=== PATIENT | male | born 1985 | race Hispanic/Latino ===

== ENCOUNTER 2017-12-14 20:41 | Emergency (ER) | payer BC ==
[2017-12-14] MEDS ORDERED: NA CHLORIDE 0.9% 1,000 ML ONE (21:59)
[2017-12-14] MEDS ORDERED: FENTANYL CITR 100 MCG/2 ML ONE ×2 (21:59→23:55)
[2017-12-14 22:21] LABS: Bicarbonate 28 mEq/L (21-31); Glucose Level 123 mg/dL (65-120); Lipase 69 U/L (22-51); Potassium 3.6 mEq/L (3.6-5.0); Sodium Level 135 mEq/L (135-145)
[2017-12-14 22:24] LABS: Absolute Lymphocytes (CBC) 3.9 K/uL (0.7-4.9); Absolute Monocytes 1.2 K/uL (0.1-1.3); Absolute Neutrophil 9.3 K/uL (1.8-8.0); Basophils % 0.7 % (0-1.3); Eosinophils % 1.1 % (0-4.4); Hematocrit 47.6 % (39.6-49.0); Lymphocytes % 26.5 % (15.3-44.8); MCH 30.9 pg (27.0-35.0); MCV 90.7 fL (80-100); MPV 8.4 fL (7.6-11.3); Monocytes % 8.1 % (3.3-12.3); RBC Red Blood Cell Count 5.24 M/uL (4.33-5.43)
[2017-12-14 22:28] LABS: ALT/SGPT 158 IU/L (10-60); AST/SGOT 141 IU/L (10-42); Albumin 5.6 g/dL (3.2-5.5); Alkaline Phosphatase 51 IU/L (42-121); BUN Blood Urea Nitrogen 14 mg/dL (6-20); Bilirubin Direct 0.1 mg/dL (0-0.2); Bilirubin Total 0.9 mg/dL (0.3-1.2); Protein, Total 9.2 g/dL (6.0-8.3)
[2017-12-14 23:06] LABS: Urine Blood TRACE (NEG); Urine Glucose NEGATIVE (NEG); Urine Protein 2+ (NEG); Urine Specific Gravity 1.025 (1.005-1.030); Urine pH 6.5 (5.0-7.0)
[2017-12-14 23:44] LABS: Urine Bacteria <20 /HPF (NONE SEEN); Urine Culture Reflex Order NOT NEEDED; Urine Mucus LIGHT /HPF (NONE SEEN); Urine RBC <5 /HPF (NONE SEEN)
[2017-12-14] MEDS ORDERED: FAMOTIDINE 20 MG/2 ML VIAL IV ONE (23:55)
[2017-12-15] MEDS ORDERED: HYDROCODONE/APAP 10/325 TAB ONE (00:53)
--- NOTE | 2017-12-15 00:59 | ER ---
Nurse's Notes [facility] Name: Micah Inman Age: 32 yrs Sex: Male : 1985 Arrival Date: 12/14/2017 Time: 20:44 Bed 27 Private MD: Diagnosis: Alcohol induced acute pancreatitis Presentation: 12/14 21:18 Presenting complaint: Patient states: epigastric pain with vomiting. pt with hx ak1 pancreatitis. Transition of care: patient was not received from another setting of care. Onset of symptoms was December 14, 2017. Initial Sepsis Screen: Does the patient meet any 2 criteria? No. Patient's initial sepsis screen is negative. Does the patient have a suspected source of infection? No. Patient's initial sepsis screen is negative. Care prior to arrival: None. 21:18 Method Of Arrival: Ambulatory ak1 21:18 Acuity: FUENTES 3 ak1 Triage Assessment: 21:20 General: Appears in no apparent distress. Behavior is calm, cooperative. Pain: ak1 Complains of pain in epigastric area. EENT: No signs and/or symptoms were reported regarding the EENT system. Neuro: No deficits noted. Cardiovascular: No deficits noted. Respiratory: No deficits noted. GI: Reports nausea, vomiting. : No signs and/or symptoms were reported regarding the genitourinary system. Derm: No signs and/or symptoms reported regarding the dermatologic system. Musculoskeletal: No signs and/or symptoms reported regarding the musculoskeletal system. Historical: - Allergies: 21:20 No Known Allergies; ak1 - Home Meds: 21:20 Ambien 10 mg Oral tab 1 tab nightly [Active]; lisinopril Oral [Active]; metoprolol ak1 tartrate 25 mg Oral tab 1 tab 2 times per day [Active]; Xanax 1 mg Oral tab 1 tab four times a day [Active]; Creon oral oral [Active]; - PMHx: 21:20 Anxiety; Hypertension; Pancreatitis; ak1 - PSHx: 21:20 right knee; ak1 - Immunization history:: Adult Immunizations unknown. - Social history:: Smoking status: Patient/guardian denies using tobacco. Screenin:45 Abuse screen: Denies threats or abuse. Denies injuries from another. Nutritional ed1 screening: No deficits noted. Tuberculosis screening: No symptoms or risk factors identified. Fall Risk None identified. Assessment: 21:44 Reassessment: Patient appears in no apparent distress at this time. No changes from ed1 previously documented assessment. Patient and/or family updated on plan of care and expected duration. Pain level reassessed. Patient is alert, oriented x 3, equal unlabored respirations, skin warm/dry/pink. Patient states symptoms have not improved. 22:52 Reassessment: Patient appears in no apparent distress at this time. No changes from ed1 previously documented assessment. Patient and/or family updated on plan of care and expected duration. Pain level reassessed. Patient is alert, oriented x 3, equal unlabored respirations, skin warm/dry/pink. Patient states symptoms have not improved. 23:59 Reassessment: Patient appears in no apparent distress at this time. Patient and/or ed1 family updated on plan of care and expected duration. Pain level reassessed. Patient is alert, oriented x 3, equal unlabored respirations, skin warm/dry/pink. Patient states symptoms have not improved. 12/15 01:38 GI: Bowel sounds present X 4 quads. mb3 Vital Signs: 12/14 21:22 BP 187 / 119; Pulse 75; Resp 16; Temp 97.8(TE); Pulse Ox 100% on R/A; Weight 103.42 kg ak1 (R); Height 6 ft. 0 in. (182.88 cm) (R); Pain 8/10; 21:44 BP 179 / 125; Pulse 70; Resp 17; Pulse Ox 100% on R/A; Pain 8/10; ed1 22:52 BP 117 / 112; Pulse 72; Resp 18; Pulse Ox 100% on R/A; Pain 7/10; ed1 23:59 BP 153 / 112; Pulse 72; Resp 17; Pulse Ox 99% on R/A; Pain 8/10; ed1 12/15 00:30 BP 165 / 98; Pulse 72; Resp 16; Pulse Ox 99% on R/A; Pain 4/10; ed1 12/14 21:22 Body Mass Index 30.92 (103.42 kg, 182.88 cm) ak ED Course: 12/14 20:44 Patient arrived in ED. al2 21:16 Doreen Corona LVN is Primary Nurse. ed1 21:19 Triage completed. ak1 21:19 Michael Bryan MD is Attending Physician. gs 21:22 Arm band placed on Patient placed in an exam room, on a stretcher, on pulse oximetry, ak1 Patient notified of wait time. 21:45 Patient has correct armband on for positive identification. ed1 23:38 CT Stone Protocol In Process Unspecified. EDMS 12/15 00:58 Talib Salcedo MD is Referral Physician. gs 01:38 No provider procedures requiring assistance completed. IV discontinued, intact, mb3 bleeding controlled, No redness/swelling at site. Pressure dressing applied. Administered Medications: 12/14 22:04 Drug: fentaNYL (PF) 50 mcg Route: IVP; Site: right antecubital; bb 22:53 Follow up: Response: No adverse reaction; Pain is unchanged, physician notified ed1 23:59 Follow up: Response: No adverse reaction; No change in condition ed1 22:04 Drug: NS 0.9% 1000 ml Route: IV; Rate: 1 bolus; Site: right antecubital; bb 22:53 Follow up: IV Status: Completed infusion; IV Intake: 1000ml ed1 23:59 Follow up: IV Status: Completed infusion; IV Intake: 1000ml ed1 23:58 Drug: fentaNYL (PF) 75 mcg Route: IVP; Site: right antecubital; ed1 12/15 01:40 Follow up: Response: No adverse reaction mb3 12/14 23:58 Drug: Pepcid 20 mg Route: IVP; Site: right antecubital; ed1 12/15 01:40 Follow up: Response: No adverse reaction mb3 01:03 Drug: [place] 10 mg-325 mg 1 tabs Route: PO; mb3 01:40 Follow up: Response: No adverse reaction mb3 Intake: 12/14 22:53 IV: 1000ml; Total: 1000ml. ed1 23:59 IV: 1000ml; Total: 2000ml. ed1 Outcome: 12/15 00:58 Discharge ordered by . gs 01:39 Discharged to home ambulatory. mb3 01:39 Condition: stable 01:39 Discharge instructions given to patient, Instructed on discharge instructions, follow up and referral plans. medication usage, Demonstrated understanding of instructions, follow-up care, medications, Prescriptions given X 3. 01:42 Patient left the ED. mb3 Signatures: Dispatcher [employer] EDIzzy Matthews RN RN bb Doreen Corona, PIANO PROFESSOR PIANO PROFESSOR ed1 Natalya Walden, RN RN ak1 Michael Bryan MD MD gs Love, Angelica al2 Barnett, Mark, RN RN mb3
--- NOTE | 2017-12-15 01:00 | EDPHYS ---
Physician Documentation [facility] Name: Micah Inman Age: 32 yrs Sex: Male : 1985 Arrival Date: 12/14/2017 Time: 20:44 Bed 27 Private MD: ED Physician Michael Bryan HPI: 12/15 00:51 This 32 yrs old Male presents to ER via Ambulatory with complaints of gs Abdominal Pain. 00:51 The patient presents with abdominal pain in the epigastric area. Onset: The gs symptoms/episode began/occurred 2 day(s) ago, and became persistent. The symptoms do not radiate. Associated signs and symptoms: Pertinent positives: nausea, Pertinent negatives: diarrhea, vomiting. Modifying factors: The symptoms are alleviated by nothing, the symptoms are aggravated by alcohol. Severity of pain: At its worst the pain was moderate in the emergency department the pain is unchanged. The patient has experienced similar episodes in the past, a few times. The patient has not recently seen a physician. Historical: - Allergies: 12/14 21:20 No Known Allergies; ak1 - Home Meds: 21:20 Ambien 10 mg Oral tab 1 tab nightly [Active]; lisinopril Oral [Active]; metoprolol ak1 tartrate 25 mg Oral tab 1 tab 2 times per day [Active]; Xanax 1 mg Oral tab 1 tab four times a day [Active]; Creon oral oral [Active]; - PMHx: 21:20 Anxiety; Hypertension; Pancreatitis; ak1 - PSHx: 21:20 right knee; ak1 - Immunization history:: Adult Immunizations unknown. - Social history:: Smoking status: Patient/guardian denies using tobacco. ROS: 12/15 00:52 Constitutional: Negative for chills, fever. gs All other systems are negative. Exam: 00:52 Head/Face: Normocephalic, atraumatic. Eyes: Pupils equal round and reactive to light, gs extra-ocular motions intact. Lids and lashes normal. Conjunctiva and sclera are non-icteric and not injected. Cornea within normal limits. Periorbital areas with no swelling, redness, or edema. ENT: Nares patent. No nasal discharge, no septal abnormalities noted. Tympanic membranes are normal and external auditory canals are clear. Oropharynx with no redness, swelling, or masses, exudates, or evidence of obstruction, uvula midline. Mucous membranes moist. Neck: Trachea midline, no thyromegaly or masses palpated, and no cervical lymphadenopathy. Supple, full range of motion without nuchal rigidity, or vertebral point tenderness. No Meningismus. Chest/axilla: Normal chest wall appearance and motion. Nontender with no deformity. No lesions are appreciated. Cardiovascular: Regular rate and rhythm with a normal S1 and S2. No gallops, murmurs, or rubs. Normal PMI, no JVD. No pulse deficits. Respiratory: Lungs have equal breath sounds bilaterally, clear to auscultation and percussion. No rales, rhonchi or wheezes noted. No increased work of breathing, no retractions or nasal flaring. Back: No spinal tenderness. No costovertebral tenderness. Full range of motion. Skin: Warm, dry with normal turgor. Normal color with no rashes, no lesions, and no evidence of cellulitis. MS/ Extremity: Pulses equal, no cyanosis. Neurovascular intact. Full, normal range of motion. Neuro: Awake and alert, GCS 15, oriented to person, place, time, and situation. Cranial nerves II-XII grossly intact. Motor strength 5/5 in all extremities. Sensory grossly intact. Cerebellar exam normal. Normal gait. 00:52 Constitutional: The patient appears alert, awake. Vital Signs: 12/14 21:22 BP 187 / 119; Pulse 75; Resp 16; Temp 97.8(TE); Pulse Ox 100% on R/A; Weight 103.42 kg ak1 (R); Height 6 ft. 0 in. (182.88 cm) (R); Pain 8/10; 21:44 BP 179 / 125; Pulse 70; Resp 17; Pulse Ox 100% on R/A; Pain 8/10; ed1 22:52 BP 117 / 112; Pulse 72; Resp 18; Pulse Ox 100% on R/A; Pain 7/10; ed1 23:59 BP 153 / 112; Pulse 72; Resp 17; Pulse Ox 99% on R/A; Pain 8/10; ed1 12/15 00:30 BP 165 / 98; Pulse 72; Resp 16; Pulse Ox 99% on R/A; Pain 4/10; ed1 12/14 21:22 Body Mass Index 30.92 (103.42 kg, 182.88 cm) ak1 MDM: 12/14 21:56 Patient medically screened. 12/15 00:56 Differential diagnosis: bowel obstruction, diverticulitis, non-specific abd pain, gs pancreatitis. Data reviewed: vital signs, nurses notes. 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 Response to treatment: the patient's symptoms have markedly improved after treatment. ED course: discussed admission versus discharge. pt prefers to go home be on liquid diet and pain medication. 12/14 21:57 Order name: Basic Metabolic Panel; Complete Time: 23:15 12/14 21:57 Order name: CBC with Diff; Complete Time: 23:15 12/14 21:57 Order name: Hepatic Function; Complete Time: 23:15 12/14 21:57 Order name: Lipase; Complete Time: 23:15 12/14 21:57 Order name: Urine Microscopic Only; Complete Time: 00:43 12/14 23:00 Order name: Urine Dipstick--Ancillary (enter results); Complete Time: 23:15 hi 12/14 21:57 Order name: IV Saline Lock; Complete Time: 22:12 12/14 21:57 Order name: Labs collected and sent; Complete Time: 22:12 12/14 23:15 Order name: CT Stone Protocol 12/14 21:57 Order name: Urine Dipstick-Ancillary (obtain specimen); Complete Time: 22:55 Administered Medications: 12/14 22:04 Drug: fentaNYL (PF) 50 mcg Route: IVP; Site: right antecubital; bb 22:53 Follow up: Response: No adverse reaction; Pain is unchanged, physician notified ed1 23:59 Follow up: Response: No adverse reaction; No change in condition ed1 22:04 Drug: NS 0.9% 1000 ml Route: IV; Rate: 1 bolus; Site: right antecubital; bb 22:53 Follow up: IV Status: Completed infusion; IV Intake: 1000ml ed1 23:59 Follow up: IV Status: Completed infusion; IV Intake: 1000ml ed1 23:58 Drug: fentaNYL (PF) 75 mcg Route: IVP; Site: right antecubital; ed1 12/15 01:40 Follow up: Response: No adverse reaction mb3 12/14 23:58 Drug: Pepcid 20 mg Route: IVP; Site: right antecubital; ed1 12/15 01:40 Follow up: Response: No adverse reaction mb3 01:03 Drug: [place] 10 mg-325 mg 1 tabs Route: PO; mb3 01:40 Follow up: Response: No adverse reaction mb3 Disposition: 12/15/17 00:58 Discharged to Home. Impression: Alcohol induced acute pancreatitis. - Condition is Stable. - Discharge Instructions: Acute Pancreatitis, Clear Liquid Diet, [id number]. - Prescriptions for Pepcid 20 mg Oral Tablet - take 1 tablet by ORAL route every 12 hours for 10 days; 20 tablet. Zofran 4 mg Oral Tablet - take 1 tablet by ORAL route every 12 hours As needed; 10 tablet. Tramadol 50 mg Oral Tablet - take 1 tablet by ORAL route every 8 hours as needed; 15 tablet. - Medication Reconciliation Form, Thank You Letter, Antibiotic Education, Prescription Opioid Use form. - Follow up: Talib Salcedo MD; When: 2 - 3 days; Reason: Re-evaluation by your physician. Signatures: Dispatcher [employer] Izzy Rose, RN RN Doreen Fuentes, FREIGHT RECEIVER FREIGHT RECEIVER ed1 Natalya Walden RN RN ak1 Michael Bryan MD MD Neo Sharif RN RN mb3 Corrections: (The following items were deleted from the chart) 01:42 00:58 12/15/2017 00:58 Discharged to Home. Impression: Alcohol induced acute mb3 pancreatitis. Condition is Stable. Forms are Medication Reconciliation Form, Thank You Letter, Antibiotic Education, Prescription Opioid Use. Follow up: Talib Salcedo; When: 2 - 3 days; Reason: Re-evaluation by your physician.
[2017-12-15 01:46] VITALS: TEMP 97.8
[2017-12-15 01:50] VITALS: O2SAT 99
[2017-12-15 01:51] VITALS: BP 165/98
--- NOTE | 2017-12-15 07:03 | RAD REPORT ---
EXAM DESCRIPTION: CT - Stone Protocol - 12/15/2017 2:05 am CLINICAL HISTORY: Abdominal pain, epigastric pain, history pancreatitis A preliminary written report was provided at the time of the study, and the report was reviewed prio r to final dictation. COMPARISON: None. TECHNIQUE: Axial 5 mm thick images were obtained without oral or IV contrast. The [id number] span s the entirety of the system including uppermost abdomen and lung bases. All CT scans are performed using dose optimization technique as appropriate and may include automated exposure control or mA/KV adjustment according to patient size. FINDINGS: No hydronephrosis is present and no obstructing ureteral calculi. No suspicious renal mass es. Isodense masses and pyelonephritis are not excluded on a stone protocol CT scan. No urinary bladd er suspicious finding. Liver shows diffuse fatty infiltration. No focal liver lesion identifiable. No splenic abnormality se en. Gallbladder and biliary tree within normal limits. Gallstones can be occult. No solid or cystic m ass of the pancreatic parenchyma. There is a minimal amount of stranding or edema in the peripancreat ic fat along the head, body and tail. No significant adrenal finding. No suspicious bowel findings. No appendicitis. Minimal diverticulosis of the colon without diverticul itis. No hernia, mass or bulky lymphadenopathy noted. No free air, free fluid or pneumatosis. No other area of inflammatory stranding. No significant bony abnormality. IMPRESSION: Mild pancreatitis changes. No solid or cystic mass of the pancreas. Diffuse fatty infiltration of the liver.
== END 2017-12-15 01:42 | disposition home or self-care (01) ==
LOC: ER 20:41
DX: K85.20 Alcohol induced acute pancreatitis without necrosis or infection (principal); I10 Essential (primary) hypertension; F41.9 Anxiety disorder, unspecified
CPT/HCPCS: 36415; 74176; 76377; 80048; 80076; 81003; 81015; 83690; 85025; 96361; 96374; 96375; 99284; J3010; J7030

== ENCOUNTER 2017-12-15 09:02 | Inpatient (IN) | payer BC ==
[2017-12-15] MEDS ORDERED: NA CHLORIDE 0.9% 1,000 ML ONE (09:33)
[2017-12-15] MEDS ORDERED: ONDANSETRON 4 MG/2 ML VIAL ONE (09:33)
[2017-12-15] MEDS ORDERED: MORPHINE 4 MG/ML SYR ONE ×2 (09:33→09:57)
[2017-12-15] MEDS ORDERED: PANTOPRAZOLE 40 MG INJ ONE (09:33)
[2017-12-15 09:40] LABS: Absolute Lymphocytes (CBC) 2.9 K/uL (0.7-4.9); Absolute Monocytes 1.1 K/uL (0.1-1.3); Absolute Neutrophil 12.4 K/uL (1.8-8.0); Basophils % 0.5 % (0-1.3); Eosinophils % 0.5 % (0-4.4); Hematocrit 46.1 % (39.6-49.0); Lymphocytes % 17.4 % (15.3-44.8); MCH 31.2 pg (27.0-35.0); MCV 90.1 fL (80-100); MPV 8.2 fL (7.6-11.3); Monocytes % 6.8 % (3.3-12.3); RBC Red Blood Cell Count 5.12 M/uL (4.33-5.43)
[2017-12-15 09:53] LABS: Bicarbonate 25 mEq/L (21-31); Glucose Level 171 mg/dL (65-120); Potassium 3.5 mEq/L (3.6-5.0); Sodium Level 134 mEq/L (135-145)
[2017-12-15 10:00] LABS: ALT/SGPT 127 IU/L (10-60); AST/SGOT 102 IU/L (10-42); Alkaline Phosphatase 50 IU/L (42-121); Amylase Level 117 U/L (28-100); BUN Blood Urea Nitrogen 9 mg/dL (6-20); Bilirubin Direct 0.2 mg/dL (0-0.2); Bilirubin Total 1.2 mg/dL (0.3-1.2); Protein, Total 8.3 g/dL (6.0-8.3)
[2017-12-15 10:16] LABS: Lipase 210 U/L (22-51)
[2017-12-15] MEDS ORDERED: CEFOXITIN/SWI 1gm 0 GM/0 ML SYR ONE (10:24)
[2017-12-15] MEDS ORDERED: MEPERIDINE HCL 25 MG/0.5 ML ONE ×3 (10:47→13:11)
[2017-12-15] MEDS ORDERED: NA CHLORIDE 0.9% 2,000 ML ONE (10:47)
[2017-12-15] MEDS ORDERED: ACETAMINOPHEN 500 MG TAB PO PRN (10:53)
--- NOTE | 2017-12-15 10:58 | ER ---
Nurse's Notes [facility] Name: Micah Inman Age: 32 yrs Sex: Male : 1985 Arrival Date: 12/15/2017 Time: 09:04 Bed 17 Private MD: Diagnosis: Acute pancreatitis Presentation: 12/15 09:15 Presenting complaint: Patient states: pt was seen yesterday, was diagnosed with acute sg pancreatitis, ct scan of Chest and Abd done, was not able to get his prescriptions filled for pain, has abd pain epigastric area that is not radiating, says a 10/10 with nausea. Transition of care: patient was not received from another setting of care. Onset of symptoms was December 15, 2017. Initial Sepsis Screen: Does the patient meet any 2 criteria? No. Patient's initial sepsis screen is negative. Does the patient have a suspected source of infection? No. Patient's initial sepsis screen is negative. Care prior to arrival: None. 09:15 Method Of Arrival: Ambulatory sg 09:15 Acuity: FUENTSE 3 sg Historical: - Allergies: 09:18 No Known Allergies; sg - Home Meds: 09:26 Ambien 10 mg Oral tab 1 tab nightly [Active]; Creon Oral [Active]; lisinopril Oral tw2 [Active]; metoprolol tartrate 25 mg Oral tab 1 tab 2 times per day [Active]; Xanax 1 mg Oral tab 1 tab four times a day [Active]; - PMHx: 09:18 Anxiety; Hypertension; Pancreatitis; sg - PSHx: 09:18 right knee; sg - Immunization history:: Adult Immunizations up to date. - Social history:: Smoking status: Patient/guardian denies using tobacco. Screenin:24 Abuse screen: Denies threats or abuse. Nutritional screening: No deficits noted. tw2 Tuberculosis screening: No symptoms or risk factors identified. Fall Risk None identified. Assessment: 09:22 General: Appears uncomfortable, well groomed, Behavior is cooperative, appropriate for tw2 age. Pain: Complains of pain in right upper quadrant. Neuro: Level of Consciousness is awake, alert, obeys commands, Oriented to person, place, time, situation. Cardiovascular: Denies chest pain, shortness of breath, Heart tones S1 S2 Capillary refill < 3 seconds Patient's skin is warm and dry. Respiratory: Airway is patent Respiratory effort is even, unlabored, Respiratory pattern is regular, symmetrical, Breath sounds are clear bilaterally. GI: Abdomen is flat, Bowel sounds present X 4 quads. Abd is soft X 4 quads Reports upper abdominal pain, nausea. : No signs and/or symptoms were reported regarding the genitourinary system. EENT: No signs and/or symptoms were reported regarding the EENT system. Derm: Skin is intact, is healthy with good turgor, Skin is dry. Musculoskeletal: Range of motion: intact in all extremities. 10:32 Reassessment: Patient and/or family updated on plan of care and expected duration. Pain tw2 level reassessed. Patient is alert, oriented x 3, equal unlabored respirations, skin warm/dry/pink. pt c/o pain 05/11, has not had improvement since being here, no relief from pain medicine, STACIE Booth notified. 12:02 Reassessment: Patient and/or family updated on plan of care and expected duration. Pain tw2 level reassessed. Patient is alert, oriented x 3, equal unlabored respirations, skin warm/dry/pink. provider notified pt states "the last time they gave me a [place] 10 and it helped", provider notified. no further orders at this time. Patient states symptoms have not improved. 12:21 Reassessment: Patient appears in no apparent distress at this time. Patient and/or tw2 family updated on plan of care and expected duration. Pain level reassessed. Patient is alert, oriented x 3, equal unlabored respirations, skin warm/dry/pink. 13:04 Reassessment: ot requesting more pain medication, STACIE Booth notified. iw 13:28 Reassessment: Patient and/or family updated on plan of care and expected duration. Pain tw2 level reassessed. Patient is alert, oriented x 3, equal unlabored respirations, skin warm/dry/pink. provider notified. Patient states symptoms have not improved. 14:35 Reassessment: Patient and/or family updated on plan of care and expected duration. Pain tw2 level reassessed. Patient is alert, oriented x 3, equal unlabored respirations, skin warm/dry/pink. Vital Signs: 09:17 BP 184 / 112; Pulse 70; Resp 16; Pulse Ox 100% on R/A; Weight 86.18 kg (R); Pain 10/10; sg 09:20 Temp 97.3(TE); tw2 10:31 BP 164 / 97; Pulse 78; Resp 18 S; Pulse Ox 97% on R/A; Pain 10/10; iw 11:28 Pain 9/10; tw2 11:30 BP 180 / 109; Pulse 73; Resp 18; Pulse Ox 98% on R/A; tw2 12:21 BP 139 / 87; Pulse 76; Resp 17; Pulse Ox 97% on R/A; tw2 13:26 BP 191 / 110; Pulse 86; Resp 17; Pulse Ox 97% on R/A; Pain 8/10; tw2 14:29 BP 189 / 104; Pulse 97; Resp 17; Pulse Ox 97% on R/A; tw2 11:30 provider notified of BP tw2 ED Course: 09:04 Patient arrived in ED. rg4 09:07 Juanito Grande PA is PHCP. cp 09:07 Steve Garcia MD is Attending Physician. cp 09:16 Thao Nava RN is Primary Nurse. tw2 09:17 Triage completed. sg 09:19 Arm band placed on. sg 09:20 Placed in gown. Bed in low position. Pulse ox on. NIBP on. tw2 09:34 Missed attempt(s): 22 gauge in left antecubital area. jb1 09:34 Initial lab(s) drawn, by me, sent to lab. Inserted saline lock: 22 gauge in left jb1 antecubital area, using aseptic technique. Blood collected. 09:40 Inserted saline lock: 22 gauge in right antecubital area, using aseptic technique. IV tw2 discontinued, intact, bleeding controlled, No redness/swelling at site. Pressure dressing applied, to the right ac. 10:57 Hailey Soria MD is Hospitalizing Provider. cp 12:22 No provider procedures requiring assistance completed. tw2 14:28 Awaiting: lower blood pressure, floor would not take pt d/t BP, one time order of tw2 medication given per Dr. Soria at 1410. 14:34 Awaiting: per Rosie, RN will not take pt at this time due to BP, will call back in 15 tw2 minutes to see if BP is lowered. 15:06 Report given to per Dr. Soria pt can go to floor, RN nurse notified. tw2 Administered Medications: 09:36 Drug: Zofran 4 mg Route: IVP; Site: left antecubital; tw2 10:45 Follow up: Response: No adverse reaction tw2 09:38 Drug: ProTONIX 40 mg Route: IVP; Site: left antecubital; tw2 10:45 Follow up: Response: No adverse reaction tw2 09:41 Drug: NS 0.9% 1000 ml Route: IV; Rate: 1 bolus; Site: left antecubital; tw2 09:54 Follow up: IV SiteChange: right antecubital; IV SiteChange Reason: Infiltration tw2 10:50 Follow up: Response: No adverse reaction; IV Status: Completed infusion; IV Intake: tw2 1000ml 09:42 Drug: morphine 4 mg Route: IVP; Site: left antecubital; tw2 09:54 Follow up: Response: No adverse reaction; Pain is unchanged, physician notified tw2 09:58 Drug: morphine 4 mg Route: IVP; Site: right antecubital; tw2 10:45 Follow up: Response: No adverse reaction; Pain is decreased tw2 10:50 Drug: Demerol 25 mg Route: IVP; Site: right antecubital; tw2 11:28 Follow up: Pain 9/10 Adult; Response: No adverse reaction tw2 10:50 Drug: NS 0.9% 1000 ml Route: IV; Rate: 1 bolus; Site: right antecubital; tw2 12:04 Follow up: Response: No adverse reaction; IV Status: Completed infusion; IV Intake: tw2 1000ml 10:50 Drug: NS 0.9% 1000 ml Route: IV; Rate: 125 ml/hr; Site: right antecubital; tw2 13:52 Follow up: IV Status: Infusion continued upon admission tw2 11:28 Drug: Demerol 25 mg Route: IVP; Site: right antecubital; tw2 12:04 Follow up: Response: No adverse reaction; Pain is unchanged, physician notified tw2 13:15 Drug: Demerol 25 mg Route: IVP; Site: right antecubital; tw2 13:52 Follow up: Response: No adverse reaction tw2 14:02 CANCELLED (ordered under dr. soria): hydrALAZINE 10 mg IV at 10 bolus once tw2 14:03 Not Given (ordered under Dr. Soria): Ativan 2 mg IVP once tw2 14:10 Drug: Ativan 2 mg Route: IVP; Site: right antecubital; tw2 15:03 Follow up: Response: No adverse reaction tw2 14:12 Drug: hydrALAZINE 10 mg Route: IV; Rate: 10 bolus; Site: right antecubital; tw2 14:14 Follow up: IV Status: Completed infusion tw2 14:55 Follow up: Response: No adverse reaction; Blood pressure is unchanged tw2 15:00 Drug: Labetalol 10 mg Route: IVP; Infused Over: 2 mins; Site: right antecubital; tw2 15:05 Follow up: Response: No adverse reaction; No change in condition; No change in tw2 condition, physician notified and stated pt can go to the floor. Intake: 10:50 IV: 1000ml; Total: 1000ml. tw2 12:04 IV: 1000ml; Total: 2000ml. tw2 Outcome: 10:57 Decision to Hospitalize by Provider. cp 13:49 Admitted to Med/surg accompanied by tech, via wheelchair, room 405, with chart, Report tw2 called to COSMO Ramos 13:49 Condition: stable 13:49 Instructed on the need for admit. 15:07 Patient left the ED. tw2 Signatures: Christopher Fountain jb1 Kobi Dunn, RN COSMO sg Jonna Hanna RN RN iw Juanito Grande PA PA cp Wise, Tara, RN RN tw2 Sarah Zapata rg4 Corrections: (The following items were deleted from the chart) 13:51 13:49 Admitted to Med/surg accompanied by tech, via wheelchair, room 405, with chart, tw2 Report called to COSMO Schuler tw2 13:55 08:56 Blood Glucose: Blood Glucose Qufsrnx=922 mg/dL. tw2 tw2 14:35 10:32 Reassessment: Patient appears in no apparent distress at this time. pt c/o pain tw2 05/11, has not had improvement since being here, no relief from pain medicine, STACIE Booth notified iw 14:35 12:02 Reassessment: Patient appears in no apparent distress at this time. Patient tw2 and/or family updated on plan of care and expected duration. Pain level reassessed. Patient is alert, oriented x 3, equal unlabored respirations, skin warm/dry/pink. provider notified pt states "the last time they gave me a [place] 10 and it helped", provider notified. no further orders at this time. Patient states symptoms have not improved. tw2 14:35 13:28 Reassessment: Patient appears in no apparent distress at this time. Patient tw2 and/or family updated on plan of care and expected duration. Pain level reassessed. Patient is alert, oriented x 3, equal unlabored respirations, skin warm/dry/pink. provider notified. Patient states symptoms have not improved. tw2
--- NOTE | 2017-12-15 10:58 | EDPHYS ---
Physician Documentation [facility] Name: Micah Inman Age: 32 yrs Sex: Male : 1985 Arrival Date: 12/15/2017 Time: 09:04 Bed 17 Private MD: ED Physician Steve Garcia HPI: 12/15 09:30 This 32 yrs old Male presents to ER via Ambulatory with complaints of cp Abdominal Pain. 09:30 The patient presents with abdominal pain in the upper abdomen. The symptoms radiate to cp right back. Associated signs and symptoms: Pertinent positives: nausea and vomiting, Pertinent negatives: constipation, diarrhea, dysuria, fever, palpitations, vomiting blood. The symptoms are described as constant. The patient has been recently seen at the [facility] Emergency Department, today, for similar complaints labs were performed, CT scan was performed, told to return if pain worsens. Historical: - Allergies: 09:18 No Known Allergies; sg - Home Meds: 09:26 Ambien 10 mg Oral tab 1 tab nightly [Active]; Creon Oral [Active]; lisinopril Oral tw2 [Active]; metoprolol tartrate 25 mg Oral tab 1 tab 2 times per day [Active]; Xanax 1 mg Oral tab 1 tab four times a day [Active]; - PMHx: 09:18 Anxiety; Hypertension; Pancreatitis; sg - PSHx: 09:18 right knee; sg - Immunization history:: Adult Immunizations up to date. - Social history:: Smoking status: Patient/guardian denies using tobacco. ROS: 09:35 Constitutional: Positive for poor PO intake, Negative for body aches, chills, fever. cp 09:35 Eyes: Negative for injury, pain, redness, and discharge. cp 09:35 ENT: Negative for drainage from ear(s), ear pain, sore throat, difficulty swallowing, difficulty handling secretions. 09:35 Cardiovascular: Negative for chest pain, edema, palpitations. 09:35 Respiratory: Negative for cough, shortness of breath, wheezing. 09:35 Abdomen/GI: Positive for abdominal pain, nausea, anorexia, Negative for diarrhea, constipation, black/tarry stool, rectal bleeding, active vomiting. 09:35 Back: Positive for radiated pain. 09:35 : Negative for urinary symptoms, testicular pain 09:35 Skin: Negative for cellulitis, rash. 09:35 Neuro: Negative for altered mental status, headache, weakness. 09:35 All other systems are negative. Exam: 09:35 Head/Face: Normocephalic, atraumatic. cp 09:35 Constitutional: The patient appears in no acute distress, alert, awake, non-toxic, well developed, well nourished, uncomfortable. 09:35 Eyes: Periorbital structures: appear normal, Pupils: equal, round, and reactive to light and accomodation, Extraocular movements: intact throughout, Conjunctiva: normal, no exudate, no injection, Sclera: no appreciated abnormality, Lids and lashes: appear normal, bilaterally. 09:35 ENT: External ear(s): are unremarkable, Nose: is normal, Mouth: Lips: moist, Oral mucosa: moist, Posterior pharynx: is normal, airway is patent, no erythema, no exudate. 09:35 Neck: ROM/movement: is normal, is supple, without pain, no range of motions limitations, no nuchal rigidity. 09:35 Chest/axilla: Inspection: normal, Palpation: is normal, no crepitus, no tenderness. 09:35 Cardiovascular: Rate: normal, Rhythm: regular, Edema: is not appreciated, JVD: is not appreciated. 09:35 Respiratory: the patient does not display signs of respiratory distress, Respirations: normal, no use of accessory muscles, no retractions, no splinting, no tachypnea, labored breathing, is not present, Breath sounds: are clear throughout, no decreased breath sounds, no stridor, no wheezing. 09:35 Abdomen/GI: Inspection: abdomen appears normal, Bowel sounds: active, all quadrants, Palpation: soft, in all quadrants, severe abdominal tenderness, in the epigastric area, rebound tenderness, is not appreciated, voluntary guarding, is elicited in the epigastric area. 09:35 Back: pain, that is moderate, of the right mid back, ROM is normal. 09:35 Skin: cellulitis, is not appreciated, no rash present. 09:35 Neuro: Orientation: to person, place \T\ time. Mentation: is normal, Cerebellar function: is grossly normal, Motor: moves all fours, strength is normal, Sensation: is normal. Vital Signs: 09:17 BP 184 / 112; Pulse 70; Resp 16; Pulse Ox 100% on R/A; Weight 86.18 kg (R); Pain 10/10; sg 09:20 Temp 97.3(TE); tw2 10:31 BP 164 / 97; Pulse 78; Resp 18 S; Pulse Ox 97% on R/A; Pain 10/10; iw 11:28 Pain 9/10; tw2 11:30 BP 180 / 109; Pulse 73; Resp 18; Pulse Ox 98% on R/A; tw2 12:21 BP 139 / 87; Pulse 76; Resp 17; Pulse Ox 97% on R/A; tw2 13:26 BP 191 / 110; Pulse 86; Resp 17; Pulse Ox 97% on R/A; Pain 8/10; tw2 14:29 BP 189 / 104; Pulse 97; Resp 17; Pulse Ox 97% on R/A; tw2 11:30 provider notified of BP tw2 MDM: 09:15 Patient medically screened. cp 10:00 Differential diagnosis: cholecystitis, Cholelithiasis, diverticulitis, gastritis, GI cp Bleed, pancreatitis, Peptic Ulcer Disease, Perf. Duodenal Ulcer, Perf. Gastric Ulcer, Ureterolithiasis, urinary tract infection. 10:55 Data reviewed: vital signs, nurses notes, old medical records, previous labs and report cp of CT lab test result(s). 10:55 Physician consultation: Hailey Soria MD was called at 10:56, was contacted at 10:56, cp regarding admission, to the medical/surgical unit. patient's condition. 12/15 09:24 Order name: Amylase, Serum; Complete Time: 10:33 cp 12/15 10:11 Interpretation: Abnormal: VIVIAN 117. cp 12/15 09:24 Order name: Basic Metabolic Panel; Complete Time: 10:33 cp 12/15 10:11 Interpretation: Normal except: NA 134; K 3.5; CL 95; GLUC 171. cp 12/15 09:24 Order name: CBC with Diff; Complete Time: 10:10 cp 12/15 10:10 Interpretation: Normal except: WBC 16.5; BETH% 74.8; NEUT A 12.4. cp 12/15 09:24 Order name: Creatinine for Radiology; Complete Time: 10:10 cp 12/15 09:24 Order name: Hepatic Function; Complete Time: 10:33 cp 12/15 10:11 Interpretation: Normal except: SGOT 102; SGPT 127. 12/15 09:24 Order name: Lipase; Complete Time: 10:33 12/15 10:34 Interpretation: LIP 210; Reviewed. 12/15 09:24 Order name: Urine Microscopic Only 12/15 10:56 Order name: Urinalysis [facility] 12/15 10:56 Order name: Blood Culture [facility] 12/15 11:08 Order name: Urine Dipstick--Ancillary (enter results) em1 12/15 11:45 Order name: Urine Dipstick-Ancillary [facility] 12/15 09:24 Order name: IV Saline Lock; Complete Time: 09:34 12/15 09:24 Order name: Labs collected and sent; Complete Time: 09:34 12/15 09:24 Order name: Urine Dipstick-Ancillary (obtain specimen); Complete Time: 11:07 12/15 10:56 Order name: NPO EDVA Administered Medications: 09:36 Drug: Zofran 4 mg Route: IVP; Site: left antecubital; tw2 10:45 Follow up: Response: No adverse reaction tw2 09:38 Drug: ProTONIX 40 mg Route: IVP; Site: left antecubital; tw2 10:45 Follow up: Response: No adverse reaction tw2 09:41 Drug: NS 0.9% 1000 ml Route: IV; Rate: 1 bolus; Site: left antecubital; tw2 09:54 Follow up: IV SiteChange: right antecubital; IV SiteChange Reason: Infiltration tw2 10:50 Follow up: Response: No adverse reaction; IV Status: Completed infusion; IV Intake: tw2 1000ml 09:42 Drug: morphine 4 mg Route: IVP; Site: left antecubital; tw2 09:54 Follow up: Response: No adverse reaction; Pain is unchanged, physician notified tw2 09:58 Drug: morphine 4 mg Route: IVP; Site: right antecubital; tw2 10:45 Follow up: Response: No adverse reaction; Pain is decreased tw2 10:50 Drug: Demerol 25 mg Route: IVP; Site: right antecubital; tw2 11:28 Follow up: Pain 9/10 Adult; Response: No adverse reaction tw2 10:50 Drug: NS 0.9% 1000 ml Route: IV; Rate: 1 bolus; Site: right antecubital; tw2 12:04 Follow up: Response: No adverse reaction; IV Status: Completed infusion; IV Intake: tw2 1000ml 10:50 Drug: NS 0.9% 1000 ml Route: IV; Rate: 125 ml/hr; Site: right antecubital; tw2 13:52 Follow up: IV Status: Infusion continued upon admission tw2 11:28 Drug: Demerol 25 mg Route: IVP; Site: right antecubital; tw2 12:04 Follow up: Response: No adverse reaction; Pain is unchanged, physician notified tw2 13:15 Drug: Demerol 25 mg Route: IVP; Site: right antecubital; tw2 13:52 Follow up: Response: No adverse reaction tw2 14:02 CANCELLED (ordered under dr. soria): hydrALAZINE 10 mg IV at 10 bolus once tw2 14:03 Not Given (ordered under Dr. Soria): Ativan 2 mg IVP once tw2 14:10 Drug: Ativan 2 mg Route: IVP; Site: right antecubital; tw2 15:03 Follow up: Response: No adverse reaction tw2 14:12 Drug: hydrALAZINE 10 mg Route: IV; Rate: 10 bolus; Site: right antecubital; tw2 14:14 Follow up: IV Status: Completed infusion tw2 14:55 Follow up: Response: No adverse reaction; Blood pressure is unchanged tw2 15:00 Drug: Labetalol 10 mg Route: IVP; Infused Over: 2 mins; Site: right antecubital; tw2 15:05 Follow up: Response: No adverse reaction; No change in condition; No change in tw2 condition, physician notified and stated pt can go to the floor. Disposition: 18:02 Co-signature as Attending Physician, Steve Garcia MD I agree with the assessment and kdr plan of care. Disposition: 12/15/17 10:57 Hospitalization ordered by Hailey Soria for Inpatient Admission. Preliminary diagnosis is Acute pancreatitis. - Bed requested for Telemetry/MedSurg (Inpatient). - Status is Inpatient Admission. tw2 - Condition is Stable. - Problem is new. - Symptoms have improved. UTI on Admission? No Signatures: Dispatcher [employer] EDKobi Saeed, RN RN sg Steve Garcia MD MD kdr Martinez, Eric em1 Juanito Grande PA PA cp Thao Nava RN RN tw2 Corrections: (The following items were deleted from the chart) 13:49 10:57 Hospitalization Ordered by Hailey Soria MD for Inpatient Admission. Preliminary em1 diagnosis is Acute pancreatitis. Bed requested for Telemetry/MedSurg (Inpatient). Status is Inpatient Admission. Condition is Stable. Problem is new. Symptoms have improved. UTI on Admission? No. cp 14:02 14:01 hydrALAZINE 10 mg IV at 10 bolus once ordered. tw2 tw2 14:02 14:02 hydrALAZINE 10 mg IV at 10 bolus once ordered. tw2 tw2 15:07 13:49 12/15/2017 10:57 Hospitalization Ordered by Hailey Soria MD for Inpatient tw2 Admission. Preliminary diagnosis is Acute pancreatitis. Bed requested for Telemetry/MedSurg (Inpatient). Status is Inpatient Admission. Condition is Stable. Problem is new. Symptoms have improved. UTI on Admission? No. em1
[2017-12-15] MEDS: NA CHLORIDE 0.9% 1,000 ML IV SCH ×3 (11:00→15:55)
[2017-12-15] MEDS ORDERED: NA CHLORIDE 0.9% 1,000 ML IV SCH (11:00)
[2017-12-15 11:44] LABS: Urine Blood TRACE (NEG); Urine Glucose NEGATIVE (NEG); Urine Protein 2+ (NEG); Urine Specific Gravity 1.015 (1.005-1.030); Urine pH 6.5 (5.0-7.0)
[2017-12-15 11:44] LABS: Urine Bacteria <20 /HPF (NONE SEEN); Urine Coarse Granular Casts FEW /LPF (NONE SEEN); Urine Culture Reflex Order NOT NEEDED; Urine Mucus 1+ /HPF (NONE SEEN); Urine RBC <5 /HPF (NONE SEEN)
--- NOTE | 2017-12-15 13:31 | P.HP ---
Certification for Inpatient Patient admitted to: Observation With expected LOS: <2 Midnights Patient will require the following post-hospital care: None Practitioner: I am a practitioner with admitting privileges, knowledge of patient current condition, hospital course, and medical plan of care. Services: Services provided to patient in accordance with Admission requirements found in Title 42 Section 412.3 of the Code of Federal Regulations Patient History Date of Service: 12/15/17 Primary Care Provider: Lo Reason for admission: Epigastric pain History of Present Illness: 32-year-old with significant past medical history of high blood pressure presented to the ED complaining of having some epigastric pain that has been starting about 2-3 days ago. Patient presented to the ER earlier today for the similar symptoms and was discharged home with diagnosis of acute pancreatitis as he was insisting to go home. Patient however did not have any pain relief and thus decided to come back to the ER for further care. Patient stated that 2 days ago he went out on a drink bingeing trip with his friends and ever since then started having this epigastric pain. Patient stated that he also has been having some nausea and vomiting and only has been able to keep down Gatorade with ice chips. Patient has similar episodes in the past because of alcohol and dietary habits for he was kept in the hospital for IV fluids p.o. pain medication and resolution of his pancreatitis. In the ear the 2nd time around patient was found to have a lipase of 210 and elevated white count thus medicine team was consulted for admission to the hospital for further care. Allergies No Known Allergies Allergy (Unverified 01/02/16 14:58) Review of Systems General: As per HPI Physical Examination - Physical Exam General: Alert, In no apparent distress HEENT: Atraumatic Neck: Supple Respiratory: Clear to auscultation bilaterally, Normal air movement Cardiovascular: Regular rate/rhythm, Normal S1 S2 Gastrointestinal: Normal bowel sounds, Tenderness (Epigastric pain) Musculoskeletal: No tenderness Integumentary: No rashes Neurological: Normal speech, Normal strength at 5/5 x4 extr, Normal tone Lymphatics: No axilla or inguinal lymphadenopathy - Studies Laboratory Data (last 24 hrs) 12/15/17 09:30: Creatinine 0.84 12/15/17 09:30: WBC 16.5 H, Hgb 16.0, Hct 46.1, Plt Count 244 12/15/17 09:30: Sodium 134 L, Potassium 3.5 L, BUN 9, Creatinine 0.85, Glucose 171 H, Total Bilirubin 1.2, AST 102 H, ALT 127 H, Alkaline Phosphatase 50, Amylase 117 H, Lipase 210 H Assessment and Plan - Problems (Diagnosis) (1) Acute alcoholic pancreatitis Current Visit: Yes Status: Acute Plan: Acute Pancreatitis 2.2 to alcoholism -Lipase elevated to 210 now -Leukocytosis noted as well -NPO, IV fluids and Pain mgmt Qualifiers: Acute pancreatitis complication: no infection or necrosis Qualified Code(s) : K85.20 - Alcohol induced acute pancreatitis without necrosis or infection (2) Fatty (change of) liver, not elsewhere classified Current Visit: Yes Status: Chronic Plan: Fatty infiltrate of the liver. -Educated on abstaining from alcohol abuse (3) HTN (hypertension) Current Visit: Yes Status: Acute Plan: Pt take BB at home. Will restart. Qualifiers: Hypertension type: essential hypertension Qualified Code(s): I10 - Essential (primary) hypertension Discharge Plan: Home Plan to discharge in: 24 Hours - Advance Directives Does patient have a Living Will: No Does patient have a Durable POA for Healthcare: No - Code Status/Comfort Care Code Status Assessed: Yes Critical Care: No
[2017-12-15] MEDS ORDERED: LORazepam 2 MG/ML VIAL ONE (14:06)
[2017-12-15] MEDS ORDERED: HYDRALAZINE HCL 20 MG/ML VIAL ONE (14:07)
[2017-12-15] MEDS ORDERED: LABETALOL HCL 100 MG/20 ML ONE (14:59)
[2017-12-15] MEDS: Morphine 2 MG/2 ML SYR IV PRN ×2 (16:01→20:47)
[2017-12-15] MEDS ORDERED: FENTANYL CITR 100 MCG/2 ML IV ONE (18:00)
[2017-12-15] MEDS: LORazepam 2 MG/ML VIAL IV PRN (19:02)
[2017-12-15] MEDS: HYDRALAZINE HCL 20 MG/ML VIAL IV PRN (19:02)
[2017-12-15] MEDS ORDERED: KCL 20 MEQ/100 mL IVPB 20 MEQ/100 ML BAG IV SCH (20:00)
[2017-12-15] MEDS: ONDANSETRON 4 MG/2 ML VIAL IV PRN (20:18)
[2017-12-15] MEDS: KETOROLAC 30 MG/ML INJ IV PRN (21:42)
[2017-12-16] MEDS: NA CHLORIDE 0.9% 1,000 ML IV SCH ×4 (00:20→15:57)
[2017-12-16] MEDS: Morphine 2 MG/2 ML SYR IV PRN ×2 (00:20→04:30)
[2017-12-16] MEDS: LORazepam 2 MG/ML VIAL IV PRN ×3 (02:03→17:08)
[2017-12-16] MEDS: KETOROLAC 30 MG/ML INJ IV PRN (03:26)
[2017-12-16] MEDS ORDERED: CREON 6000 UNIT PO SCH (08:00)
[2017-12-16 08:33] LABS: Magnesium 1.4 mg/dL (1.8-2.5)
[2017-12-16 08:38] LABS: Potassium 6.4 mEq/L (3.6-5.0)
[2017-12-16 08:39] LABS: Phosphorus 3.1 mg/dL (2.5-4.3)
[2017-12-16] MEDS ORDERED: NA CHLORIDE 0.9% 1,000 ML IV ONE (08:53)
[2017-12-16] MEDS ORDERED: NA CHLORIDE 0.9% 500 ML IV ONE (08:55)
[2017-12-16] MEDS ORDERED: D50W 25 GM/50 ML SYRINGE IV PRN ×2 (08:55→09:54)
[2017-12-16] MEDS ORDERED: GLUCAGON 1 MG/VIAL IM PRN ×2 (08:55→09:54)
[2017-12-16] MEDS ORDERED: INSULIN -REGULAR HUMAN 50 UNIT/0.5 ML ML IV ONE ×3 (08:56→18:14)
[2017-12-16] MEDS ORDERED: CALCIUM GLUC 10% INJ 4.65 MEQ in NA CHLORIDE 0.9% 100 ML IV ONE ×3 (08:56→22:23)
[2017-12-16] MEDS ORDERED: METOPROLOL TAR 25 MG TAB PO SCH (09:00)
[2017-12-16] MEDS ORDERED: NA CHLORIDE 0.9% 1,000 ML IV SCH ×2 (09:00)
[2017-12-16] MEDS ORDERED: METOPROLOL TARTRATE 5 MG/5 ML INJ IV STA ×2 (09:28→20:06)
[2017-12-16 09:41] LABS: Albumin 3.6 g/dL (3.2-5.5); Bilirubin Total 1.7 mg/dL (0.3-1.2); Protein, Total 6.6 g/dL (6.0-8.3)
[2017-12-16 09:45] LABS: Potassium 7.1 mEq/L (3.6-5.0)
[2017-12-16] MEDS ORDERED: MAGNESIUM 50% 3 GM in NA CHLORIDE 0.9% 100 ML IV ONE (09:46)
[2017-12-16 09:49] LABS: Absolute Lymphocytes (CBC) 2.4 K/uL (0.7-4.9); Absolute Monocytes 1.7 K/uL (0.1-1.3); Absolute Neutrophil 17.8 K/uL (1.8-8.0); Basophils % 0.2 % (0-1.3); Hematocrit 53.6 % (39.6-49.0); Lymphocytes % 10.7 % (15.3-44.8); MCH 30.5 pg (27.0-35.0); MPV 9.1 fL (7.6-11.3); Monocytes % 7.8 % (3.3-12.3); RBC Red Blood Cell Count 5.82 M/uL (4.33-5.43)
[2017-12-16] MEDS ORDERED: SODIUM CHLORIDE 0.9% 10ML INJ IV PRN (09:51)
[2017-12-16 10:24] LABS: Blood Morphology Comment NOT SEEN (NOT SEEN); Platelet Estimate ADEQ
[2017-12-16 11:04] LABS: HDL Cholesterol 33 mg/dL (27-67); LDL Cholesterol, Calculated ND (<130)
[2017-12-16] MEDS: ONDANSETRON 4 MG/2 ML VIAL IV PRN (11:30)
[2017-12-16] MEDS: HYDROMORPHONE HCL 2 MG/ML inj IV PRN ×5 (11:30→22:03)
--- NOTE | 2017-12-16 11:37 | RAD REPORT ---
EXAM DESCRIPTION: US - Abdomen Exam Limited - 12/16/2017 11:25 am CLINICAL HISTORY: Abdominal pain. COMPARISON: None. FINDINGS: The gallbladder demonstrates no gallstones. No pericholecystic fluid or gallbladder wall t hickening. The common bile duct is normal measuring 5 mm. The liver demonstrates fatty liver. IMPRESSION: Mildly distended gallbladder without stones or evidence of cholecystitis. Fatty liver.
[2017-12-16 11:45] LABS: LDL, Direct 54 mg/dl (<130)
--- NOTE | 2017-12-16 12:06 | P.PN ---
Subjective Date of Service: 12/16/17 Primary Care Provider: Burn Chief Complaint: Epigastric pain Pt seen and examined at bedside today. Pt appears to be in acute distress today.Pt is having a lot of pain in the epigastric area and appears to be anxious as well. Complains of nausea and vomiting Review of Systems General: As per HPI Physical Examination - Vital Signs Temperature: 95.2 F Blood Pressure: 127/68 Pulse: 115 Respirations: 30 Pulse Ox (%): 97 - Physical Exam General: Alert, Oriented x3, Moderate distress HEENT: Atraumatic Neck: Supple Respiratory: Clear to auscultation bilaterally, Normal air movement Cardiovascular: Regular rate/rhythm, Normal S1 S2 Gastrointestinal: Normal bowel sounds, Tenderness, Guarding Musculoskeletal: No tenderness Integumentary: No rashes Neurological: Normal speech, Normal tone, Normal affect Lymphatics: No axilla or inguinal lymphadenopathy - Studies Medications List Reviewed: Yes Assessment & Plan - Problems (Diagnosis) (1) Acute alcoholic pancreatitis Onset Date: 12/16/17 Current Visit: Yes Status: Acute Plan: Acute Pancreatitis 2.2 to alcoholism vs TG's -Lipase elevated to 600 now -Leukocytosis worsening today -IV meropenum started today -NPO, IV fluids and Pain mgmt with Morphine and dilaudid. DC demoral with ALFONSO Qualifiers: Acute pancreatitis complication: no infection or necrosis Qualified Code(s) : K85.20 - Alcohol induced acute pancreatitis without necrosis or infection (2) Metabolic acidosis Current Visit: Yes Status: Acute Plan: Metabolic Acidosis with Anion gap of 20. Most Likely 2.2 to pancreatitis vs Rhabdomylosis -Aggressive IV fluids 2L bolus and 200ml/hr -Nephrology consulted. Awaiting reccs -Replace Electrolytes and consider Bicarb if no change in Acidosis (3) Hyperkalemia Current Visit: Yes Status: Acute Plan: K increased from 3.3 to 7.1 today -2g Ca Gluconate -IV fluids -20units Reg Insulin -Repeat Labs at 12 -Nephrology consulted for possible temp Dialysis (4) Rhabdomyolysis Current Visit: Yes Status: Acute Plan: Rhabdomyolysis with ALFNOSO and hyperkalemia. 2.2 to Pancreatitis -IV fluids and aggressive replacement of Electrolytes -Nephrology consulted. Awaiting reccs Qualifiers: Rhabdomyolysis type: non-traumatic Qualified Code(s): M62.82 - Rhabdomyolysis (5) ALFONSO (acute kidney injury) Current Visit: Yes Status: Acute Plan: Most Likely 2/2 to Rhabdomyolsis vs Pancreatitis -See # 4 (6) HTN (hypertension) Onset Date: 12/16/17 Current Visit: Yes Status: Chronic Qualifiers: Hypertension type: essential hypertension Qualified Code(s): I10 - Essential (primary) hypertension (7) Fatty (change of) liver, not elsewhere classified Onset Date: 12/16/17 Current Visit: Yes Status: Chronic Plan: Fatty infiltrate of the liver. -Educated on abstaining from alcohol abuse Discharge Plan: Home Plan to discharge in: 72 Hours - Code Status/Comfort Care Code Status Assessed: Yes Critical Care: Yes
[2017-12-16 12:41] LABS: Absolute Lymphocytes (CBC) 2.8 K/uL (0.7-4.9); Absolute Monocytes 1.7 K/uL (0.1-1.3); Absolute Neutrophil 16.8 K/uL (1.8-8.0); Basophils % 0.3 % (0-1.3); Hematocrit 53.3 % (39.6-49.0); Lymphocytes % 13.1 % (15.3-44.8); MCH 30.2 pg (27.0-35.0); MCV 92.7 fL (80-100); MPV 9.5 fL (7.6-11.3); RBC Red Blood Cell Count 5.75 M/uL (4.33-5.43)
[2017-12-16] MEDS ORDERED: SOD POLYSTYREN SUL 15 GM/60 ML UCUP PO ONE (12:58)
[2017-12-16] MEDS ORDERED: ALBUTEROL 2.5 MG/3 ML NEB SOL NEB ONE (12:58)
[2017-12-16 13:05] LABS: Albumin 3.6 g/dL (3.2-5.5); Bilirubin Total 1.7 mg/dL (0.3-1.2); CKMB Creatine Kinase MB 2.7 ng/ml (0.3-4.0); Protein, Total 6.4 g/dL (6.0-8.3)
[2017-12-16 13:10] LABS: Potassium 6.2 mEq/L (3.6-5.0)
[2017-12-16 13:29] LABS: Blood Morphology Comment NOT SEEN (NOT SEEN); Platelet Estimate ADEQ; Platelets, Giant FEW
[2017-12-16] MEDS ORDERED: FUROSEMIDE 40 MG/4 ML VIAL IV ONE ×2 (13:29→13:31)
[2017-12-16] MEDS: Meropenem 1,000 MG in NA CHLORIDE 0.9% 100 ML IV SCH ×2 (14:24→21:08)
--- NOTE | 2017-12-16 16:22 | EKG ---
Test Date: 2017-12-16 Test Time: 09:08:03 Mobile Ui Developer: CARTER MEASUREMENT RESULTS: Intervals: Rate: 115 MD: 154 QRSD: 94 QT: 318 QTc: 439 [place]: P: 61 MD: 154 QRS: 56 T: 28 INTERPRETIVE STATEMENTS: Sinus tachycardia Otherwise normal ECG Compared to ECG 02/05/2016 20:46:25 No significant changes Electronically Signed On 12-16-17 16:19:30 CDT by Prudencio Ignacio
[2017-12-16] MEDS ORDERED: Meropenem 1000 MG/VIAL IV SCH (17:00)
[2017-12-16] MEDS: NA CHLORIDE 0.9% 1,000 ML with NA BICARB 8.4% 50 MEQ IV SCH ×6 (18:00→23:15)
[2017-12-16 18:11] LABS: Urine Appearance CLOUDY; Urine Bilirubin NEGATIVE (NEG); Urine Blood NEGATIVE (NEG); Urine Color YELLOW; Urine Glucose NEGATIVE (NEG); Urine Microscopic Reflex ORDER UMIC; Urine Protein TRACE (NEG); Urine Specific Gravity 1.015 (1.005-1.030)
[2017-12-16 18:50] LABS: Urine Amorphous Sediment 2+ /HPF (NONE SEEN); Urine Bacteria <20 /HPF (NONE SEEN); Urine Culture Reflex Order NOT NEEDED; Urine RBC <5 /HPF (NONE SEEN)
--- NOTE | 2017-12-16 20:38 | CON ---
Date of Consultation: 12/16/2017 Chief Complaint: Acute kidney injury. History Of Present Illness: Acute kidney injury, severe, borderline oliguric, associated with ATN, acute pancreatitis. Blood work show severe hyperkalemia. Potassium level was up to 7.1. The patient was medicated with IV dextrose and insulin as well as he received calcium gluconate. On arrival to the hospital, potassium on December 15, 2017, was 3.5. Subsequently today was 6.4 and repeat potassium was 7.1. The patient received calcium gluconate, albuterol, nebulizers well as Kayexalate retention enema. The patient was found to have elevated blood glucose. He does not have a history of diabetes, although he was found to have severe acute pancreatitis. He has history of alcohol intake. Liver function tests are elevated. Total bilirubin is 1.7. AST 16, ALT 81. Recent blood work after treatment with nebulizer albuterol showed sodium 128, potassium 6.2, chloride 99, CO2 17, BUN 24, creatinine 2.53, glucose 248. Calcium 6.9. The patient had a urine output approximately 800 mL over the last 24 hours, and since this morning 100 mL. Review of Systems: General: The patient denies fever, chills. Eyes: Denies vision changes. Ears, Nose, Mouth, and Throat: Denies sore throat, earaches. Respiratory: Denies PND, orthopnea. Cardiovascular: Denies chest pain, palpitation. GI: Complaining of abdominal discomfort. : Denies hematuria, dysuria. All other system reviewed and all are negative. Past Medical History: Hypertension. He was taking lisinopril and metoprolol. Social History: Positive for alcohol, occasionally heavy drinking. Denies tobacco. Denies IV drug. Family History: Diabetes in his grandmother. Physical Examination: General: The patient is awake, alert, and follows commands. Vital Signs: Blood pressure 127/68, 148/79, heart rate is 116, temperature 95.2. Eyes: Anicteric sclerae. EOMI. Ears, Nose, Mouth, and Throat: Oral mucosa is moist. No pallor. Neck: Supple. No JVD. No bruits. Lungs: Clear to auscultation bilaterally. Heart: S1-S2. RRR, no pericardial friction rub. Abdomen: Soft and distended. No rebound. No guarding. Extremities: Minimal peripheral edema. Neurologic; CN intact, no tremor Impression And Plan: 1. Acute kidney injury, severe, oliguric. The patient developed hyperkalemia. The patient is treated for hyperkalemia with IV dextrose initially as well as received albuterol. Plan is to continue IV hydration with normal saline, Kayexalate retention enema, and the patient will receive 1 dose of Lasix in attempt to control hyperkalemia and to induce diuresis. 2. The patient may require dialysis. This was discussed with the patient and plan of care was reviewed with the patient. He agreed to proceed with medication and dialysis if needed. 3. Pancreatitis, prognosis guarded. 4. Abnormal blood glucose , recommend work-up for diabetes mellitus. 5. Hyperkalemia secondary to acute kidney injury , treatment started with medications to control potassium level , monitor renal panel and start HD if potassium level remains elevated. KATI/JOSEFINA Voice ID: [id number] Report ID: [id number] LILO
[2017-12-16] MEDS: PANTOPRAZOLE 40 MG INJ IVP SCH (21:09)
[2017-12-16 21:48] LABS: Potassium 5.2 mEq/L (3.6-5.0)
[2017-12-16] MEDS ORDERED: CALCIUM GLUCONATE 1 GM IVPB 1 GM/50 ML BAG IV ONE (22:37)
[2017-12-16] MEDS ORDERED: CALCIUM GLUC 10% INJ 4.65 MEQ in NA CHLORIDE 0.9% 50 ML IV ONE (23:00)
[2017-12-17] MEDS: HYDROMORPHONE HCL 2 MG/ML inj IV PRN ×8 (00:20→23:03)
[2017-12-17] MEDS: Morphine 2 MG/2 ML SYR IV PRN (01:01)
[2017-12-17] MEDS: LORazepam 2 MG/ML VIAL IV PRN ×7 (02:08→23:03)
[2017-12-17] MEDS ORDERED: METOPROLOL TARTRATE 5 MG/5 ML INJ IV STA (04:26)
[2017-12-17] MEDS ORDERED: METOPROLOL TARTRATE 5 MG/5 ML INJ IV ONE (04:43)
[2017-12-17] MEDS: NA CHLORIDE 0.9% 1,000 ML with NA BICARB 8.4% 50 MEQ IV SCH ×10 (04:45→20:23)
[2017-12-17 06:26] LABS: Albumin 2.9 g/dL (3.2-5.5); Magnesium 1.8 mg/dL (1.8-2.5); Protein, Total 5.6 g/dL (6.0-8.3)
[2017-12-17 06:40] LABS: Potassium 5.5 mEq/L (3.6-5.0)
[2017-12-17 06:43] LABS: Bilirubin Total 5.1 mg/dL (0.3-1.2)
[2017-12-17] MEDS ORDERED: MAGNESIUM SULFATE 1 gm IVPB 1 GM/100 ML BAG IV ONE (07:46)
[2017-12-17] MEDS: ONDANSETRON 4 MG/2 ML VIAL IV PRN ×2 (07:50→21:40)
[2017-12-17] MEDS: CALCIUM GLUC 10% INJ 4.65 MEQ in NA CHLORIDE 0.9% 100 ML IV SCH ×3 (09:20→16:20)
[2017-12-17] MEDS: Meropenem 1,000 MG in NA CHLORIDE 0.9% 100 ML IV SCH ×2 (09:20→18:55)
[2017-12-17] MEDS: PANTOPRAZOLE 40 MG INJ IVP SCH ×2 (09:20→20:39)
[2017-12-17] MEDS: THIAMINE 200 MG/2 ML INJ IVP SCH (09:20)
[2017-12-17 09:52] LABS: Absolute Lymphocytes (CBC) 1.3 K/uL (0.7-4.9); Absolute Monocytes 1.2 K/uL (0.1-1.3); Absolute Neutrophil 15.5 K/uL (1.8-8.0); Basophils % 0.4 % (0-1.3); Eosinophils % 0.1 % (0-4.4); Hematocrit 43.7 % (39.6-49.0); Lymphocytes % 7.3 % (15.3-44.8); MCH 30.6 pg (27.0-35.0); MCV 92.4 fL (80-100); MPV 9.8 fL (7.6-11.3); Monocytes % 6.6 % (3.3-12.3); RBC Red Blood Cell Count 4.72 M/uL (4.33-5.43)
[2017-12-17 10:37] LABS: Blood Morphology Comment NOT SEEN (NOT SEEN); Platelet Estimate ADEQ; Platelets, Giant FEW; Urine White Blood Cell Casts DIFF
[2017-12-17] MEDS: chlordiazePOXIDE HCl 25 MG CAP PO SCH ×3 (10:44→21:40)
--- NOTE | 2017-12-17 11:45 | P.PN ---
Subjective Date of Service: 12/17/17 Primary Care Provider: Burn Chief Complaint: Epigastric pain Pt seen and examined at bedside today. Pt appears to be in acute distress today. Pt is having a lot of pain in the epigastric area and appears to be anxious as well. Complains of nausea and vomiting after CLD. Has hiccups that are bothering him as well. States he is having hiccups due to being hungry and dehydration. Review of Systems General: As per HPI Physical Examination - Vital Signs Temperature: 98.6 F Blood Pressure: 146/75 Pulse: 137 Respirations: 31 Pulse Ox (%): 92 - Physical Exam General: Alert, In no apparent distress, Oriented x3 HEENT: Atraumatic, PERRLA, EOMI Neck: Supple, JVD not distended Respiratory: Clear to auscultation bilaterally, Normal air movement Cardiovascular: Regular rate/rhythm, Normal S1 S2 Gastrointestinal: Normal bowel sounds, Tenderness, Guarding Musculoskeletal: No tenderness Integumentary: No rashes Neurological: Normal speech, Normal tone, Normal affect Lymphatics: No axilla or inguinal lymphadenopathy - Studies Medications List Reviewed: Yes Assessment & Plan - Problems (Diagnosis) (1) Acute alcoholic pancreatitis Onset Date: 12/16/17 Current Visit: Yes Status: Acute Plan: Acute Pancreatitis 2.2 to alcoholism vs TG's -Lipase elevated to 600 now -Leukocytosis improving today -IV meropenum -NPO, IV fluids and Pain mgmt with Morphine and dilaudid. DC demoral with ALFONSO Qualifiers: Acute pancreatitis complication: no infection or necrosis Qualified Code(s) : K85.20 - Alcohol induced acute pancreatitis without necrosis or infection (2) Metabolic acidosis Current Visit: Yes Status: Acute Plan: Metabolic Acidosis with Anion gap of 20. Most Likely 2.2 to pancreatitis vs Rhabdomylosis -Aggressive IV fluids -S/P 2L bolus and 200ml/hr -Nephrology consulted. Reccs Appreciated -Replace Electrolytes and consider Bicarb if no change in Acidosis (3) Hyperkalemia Current Visit: Yes Status: Acute Plan: K increased from 3.3 to 7.1 to 5.2 today -Nephrology consulted. Appreciate Reccs -S/P Lasix, Insulin, kaxelyate, and enema (4) ALFONSO (acute kidney injury) Current Visit: Yes Status: Acute Plan: Most Likely 2/2 to Rhabdomyolsis vs Pancreatitis -Nephorology consulted. -IV fluids for now (5) HTN (hypertension) Onset Date: 12/16/17 Current Visit: Yes Status: Chronic Plan: Pt take BB at home. Will restart. Qualifiers: Hypertension type: essential hypertension Qualified Code(s): I10 - Essential (primary) hypertension (6) Fatty (change of) liver, not elsewhere classified Onset Date: 12/16/17 Current Visit: Yes Status: Chronic Plan: Fatty infiltrate of the liver. Tbili at 5.1 -Educated on abstaining from alcohol abuse Discharge Plan: Home Plan to discharge in: 72 Hours - Code Status/Comfort Care Code Status Assessed: Yes Critical Care: Yes
--- NOTE | 2017-12-17 12:09 | RAD REPORT ---
EXAM DESCRIPTION: US - Renal Ultrasound-Complete - 12/17/2017 11:03 am CLINICAL HISTORY: . Acute renal failure COMPARISON: December 14, 2017 FINDINGS: The right kidney measures 12 cm with a normal echotexture. The left kidney measures 12 Set cm with a normal echotexture. Hydronephrosis is not seen. IMPRESSION: Unremarkable renal ultrasound.
[2017-12-17] MEDS ORDERED: D50W 25 GM/50 ML SYRINGE IV PRN (12:33)
[2017-12-17] MEDS ORDERED: GLUCAGON 1 MG/VIAL IM PRN (12:33)
[2017-12-17] MEDS: INSULIN -REGULAR HUMAN 50 UNIT/0.5 ML ML SQ SCH ×2 (12:49→18:55)
[2017-12-17] MEDS ORDERED: Ringers Lactate 1,000 ML IV ONE ×2 (15:57→16:04)
[2017-12-17 16:24] LABS: Absolute Monocytes 1.1 K/uL (0.1-1.3); Absolute Neutrophil 14.2 K/uL (1.8-8.0); Basophils % 0.2 % (0-1.3); Hematocrit 43.1 % (39.6-49.0); Lymphocytes % 6.4 % (15.3-44.8); MPV 9.5 fL (7.6-11.3); Monocytes % 6.9 % (3.3-12.3); RBC Red Blood Cell Count 4.69 M/uL (4.33-5.43)
[2017-12-17] MEDS ORDERED: AA 4.25%/D10W/ELECTROLYTES 2,000 ML, Lipids 20% 250 ML with MULTIVITAMINS INJ 10 ML IV SCH ×3 (17:00)
[2017-12-17 17:37] LABS: Albumin 2.8 g/dL (3.2-5.5); Potassium 4.6 mEq/L (3.6-5.0); Protein, Total 5.7 g/dL (6.0-8.3)
--- NOTE | 2017-12-17 17:37 | RAD REPORT ---
EXAM DESCRIPTION: MRIAbdomen (Gallbladder) CLINICAL HISTORY: Pancreatitis COMPARISON: CT 12/14/2017, ultrasound 12/17/2017 FINDINGS: Small bilateral pleural effusions. Mild ascites is present. Peripancreatic inflammatory changes and edema are moderate. Intra and extrahepatic biliary tree dilatation is not seen. No filling defect is present in the commo n duct to indicate common duct stone. The liver, spleen, adrenal glands and kidneys show no gross acute abnormality. IMPRESSION: No common bile duct stone is seen. No significant intra or extrahepatic biliary tree dilatation.
[2017-12-17] MEDS ORDERED: chlordiazePOXIDE HCl 25 MG CAP PO SCH (19:00)
[2017-12-18] MEDS: INSULIN -REGULAR HUMAN 50 UNIT/0.5 ML ML SQ SCH ×5 (00:50→23:34)
[2017-12-18] MEDS: Meropenem 1,000 MG in NA CHLORIDE 0.9% 100 ML IV SCH ×2 (00:58→08:14)
[2017-12-18] MEDS: LORazepam 2 MG/ML VIAL IV PRN ×8 (01:26→23:42)
[2017-12-18] MEDS: NA CHLORIDE 0.9% 1,000 ML with NA BICARB 8.4% 50 MEQ IV SCH ×4 (01:30→08:13)
[2017-12-18] MEDS: chlordiazePOXIDE HCl 25 MG CAP PO SCH ×2 (01:47→05:42)
[2017-12-18] MEDS: HYDROMORPHONE HCL 2 MG/ML inj IV PRN ×6 (02:51→21:55)
[2017-12-18] MEDS: Morphine 2 MG/2 ML SYR IV PRN (04:34)
[2017-12-18 05:31] LABS: Absolute Lymphocytes (CBC) 1.2 K/uL (0.7-4.9); Absolute Monocytes 1.1 K/uL (0.1-1.3); Absolute Neutrophil 13.3 K/uL (1.8-8.0); Basophils % 0.1 % (0-1.3); Eosinophils % 0.2 % (0-4.4); Hematocrit 37.4 % (39.6-49.0); Lymphocytes % 7.6 % (15.3-44.8); MCH 31.2 pg (27.0-35.0); MCV 91.6 fL (80-100); MPV 9.2 fL (7.6-11.3); Monocytes % 6.9 % (3.3-12.3); RBC Red Blood Cell Count 4.08 M/uL (4.33-5.43)
[2017-12-18 05:58] LABS: Magnesium 2.4 mg/dL (1.8-2.5); Phosphorus 2.4 mg/dL (2.5-4.3); Potassium 4.3 mEq/L (3.6-5.0)
[2017-12-18 07:07] LABS: Blood Morphology Comment NOT SEEN (NOT SEEN); Platelet Estimate ADEQ; Urine White Blood Cell Casts DIFF
[2017-12-18] MEDS: ONDANSETRON 4 MG/2 ML VIAL IV PRN ×2 (07:39→12:53)
[2017-12-18] MEDS: PANTOPRAZOLE 40 MG INJ IVP SCH (08:13)
[2017-12-18] MEDS: HYDRALAZINE HCL 20 MG/ML VIAL IV PRN (08:13)
[2017-12-18] MEDS: THIAMINE 200 MG/2 ML INJ IVP SCH (08:13)
[2017-12-18] MEDS: AMLODIPINE 5 MG TAB PO SCH (09:00)
--- NOTE | 2017-12-18 09:31 | P.PN ---
Subjective Date of Service: 12/18/17 (Hospitalist) Primary Care Provider: Lo Chief Complaint: Pancreatitis Subjective: Improving, Worsening (Patient is not doing well he is confused disoriented delirious still under alcohol withdrawal he wants to leave AMA vomiting) Review of Systems General: Weakness Gastrointestinal: Nausea, Abdominal Pain Physical Examination - Vital Signs Temperature: 99.8 F Blood Pressure: 160/90 Pulse: 127 Respirations: 21 Pulse Ox (%): 96 - Physical Exam General: Alert HEENT: Atraumatic Respiratory: Clear to auscultation bilaterally Cardiovascular: No edema, Regular rate/rhythm Gastrointestinal: Hypoactive, Distended Musculoskeletal: No clubbing - Studies Medications List Reviewed: Yes Assessment & Plan - Problems (Diagnosis) (1) Acute alcoholic pancreatitis Onset Date: 12/16/17 Current Visit: Yes Status: Acute Plan: Patient admitted with alcoholic pancreatitis and alcohol withdrawal labs are improving he wants to leave AMA patient is delirious hallucinating and has delusions the start him on some Geodon continue with Ativan Qualifiers: Acute pancreatitis complication: no infection or necrosis Qualified Code(s) : K85.20 - Alcohol induced acute pancreatitis without necrosis or infection
[2017-12-18] MEDS ORDERED: NACHLORIDE 0.45% 500 ML IV SCH (09:45)
[2017-12-18] MEDS: WATER FOR INJ,STERILE 10 ML IM PRN (11:15)
[2017-12-18] MEDS: ZIPRASIDONE MESYLA 20 MG/VIAL IM PRN (11:16)
[2017-12-18] MEDS: chlordiazePOXIDE HCl 25 MG CAP PO PRN ×3 (11:30→23:16)
--- NOTE | 2017-12-18 15:29 | PN ---
Date of Progress Note: 12/18/2017 Subjective: The patient is doing well. Still has insomnia agitated, but more awake today. Physical Examination: Vital Signs: When I saw the patient, blood pressure of 180/51, pulse of 127, afebrile. Chest: Clear to auscultation. Heart: S1 and S2 regular. Tachycardic. Abdomen: Soft. Mild tenderness. Extremities: No edema. Laboratory Data: WBC 15.6, H and H are 12.7/37.4, platelets of 196. Sodium 131, potassium 4.3, bica rb 26, BUN 25, creatinine 1.1, GFR of 75, calcium 7, phosphorus 2.4, magnesium 2.4. Current Medications: The patient on its include Norvasc 5 daily, hydralazine, metoprolol 25 b.i.d., LR. Assessment And Plan: 1.Acute kidney injury, secondary to prerenal, secondary to gastrointestinal loss. Recovered, resolv ed. 2.I am going to go ahead and continue TPN in case TPN has been stop. We are going to resume normal saline. 3.Hyponatremia, secondary to depletion. We are going to resume normal saline after TPN get disconti nued. 4.Hypocalcemia. No supplement given the acute pancreatitis. 5.Alcoholic pancreatitis with hypertriglyceridemia. We will follow up with the primary. 6.Hypophosphatemia, hypomagnesemia. No need for supplement. 7.Hypertension with tachycardia. We will change Lopressor to Inderal. We will follow up. I am goi ng to go ahead and send for TSH. 8.Alcohol withdrawal. Add Inderal. We will follow up with the primary. Case discussed with the patient and verbalized understanding. MAI/JOSEFINA Voice ID: [id number] Report ID: [id number]
[2017-12-18] MEDS ORDERED: NA CHLORIDE 0.9% 1,000 ML IV SCH (18:00)
[2017-12-18] MEDS: PROPRANOLOL HCL 10 MG TAB PO SCH (19:45)
[2017-12-18] MEDS ORDERED: METOPROLOL TAR 25 MG TAB PO SCH (21:00)
[2017-12-19] MEDS: HYDROMORPHONE HCL 2 MG/ML inj IV PRN ×9 (00:45→21:52)
[2017-12-19] MEDS: ZIPRASIDONE MESYLA 20 MG/VIAL IM PRN (00:52)
[2017-12-19] MEDS: WATER FOR INJ,STERILE 10 ML IM PRN (00:52)
[2017-12-19] MEDS: chlordiazePOXIDE HCl 25 MG CAP PO PRN ×4 (05:14→20:13)
[2017-12-19] MEDS: INSULIN -REGULAR HUMAN 50 UNIT/0.5 ML ML SQ SCH ×3 (05:23→18:39)
[2017-12-19 06:18] LABS: Albumin 2.6 g/dL (3.2-5.5); BUN Blood Urea Nitrogen 16 mg/dL (6-20); Bicarbonate 30 mEq/L (21-31); Glucose Level 224 mg/dL (65-120); Phosphorus 2.5 mg/dL (2.5-4.3); Potassium 4.5 mEq/L (3.6-5.0); Sodium Level 133 mEq/L (135-145); Thyroid Stimulating Hormone 1.21 uIU/mL (0.34-5.60)
[2017-12-19] MEDS: LORazepam 2 MG/ML VIAL IV PRN ×3 (07:21→21:55)
[2017-12-19] MEDS: PROPRANOLOL HCL 10 MG TAB PO SCH ×2 (08:28→20:13)
[2017-12-19] MEDS: AMLODIPINE 5 MG TAB PO SCH (08:28)
[2017-12-19] MEDS: THIAMINE 200 MG/2 ML INJ IVP SCH (08:28)
--- NOTE | 2017-12-19 10:08 | P.PN ---
Subjective Date of Service: 12/19/17 Primary Care Provider: Lo Chief Complaint: Pancreatitis alcohol withdrawal Subjective: Improving (Patient is doing better he is sitting upright is more alert responsive more cooperative less agitated there has not vomited today abdomen is still distended) Review of Systems General: Weakness Gastrointestinal: Other (Abdomen distended) Physical Examination - Vital Signs Temperature: 98.0 F Blood Pressure: 154/95 Pulse: 110 Respirations: 20 Pulse Ox (%): 95 - Physical Exam General: Alert, Oriented x2 Respiratory: Clear to auscultation bilaterally Cardiovascular: No edema Gastrointestinal: Hypoactive, Distended - Studies Medications List Reviewed: Yes Assessment & Plan - Problems (Diagnosis) (1) Acute alcoholic pancreatitis Onset Date: 12/16/17 Current Visit: Yes Status: Acute Plan: Patient is gradually improving at lease is not vomiting today continue with IV fluids addition p.r.n. patient is ambulating white count is declined to 15.6 glucose still elevated patient really wants to go home and probably decide today depending up on his condition and sedation require Qualifiers: Acute pancreatitis complication: no infection or necrosis Qualified Code(s) : K85.20 - Alcohol induced acute pancreatitis without necrosis or infection
--- NOTE | 2017-12-19 13:23 | PN ---
Date of Progress Note: 12/19/2017 NEPHROLOGY FOLLOWUP NOTE Subjective: The patient is doing well. Tolerating diet, but has abdominal distention. The patient was on IV fluid over the night. Physical Examination: Vital Signs: When I saw the patient, blood pressure of 154/95, pulse of 110, afebrile. The patient had urine output of 2800. Negative of 130. Chest: Clear to auscultation. Heart: S1, S2. Regular. Abdomen: Distended. No guarding. Extremities: Have trace edema. Laboratory Data: WBC 15.6, H and H 12.7/37.4, platelet 196. Sodium 133, potassium 4.5, bicarb 30, B UN 16, creatinine 0.8, calcium 7.5, phosphorus 2.5, albumin 2.6. Current Medications: The patient on its: 1.IV fluids. 2.Normal saline at 50 per hour. 3.Norvasc 5. 4.Inderal 20 b.i.d. 5.Hydralazine p.r.n. 6.Ambien. 7.Lorazepam. 8.Thiamine. Assessment And Plan: 1.Acute kidney injury secondary to prerenal, secondary to gastrointestinal loss, recovered, resolved . Poly diuresis stage has been resolved. We will monitor. 2.Hyperkalemia, resolved. 3.Hypertension with tachycardia, better today. I am going to go ahead and increase the Norvasc to 1 0 and we will follow up. 4.Pancreatitis. Follow up with Gastroenterology and the Primary. 5.Alcohol withdrawal as by Primary. MAI/JOSEFINA Voice ID: [id number] Report ID: [id number]
[2017-12-19] MEDS: AMLODIPINE 10 MG TAB PO SCH (14:10)
--- NOTE | 2017-12-19 15:01 | RAD REPORT ---
EXAM DESCRIPTION: RAD - Abdomen 1 View (KUB) - 12/19/2017 2:52 pm CLINICAL HISTORY: Abdominal pain FINDINGS: Multiple mildly dilated loops of small bowel are present. Air within the colon is diminished. No abnormal mass is seen. IMPRESSION: Mildly dilated loops of small bowel probably represents an adynamic ileus. A developing small bowel obstruction can also have this appearance
--- NOTE | 2017-12-19 22:30 | P.PN ---
Subjective Date of Service: 12/19/17 Primary Care Provider: Burn Chief Complaint: Pancreatitis alcohol withdrawal Physical Examination - Vital Signs Temperature: 98.7 F Blood Pressure: 155/54 Pulse: 99 Respirations: 16 Pulse Ox (%): 92 - Studies Medications List Reviewed: Yes Assessment & Plan - Problems (Diagnosis) (1) Alcohol abuse Current Visit: Yes Status: Acute (2) Diabetes mellitus Current Visit: Yes Status: Suspected Qualifiers: Diabetes mellitus type: type 2 Diabetes mellitus fci insulin use: without fci use Diabetes mellitus complication status: with other specified complication Qualified Code(s): E11.69 - Type 2 diabetes mellitus with other specified complication (3) ALFONSO (acute kidney injury) Current Visit: Yes Status: Acute (4) Acute alcoholic pancreatitis Onset Date: 12/16/17 Current Visit: Yes Status: Acute Qualifiers: Acute pancreatitis complication: no infection or necrosis Qualified Code(s) : K85.20 - Alcohol induced acute pancreatitis without necrosis or infection (5) Hyperkalemia Current Visit: Yes Status: Acute (6) Fatty (change of) liver, not elsewhere classified Onset Date: 12/16/17 Current Visit: Yes Status: Chronic (7) HTN (hypertension) Onset Date: 12/16/17 Current Visit: Yes Status: Chronic Qualifiers: Hypertension type: essential hypertension Qualified Code(s): I10 - Essential (primary) hypertension
[2017-12-20] MEDS: HYDROMORPHONE HCL 2 MG/ML inj IV PRN ×9 (00:05→21:35)
[2017-12-20] MEDS: LORazepam 2 MG/ML VIAL IV PRN ×3 (01:47→22:32)
[2017-12-20] MEDS: chlordiazePOXIDE HCl 25 MG CAP PO PRN ×2 (04:06→14:26)
[2017-12-20] MEDS: INSULIN -REGULAR HUMAN 50 UNIT/0.5 ML ML SQ SCH ×4 (06:13→17:07)
[2017-12-20 06:30] LABS: Albumin 2.6 g/dL (3.2-5.5); BUN Blood Urea Nitrogen 12 mg/dL (6-20); Bicarbonate 28 mEq/L (21-31); Glucose Level 195 mg/dL (65-120); Phosphorus 3.4 mg/dL (2.5-4.3); Potassium 3.7 mEq/L (3.6-5.0); Sodium Level 132 mEq/L (135-145)
[2017-12-20 06:35] LABS: Absolute Lymphocytes (CBC) 1.8 K/uL (0.7-4.9); Absolute Monocytes 2.9 K/uL (0.1-1.3); Absolute Neutrophil 12.6 K/uL (1.8-8.0); Basophils % 0.2 % (0-1.3); Eosinophils % 0.9 % (0-4.4); Hematocrit 35.3 % (39.6-49.0); Lymphocytes % 10.4 % (15.3-44.8); MCH 30.8 pg (27.0-35.0); MCV 91.3 fL (80-100); MPV 9.4 fL (7.6-11.3); Monocytes % 16.3 % (3.3-12.3); RBC Red Blood Cell Count 3.86 M/uL (4.33-5.43)
[2017-12-20 08:11] LABS: Blood Morphology Comment NOT SEEN (NOT SEEN); Platelet Estimate ADEQ
[2017-12-20] MEDS: AMLODIPINE 10 MG TAB PO SCH (08:57)
[2017-12-20] MEDS: THIAMINE 200 MG/2 ML INJ IVP SCH (08:58)
[2017-12-20] MEDS: PROPRANOLOL HCL 10 MG TAB PO SCH ×2 (08:58→21:37)
--- NOTE | 2017-12-20 09:42 | RAD REPORT ---
EXAM DESCRIPTION: RAD - Abdomen 1 View (KUB) - 12/20/2017 9:23 am CLINICAL HISTORY: Abdomen pain. FINDINGS: Small bowel loops have mildly diminished since in caliber since December 19 but are still mildl y enlarged. This can be seen with an adynamic ileus or partial mechanical obstruction. Air within the colon is diminished
--- NOTE | 2017-12-20 10:59 | P.PN ---
Subjective Date of Service: 12/20/17 Primary Care Provider: Lo Chief Complaint: Pancreatitis alcohol withdrawal Subjective: Other (Patient still requesting medication for pain. No significant nausea noted. Mild distention noted. Patient is ambulating. Patient passing gas.) Physical Examination - Vital Signs Temperature: 98.4 F Blood Pressure: 116/56 Pulse: 94 Respirations: 22 Pulse Ox (%): 90 - Physical Exam General: Alert, In no apparent distress, Oriented x3, Cooperative HEENT: Atraumatic Neck: Supple Respiratory: Clear to auscultation bilaterally, Normal air movement Cardiovascular: Normal pulses, Regular rate/rhythm Gastrointestinal: Hypoactive (Throughout), No masses, No rebound, No guarding, Distended ( mild distention noted), Tenderness (Mild tenderness to the epigastric region) Musculoskeletal: No erythema, No tenderness, No warmth Integumentary: No erythema, No warmth, No cyanosis Neurological: Normal speech, Normal strength at 5/5 x4 extr, Normal tone, Normal affect - Studies Medications List Reviewed: Yes Assessment & Plan - Problems (Diagnosis) (1) Alcohol abuse Current Visit: Yes Status: Acute Plan: Alcohol cessation address with the patient. Patient understands this. Patient with alcoholic pancreatitis with alcoholic cirrhosis. Will add IV fluids. Patient with ileus. Will continue with ambulation. Will continue with current diet. Surgery has been consulted to further evaluate. Renal function improved. (2) Diabetes mellitus Current Visit: Yes Status: Suspected Plan: Will check A1c. Will increase sliding scale. Will monitor this closely. Qualifiers: Diabetes mellitus type: type 2 Diabetes mellitus nursing home insulin use: without nursing home use Diabetes mellitus complication status: with other specified complication Qualified Code(s): E11.69 - Type 2 diabetes mellitus with other specified complication (3) ALFONSO (acute kidney injury) Current Visit: Yes Status: Acute Plan: This is much improved. Patient still appears dry. Will recommend IV fluids if okay with nephrology. (4) Acute alcoholic pancreatitis Onset Date: 12/16/17 Current Visit: Yes Status: Acute Plan: Will recommend ambulation. Will continue with IV fluids. Will have him try to decrease pain medication as the patient has an ileus. Will transfer the patient to the floor so that he can ambulate. Surgery consulted to further evaluate. KUB reviewed. Qualifiers: Acute pancreatitis complication: no infection or necrosis Qualified Code(s) : K85.20 - Alcohol induced acute pancreatitis without necrosis or infection (5) Hyperkalemia Current Visit: Yes Status: Acute Plan: This is resolved. Will continue to monitor closely. (6) Fatty (change of) liver, not elsewhere classified Onset Date: 12/16/17 Current Visit: Yes Status: Chronic Plan: Liver function tests elevated. Will check for hepatitis panel. (7) HTN (hypertension) Onset Date: 12/16/17 Current Visit: Yes Status: Chronic Plan: This has improved. Patient on medication. Will continue to monitor and adjust. Qualifiers: Hypertension type: essential hypertension Qualified Code(s): I10 - Essential (primary) hypertension (8) GERD (gastroesophageal reflux disease) Current Visit: Yes Status: Suspected Plan: Continue with medication Qualifiers: Esophagitis presence: esophagitis presence not specified Qualified Code(s) : K21.9 - Gastro-esophageal reflux disease without esophagitis (9) Ileus Current Visit: Yes Status: Acute Plan: This was confirmed with KUB. Surgery consulted to further assess. Will continue with current plan of care. Ambulate patient. Will decrease pain medication. (10) Anemia Current Visit: Yes Status: Acute Plan: Likely from dilution. Will monitor closely. Qualifiers: Anemia type: unspecified type Qualified Code(s): D64.9 - Anemia, unspecified Discharge Plan: Home Plan to discharge in: 48 Hours Time Spent Managing Pts Care (In Minutes): 55
[2017-12-20] MEDS: NA CHLORIDE 0.9% 1,000 ML IV SCH ×2 (12:54→21:39)
--- NOTE | 2017-12-20 14:37 | CON ---
Date of Consultation: 12/19/2017 Brief History Of Present Illness: The patient is a 32-year-old male with a significant past medical history of high blood pressure and pancreatitis occurring approximately 1 year ago. At that time, th e etiology of pancreatitis was alcohol-related as he states he has a significant alcohol use history. He presents with approximately one-week history of worsening epigastric and midline abdominal pain and extending all the way to the suprapubic region beginning after a binge drinking episode on the we ekend excursion with friends. He states that he normally will drink an 18 pack of beer and 4 bottles of wine per week on average but had heavier drinking on this last occasion, which brought him to the emergency room with abdominal pain. He attempted to leave the hospital at that time from after shavonne palacio seen in the emergency room; however, returned with worsening abdominal pain and as such has been ad mitted. During his admission he had acute renal dysfunction and has subsequently improved with medic al therapy; however, he continues to have diarrhea and evidence of an ileus versus partial small nicolas l obstruction on imaging. He denies having any nausea or vomiting. He does have some mild abdominal distention. The abdominal pain is primarily in the epigastrium, similar to his admission pain, but no additional new findings and he continues to have bowel function up to 7 bowel movements per day, b ut they are primarily liquidy diarrhea by his report. Past Medical History: Significant for hypertension and alcoholic pancreatitis. Past Surgical History: He has only had a right knee repair after injury playing football. Allergies: NO KNOWN DRUG ALLERGIES. Medications: He takes Xanax for anxiety p.r.n. 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 He uses recreational marijuana and he drinks heavily as described above approximately 18 cans of beer +4 bottles of wine per week on average. He denies any other recreational drug use. Family History: Noncontributory. Review of Systems: Other than HPI, denies. Physical Examination: Vital Signs: At the time of examination his BMI is 34.0. His blood pressure was 116/56, pulse is 94 , respiratory rate 22, temperature was 98.4. General: He is awake, alert, and oriented. Psychiatric: He is appropriate and conversive. HEENT: Normocephalic. His sclerae are anicteric. His mucous membranes are moist. His oropharynx i s clear. Neck: Supple. No JVD. Chest: Normal expansion and excursion. Cardiovascular: Regular rate and rhythm. Abdomen: Soft, but globally has mild distention. He has tenderness to palpation globally, but it is mild. The maximal tenderness is in the epigastric region. He has a negative Garcia sign. Negative psoas sign. Negative Rovsing, Adair's and Tyrone signs. Extremities: No clubbing, cyanosis, or edema although complete exam was not performed as he is weari favio horta and therefore, I only assessed his ankle area and feet as well as upper extremities. Laboratory Data: He had a laboratory exam, which reveals a white blood cell count of 17.5, hemoglobi n 11.9, hematocrit 35.3, platelet count is 248, neutrophils are 72.2%. He had 8 bands. Sodium is 13 2, potassium 3.7, chloride 93, carbon dioxide 28, BUN 12, creatinine 0.65, glucose is 195. His hemog lobin A1c is currently pending. Calcium 8.0. On admission his highest lipase was in the 600 range; however, it was improving from that number down with a low 100s on the last check. He had imaging pe rformed, which included an abdominal ultrasound which was officially read as mildly distended gallbla dder without stones or evidence of cholecystitis. No pericholecystic fluid or gallbladder wall thick ening. Common bile duct is normal. He had an MRCP, which is officially read as no common bile duct stone is seen. No significant intra or extrahepatic biliary dilatation. The peripancreatic inflamma tory changes and edema are moderate. There was an abdominal KUB performed, which showed small bowel loops, mildly diminished 7 in caliber since December 19, but are still mildly enlarged, could be seen with any dynamic ileus versus partial small bowel obstruction. Air within the colon is diminished. Assessment And Plan: This is a 32-year-old male who presents with signs and symptoms of an ileus, li jil due to pancreatic inflammation. 1.IV fluid hydration. I recommend normal saline and electrolyte correction. 2.Serial abdominal exams. 3.Continue clear liquid diet for now as the patient has no nausea or vomiting. 4.Continue medical management. Thank you for this interesting consult. I will follow along with you. LULU/JOSEFINA Voice ID: [id number] Report ID: [id number]
[2017-12-20 16:13] LABS: A1c Component 0.53 mg/dL; Hemoglobin A1c 6.1 % (4-6.0)
[2017-12-20] MEDS: ENOXAPARIN 40 MG/0.4 ML SQ SCH (17:06)
[2017-12-21] MEDS: INSULIN -REGULAR HUMAN 50 UNIT/0.5 ML ML SQ SCH ×5 (00:13→21:06)
[2017-12-21] MEDS: HYDROMORPHONE HCL 2 MG/ML inj IV PRN ×5 (01:27→21:05)
--- NOTE | 2017-12-21 02:41 | PN ---
Date of Progress Note: 12/20/2017 Chief Complaint: Acute kidney injury secondary to severe prerenal azotemia due to gastrointestinal complication associated with acute pancreatitis. Renal function has improved over the last few days. The patient responded to IV fluids. The patient was found to have hyperkalemia and this was treated with Kayexalate and the patient received IV fluids for volume resuscitation. Renal function improved subsequently. Normal saline is resumed today. The patient has active pancreatitis. The patient has hypoalbuminemia. Albumin is 2.6. The patient is on clear liquid. Review of Systems: Denies fever or chills. Physical Examination: Lungs: Clear to auscultation bilaterally. Heart: S1, S2. Abdomen: Soft, benign. Extremities: Some edema present in both legs. Laboratory Data: Hemoglobin 11.9, WBC 17.5, platelet count is 248. Chemistries showed glucose 282; sodium 132, potassium 3.7, chloride 93, CO2 of 28, BUN 12, creatinine 0.65, albumin 2.6. Impression And Plan: 1. Acute kidney injury. Renal function has improved over the last several days. On december 16, creatinine was up to 3.19. The patient responded to IV fluids. 2. Electrolytes abnormalities and hyperkalemia, resolved. 3. Pancreatitis. Continue normal saline. 4. Hypoalbuminemia. The patient may benefit from TPN. 5. Abnormal blood glucose. Recommend to check hemoglobin A1c. 6. Leukocytosis. Microbiology and tests were obtained. C difficile is negative. Blood culture negative. I spent total 36 min including 26 min to coordinate care plan. KATI/JOSEFINA Voice ID: [id number] Report ID: [id number]
[2017-12-21] MEDS: NA CHLORIDE 0.9% 1,000 ML IV SCH (03:20)
[2017-12-21] MEDS: PANTOPRAZOLE 40MG TABLET PO SCH (05:30)
[2017-12-21 06:43] LABS: Bicarbonate 30 mEq/L (21-31); Potassium 3.3 mEq/L (3.6-5.0); Sodium Level 130 mEq/L (135-145)
[2017-12-21] MEDS ORDERED: HYDROCODONE/APAP 7.5/325 MG TAB PO PRN (06:43)
[2017-12-21 06:46] LABS: Albumin 2.6 g/dL (3.2-5.5); BUN Blood Urea Nitrogen 10 mg/dL (6-20); Glucose Level 276 mg/dL (65-120); Phosphorus 3.4 mg/dL (2.5-4.3)
[2017-12-21] MEDS ORDERED: POTASSIUM CL SA 10 MEQ TAB PO ONE (08:05)
[2017-12-21] MEDS: AMLODIPINE 10 MG TAB PO SCH (08:53)
[2017-12-21] MEDS: HYDROCODONE/APAP 5/325 MG TAB PO PRN ×3 (08:53→23:03)
[2017-12-21] MEDS: PROPRANOLOL HCL 10 MG TAB PO SCH ×2 (08:54→21:07)
[2017-12-21] MEDS: THIAMINE 200 MG/2 ML INJ IVP SCH (08:55)
[2017-12-21] MEDS ORDERED: NA CHLORIDE 0.9% 1,000 ML IV SCH (09:00)
--- NOTE | 2017-12-21 09:19 | P.PN ---
Subjective Date of Service: 12/21/17 Primary Care Provider: Lo Chief Complaint: Pancreatitis alcohol withdrawal Subjective: Improving (Patient was ambulatory, continues to have improved bowel function, pain much improved) Physical Examination - Vital Signs Temperature: 97.6 F Blood Pressure: 145/75 Pulse: 116 Respirations: 20 Pulse Ox (%): 89 - Physical Exam General: Alert, In no apparent distress, Cooperative Gastrointestinal: Soft and benign, Non-distended, No ascites, No tenderness, No masses, No guarding - Studies Medications List Reviewed: Yes Assessment And Plan - Current Problems (Diagnosis) (1) Acute alcoholic pancreatitis Onset Date: 12/16/17 Current Visit: Yes Status: Acute Plan: - advance to low fat diet - have discussed diet plan for low fat, low cholesterol diet, - patient will need to follow up with primary care doctor after discharge PAMELA to discuss hyperlipidemia - alcohol cessation discussed - NS to 75 cc/hr, hypernatremia - electrolyte correction - ambulate - wean off IV pain meds, transition to PO norco - DC planning soon Qualifiers: Acute pancreatitis complication: no infection or necrosis Qualified Code(s) : K85.20 - Alcohol induced acute pancreatitis without necrosis or infection
[2017-12-21] MEDS: TRAMADOL HCL 50 MG TAB PO PRN (11:30)
[2017-12-21] MEDS ORDERED: D50W 25 GM/50 ML SYRINGE IV PRN (11:49)
[2017-12-21] MEDS ORDERED: GLUCAGON 1 MG/VIAL IM PRN (11:49)
--- NOTE | 2017-12-21 11:52 | P.PN ---
Subjective Date of Service: 12/21/17 Primary Care Provider: Lo Chief Complaint: Pancreatitis alcohol withdrawal Subjective: Other (Patient tolerating his diet. Patient reports that he is doing well. Patient having gas and bowel movement this morning. Patient was re -evaluated after breakfast. Patient with mild pain. Patient using Gatorade from downstairs.) Physical Examination - Vital Signs Temperature: 97.6 F Blood Pressure: 145/75 Pulse: 116 Respirations: 20 Pulse Ox (%): 89 - Physical Exam General: Alert, In no apparent distress, Oriented x3, Cooperative HEENT: Atraumatic Neck: Supple Respiratory: Clear to auscultation bilaterally, Normal air movement Cardiovascular: Normal pulses, Regular rate/rhythm Gastrointestinal: Normal bowel sounds, Soft and benign, No tenderness, No masses , No rebound, No guarding, Distended (Less distention noted.) Musculoskeletal: No erythema, No tenderness, No warmth Integumentary: No tenderness/swelling, No erythema, No warmth, No cyanosis Neurological: Normal speech, Normal strength at 5/5 x4 extr, Normal tone, Normal affect Lymphatics: No axilla or inguinal lymphadenopathy - Studies Medications List Reviewed: Yes Assessment & Plan - Problems (Diagnosis) (1) Alcohol abuse Current Visit: Yes Status: Acute Plan: Alcohol cessation address with the patient. Patient understands this. Patient with alcoholic pancreatitis with alcoholic cirrhosis. Will continue with IV fluids. Patient with ileus but improved. Will continue to advance diet. Agree with plan with surgery to limit IV pain medication. Encourage ambulation. Anticipate discharge tomorrow. (2) Diabetes mellitus Current Visit: Yes Status: Suspected Plan: Patient likely has pre diabetes with A1c 6.1. Blood sugars elevated this time peer will continue with Accu-Cheks. Patient will need to limit outside hospital food and drinks. Qualifiers: Diabetes mellitus type: type 2 Diabetes mellitus rodent exterminator insulin use: without chcf use Diabetes mellitus complication status: with other specified complication Qualified Code(s): E11.69 - Type 2 diabetes mellitus with other specified complication (3) ALFONSO (acute kidney injury) Current Visit: Yes Status: Acute Plan: This is much improved. Continue with IV fluids. Encourage oral intake. (4) Acute alcoholic pancreatitis Onset Date: 12/16/17 Current Visit: Yes Status: Acute Plan: Agree with surgical plan to advance diet. Patient encouraged to ambulate. Agree with plan to limit IV pain medication. This was addressed in due to with the patient. He understands this. Anticipate possible discharge tomorrow. Qualifiers: Acute pancreatitis complication: no infection or necrosis Qualified Code(s) : K85.20 - Alcohol induced acute pancreatitis without necrosis or infection (5) Hyperkalemia Current Visit: Yes Status: Acute Plan: This is resolved. Will continue to monitor closely. (6) Fatty (change of) liver, not elsewhere classified Onset Date: 12/16/17 Current Visit: Yes Status: Chronic Plan: Liver function tests elevated. Will check for hepatitis panel. (7) HTN (hypertension) Onset Date: 12/16/17 Current Visit: Yes Status: Chronic Plan: This has improved. Patient on medication. Will continue to monitor and adjust. Qualifiers: Hypertension type: essential hypertension Qualified Code(s): I10 - Essential (primary) hypertension (8) GERD (gastroesophageal reflux disease) Current Visit: Yes Status: Suspected Plan: Continue with medication Qualifiers: Esophagitis presence: esophagitis presence not specified Qualified Code(s) : K21.9 - Gastro-esophageal reflux disease without esophagitis (9) Ileus Current Visit: Yes Status: Acute Plan: Agree with surgical plan. (10) Anemia Current Visit: Yes Status: Acute Plan: Likely from dilution. Will monitor closely. Qualifiers: Anemia type: unspecified type Qualified Code(s): D64.9 - Anemia, unspecified Discharge Plan: Home Plan to discharge in: 24 Hours Time Spent Managing Pts Care (In Minutes): 55
--- NOTE | 2017-12-21 13:22 | PN ---
Date of Progress Note: 12/21/2017 Subjective: The patient doing better. Still complaining from shortness of breath. Admitted with ac [place] band pancreatitis. Physical Examination: Vital Signs: Blood pressure 145/75, pulse of 116, afebrile. The patient had good urine output of 25 00. Chest: Decreased air entry bilateral base. Heart: S1, S2. Abdomen: Distended. Extremities: Plus edema. Laboratory Data: WBC 17.5, H and H 11.9/35.3, platelets of 248. Sodium 130, potassium 3.3, bicarb 3 0, BUN 10, creatinine 0.7, calcium 7.9, phosphorus 3.3, albumin 2.6. Current Medications: The patient on its include: 1.Lovenox. 2.Norvasc 10. 3.Inderal 20 b.i.d. 4.Pantoprazole. 5.Hydrocodone. 6.IV fluid. Assessment And Plan: 1.Acute kidney injury secondary to prerenal, recovered, resolved. 2.Hypokalemia. We will supplement. 3.Possible over volume. I am going to get chest x-ray and we will discontinue IV fluid. 4.Hyponatremia secondary to gastrointestinal loss. Discontinue IV fluid. We will monitor. 5.Pancreatitis as by primary. 6.Hypertension, controlled, optimal. Continue current medications. DELFINA Voice ID: [id number] Report ID: [id number]
[2017-12-21] MEDS: POTASSIUM CL 40 MEQ in NA CHLORIDE 0.9% 500 ML IV SCH ×2 (13:42→23:04)
--- NOTE | 2017-12-21 14:51 | RAD REPORT ---
EXAM DESCRIPTION: RAD - Chest Single View - 12/21/2017 2:23 pm CLINICAL HISTORY: COPD, shortness of breath COMPARISON: None. TECHNIQUE: AP portable chest image was obtained 1309 hours . FINDINGS: Lung volumes are low. Bilateral lung base atelectasis is present potentially masking minim al infiltrate. Failure and volume overload are not suspected. Heart and vasculature are normal. No me asurable pleural effusion and no pneumothorax. No gross bony abnormality seen. No acute aortic findin gs suspected. IMPRESSION: Shallow inspiration examination with bilateral lung base atelectasis. This could mask mi nimal or early infiltrate. No failure.
[2017-12-21] MEDS: ENOXAPARIN 40 MG/0.4 ML SQ SCH (16:50)
[2017-12-22] MEDS: TRAMADOL HCL 50 MG TAB PO PRN (01:26)
[2017-12-22 02:39] LABS: HBsAG Nonreactive (Nonreactive); Hepatitis A IgM Antibody Nonreactive
[2017-12-22] MEDS ORDERED: HYDROCODONE/APAP 10/325 TAB PO ONE (03:55)
[2017-12-22 04:17] LABS: Absolute Lymphocytes (CBC) 1.8 K/uL (0.7-4.9); Absolute Monocytes 3.3 K/uL (0.1-1.3); Absolute Neutrophil 22.1 K/uL (1.8-8.0); Basophils % 0.1 % (0-1.3); Eosinophils % 0.4 % (0-4.4); Hematocrit 32.6 % (39.6-49.0); Lymphocytes % 6.7 % (15.3-44.8); MCH 30.5 pg (27.0-35.0); MCV 91.9 fL (80-100); MPV 9.2 fL (7.6-11.3); Monocytes % 11.9 % (3.3-12.3); RBC Red Blood Cell Count 3.54 M/uL (4.33-5.43)
[2017-12-22 04:52] LABS: Bicarbonate 25 mEq/L (21-31); Potassium 3.6 mEq/L (3.6-5.0); Sodium Level 131 mEq/L (135-145)
[2017-12-22] MEDS: HYDROMORPHONE HCL 2 MG/ML inj IV PRN ×3 (05:13→21:05)
[2017-12-22 05:14] LABS: Albumin 2.6 g/dL (3.2-5.5); BUN Blood Urea Nitrogen 6 mg/dL (6-20); Glucose Level 264 mg/dL (65-120); Magnesium 1.7 mg/dL (1.8-2.5); Phosphorus 3.3 mg/dL (2.5-4.3)
[2017-12-22 05:22] LABS: Blood Morphology Comment NOT SEEN (NOT SEEN); Platelet Estimate ADEQ; Toxic Granulation 2+
[2017-12-22 05:26] LABS: Lipase 27 U/L (22-51)
[2017-12-22] MEDS: PANTOPRAZOLE 40MG TABLET PO SCH (06:00)
[2017-12-22 06:28] LABS: Urine Appearance CLEAR; Urine Bilirubin NEGATIVE (NEG); Urine Blood NEGATIVE (NEG); Urine Color YELLOW; Urine Glucose 3+ (NEG); Urine Protein NEGATIVE (NEG); Urine Specific Gravity 1.025 (1.005-1.030); Urine Urobilinogen 0.2 mg/dL (0.2-1.0)
[2017-12-22 06:41] LABS: Barbiturates NEGATIVE; Benzodiazepines POSITIVE; Cocaine NEGATIVE; METHAMPHETAM NEGATIVE (NEGATIVE); Opiates NEGATIVE; Phencyclidine NEGATIVE; THC Cannibis POSITIVE
[2017-12-22] MEDS ORDERED: NA CHLORIDE 0.9% 1,000 ML IV SCH (07:00)
[2017-12-22 07:14] LABS: Urine Bacteria <20 /HPF (NONE SEEN); Urine RBC <5 /HPF (NONE SEEN)
[2017-12-22 07:15] LABS: Urine Culture Reflex Order NOT NEEDED
[2017-12-22] MEDS: INSULIN -REGULAR HUMAN 50 UNIT/0.5 ML ML SQ SCH ×5 (07:30→21:00)
[2017-12-22] MEDS ORDERED: INSULIN DETEMIR 100 UNIT/1 ML INSULIN SQ SCH (08:00)
[2017-12-22] MEDS ORDERED: HYDROMORPHONE HCL 2 MG/ML inj IV PRN (08:59)
[2017-12-22] MEDS ORDERED: SODIUM CHLORIDE 0.9% 10ML INJ IV PRN (08:59)
--- NOTE | 2017-12-22 08:59 | P.PN ---
Subjective Date of Service: 12/22/17 Primary Care Provider: Lo Chief Complaint: Pancreatitis alcohol withdrawal Subjective: Worsening (Patient has increased pain, abdominal distention, good bowel function.) Physical Examination - Vital Signs Temperature: 97.1 F Blood Pressure: 138/78 Pulse: 93 Respirations: 18 Pulse Ox (%): 98 - Physical Exam General: Alert, In no apparent distress, Cooperative HEENT: Mucous membr. moist/pink Respiratory: Normal air movement Gastrointestinal: Other (soft, more distended today, global TTP worse at epigastrium) - Studies Medications List Reviewed: Yes Assessment And Plan - Current Problems (Diagnosis) (1) Acute alcoholic pancreatitis Onset Date: 12/16/17 Current Visit: Yes Status: Acute Plan: - resume NPO - Transfer back to ICU for closer monitoring - have discussed diet plan for low fat, low cholesterol diet when he is discharged - PICC line and TPN - patient will need to follow up with primary care doctor after discharge PAMELA to discuss hyperlipidemia - alcohol cessation discussed - NS to 150 cc/hr, hyponatremia - electrolyte correction - ambulate - resume IV pain meds - patient was getting food not on diet plan by going downstairs from floor. We have discussed cessation of this activity. - CT pancreas protocol confirmed pancreatic necrosis - leukocytosis is likely SIRS from pancreatitis Qualifiers: Acute pancreatitis complication: no infection or necrosis Qualified Code(s) : K85.20 - Alcohol induced acute pancreatitis without necrosis or infection
[2017-12-22] MEDS ORDERED: ALPRAZOLAM 1 MG TABLET PO SCH (09:00)
[2017-12-22] MEDS: PROPRANOLOL HCL 10 MG TAB PO SCH ×2 (09:00→21:00)
[2017-12-22] MEDS ORDERED: Meropenem 1000 MG/VIAL IV SCH (09:00)
[2017-12-22] MEDS: AMLODIPINE 10 MG TAB PO SCH (09:00)
[2017-12-22] MEDS ORDERED: MAGNESIUM SULFATE 1 gm IVPB 1 GM/100 ML BAG IV ONE (09:00)
[2017-12-22] MEDS: THIAMINE 200 MG/2 ML INJ IVP SCH (09:26)
[2017-12-22] MEDS: PANTOPRAZOLE 40 MG INJ IVP SCH (09:26)
[2017-12-22] MEDS: NA CHLORIDE 0.9% 1,000 ML IV SCH ×4 (09:28→22:49)
--- NOTE | 2017-12-22 09:38 | P.PN ---
Subjective Date of Service: 12/22/17 Primary Care Provider: Burn Chief Complaint: Pancreatitis alcohol withdrawal Subjective: Other (More abdominal pain and distention noted. Patient ambulating) Physical Examination - Vital Signs Temperature: 97.1 F Blood Pressure: 138/78 Pulse: 93 Respirations: 18 Pulse Ox (%): 98 - Physical Exam General: Alert, In no apparent distress, Oriented x3, Cooperative HEENT: Atraumatic Neck: Supple Respiratory: Clear to auscultation bilaterally, Normal air movement Cardiovascular: Normal pulses, Regular rate/rhythm Gastrointestinal: Normal bowel sounds, Soft and benign, No masses, No rebound, No guarding, Distended (Some abdominal distention noted), Tenderness (Mild tenderness to the epigastric region) Musculoskeletal: No erythema, No tenderness, No warmth Integumentary: No tenderness/swelling, No erythema, No warmth, No cyanosis Neurological: Normal speech, Normal strength at 5/5 x4 extr, Normal tone, Normal affect Lymphatics: No axilla or inguinal lymphadenopathy - Studies Medications List Reviewed: Yes Assessment & Plan - Problems (Diagnosis) (1) Alcohol abuse Current Visit: Yes Status: Acute Plan: Alcohol cessation education has been addressed. CT scan ordered. Case and CT scan discuss with surgery. Pancreatic necrosis noted. Will transfer the patient to the ICU for close monitoring. Will need to monitor his input and output. Will increase IV fluids. Will start IV meropenem. Will keep NPO except some medications. Will adjust medications. Will increase pain medication. Will monitor closely. Patient may need long-term acute care facility placement if he improves. If worsens patient may require surgery. (2) Diabetes mellitus Current Visit: Yes Status: Suspected Plan: Will increase sliding scale. Will monitor closely. Patient will be on TPN. 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 Patient be transferred to ICU. Will monitor input and output closely. (4) Acute alcoholic pancreatitis Onset Date: 12/16/17 Current Visit: Yes Status: Acute Plan: Abdominal distension and elbow pain noted. CT scan order. CT scan reviewed by surgery. Case discussed with surgery. Patient seems to have more increase pancreatic inflammation and necrosis. Will transfer the patient to the ICU for close monitor him. Will increase IV fluids. Patient will get PICC line. Patient will start TPN. IV meropenem added. If white count continues to improve over the next 2 days will need to change medication to InVanz. Repeat blood cultures obtained. Chest x-ray ordered. IV pain medication adjusted. Will adjust fluids appropriately. Will need to monitor input and output closely. Will monitor electrolytes closely as well. Will provide some medication by mouth. Continue with surgery recommendations. Qualifiers: Acute pancreatitis complication: no infection or necrosis Qualified Code(s) : K85.20 - Alcohol induced acute pancreatitis without necrosis or infection (5) Hyperkalemia Current Visit: Yes Status: Acute Plan: This is resolved. Will continue to monitor closely. (6) Fatty (change of) liver, not elsewhere classified Onset Date: 12/16/17 Current Visit: Yes Status: Chronic Plan: Liver function tests elevated. Hepatitis panel unremarkable (7) HTN (hypertension) Onset Date: 12/16/17 Current Visit: Yes Status: Chronic Plan: This has improved. Patient on medication. Will continue to monitor and adjust. Qualifiers: Hypertension type: essential hypertension Qualified Code(s): I10 - Essential (primary) hypertension (8) GERD (gastroesophageal reflux disease) Current Visit: Yes Status: Suspected Plan: Continue with medication Qualifiers: Esophagitis presence: esophagitis presence not specified Qualified Code(s) : K21.9 - Gastro-esophageal reflux disease without esophagitis (9) Ileus Current Visit: Yes Status: Acute Plan: Patient had improved but CT scan shows worsening pancreatitis. Continue as above. Patient will be NPO except some medication. (10) Anemia Current Visit: Yes Status: Acute Plan: Likely from dilution. Will monitor closely. Qualifiers: Anemia type: unspecified type Qualified Code(s): D64.9 - Anemia, unspecified Discharge Plan: LTAC Plan to discharge in: Greater than 2 days Time Spent Managing Pts Care (In Minutes): 55
--- NOTE | 2017-12-22 09:47 | RAD REPORT ---
EXAM DESCRIPTION: RAD - Chest Pa And Lat (2 Views) - 12/22/2017 8:02 am CLINICAL HISTORY: Chest pain. COMPARISON: 12/21/2017 FINDINGS: Subsegmental atelectasis is present in both lung bases. The lungs are underinflated. The h eart is normal in size. No displaced fractures. IMPRESSION: Underinflated lungs with atelectasis in both lung bases.
--- NOTE | 2017-12-22 09:48 | RAD REPORT ---
EXAM DESCRIPTION: RAD - Abdomen 1 View (KUB) - 12/22/2017 8:02 am CLINICAL HISTORY: Leukocytosis, ileus. COMPARISON: 12/20/2017, 12/19/2017 FINDINGS: Mild distention of small bowel loops and large bowel loops in the abdomen are again noted, unchanged, likely representing an ileus. No suspicious calcifications. No significant bony findings. No evidence of pneumoperitoneum. IMPRESSION: No significant change in the adynamic ileus pattern.
--- NOTE | 2017-12-22 10:05 | RAD REPORT ---
EXAM DESCRIPTION: CT - Liver Abd Pancreas W Wo - 12/22/2017 8:15 am CLINICAL HISTORY: Pancreatitis. COMPARISON: 12/14/2017 FINDINGS: Subsegmental atelectasis is present in both posterior lung bases. The liver demonstrates no focal mass or intrahepatic biliary dilatation. The spleen is normal. The si gnificant amount of inflammatory fluid is seen surrounding the pancreas. The head, neck and body of t he pancreas show hypoenhancement, likely indicating pancreatic necrosis. Pancreatic tail shows normal enhancement. No well-formed pseudocyst is seen. Moderate ascites is present in the upper abdomen. No finding to in dicate portal venous thrombosis. Both adrenal glands both kidneys are normal without hydronephrosis. Mildly prominent lymph nodes are seen in the small bowel mesenteric. IMPRESSION: Pancreatic necrosis is suspected involving the head and body of the pancreas. Marked peripancreatic fluid inflammation with mild ascites. Findings were discussed with Dr. Norman on 12/22/17.
[2017-12-22 11:04] LABS: ALT/SGPT 28 IU/L (10-60); AST/SGOT 24 IU/L (10-42); Albumin 2.5 g/dL (3.2-5.5); Bicarbonate 25 mEq/L (21-31); Protein, Total 5.5 g/dL (6.0-8.3); Sodium Level 131 mEq/L (135-145)
[2017-12-22 11:07] LABS: Alkaline Phosphatase 89 IU/L (42-121); BUN Blood Urea Nitrogen 6 mg/dL (6-20); Bilirubin Total 1.4 mg/dL (0.3-1.2); Glucose Level 253 mg/dL (65-120)
[2017-12-22] MEDS: Meropenem 1,000 MG in NA CHLORIDE 0.9% 100 ML IV SCH ×2 (11:17→17:46)
--- NOTE | 2017-12-22 11:33 | P.PN ---
Date of Service: 12/22/17 Patient did have worsening pain over night was given an additional dose of pain medication. Later in the shift notified by nursing staff regarding elevated white blood cell count. Ordered a CT of the abdomen and pelvis with IV and p.o. contrast.
[2017-12-22] MEDS: HYDRALAZINE HCL 20 MG/ML VIAL IV PRN (12:16)
[2017-12-22] MEDS ORDERED: HYDROMORPHONE HCL 2 MG/ML inj IV ONE ×2 (12:45→18:00)
--- NOTE | 2017-12-22 13:32 | RAD REPORT ---
EXAM DESCRIPTION: RAD - Chest Single View - 12/22/2017 1:25 pm CLINICAL HISTORY: PICC line placement COMPARISON: None. FINDINGS: Portable chest was obtained following placement of a right upper extremity PICC line. The catheter tip is in the SVC atrial junction.
[2017-12-22] MEDS ORDERED: DEXTROSE 10%-WATER 500 ML IV SCH (15:00)
[2017-12-22 15:17] VITALS: BMI 34.2
[2017-12-22] MEDS: ENOXAPARIN 40 MG/0.4 ML SQ SCH (16:55)
[2017-12-22] MEDS ORDERED: AA 5%/D20W/ELECTROLYTES-TPN 2,000 ML, Lipids 20% 250 ML with MULTIVITAMINS INJ 10 ML IV SCH ×3 (17:00)
[2017-12-22] MEDS ORDERED: FENTANYL IV PRN (17:37)
[2017-12-22] MEDS ORDERED: [UNRECOGNIZED DRUG - OTHER] IV PRN (17:37)
[2017-12-22] MEDS ORDERED: SODIUM CHLORIDE IV PRN (17:37)
[2017-12-23] MEDS: Meropenem 1,000 MG in NA CHLORIDE 0.9% 100 ML IV SCH ×3 (00:03→17:46)
[2017-12-23] MEDS: INSULIN -REGULAR HUMAN 50 UNIT/0.5 ML ML SQ SCH ×2 (00:20→06:50)
[2017-12-23] MEDS: HYDROMORPHONE HCL 2 MG/ML inj IV PRN ×5 (02:01→21:04)
--- NOTE | 2017-12-23 02:58 | PN ---
Date of Progress Note: 12/22/2017 Subjective: The patient complaining of some abdominal pain. He is without any nausea. His leukocyt osis got worse. Physical Examination: Vital Signs: Blood pressure 157/73, pulse of 123. Chest: Crackles, bilateral base. Heart: S1, S2. Regular. Tachycardic. Abdomen: Soft, tender. No guarding. Extremities: Trace edema. Laboratory Data: WBC 27.3, H and H 10.8/32.6, platelet 303. Sodium 131, potassium 4, bicarb 25, BUN 6, creatinine 0.5, calcium of 8. Current Medications: The patient's IV fluid has been resumed. Meropenem 1 gm every 8 hours, Lovenox , Norvasc, fenofibrate, Zofran, pantoprazole, IV fluids, hydromorphone, fentanyl. Assessment And Plan: 1.Acute kidney injury secondary to prerenal recover, resolve. Currently over on the wet side. Ihsan g to have the third spacing. I am going to decrease IV fluid to 75. 2.Hypertension, controlled, optimal. 3.Hypokalemia, resolved. 4.Acute pancreatitis complicated with alcoholic pancreatitis. We will follow up with the primary. DELFINA Voice ID: [id number] Report ID: [id number]
[2017-12-23 05:08] LABS: Absolute Lymphocytes (CBC) 1.8 K/uL (0.7-4.9); Absolute Monocytes 2.1 K/uL (0.1-1.3); Absolute Neutrophil 22.9 K/uL (1.8-8.0); Basophils % 0.4 % (0-1.3); Eosinophils % 0.2 % (0-4.4); Hematocrit 32.3 % (39.6-49.0); Lymphocytes % 6.5 % (15.3-44.8); MCH 30.1 pg (27.0-35.0); MCV 91.8 fL (80-100); RBC Red Blood Cell Count 3.52 M/uL (4.33-5.43)
[2017-12-23 05:51] LABS: ALT/SGPT 24 IU/L (10-60); AST/SGOT 20 IU/L (10-42); Albumin 2.6 g/dL (3.2-5.5); Alkaline Phosphatase 88 IU/L (42-121); Amylase Level 8 U/L (28-100); BUN Blood Urea Nitrogen 7 mg/dL (6-20); Bicarbonate 28 mEq/L (21-31); Bilirubin Total 0.7 mg/dL (0.3-1.2); C-Reactive Protein 236.7 mg/L (<10.0); Glucose Level 349 mg/dL (65-120); Lipase 28 U/L (22-51); Magnesium 1.7 mg/dL (1.8-2.5); Phosphorus 3.7 mg/dL (2.5-4.3); Potassium 3.6 mEq/L (3.6-5.0); Protein, Total 6.1 g/dL (6.0-8.3); Sodium Level 134 mEq/L (135-145)
[2017-12-23] MEDS ORDERED: MAGNESIUM SULFATE 1 gm IVPB 1 GM/100 ML BAG IV ONE (06:56)
[2017-12-23] MEDS ORDERED: KCL 20 MEQ/100 mL IVPB 20 MEQ/100 ML BAG IV SCH (08:00)
[2017-12-23] MEDS ORDERED: INSULIN -REGULAR HUMAN 50 UNIT/0.5 ML ML SQ SCH (08:39)
--- NOTE | 2017-12-23 08:45 | P.PN ---
Subjective Date of Service: 12/23/17 Primary Care Provider: Burn Chief Complaint: Pancreatitis alcohol withdrawal Subjective: Other (Patient improved since yesterday. Patient passing gas. Pain improved but still requesting Dilaudid for pain instead of fentanyl. No nausea vomiting noted.) Physical Examination - Vital Signs Temperature: 98.1 F Blood Pressure: 135/65 Pulse: 128 Respirations: 20 Pulse Ox (%): 94 - Physical Exam General: Alert, In no apparent distress, Oriented x3, Cooperative HEENT: Atraumatic, Mucous membr. moist/pink Neck: Supple Respiratory: Clear to auscultation bilaterally, Normal air movement Cardiovascular: Normal pulses, Regular rate/rhythm Gastrointestinal: Normal bowel sounds, No masses, No rebound, No guarding, Distended (Less distention noted.), Tenderness (Minimal pain to the abdomen noted.) Musculoskeletal: No erythema, No tenderness, No warmth Integumentary: No tenderness/swelling, No erythema, No warmth, No cyanosis Neurological: Normal speech, Normal strength at 5/5 x4 extr, Normal tone, Normal affect Lymphatics: No axilla or inguinal lymphadenopathy - Studies Medications List Reviewed: Yes Assessment & Plan - Problems (Diagnosis) (1) Alcohol abuse Current Visit: Yes Status: Acute Plan: Alcohol cessation education has been addressed. Patient was transferred to ICU yesterday. Pain improved. Patient on fentanyl CASINO SUPERVISOR pump. Will consider changing CASINO SUPERVISOR pump to Dilaudid. Will check with pharmacy. Will also discuss with surgery. CT scan shows pancreatic necrosis to the head and body of pancreas. Ascites noted with heron pancreatic inflammation noted. Lipase within normal range. White count slightly improved. Overall improved. Will continue with aggressive IV fluid hydration. TPN in place. Patient NPO except some medication. Will continue to monitor closely. (2) Diabetes mellitus Current Visit: Yes Status: Suspected Plan: Will increase sliding scale to aggressive. Patient on TPN. Qualifiers: Diabetes mellitus type: type 2 Diabetes mellitus middle or intermediate school principal insulin use: without middle or intermediate school principal use Diabetes mellitus complication status: with other specified complication Qualified Code(s): E11.69 - Type 2 diabetes mellitus with other specified complication (3) ALFONSO (acute kidney injury) Current Visit: Yes Status: Acute Plan: Overall stable. Will continue with IV fluids. Patient on TPN. (4) Acute alcoholic pancreatitis Onset Date: 12/16/17 Current Visit: Yes Status: Acute Plan: CT scan reviewed yesterday. Case discussed at length with surgery. Will continue with IV fluids, TPN and NPO. Will discuss with surgery about the possibility of adjusting CASINO SUPERVISOR pump to Dilaudid. Will consider transfer to the floor today if okay with surgery. Continue as above. Qualifiers: Acute pancreatitis complication: no infection or necrosis Qualified Code(s) : K85.20 - Alcohol induced acute pancreatitis without necrosis or infection (5) Hyperkalemia Current Visit: Yes Status: Acute Plan: This is resolved. Will continue to monitor closely. (6) Fatty (change of) liver, not elsewhere classified Onset Date: 12/16/17 Current Visit: Yes Status: Chronic Plan: Liver function tests elevated. Hepatitis panel unremarkable (7) HTN (hypertension) Onset Date: 12/16/17 Current Visit: Yes Status: Chronic Plan: This has improved. Patient on medication. Will continue to monitor and adjust. Qualifiers: Hypertension type: essential hypertension Qualified Code(s): I10 - Essential (primary) hypertension (8) GERD (gastroesophageal reflux disease) Current Visit: Yes Status: Suspected Plan: Continue with medication Qualifiers: Esophagitis presence: esophagitis presence not specified Qualified Code(s) : K21.9 - Gastro-esophageal reflux disease without esophagitis (9) Ileus Current Visit: Yes Status: Acute Plan: Continue as above. (10) Anemia Current Visit: Yes Status: Acute Plan: Likely from dilution. Overall stable. Will monitor closely. Qualifiers: Anemia type: unspecified type Qualified Code(s): D64.9 - Anemia, unspecified (11) Pancreatic necrosis Current Visit: Yes Status: Acute Plan: CT scan reviewed. Will continue above plan of care. (12) Ascites Current Visit: Yes Status: Acute Plan: Mild ascites noted. Will likely from pancreatitis. Will continue monitor closely. Qualifiers: Ascites type: other type Qualified Code(s): R18.8 - Other ascites Discharge Plan: Home Plan to discharge in: Greater than 2 days Time Spent Managing Pts Care (In Minutes): 55
[2017-12-23] MEDS: PROPRANOLOL HCL 10 MG TAB PO SCH ×2 (09:00→21:00)
[2017-12-23] MEDS: PANTOPRAZOLE 40 MG INJ IVP SCH (09:06)
[2017-12-23] MEDS: THIAMINE 200 MG/2 ML INJ IVP SCH (09:06)
--- NOTE | 2017-12-23 09:32 | P.PN ---
Subjective Date of Service: 12/23/17 Primary Care Provider: Lo Chief Complaint: Pancreatitis alcohol withdrawal Subjective: Improving (Patient feels better, but no significant changes, continues to have bowel movements, no nausea or emesis.) Physical Examination - Vital Signs Temperature: 98.1 F Blood Pressure: 135/65 Pulse: 128 Respirations: 20 Pulse Ox (%): 94 - Physical Exam General: Alert, In no apparent distress, Cooperative Gastrointestinal: Other (soft, continues to be distended, less tender globally, worse at epigastrium) - Studies Medications List Reviewed: Yes Assessment And Plan - Current Problems (Diagnosis) (1) Acute alcoholic pancreatitis Onset Date: 12/16/17 Current Visit: Yes Status: Acute Plan: - resume NPO - continue ICU for closer monitoring - have discussed diet plan for low fat, low cholesterol diet when he is discharged - PICC line and TPN - patient will need to follow up with primary care doctor after discharge PAMELA to discuss hyperlipidemia - alcohol cessation discussed - total fluids to 150 cc/hr, hyponatremia - electrolyte correction - ambulate - resume IV pain meds - patient was getting food not on diet plan by going downstairs from floor. We have discussed cessation of this activity. - CT pancreas protocol confirmed pancreatic necrosis - leukocytosis is likely SIRS from pancreatitis Qualifiers: Acute pancreatitis complication: no infection or necrosis Qualified Code(s) : K85.20 - Alcohol induced acute pancreatitis without necrosis or infection
[2017-12-23] MEDS: FENOFIBRATE 160 MG TAB PO SCH (09:33)
[2017-12-23] MEDS: AMLODIPINE 10 MG TAB PO SCH (09:33)
[2017-12-23] MEDS ORDERED: D50W 25 GM/50 ML SYRINGE IV PRN (09:57)
[2017-12-23] MEDS ORDERED: GLUCAGON 1 MG/VIAL IM PRN (09:57)
[2017-12-23] MEDS ORDERED: INSULIN -REGULAR HUMAN 50 UNIT/0.5 ML ML IV SCH ×2 (10:00→10:15)
[2017-12-23] MEDS ORDERED: Magnesium Sulfate 2gm IVPB 2 G/50 ML BAG IV ONE (11:28)
[2017-12-23] MEDS: FENTANYL/NS PCA 500 MCG/50 ML SYR IV PRN ×2 (11:59→17:31)
[2017-12-23] MEDS ORDERED: POTASSIUM CL 40 MEQ in NA CHLORIDE 0.9% 500 ML IV SCH (12:00)
[2017-12-23] MEDS: INSULIN -REGULAR HUMAN 100 UNIT in NA CHLORIDE 0.9% 100 ML IV SCH (12:39)
[2017-12-23] MEDS: ONDANSETRON 4 MG/2 ML VIAL IV PRN (15:17)
[2017-12-23] MEDS: ENOXAPARIN 40 MG/0.4 ML SQ SCH (17:46)
[2017-12-23] MEDS: AA 5%/D20W/ELECTROLYTES-TPN 2,000 ML, Lipids 20% 250 ML with MULTIVITAMINS INJ 10 ML, P... IV SCH ×5 (18:02)
[2017-12-24] MEDS: HYDROMORPHONE HCL 2 MG/ML inj IV PRN ×6 (00:42→20:48)
[2017-12-24] MEDS: Meropenem 1,000 MG in NA CHLORIDE 0.9% 100 ML IV SCH ×3 (00:42→17:52)
--- NOTE | 2017-12-24 00:43 | PN ---
Date of Progress Note: 12/23/2017 Subjective: The patient had abdominal distention. The patient is transferred to ICU. CT showing ne crotizing pancreatitis. Physical Examination: Vital Signs: When I saw the patient, blood pressure of 123/59, tachycardic at 125, in pain, afebrile . Chest: Crackles at the base. Heart: S1, S2. Regular. Abdomen: Distended with tenderness. Extremities: Trace edema. Laboratory Data: WBC 26.9, H and H 10.6/32.3, and platelets of 362. Sodium 134, potassium 3.6, bica rb 28, BUN 7, creatinine 0.6, calcium 8.2, phosphorus 3.7, and magnesium 1.8. Medications: Current medications the patient is on include; 1.TPN. 2.Meropenem 1000 q.8 h. 3.Lovenox. 4.Norvasc 10. 5.Fenofibrate. 6.Pantoprazole 20 b.i.d. 7.Inderal. 8.Zofran. 9.Insulin drip. 10.Sedation and pain medication. Assessment And Plan: 1.Acute kidney injury secondary to prerenal, recovered, resolved. 2.Hypokalemia and hypomagnesemia. We will supplement. I can adjust the total parenteral nutrition. 3.Hypertension, controlled, optimal. Continue current medication. 4.Necrotizing pancreatitis. Continue antibiotic. We will follow up with the primary. DELFINA Voice ID: [id number] Report ID: [id number]
[2017-12-24] MEDS: FENTANYL/NS PCA 500 MCG/50 ML SYR IV PRN ×3 (02:41→17:01)
[2017-12-24 06:02] LABS: Absolute Lymphocytes (CBC) 1.5 K/uL (0.7-4.9); Absolute Monocytes 2.2 K/uL (0.1-1.3); Basophils % 0.2 % (0-1.3); Eosinophils % 0.2 % (0-4.4); Hematocrit 29.8 % (39.6-49.0); MCV 92.4 fL (80-100); Monocytes % 8.7 % (3.3-12.3); RBC Red Blood Cell Count 3.23 M/uL (4.33-5.43)
[2017-12-24 06:03] LABS: ALT/SGPT 19 IU/L (10-60); AST/SGOT 23 IU/L (10-42); Albumin 2.5 g/dL (3.2-5.5); Alkaline Phosphatase 77 IU/L (42-121); Amylase Level 8 U/L (28-100); BUN Blood Urea Nitrogen 8 mg/dL (6-20); Bicarbonate 31 mEq/L (21-31); Bilirubin Total 0.5 mg/dL (0.3-1.2); Glucose Level 194 mg/dL (65-120); Lipase 23 U/L (22-51); Magnesium 1.8 mg/dL (1.8-2.5); Potassium 3.5 mEq/L (3.6-5.0); Protein, Total 6.2 g/dL (6.0-8.3); Sodium Level 135 mEq/L (135-145)
[2017-12-24] MEDS: INSULIN -REGULAR HUMAN 100 UNIT in NA CHLORIDE 0.9% 100 ML IV SCH ×2 (06:11→18:20)
--- NOTE | 2017-12-24 07:59 | RAD REPORT ---
EXAM DESCRIPTION: RAD - Chest Single View - 12/24/2017 5:44 am CLINICAL HISTORY: Shortness of breath, pancreatitis COMPARISON: December 22 TECHNIQUE: AP portable chest image was obtained 0530 hours . FINDINGS: Lung volumes remain quite low. Lung base atelectasis persists. No new infiltrate or failur e. PICC line is unchanged. Heart and vasculature are normal. No pneumothorax. No enlarging pleural fl uid No gross bony abnormality seen. No acute aortic findings suspected. IMPRESSION: Shallow inspiration chest film with continued lung base atelectasis. No new or progressive finding.
[2017-12-24] MEDS: AMLODIPINE 10 MG TAB PO SCH (08:32)
[2017-12-24] MEDS: FENOFIBRATE 160 MG TAB PO SCH (08:32)
[2017-12-24] MEDS: PROPRANOLOL HCL 10 MG TAB PO SCH ×2 (08:32→20:47)
[2017-12-24] MEDS: THIAMINE 200 MG/2 ML INJ IVP SCH (08:33)
[2017-12-24] MEDS: PANTOPRAZOLE 40 MG INJ IVP SCH (08:33)
--- NOTE | 2017-12-24 14:07 | P.PN ---
Subjective Date of Service: 12/24/17 Primary Care Provider: Burn Chief Complaint: Pancreatitis alcohol withdrawal Subjective: Other (Stable. He complains for joint pain) Physical Examination - Vital Signs Temperature: 100.4 F Blood Pressure: 137/68 Pulse: 111 Respirations: 16 Pulse Ox (%): 90 - Physical Exam General: Alert, In no apparent distress, Oriented x3, Cooperative HEENT: Atraumatic Neck: Supple Respiratory: Clear to auscultation bilaterally, Normal air movement Cardiovascular: Abnormal pulses (sinus tachycardia) Gastrointestinal: Normal bowel sounds, Soft and benign, Non-distended, No masses , No rebound, No guarding Musculoskeletal: No erythema, No tenderness, No warmth Integumentary: No erythema, No warmth, No cyanosis, Other (Mild warmth to the joints. Mainly to the upper extremities) Neurological: Normal speech, Normal strength at 5/5 x4 extr, Normal tone, Normal affect - Studies Medications List Reviewed: Yes Assessment & Plan - Problems (Diagnosis) (1) Alcohol abuse Current Visit: Yes Status: Acute Plan: Alcohol cessation education has been addressed. Continue with IV pain pump. Continue with IV antibiotic therapy. Case discussed with surgery. Surgery agrees with plan of care as relates to fluid restriction by nephrology. Patient currently on TPN. Patient remains NPO. (2) Diabetes mellitus Current Visit: Yes Status: Suspected Plan: Patient transition to insulin drip. Will maintain blood sugars less than 200. Qualifiers: Diabetes mellitus type: type 2 Diabetes mellitus terminal operator insulin use: without terminal operator use Diabetes mellitus complication status: with other specified complication Qualified Code(s): E11.69 - Type 2 diabetes mellitus with other specified complication (3) ALFONSO (acute kidney injury) Current Visit: Yes Status: Acute Plan: Overall stable. Nephrology discontinued IV fluids. Patient continues on TPN. (4) Acute alcoholic pancreatitis Onset Date: 12/16/17 Current Visit: Yes Status: Acute Plan: Continue with current plan on TPN. Patient on IV antibiotic therapy. Slight improvement in white count. Will monitor closely. Case discussed with surgery. Long-term plan is for the patient to be transferred to long-term acute care facility. P Qualifiers: Acute pancreatitis complication: no infection or necrosis Qualified Code(s) : K85.20 - Alcohol induced acute pancreatitis without necrosis or infection (5) Hyperkalemia Current Visit: Yes Status: Acute Plan: This is resolved. Will continue to monitor closely. (6) Fatty (change of) liver, not elsewhere classified Onset Date: 12/16/17 Current Visit: Yes Status: Chronic Plan: Liver function tests elevated. Hepatitis panel unremarkable (7) HTN (hypertension) Onset Date: 12/16/17 Current Visit: Yes Status: Chronic Plan: This has improved. Patient on medication. Will continue to monitor and adjust. Qualifiers: Hypertension type: essential hypertension Qualified Code(s): I10 - Essential (primary) hypertension (8) GERD (gastroesophageal reflux disease) Current Visit: Yes Status: Suspected Plan: Continue with medication Qualifiers: Esophagitis presence: esophagitis presence not specified Qualified Code(s) : K21.9 - Gastro-esophageal reflux disease without esophagitis (9) Ileus Current Visit: Yes Status: Acute Plan: Continue as above. (10) Anemia Current Visit: Yes Status: Acute Plan: Likely from dilution. Overall stable. Will monitor closely. Qualifiers: Anemia type: unspecified type Qualified Code(s): D64.9 - Anemia, unspecified (11) Pancreatic necrosis Current Visit: Yes Status: Acute Plan: CT scan reviewed. Will continue above plan of care. (12) Ascites Current Visit: Yes Status: Acute Plan: Continue as above. IV fluids adjusted by Nephrology Qualifiers: Ascites type: other type Qualified Code(s): R18.8 - Other ascites (13) Joint pain Current Visit: Yes Status: Acute Plan: Patient reports history of gouty arthritis. Patient with slight inflammation to the joints. Will discuss with nephrology about treatment. Qualifiers: Joint pain location: unspecified Qualified Code(s): M25.50 - Pain in unspecified joint Discharge Plan: LTAC Plan to discharge in: Greater than 2 days Time Spent Managing Pts Care (In Minutes): 55
[2017-12-24] MEDS: ENOXAPARIN 40 MG/0.4 ML SQ SCH (17:52)
[2017-12-24] MEDS: AA 5%/D20W/ELECTROLYTES-TPN 2,000 ML, Lipids 20% 250 ML with MULTIVITAMINS INJ 10 ML, P... IV SCH ×5 (17:52)
[2017-12-24] MEDS ORDERED: HYDROCODONE/APAP 7.5/325 MG TAB PO PRN (18:53)
[2017-12-24] MEDS ORDERED: FENTANYL/NS PCA 500 MCG/50 ML SYR IV PRN (22:53)
[2017-12-25] MEDS: Meropenem 1,000 MG in NA CHLORIDE 0.9% 100 ML IV SCH ×2 (00:57→08:14)
[2017-12-25] MEDS: HYDROMORPHONE HCL 2 MG/ML inj IV PRN ×4 (01:05→10:01)
--- NOTE | 2017-12-25 01:17 | PN ---
Date of Progress Note: 12/24/2017 Chief Complaint: Acute kidney injury in a recovery state. History Of Present Illness: Renal function has improved to baseline. The patient responded to IV fluids. The patient was found to have hyperkalemia on arrival to the hospital and was treated with IV fluids, Kayexalate. He has nonoliguric urine output . Electrolytes panel showed hypokalemia and hypomagnesemia. The patient received supplement for treatment of hypokalemia and hypomagnesemia. The patient has necrotizing pancreatitis. He remains on IV nutrition with TPN. Abdominal pain is subsiding. Review of Systems: The patient is feeling better. He denies nausea, vomiting, abdominal pain is subsiding. Physical Examination: Lungs: Few crackles at bases. Heart: S1, S2. Abdomen: Soft, benign. Extremities: Trace edema. Laboratory Data: WBC 26.9, hemoglobin 10.6. Sodium 134, potassium 3.6, bicarbonate 28, BUN 7, creatinine 0.6, calcium 8.2, phosphorus 3.7, magnesium 1.8. Impression: 1. Acute kidney injury in recovery phase. Monitor electrolytes daily. The patient remains in ICU. He is treated with TPN. Electrolytes: Stable, BUN is 8, creatinine 0.67 on latest renal panel. 2. Hypertension, controlled. Avoid YAKELIN inhibitor due to acute kidney injury. 3. Hypoalbuminemia, continue TPN. 4. Necrotizing pancreatitis. The patient remains n.p.o. 5. Hypomagnesemia, hypokalemia. Replacement with TPN. Monitor electrolytes. KATI/JOSEFINA Voice ID: [id number] Report ID: [id number] LILO
[2017-12-25 05:17] LABS: Absolute Lymphocytes (CBC) 2.3 K/uL (0.7-4.9); Absolute Monocytes 2.3 K/uL (0.1-1.3); Absolute Neutrophil 15.8 K/uL (1.8-8.0); Basophils % 0.7 % (0-1.3); Eosinophils % 0.6 % (0-4.4); Hematocrit 28.8 % (39.6-49.0); Lymphocytes % 11.2 % (15.3-44.8); MCH 29.9 pg (27.0-35.0); MCV 91.7 fL (80-100); MPV 8.9 fL (7.6-11.3); Monocytes % 11.3 % (3.3-12.3); RBC Red Blood Cell Count 3.14 M/uL (4.33-5.43)
[2017-12-25 05:58] VITALS: TEMP 98.5
[2017-12-25 06:13] LABS: ALT/SGPT 18 IU/L (10-60); AST/SGOT 28 IU/L (10-42); Albumin 2.2 g/dL (3.2-5.5); Alkaline Phosphatase 63 IU/L (42-121); Amylase Level 7 U/L (28-100); BUN Blood Urea Nitrogen 9 mg/dL (6-20); Bicarbonate 32 mEq/L (21-31); Bilirubin Total 0.7 mg/dL (0.3-1.2); Glucose Level 134 mg/dL (65-120); Lipase 24 U/L (22-51); Magnesium 1.6 mg/dL (1.8-2.5); Potassium 4.1 mEq/L (3.6-5.0); Protein, Total 5.5 g/dL (6.0-8.3); Sodium Level 134 mEq/L (135-145); Uric Acid 2.8 mg/dL (4.8-8.7)
[2017-12-25 07:47] VITALS: O2SAT 92
[2017-12-25] MEDS ORDERED: HYDROCODONE/APAP 7.5/325 MG TAB PO PRN (07:59)
[2017-12-25] MEDS ORDERED: MAGNESIUM SULFATE 1 gm IVPB 1 GM/100 ML BAG IV ONE (08:00)
[2017-12-25] MEDS: FENOFIBRATE 160 MG TAB PO SCH (08:11)
[2017-12-25] MEDS: AMLODIPINE 10 MG TAB PO SCH (08:11)
[2017-12-25] MEDS: PROPRANOLOL HCL 10 MG TAB PO SCH (08:12)
--- NOTE | 2017-12-25 08:12 | P.PN ---
Subjective Date of Service: 12/25/17 Primary Care Provider: Lo Chief Complaint: Pancreatitis alcohol withdrawal Subjective: Improving (Patient states he has no abdominal pain this morning, he is hungry at this time, has bowel movements last evening.) Physical Examination - Vital Signs Temperature: 98.5 F Blood Pressure: 138/63 Pulse: 107 Respirations: 11 Pulse Ox (%): 92 - Physical Exam General: Alert, In no apparent distress, Cooperative HEENT: Mucous membr. moist/pink Respiratory: Normal air movement Gastrointestinal: No tenderness, No masses, No rebound, No guarding, Other ( minimal distention) - Studies Medications List Reviewed: Yes Assessment And Plan - Current Problems (Diagnosis) (1) Acute alcoholic pancreatitis Onset Date: 12/16/17 Current Visit: Yes Status: Acute Plan: - resume NPO - patient to be transferred to LTAC ICU for longer term treatment - have discussed diet plan for low fat, low cholesterol diet when he is discharged - PICC line and TPN to continue - patient will need to follow up with primary care doctor after discharge PAMELA to discuss hyperlipidemia - alcohol cessation discussed - total fluids to 150 cc/hr, hyponatremia - electrolyte correction - ambulate - resume IV pain meds - patient was getting food not on diet plan by going downstairs from floor. We have discussed cessation of this activity. - CT pancreas protocol confirmed pancreatic necrosis - leukocytosis is likely SIRS from pancreatitis, but is improving - tachycardia improving Qualifiers: Acute pancreatitis complication: no infection or necrosis Qualified Code(s) : K85.20 - Alcohol induced acute pancreatitis without necrosis or infection
[2017-12-25] MEDS: PANTOPRAZOLE 40 MG INJ IVP SCH (08:13)
[2017-12-25] MEDS: THIAMINE 200 MG/2 ML INJ IVP SCH (08:13)
[2017-12-25 08:15] VITALS: BP 143/70
--- NOTE | 2017-12-25 09:37 | P.DS ---
Admission Date: 12/15/17 Discharge Date: 12/25/17 Primary Care Provider: Dr. Noble Disposition: [facility] Discharge Condition: GOOD Reason for Admission: Pancreatitis alcohol withdrawal Consultations: Nephrology-Dr. Melgar Surgery-Dr. Bond GI-Dr. Salcedo Procedures: Abdominal ultrasound: FINDINGS: The gallbladder demonstrates no gallstones. No pericholecystic fluid or gallbladder wall thickening. The common bile duct is normal measuring 5 mm. The liver demonstrates fatty liver. IMPRESSION: Mildly distended gallbladder without stones or evidence of cholecystitis. MRCP: Unremarkable. CT Scan: COMPARISON: 12/14/2017 FINDINGS: Subsegmental atelectasis is present in both posterior lung bases. The liver demonstrates no focal mass or intrahepatic biliary dilatation. The spleen is normal. The significant amount of inflammatory fluid is seen surrounding the pancreas. The head, neck and body of the pancreas show hypoenhancement, likely indicating pancreatic necrosis. Pancreatic tail shows normal enhancement. No well-formed pseudocyst is seen. Moderate ascites is present in the upper abdomen. No finding to indicate portal venous thrombosis. Both adrenal glands both kidneys are normal without hydronephrosis. Mildly prominent lymph nodes are seen in the small bowel mesenteric. IMPRESSION: Pancreatic necrosis is suspected involving the head and body of the pancreas. Marked peripancreatic fluid inflammation with mild ascites. - Problems (1) Alcohol abuse Current Visit: Yes Status: Acute (2) Diabetes mellitus Current Visit: Yes Status: Suspected Qualifiers: Diabetes mellitus type: type 2 Diabetes mellitus nursing home insulin use: without watermelon inspector use Diabetes mellitus complication status: with other specified complication Qualified Code(s): E11.69 - Type 2 diabetes mellitus with other specified complication (3) ALFONSO (acute kidney injury) Current Visit: Yes Status: Acute (4) Acute alcoholic pancreatitis Onset Date: 12/16/17 Current Visit: Yes Status: Acute Qualifiers: Acute pancreatitis complication: no infection or necrosis Qualified Code(s) : K85.20 - Alcohol induced acute pancreatitis without necrosis or infection (5) Hyperkalemia Current Visit: Yes Status: Acute (6) Fatty (change of) liver, not elsewhere classified Onset Date: 12/16/17 Current Visit: Yes Status: Chronic (7) HTN (hypertension) Onset Date: 12/16/17 Current Visit: Yes Status: Chronic Qualifiers: Hypertension type: essential hypertension Qualified Code(s): I10 - Essential (primary) hypertension (8) GERD (gastroesophageal reflux disease) Current Visit: Yes Status: Suspected Qualifiers: Esophagitis presence: esophagitis presence not specified Qualified Code(s) : K21.9 - Gastro-esophageal reflux disease without esophagitis (9) Ileus Current Visit: Yes Status: Acute (10) Anemia Current Visit: Yes Status: Acute Qualifiers: Anemia type: unspecified type Qualified Code(s): D64.9 - Anemia, unspecified (11) Pancreatic necrosis Current Visit: Yes Status: Acute (12) Ascites Current Visit: Yes Status: Acute Qualifiers: Ascites type: other type Qualified Code(s): R18.8 - Other ascites (13) Joint pain Current Visit: Yes Status: Acute Qualifiers: Joint pain location: unspecified Qualified Code(s): M25.50 - Pain in unspecified joint Brief History of Present Illness: 32-year-old male presented emergency room with epigastric pain. Upon initial evaluation patient had been recently treated for acute pancreatitis. The patient apparently left AMA. The patient returned with increasing pain. He apparently did not have any pain medication. Patient also drank excessive amounts of alcohol with poor food intake. Patient found to have acute pancreatitis. The patient was admitted for treatment. Hospital Course: During the course of his stay the patient presented with acute on chronic pancreatitis likely from alcohol. Initial MRCP was unremarkable. Abdominal ultrasound also unremarkable showed fatty liver. During the course of the stay he was slowly changed to a clear liquid to normal diet. The patient apparently drank excessive amounts of Gatorade and had food from outside. During that time his pancreatitis worsen. Repeat CT scan shows pancreatic necrosis to the head and body of the pancreas. Patient now on IV antibiotic therapy. White count has improved. Patient currently on IV pain medication as needed. Patient will need to continue with TPN and IV insulin to get better diabetic control. Blood sugars remain below 200. His transition to oral intake will need to be slow. Patient has been accepted to a long-term acute care facility. Patient will continue his care there. Patient with history of hypertension, fatty liver, chronic pancreatitis, obesity , alcohol abuse and diabetes. Patient understands his current condition. He understands that this may take some time for him to recover. Patient agrees to be compliant with plan of care Vital Signs/Physical Exam: Temp Pulse Resp BP Pulse Ox 98.5 F 123 H 11 L 143/70 H 92 12/25/17 08:11 12/25/17 08:12 12/25/17 08:11 12/25/17 08:12 12/25/17 08:11 General: Alert, In no apparent distress, Oriented x3, Cooperative HEENT: Atraumatic Neck: Supple Respiratory: Clear to auscultation bilaterally, Normal air movement Cardiovascular: Normal pulses, Regular rate/rhythm Gastrointestinal: Normal bowel sounds, No masses, No rebound, No guarding, Distended (Mild distention), Tenderness (Minimal pain to the abdomen) Musculoskeletal: No erythema, No tenderness, No warmth Integumentary: No tenderness/swelling, No erythema, No warmth, No cyanosis Neurological: Normal speech, Normal strength at 5/5 x4 extr, Normal tone, Normal affect Laboratory Data at Discharge: WBC 20.7 K/uL (4.3-10.9) H* D 12/25/17 05:00 Hgb 9.4 g/dL (13.6-17.9) L 12/25/17 05:00 Hct 28.8 % (39.6-49.0) L 12/25/17 05:00 Plt Count 422 K/uL (152-406) H D 12/25/17 05:00 Sodium 134 mEq/L (135-145) L 12/25/17 05:00 Potassium 4.1 mEq/L (3.6-5.0) 12/25/17 05:00 BUN 9 mg/dL (6-20) 12/25/17 05:00 Creatinine 0.57 mg/dL (0.61-1.24) L 12/25/17 05:00 Glucose 134 mg/dL (65-120) H 12/25/17 05:00 Uric Acid 2.8 mg/dL (4.8-8.7) L 12/25/17 05:00 Phosphorus 4.0 mg/dL (2.5-4.3) 12/25/17 05:00 Magnesium 1.6 mg/dL (1.8-2.5) L 12/25/17 05:00 Total Bilirubin 0.7 mg/dL (0.3-1.2) 12/25/17 05:00 AST 28 IU/L (10-42) 12/25/17 05:00 ALT 18 IU/L (10-60) 12/25/17 05:00 Alkaline Phosphatase 63 IU/L (42-121) 12/25/17 05:00 Triglycerides 184 mg/dL (35-160) H 12/22/17 13:38 Cholesterol 103 mg/dL (<200) 12/22/17 13:38 LDL Cholesterol Direct 36 mg/dl (<130) 12/18/17 05:00 HDL Cholesterol 17 mg/dL (27-67) L 12/22/17 13:38 Cholesterol/HDL Ratio 6.06 12/22/17 13:38 Amylase 7 U/L (28-100) L 12/25/17 05:00 Lipase 24 U/L (22-51) 12/25/17 05:00 Home Medications: Alprazolam 1 mg PO TID 12/15/17 Metoprolol Tartrate 25 mg PO BID 12/15/17 RX: Lisinopril [Prinivil*] 20 mg PO DAILY 12/15/17 RX: Omeprazole [Prilosec] 40 mg PO DAILY 12/15/17 Zolpidem Tartrate 10 mg PO BEDTIME 12/15/17 Patient Discharge Instructions: 1. Patient be transferred to long-term care facility to continue his care. 2. Patient with acute pancreatitis with CT scan showing pancreatic necrosis. 3. Patient currently on IV antibiotic therapy, IV fluids, TPN, IV insulin drip. Diet: NPO Activity: Fall precautions Time spent managing pt's care (in minutes): 55
--- NOTE | 2017-12-25 10:21 | RAD REPORT ---
EXAM DESCRIPTION: RAD - Chest Single View - 12/25/2017 8:40 am CLINICAL HISTORY: Shortness of breath. COMPARISON: 12/24/2017 FINDINGS: Portable technique limits examination quality. The lungs are significantly underinflated with subsegmental atelectasis both lung bases. The heart is normal in size. Right-sided PICC line has tip in the SVC.
--- NOTE | 2017-12-26 00:38 | PN ---
Date of Progress Note: 12/25/2017 Chief Complaint: Acute kidney injury. History Of Present Illness: The patient developed severe prerenal azotemia and nonoliguric ATN. He responded to IV fluids. Acute kidney injury was due to pancreatitis and severe renal hypoperfusion with acute pancreatitis and hypovolemia. The patient is on TPN. He currently is n.p.o. for necrotizing pancreatitis. He remains on IV nutrition with TPN. Review of Systems: Denies fever or chills. Physical Examination: LUNGS: Few crackles at bases. HEART: S1 and S2. ABDOMEN: Soft, benign. EXTREMITIES: Some edema present in both ankles. Impression And Plan: 1. Acute kidney injury, in recovery phase. Renal function has improved. Monitor electrolytes. Adjust electrolytes, replacement as needed. 2. Hypoalbuminemia. Continue TPN. 3. Hypertension. Avoid YAKELIN inhibitor due to acute kidney injury. 4. Hypomagnesemia, controlled with replacement. Continue TPN. KATI/JOSEFINA Voice ID: [id number] Report ID: [id number] MTDD
== END 2017-12-25 10:45 | DRG 438 ==
LOC: ER 09:02 → ERHOLD 10:54 → OBSVTOIN 10:54 → 4TH 14:01 → 3RD-ICU 12-16 10:38 → 4TH 12-20 11:36 → 3RD-ICU 12-22 12:25
PROVIDERS: ADMIT Family Medicine; ATTEND Family Medicine
PROC: 02HV33Z Insertion of Infusion Device into Superior Vena Cava, Percutaneous Approach (ICD-10-PCS; principal; 2017-12-22)
DX: K85.21 Alcohol induced acute pancreatitis with uninfected necrosis (principal); N17.0 Acute kidney failure with tubular necrosis; E87.2 Acidosis; M62.82 Rhabdomyolysis; E87.1 Hypo-osmolality and hyponatremia; F10.239 Alcohol dependence with withdrawal, unspecified; K56.7 Ileus, unspecified; R18.8 Other ascites; K70.0 Alcoholic fatty liver; K86.0 Alcohol-induced chronic pancreatitis; E87.6 Hypokalemia; E87.5 Hyperkalemia; E83.51 Hypocalcemia; E83.39 Other disorders of phosphorus metabolism; E83.42 Hypomagnesemia; D64.9 Anemia, unspecified; I10 Essential (primary) hypertension
CPT/HCPCS: 36415; 71045; 71046; 74018; 74170; 74181; 76705; 76770; 80048; 80053; 80061; 80069; 80074; 80076; 80307; 81001; 81003; 81015; 82009; 82150; 82550; 82553; 82962; 83036; 83605; 83690; 83735; 84100; 84132; 84443; 84478; 84550; 85025; 85652; 86140; 87040; 87493; 93005; 99285; C9113; J0360; J0610; J1170; J1650; J2175; J2270; J2405; J3010; J3411; J3475; J3486; J7030; Q9967

== ENCOUNTER 2020-06-25 09:13 | Emergency (ER) | payer BC ==
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
[2020-06-25] MEDS ORDERED: KETOROLAC 30 MG/ML INJ ONE (09:50)
--- OUTSIDE RECORDS SUMMARY | 2020-06-25 10:42 | XMS REPORT | Continuity of Care Document ---
:1985 Author Organization [facility] Care Team Providers Name Role Phone [facility] Unavailable Un available Problems Problem Status Onset Classification Date Comments Sourc e Date Reported PANCREATITIS Active 11/13/19 [facility] 12/24/19 12/27/2015 Diagnosis: 16 [place] Effusion, right [place] knee RIGHT LEG Active 12/24/19 [facility] SWELLING 16 Christopher SWOLLEN FOOT Active 09/29/19 [place] [facility] Hypertensive Resolved 08/02/19 Problem 11/18/2016 [place] disorder, 13 [facility] arterial (disorder) Gout (disorder) Resolved Problem 11/18/[address] [facility], [facility] [place] ILLNESS, Active [facility] UNSPECIFIED [facility] Medications Medication Details Route Status Patient Ordering Order Source Instructions Provider Date lisinopril 20 mg 20 mg = 1 tab, Active [facility] oral tablet PO, Daily, # 30 2017 Medi jaciel tab, 0 Center Refill(s) Fenofibrate 145 145 mg = 1 tab, Active 11/15[facility] [place] MG Oral Tablet PO, Dinner, # 2017 Med ical 30 tab, 0 Center Refill(s) allopurinol 300 300 mg = 1 tab, Active 11/15[facility] [place] mg oral tablet PO, Daily, # 30 2017 edical tab, 0 Center Refill(s) pregabalin 100 mg 100 mg = 1 cap, Active 11/15[facility] oral capsule PO, Q8H, # 30 2017 Medic al cap, 0 Center Refill(s) ibuprofen 600 mg 600 mg = 1 tab, Active 11/15[facility] oral tablet PO, Q8H, X 10 2017 Medica l day, # 30 tab, Center 0 Refill(s) Acetaminophen 325 1 tab, PO, Active 11/15[facility] [place] MG / Hydrocodone Q6H-02, # 60 2017 Ma dical Bitartrate 10 MG tab, 0 Center Oral Tablet Refill(s), [[place] 10/325] given to patient Colchicine 0.6 MG See Active [place] as Oral Tablet Instructions, 1 2016 [facility] jaciel tab PO twice a Center day for 7 days, then 1 tab daily for 7 days, # 21 tab, 0 Refill(s) Colchicine 0.6 MG 0.6 mg, 1 tab, No Longer 11/14 [facility] Oral Tablet Route: PO, Drug Active [address] [facility] form: TAB, BID, Center Dosing Weight 102.869, kg, Start date: 11/14/16 17:00:00 CDT, Duration: 7 day, Stop date: 11/21/16 9:00:00 CDT Ibuprofen Notes: ([place] as: Motrin) "Do Active 2016 Medical Not Crush" Center Take with food. Ketorolac 4 days[address] In[address] pregabalin Notes: (Same No Longer [place] as: Lyrica) Active [address] [place] [address] Dilaudid Notes: [place]: [place] Dilaudid Active [address] [place] [address] oxyCODONE 5 mg 5 mg = 1 cap, No Longer [place] oral capsule PO, Q6H, PRN Active 2016 Medica l Pain, 0 Center Refill(s) Acetaminophen 325 Notes: Do not No Longer [facility] MG / Hydrocodone exceed 4gm/day Active 2017 [facility] Bitartrate 10 MG of Center Oral Tablet acetaminophen. [[place] 10/325] (Same as: [place] 325/10) Dilaudid Notes: [place]: [place] Dilaudid Active [address] [place] [address] pregabalin Notes: (Same No Longer [place] as: Lyrica) Active [address] [place] [address] Fenofibrate 145 Notes: (Same No Longer H [place] MG Oral Tablet as: Tricor) Active 2016 [facility] Sucralfate 100 Notes: [place] Longer [place] MG/ML Oral interfere Active 2017 Medical Suspension w/enteral feeds Cente r [Carafate] - Take 1 hr before or 2 hr after antacids, dairy pdt, meals & minerals - On empty stomach. For patients unable to swallow tablet, dissolve in 10mL - 30mL of water or juice and stir before giving. (Same As: Carafate) Magnesium Sulfate Notes: WASTE: Inactive [place] F/P - Sink; E - 2017 [facility] Trash [place] Bin Lactated Ringers 1,000 mL, Rate: No Longer 11/12 [place] 1,000 mL 125 ml/hr, Active 2016 Medical Infuse over: 8 Center hr, Route: IV, Dosing Weight 102.869 kg, Total Volume: 1,000, Start date: 11/12/16 12:03:00 CDT, Duration: 30 day, Stop date: 12/12/16 12:02:00 CDT Dilaudid Notes: Same as: Inactive [place] as Dilaudid [address] [facility] Lisinopril Notes: (Same No Longer [place] as: Prinivil, Active 2016 [facility] Zestril) [place] gabapentin 300 MG Notes: (Same No Longer [place] Oral Capsule as: Neurontin) Active 2016 [facility] Allopurinol Notes: ([place] as: Zyloprim) Active 2017 [facility] Amylases 63640 Notes: (lipase No Longer [place] UNT / 6,000 units, Active 2016 [facility] Endopeptidases protease 19,000 C enter 90936 UNT / units, amylase Lipase 6000 UNT 30,000 units Enteric Coated DRC) Same as: Capsule [Creon 6] Creon (Creon 6) Protonix Notes: Tablet [place] Longer [place] should not be Active 2016 [facility] chewed or [place] crushed. (Same as: Protonix) Sucralfate 100 Notes: [place] MG/ML Oral interfere 2017 Medical Suspension w/enteral feeds Cente r [Carafate] - Take 1 hr before or 2 hr after antacids, dairy pdt, meals & minerals - On empty stomach. For patients unable to swallow tablet, dissolve in 10mL - 30mL of water or juice and stir before giving. (Same As: Carafate) tramadol Notes: Not to [place] Longer [place] hydrochloride 50 exceed Active 2016 Medical MG Oral Tablet 400mg/day. Center (Same As: Ultram) Lovenox Notes: (Same No Longer [place] as: Lovenox) Active 2017 [facility] Oxycodone Notes: (Same [place] Hydrochloride 5 as: Roxicodone) Active 2017 Medical MG Oral Tablet Center Simethicone Notes: (Same [place] as: Mylicon) Active 2017 [facility] Center Saline Flush 0.9% Notes: [place] Longer [place] preservative Active 2017 Medical free. Center Ondansetron Notes: (Same [place] as: Zofran) Active 2017 Medical MEDICATION Center WASTE Product Size: 4 mg Product Wasted: ___ mg Acetaminophen Notes: Do not No Longer [place] exceed 4 Active 2017 Medical gm/day. (Same Center as: Tylenol) Sodium Chloride 1,000 mL, Rate: Inactive [place] 0.154 MEQ/ML 125 ml/hr, 2017 Medical Injectable Infuse over: 8 Center Solution hr, Route: IV, Dosing Weight 102.869 kg, Total Volume: 1,000, Start date: 11/12/16 4:31:00 CDT, Duration: 30 day, Stop date: 12/12/16 4:30:00 CDT Dilaudid Notes: Same as: Inactive [place] Dilaudid [address] [facility] Sucralfate 100 1 gm = 10 ml, Active [place] MG/ML Oral PO, Q6H, # 560 2017 Medica l Suspension mL, 0 Refill(s) Cente r [Carafate] omeprazole 40 mg 40 mg = 1 cap, Active [facility] oral delayed PO, Daily, # 90 2017 Med ical release capsule cap, 0 Center Refill(s) acetaminophen 500 1,000 mg = 2 Inactive [place] mg oral tablet tab, PO, Q6H, # 2017 M edical 100 tab, 0 Center Refill(s) gabapentin 300 MG 300 mg = 1 cap, Active [place] Oral Capsule PO, TID, # 90 2017 Medic al cap, 0 Center Refill(s) simethicone 40 80 mg = 1.2 mL, Active H [place] mg/0.6 mL oral PO, Q6H, PRN [address] [facility] liquid Gas, # 15 mL, 0 Center Refill(s) tramadol 100 mg = 2 tab, [place] hydrochloride 50 PO, Q6H, # 90 2017 M edical MG Oral Tablet tab, 0 Center Refill(s) Amylases 93307 1 cap, PO, Active [place] as UNT / TID-Meals, 2017 Medical Endopeptidases C enter 46643 UNT / Lipase 6000 UNT , # 120 cap, Enteric Coated 0 Refill(s) Capsule [Creon 6] lisinopril 20 mg 20 mg = 1 tab, Active [place] oral tablet PO, Daily, # 90 2016 Medi jaciel tab, 0 Center Refill(s) Fenofibrate 145 145 mg = 1 tab, Active [place] MG Oral Tablet PO, Dinner, # 2017 Med ical 90 tab, 0 Center Refill(s) allopurinol 300 300 mg = 1 tab, Active [place] mg oral tablet PO, Daily, # 90 2017 M edical tab, 0 Center Refill(s) Dilaudid Notes: Same as: [place] Dilaudid Active [address] [facility] pregabalin Notes: (Same No Longer [place] as: Lyrica) Active 2016 [facility] Tramadol Notes: Not to [place]er [place] exceed Active 2016 Medical 400mg/day. Center (Same As: Ultram) Tylenol Notes: Max No Longer [place] acetaminophen Active 2017 Medical 4000 mg/day (4 Center gm/day). (Same as: Tylenol Extra Strength) Oxycodone Notes: (Same [place] Longer [place] Hydrochloride 5 as: Roxicodone) Active 2016 Medical MG Oral Tablet Center meropenem Notes: Same [place] Merrem Active 2017 Medical MEDICATION Center WASTE Product Size: 500 mg Product Wasted: ___ mg Dilaudid Notes: Same as: [place] Dilaudid Active 2017 [facility] Center Oxycodone Notes: (Same No Longer [place] Hydrochloride 5 as: Roxicodone) Active 2017 Medical MG Oral Tablet Center ibuprofen 100 Notes: (Same No Longer [facility] mg/5 mL oral as: Motrin Active 2017 Medical suspension [facility], Center Advil [facility]) Take with food. Zyloprim Notes: No Longer [facility] Allopurinol Active 2016 Medical oral susp. Center Refrigerate/sha ke well. Compounded Product - formulation not commercially available (Same as: Zyloprim) Prinivil Notes: Shake No Longer [facility] well before Active 2017 Medical use. Center Refrigerate For Oral Use Only. Compounded Product - formulation not commercially available Dilaudid Notes: Same as: [place] Dilaudid Active 2016 [facility] Lactulose 667 Notes: (Same No Longer [facility] MG/ML Oral as:Chronulac) Active 2016 [facility] Center Ondansetron 4 mg, Route: Inactive [place] as IVP, ONCE, 2016 Medical Dosing Weight Center 105.085, kg, PRN Nausea & Vomiting, Start date: 10/26/16 8:14:00 CDT Flumazenil 0.2 mg, Route: Inactive [place] IVP, PRN, 2016 Medical Dosing Weight Center 105.085, kg, PRN Benzodiazepine Reversal, Initial dose, Start date: 10/26/16 8:14:00 CDT, Duration: 30 day, Stop date: 11/25/16 8:13:00 CDT Naloxone 0.4 mg, Route: Inactive [place] s IVP, Q2MIN, 2016 Medical Dosing Weight Center 105.085, kg, PRN Narcotic Reversal, Start date: 10/26/16 8:14:00 CDT, Duration: 8 doses or times, Stop date: Limited # of times Hydromorphone 0.5 mg, Route: Inactive 10/26[facility] [place] IVP, Q5Min, 2016 Medical Dosing Weight Center 105.085, kg, PRN Pain Score 7-10, Start date: 10/26/16 8:14:00 CDT, Duration: 4 doses or times, Stop date: Limited # of times Morphine 2 mg, Route: Inactive [place] IVP, Q5Min, 2016 Medical Dosing Weight Center 105.085, kg, PRN Pain Score 4-6, Start date: 10/26/16 8:14:00 CDT, Duration: 5 doses or times, Stop date: Limited # of times Hydralazine 10 mg, Route: Inactive [place] IVP, Q20Min, 2016 Medical Dosing Weight Center 105.085, kg, PRN Elevated BP, Start date: 10/26/16 8:14:00 CDT, Duration: 2 doses or times, Stop date: Limited # of times Labetalol 10 mg, Route: [place] IVP, Q5Min, 2016 Medical Dosing Weight Center 105.085, kg, PRN Elevated BP, Start date: 10/26/16 8:14:00 CDT, Duration: 5 doses or times, Stop date: Limited # of times Dilaudid Notes: Same as: [place]er [place] Dilaudid Active [address] [place] [address] Dilaudid Notes: (Same No Longer [place] as: Dilaudid) Active [address] [facility] Dilaudid Notes: Same as: Inactive [place] as Dilaudid [address] [facility] Dilaudid Notes: Same as: [place] Dilaudid Active [address] [place] [address] Amylases 18300 Notes: (lipase No Longer [place] UNT / 6,000 units, Active 2017 Medical Endopeptidases protease 19,000 C enter 25223 UNT / units, amylase Lipase 6000 UNT 30,000 units Enteric Coated DRC) Same as: Capsule [Creon 6] Creon (Creon 6) Dilaudid Notes: (Same No Longer [place] as: Dilaudid) Active [address] [facility] Tramadol Notes: Not to [place]er [place] exceed Active 2017 Medical 400mg/day. Center (Same As: Ultram) pregabalin Notes: Same as [place] Longer [place] Lyrica Active [address] [place] [address] Dilaudid Notes: Same as: Inactive [place] as Dilaudid [address] [facility] Melatonin 3 MG Notes: (Same Inactive [place] Extended Release as: Melatonin) 2017 Medical Tablet Center Dilaudid Notes: (Same No Longer [place] as: Dilaudid) Active 2017 Medical [place] meropenem Notes: Same as No Longer donn Merrem Active 2016 Medical MEDICATION Center WASTE Product Size: 500 mg Product Wasted: ___ mg Tramadol Notes: Not to [place] exceed Active 2017 Medical 400mg/day. Center (Same As: Ultram) Iohexol 60 mL, Route: Inactive [place] IVP, Drug Form: 2017 Medical SOLN, Dosing Center Weight 105.085, kg, ONCALL, STAT, Start date: 10/22/16 8:16:00 CDT, Duration: 1 doses or times, Dose = 2.2ml/kg, Max dose = 100ml -- "To be infused by Radiology Staff ONLY" Ibuprofen 400 MG Notes: (Same No Longer [facility] Oral Tablet as: Motrin Active [address] [place] [address] [facility], Center Advil [facility]) Take with food. Dilaudid Notes: Same as: [place] Dilaudid Active [address] [place] [address] Acetaminophen 325 Notes: (Same No Longer [place] MG / Hydrocodone as: [place] Active 2016 Medic al Bitartrate 5 MG 325/5) Do not C enter Oral Tablet exceed 4gm/day [[place] 5/325] of acetaminophen. sodium chloride 1,000 mL, Rate: No Longer [place] 0.9% 1000 ml INJ 125 ml/hr, Active 2016 Medi jaciel 1,000 mL Infuse over: 8 Center hr, Route: IV, Dosing Weight 105.085 kg, Total Volume: 1,000, Start date: 10/21/16 13:26:00 CDT, Duration: 30 day, Stop date: 11/20/16 13:25:00 CDT Sodium Chloride 125 mL, 125 Inactive [place] 0.154 MEQ/ML ml/hr, Infuse 2017 Medic al Injectable Over: 1 hr, Center Solution Route: IV, 125, Drug form: INJ, ONCE, Priority: STAT, Dosing Weight 105.085 kg, Start date: 10/21/16 13:07:00 CDT, Duration: 1 doses or times, Stop date: 10/21/16 13:07:00 CDT Allopurinol Notes: No Longer [place] Allopurinol Active 2016 Medical oral susp. Center Refrigerate/sha ke well. Compounded Product - formulation not commercially available (Same as: Zyloprim) Colchicine 0.6 MG 0.6 mg, 1 tab, Inactive [place] Oral Tablet Route: PO, Drug [address] [facility] form: TAB, BID, Center Dosing Weight 105.085, kg, Start date: 10/20/16 17:00:00 CDT, Duration: 30 day, Stop date: 11/19/16 9:00:00 CDT Zosyn Notes: (Same No Longer [facility] as: Zosyn) Active 2016 Medical Dosing based on Center Piperacillin component MEDICATION WASTE Product Size: 3375 mg Product Wasted: ___ mg Colchicine 1.2 mg, 2 tab, In[place] Route: PO, Drug 2016 Medical form: TAB, Center ONCE, Dosing Weight 105.085, kg, Start date: 10/20/16 11:13:00 CDT, Stop date: 10/20/16 11:13:00 CDT Tramadol Notes: Not to No Longer [place] s exceed Active 2016 Medical 400mg/day. Center (Same As: Ultram) Acetaminophen 325 Notes: (Same No Longer [facility] MG / Hydrocodone as: [place] Active 2016 Medic al Bitartrate 5 MG 325/5) Do not C enter Oral Tablet exceed 4gm/day [[place] 5/325] of acetaminophen. potassium 10 mEq, Route: Inactive [place] as chloride IVPB, Q1H, 2016 Medical Dosing Weight Center 105.085, kg, Total Dose = 40 meq, Start date: 10/20/16 8:00:00 CDT, Duration: 4 doses or times, Stop date: 10/20/16 11:00:00 CDT, Peripheral Line Potassium Notes: (Same Inactive [facility] Chloride 1.33 as: Potassium [address] [facility] MEQ/ML Oral Chloride) Center Solution Calmoseptine Notes: (Same No Longer [place] as: Active 2016 Medical Calmoseptine) Center Insulin regular 60 units) No Longer [place] WASTE: F/P - Active 2017 Medical Black; E - Center Municipal Trash Bin Stable for 28 days at room temperature Expires in days from D ate Glucagon 1 mg, Route: No Longer [place] IM, Drug form: Active 2016 Medical PDR/INJ, PRN, Center Dosing Weight 105.085, kg, PRN Blood Glucose Results, Start date: 10/18/16 19:03:00 CDT, Duration: 30 day, Stop date: 11/17/16 19:02:00 CDT Dextrose 50% 12.5 gm, 25 mL, No Longer [facility] Syringe Route: IVP, Active 2016 Medical Drug Form: INJ, Center Dosing Weight 105.085, kg, PRN, PRN Blood Glucose Results, Start date: 10/18/16 19:03:00 CDT, Duration: 30 day, Stop date: 11/17/16 19:02:00 CDT Chlordiazepoxide Notes: (Same No Longer [place] Hydrochloride 10 As: Librium) Active 2016 Me dical MG Oral Capsule Center Lactated Ringers 1,000 mL, Rate: No Longer 10/17 [place] 1,000 mL 125 ml/hr, Active 2016 Medical Infuse over: 8 Center hr, Route: IV, Dosing Weight 105.085 kg, Total Volume: 1,000, Start date: 10/17/16 13:37:00 CDT, Duration: 30 day, Stop date: 11/16/16 13:36:00 CDT molasses Notes: (Same Inactive [place] as:Molasses) [address] [facility] Calcium Chloride 1,000 mL, 1,000 Inactive [place] 0.0014 MEQ/ML / ml/hr, Infuse 2017 Me dical Potassium Over: 1 hr, Center Chloride 0.004 Route: IV, MEQ/ML / Sodium 1,000, Drug Chloride 0.103 form: INJ, MEQ/ML / Sodium ONCE, Priority: Lactate 0.028 STAT, Dosing MEQ/ML Injectable Weight 105.085 Solution kg, Start date: 10/17/16 10:27:00 CDT, Duration: 1 doses or times, Stop date: 10/17/16 10:27:00 CDT Ativan Notes: (Same No Longer [place] as: Ativan) Active 2017 Medical [place] Versed 1 mg, Route: Inactive [place] IVP, ONCE, 2017 Medical Dosing Weight Center 105.085, kg, Start date: 10/17/16 4:25:00 CDT, Stop date: 10/17/16 4:25:00 CDT Dexmedetomidine 24 hours No Longer [place] Active [address] [facility] ketAMINE 500 mg + 245 mL, Rate: No Longer [place] sodium chloride Titrate as Active 2017 Medic al 0.9% 250 mL INJ directed, Center (for IV set) 245 Route: IV, mL Dosing Weight 105.085 kg, Total Volume: 250, Start date: 10/16/16 20:30:00 CDT, Duration: 30 day, Stop date: 11/15/16 20:29:00 CDT ketAMINE 100mg/NS 100 mg, 100 mL, Inactive 10/17 [place] 100ml (1mg/ml) Route: IV, Drug 2017 M edical 100 mg form: INJ, Center Dosing Weight 105.085, kg, Start date: 10/16/16 19:18:00 CDT, Stop date: 10/16/16 20:45:00 CDT Docusate Sodium Notes: (Same as No Longer [place] 50 MG / Senokot-S) Active 2017 [facility] sennosides, LONG-TERM Equiv. to Center 8.6 MG Oral Heron-Colace. Tablet Thiamine Notes: (Same No Longer [place] As: Vitamin B1) Active 2017 Medical Center Lactated Ringers 1,000 mL, Rate: No Longer 10/16 [place] 1,000 mL 125 ml/hr, Active 2017 Medical Infuse over: 8 Center hr, Route: IV, Dosing Weight 105.085 kg, Total Volume: 1,000, Start date: 10/16/16 11:48:00 CDT, Duration: 30 day, Stop date: 11/15/16 11:47:00 CDT Lactulose 667 Notes: (Same No Longer [place] MG/ML Oral as:Chronulac) Active 2017 [facility] Ketamine Notes: Total Inactive [place] Concentration = 2017 Medical 1mg/ml Total Center Volume = 100ml Infusion Rate= Begin Infusion at an initial rate of 0.1mg/kg/hr to a Maximum Rate of 0.25mg/kg/hr Please place a Med Request 2 hours before the next dose is needed. Folic Acid 1 mg, Route: No Longer [place] as PO, Daily, Active 2016 Medical Dosing Weight Center 105.085, kg, Start date: 10/16/16 9:00:00 CDT, Duration: 5 day, Stop date: 10/20/16 9:00:00 CDT multivitamin 1 tab, Route: No Longer [place] PO, Dosing Active 2016 Medical Weight 105.085, Center kg, Daily, Start date: 10/16/16 9:00:00 CDT, Duration: 5 day, Stop date: 10/20/16 9:00:00 CDT Thiamine 100 mg, Route: No Longer [place] as PO, Daily, Active 2016 Medical Dosing Weight Center 105.085, kg, Start date: 10/16/16 9:00:00 CDT, Duration: 5 day, Stop date: 10/20/16 9:00:00 CDT Ativan Notes: (Same Inactive [place] as: Ativan) [address] [facility] Ativan 2 mg, Route: Inactive [place] IV, ONCE, 2016 Medical Dosing Weight Center 105.085, kg, Start date: 10/16/16 2:24:00 CDT, Stop date: 10/16/16 2:24:00 CDT Ativan Notes: (Same Inactive [place] as: Ativan) 2017 [facility] Center Dilaudid Notes: Same as: [place] Dilaudid Active 2017 Medical Center atorvastatin Notes: Same as No Longer [place] Lipitor Active 2017 Medical Center Lorazepam Notes: (Same Inactive [place] as: Ativan) 2017 Medical Center Fenofibrate Notes: (Same [place] Longer [place] as: Tricor) Active 2017 Medical [place] Lorazepam 2 mg, Route: Inactive [place] IVP, Q2H, 2017 Medical Dosing Weight Center 105.085, kg, PRN Other -See Comment, CIWA Score 8 -14, Start date: 10/15/16 15:52:00 CDT, Duration: 30 day, Stop date: 11/14/16 15:51:00 CDT Albuterol 0.83 Notes: SEE RT No Longer 10/15/ H [place] MG/ML Inhalant DOCUMENTATION Active 2016 Med ical Solution (Same as: Center Proventil) Docusate Sodium Notes: (Same as No Longer [place] 50 MG / Senokot-S) Active 2017 Medical sennosides, LONG-TERM Equiv. to Center 8.6 MG Oral Heron-Colace. Tablet Miralax Notes: Dissolve No Longer [place] as in 8 oz of Active 2016 Medical water or juice. Center (Same as: Miralax) sodium chloride 1,000 mL, Rate: No Longer [place] 0.9% 1000 ml INJ 250 ml/hr, Active 2016 Medi jaciel 1,000 mL Infuse over: 4 Center hr, Route: IV, Dosing Weight 105.085 kg, Total Volume: 1,000, Start date: 10/15/16 4:04:00 CDT, Duration: 30 day, Stop date: 11/14/16 4:03:00 CDT atorvastatin Notes: (Same No Longer [place] As: Lipitor) Active [address] 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 Calcium Gluconate Notes: WASTE: Inactive [place] F/P - Sink; E - 2017 [facility] Municipal Trash Center Bin Simethicone Notes: (Same [place] Longer [place] as: Mylicon, Active 2017 [facility] Phazyme, Center Genasyme) D10W 961.5 mL + 961.5 mL, Rate: No Longer [place] sodium chloride 250 ml/hr, Active 2016 Medic al 154 mEq Infuse over: 4 Center hr, Route: IV, Dosing Weight 105.085 kg, Total Volume: 1,000, Start date: 10/14/16 16:51:00 CDT, Duration: 30 day, Stop date: 11/13/16 16:50:00 CDT Dextrose 10% with 1,000 mL, Rate: Inactive 10/14 [place] 0.9% NaCl IV 1000 250 ml/hr, 2017 Med ical mL Infuse over: 4 Center hr, Route: IV, Dosing Weight 105.085 kg, Total Volume: 1,000, Start date: 10/14/16 16:34:00 CDT, Duration: 30 day, Stop date: 11/13/16 16:33:00 CDT Sodium Chloride 1,000 mL, 1,000 Inactive [place] 0.154 MEQ/ML ml/hr, Infuse 2017 Medic al Injectable Over: 1 hr, Center Solution Route: IV, 1,000, Drug form: INJ, ONCE, Priority: STAT, Dosing Weight 105.085 kg, Start date: 10/14/16 15:48:00 CDT, Duration: 1 doses or times, Stop date: 10/14/16 15:48:00 CDT Sodium Chloride Route: IV, Inactive [place] 0.154 MEQ/ML ONCE, Dosing 2017 Medica l Injectable Weight 105.085 Center Solution kg, Start date: 10/14/16 15:39:00 CDT, Stop date: 10/14/16 15:39:00 CDT Sodium Chloride 1,000 mL, 1,000 Inactive [place] 0.154 MEQ/ML ml/hr, Infuse 2017 Medic al Injectable Over: 1 hr, Center Solution Route: IV, 1,000, Drug form: INJ, ONCE, Priority: STAT, Dosing Weight 105.085 kg, Start date: 10/14/16 11:25:00 CDT, Duration: 1 doses or times, Stop date: 10/14/16 11:25:00 CDT D5NS 1,000 mL 1,000 mL, Rate: Inactive H [place] 250 ml/hr, 2017 Medical Infuse over: 4 Center hr, Route: IV, Dosing Weight 105.085 kg, Total Volume: 1,000, Start date: 10/14/16 9:12:00 CDT, Duration: 30 day, Stop date: 11/13/16 9:11:00 CDT Dextrose 50% 12.5 gm, 25 mL, No Longer [facility] Syringe Route: IVP, Active 2017 Medical Drug Form: INJ, Center Dosing Weight 105.085, kg, PRN, PRN Blood Glucose Results, Start date: 10/14/16 9:10:00 CDT, Duration: 30 day, Stop date: 11/13/16 9:09:00 CDT Insulin regular Notes: (Same No Longer [facility] 100 unit + sodium as: Humulin R Active 2017 Medical chloride 0.9% INJ and NovoLIN R) Center 99 mL WASTE: F/P - Black; E - Municipal Trash Bin (Do not shake) Saline Flush 0.9% Notes: (Same No Longer [facility] as: BD Active 2016 Medical Posiflush) Center Famotidine Notes: (Same [place] as: Pepcid) Can 2017 Medical be dilute in Center 5-10cc NS IVP: Slow IV push over at least 2 minutes. Lisinopril Notes: Shake No Longer [place] as well before Active 2017 Medical use. Center Refrigerate For Oral Use Only. Compounded Product - formulation not commercially available Allopurinol 100 mg, Route: Inactive [place] IV, Daily, 2017 Medical Dosing Weight Center 105.085, kg, Start date: 10/14/16 9:00:00 CDT, Duration: 30 day, Stop date: 11/12/16 9:00:00 CDT Thiamine Notes: (Same No Longer [place] As: Vitamin B1) Active 2017 Medical Center multivitamin Notes: (Same No Longer [place] as:Thera) Active 2016 Medical WASTE: F/P - Center Black; E - Municipal Trash Bin Take with food. Folic Acid Notes: (Same No Longer [place] as: Folvite) Active 2017 Medical Center Gemfibrozil Notes: (Same No Longer [place] as: Lopid) Active 2017 Medical Center Morphine Notes: Dose: Inactive [place] 1 mg 2017 Medical Delay: 10 min Center Basal rate: 0 4hr limit: 20 mg (Same as:Damian-Jaimie) Naloxone Notes: Same as No Longer [place] as Narcan Active [address] [facility] Morphine Notes: Dose: 1 [place] mg 2017 Medical Delay: 10 min Center Basal rate: 0 mg 4hr limit: 15 mg (Same as:Maisha) Labetalol 5 mg, 1 mL, Inactive [facility] Route: IV, Drug 2017 Medical form: INJ, Center ONCE, Dosing Weight 105.085, kg, Start date: 10/14/16 3:37:00 CDT, Stop date: 10/14/16 3:37:00 CDT Dilaudid Notes: Same as: Inactive [place] Dilaudid [address] [facility] Dilaudid Notes: Same as: Inactive [place] Dilaudid [address] [facility] heparin Notes: porcine [place] Longer [place] heparin Active [address] [facility] Labetalol 5 mg, Route: No Longer [place] IVP, Drug form: Active 2017 Medical INJ, ONCE, Center Dosing Weight 105.085, kg, Start date: 10/13/16 23:58:00 CDT, Stop date: 10/13/16 23:58:00 CDT Hydralazine 10 mg, Route: Inactive [place] IV, ONCE, 2017 Medical Dosing Weight Center 105.085, kg, Start date: 10/13/16 23:56:00 CDT, Stop date: 10/13/16 23:56:00 CDT morphine Sulfate Notes: (Same Inactive [facility] as:MORPhine 2017 Medical Sulfate) Center Morphine Notes: (Same Inactive [facility] as:MORPhine 2017 Medical Sulfate) Center Morphine Notes: [place] Dose: 2 mg 2017 Medical Dose: 1 Center mg Delay: 10 min Basal rate: 0 4hr limit: 30 mg (Same as:Lenai-Jaimie) Lorazepam Notes: (Same No Longer [place] as: Ativan) Active 2017 Medical [place] Zofran Notes: (Same No Longer [facility] as: Zofran) Active 2017 Medical MEDICATION Center WASTE Product Size: 4 mg Product Wasted: 0 mg Naloxone Notes: Same as No Longer [place] Narcan Active [address] [facility] Calcium Chloride 1,000 mL, 1,000 Inactive [place] 0.0014 MEQ/ML / ml/hr, Infuse 2017 Ma dical Potassium Over: 1 hr, Center Chloride 0.004 Route: IV, MEQ/ML / Sodium 1,000, Drug Chloride 0.103 form: INJ, MEQ/ML / Sodium ONCE, Priority: Lactate 0.028 STAT, Dosing MEQ/ML Injectable Weight 105.085 Solution kg, Start date: 10/13/16 22:44:00 CDT, Duration: 1 doses or times, Stop date: 10/13/16 22:44:00 CDT Lactated Ringers 1,000 mL, Rate: No Longer 10/14 [place] 1,000 mL 200 ml/hr, Active 2016 Medical Infuse over: 5 Center hr, Route: IV, Dosing Weight 105.085 kg, Total Volume: 1,000, Start date: 10/13/16 22:44:00 CDT, Duration: 30 day, Stop date: 11/12/16 22:43:00 CDT Calcium Carbonate Notes: (Same No Longer [place] 500 MG Chewable As: Tums) Active 2016 Medica l Tablet Calcium Center Carbonate 500 mg = 200 mg elemental calcium Dose = mg calcium carbonate ( mg elemental calcium) potassium Notes: (Same No Longer [place] phosphate + as: K Active 2016 [facility] sodium chloride Phosphate.) 1 C enter 0.9% INJ 250 mL mMol phoshate has 1.47 mEq potassium Infuse over 4 hours sodium phosphate 45 mmol, 15 mL, No Longer 10/14 [place] + sodium chloride Route: IVPB, Active 2016 edical 0.9% INJ 250 mL PRN, Dosing Cent er Weight 104.545, kg, PRN Abnormal Lab Result, Start date: 10/13/16 22:37:00 CDT, Duration: 30 day, Stop date: 11/12/16 22:36:00 CDT, FOR ICU USE ONLY Calcium Gluconate Notes: WASTE: No Longer [place] F/P - Sink; E - Active 2016 [facility] Bin Magnesium Oxide Notes: (Same No Longer [facility] as: Mag-Ox 400) Active 2017 [facility] Magnesium oxide Center [id number] elemental magnesium Dose=____mg magnesium oxide (___mg elemental magnesium) Magnesium Sulfate Notes: WASTE: No Longer [place] F/P - Sink; E - Active 2017 [facility] Bin potassium Notes: (Same No Longer [facility] phosphate-sodium as: Phos-NaK) Active 2016 edical phosphate 250 Each 1.5 gm pkt Ce nter mg-280 mg-160 mg has 250mg oral powder for phosphorous. reconstitution Mix w/2.5oz water and stir. potassium Notes: (Same No Longer [facility] [place] chloride as: KCL) Active 2016 Medical Infuse over 2 Center hours. Saline Flush 0.9% Notes: (Same No Longer [place] as: BD Active 2016 [facility] Posiflush) Center Nystatin 100 Notes: (Same No Longer [place] UNT/MG Topical as:Mycostatin, Active 2016 Ma dical Powder Nilstat) For Center external use only. Ibuprofen 800 MG 800 mg = 1 tab, Active Oral Tablet PO, Q8H, PRN 2016 [place] [Motrin] Pain, Take with food, # 30 tab, 0 Refill(s) {21 See Active (Methylprednisolo Instructions, 2016 [place] 4 MG Oral PO, Take by Tablet [Medrol]) mouth as } Pack [Medrol directed on Dosepak] label., X 6 day, # 1 Pack, 0 Refill(s) Dilaudid Notes: Same as: Inactive Dilaudid 2015 [place] Acetaminophen 325 Notes: (Same Inactive MG / Hydrocodone as: [place] 2016 [place] and Bitartrate 5 MG 325/5) Do not Oral Tablet exceed 4gm/day [[place] 5/325] of acetaminophen. Ketorolac 4 days Inactive MEDICATION 2016 [place] WASTE Product Size: 60 mg Product Wasted: ___ mg Acetaminophen 300 1 tab, PO, Q6H, Active MG / Codeine PRN Pain Score 2016 [place] Phosphate 30 MG 4-6, X 5 day, # Oral Tablet 30 tab, 0 [Tylenol with Refill(s) Codeine #3] indomethacin 50 50 mg = 1 cap, Active H mg oral capsule PO, TID, X 10 2015 [place] day, # 30 cap, 0 Refill(s) Dilaudid 0.5 mg, Route: Inactive IV, ONCE, 2015 Dosing Weight 106.818, kg, Start date: 09/29/15 16:09:00, Stop date: 09/29/15 16:09:00 Morphine 4 mg, Route: Inactive IVP, Drug form: 2015eas t INJ, ONCE, Dosing Weight 106.818, kg, Priority: STAT, Start date: 09/29/15 14:36:00, Stop date: 09/29/15 14:36:00 Sodium Chloride 1,000 mL, 1,000 Inactive 0.154 MEQ/ML ml/hr, Infuse 2015 [facility] Injectable Over: 1 hr, Solution Route: IV, 1,000, Drug form: INJ, ONCE, Priority: STAT, Dosing Weight 106.818 kg, Start date: 09/29/15 12:52:00, Duration: 1 doses or times, Stop date: 09/29/15 12:52:00 Morphine Notes: (Same Inactive as:MORPhine 2015 [facility] Sulfate) Allergies, Adverse Reactions, Alerts No Known Medication Allergies Immunizations No Data Provided for This Section Results Order Name Results Value Reference Date Interpretation Comments Valentina rce Range CHEM PANEL Magnesium 2.1 1.8 - 2.4 11/15 [facility] CHEM PANEL Phosphorus 4.0 2.5 - 4.5 11/15 [facility] /[address] [facility] ELECTROLYTE AGAP 14.0 10.0 - 11/15 [facility] S 20.[address] [facility] ELECTROLYTE eGFR 126 11/15 Result [facility] Comment: The Medical eGFR is Center calculated using the CKD-EPI formula. In most young, healthy individuals the eGFR will be >90 mL/min/1.73m2 . The eGFR declines with age. An eGFR of 60-89 may be normal in some populations, particularly the elderly, for whom the CKD-EPI formula has not been extensively validated. Use of the eGFR is not recommended in the following populations:< br/>
Karma viduals with unstable creatinine concentration s, including patients and those with serious co-morbid conditions.<b r/>
Patie nts with extremes in muscle mass or diet.

The data above are obtained from the National Kidney Disease Education Program (NKDEP) which additionally recommends that when the eGFR is used in patients with extremes of body mass index for purposes of drug dosing, the eGFR should be multiplied by the estimated BMI. ELECTROLYTE BUN 7 7 - 22 11/15 [facility] ELECTROLYTE Creatinine 0.72 0.50 - 11/15 [facility] S Lvl 1.[address] [facility] ELECTROLYTE Glucose Lvl 148 70 - 99 11/15 [facility] S [facility] ELECTROLYTE Chloride Lvl 100 95 - 109 11/15 [facility] ELECTROLYTE CO2 28 24 - 32 11/15 [facility] S [facility] ELECTROLYTE Sodium Lvl 138 135 - 145 11/15 [place] S [facility] ELECTROLYTE Potassium 4.0 3.5 - 5.1 11/15 [facility] S Lvl [facility] ELECTROLYTE Calcium Lvl 9.4 8.5 - 10.5 11/15 [place] [facility] HEMATOLOGY Lymphocytes 6.8 20.0 - 11/15 [place] 40.[address] [facility] HEMATOLOGY Monocytes 4.2 2.0 - 12.0 11/[address] [facility] HEMATOLOGY Segs 88.9 45.0 - 11/15 [place] 75.[address] [facility] HEMATOLOGY Monocytes # 0.4 0.0 - 0.8 11/[place] [facility] HEMATOLOGY Lymphocytes 0.7 1.0 - 5.5 11/[place] [facility] HEMATOLOGY Basophils 0.1 0.0 - 1.0 11/[address] [facility] HEMATOLOGY Segs-Bands # 9.5 1.5 - 8.1 11/[address] [facility] HEMATOLOGY MCV 84.5 80.0 - 11/15 [place] 94.[address] [facility] HEMATOLOGY Hct 25.9 42.0 - 11/15 [place] 54.[address] [facility] HEMATOLOGY MPV 8.2 7.4 - 10.4 11/[address] [facility] HEMATOLOGY Platelet 300 133 - 450 11/[address] [facility] HEMATOLOGY Hgb 8.5 14.0 - 11/15 [place] 18.[address] [facility] HEMATOLOGY RBC 3.07 4.70 - 11/15 [place] 6.[address] [facility] HEMATOLOGY RDW 15.8 11.5 - 11/15 [place] 14.[address] [facility] HEMATOLOGY MCHC 32.7 32.0 - 11/15 [place] 36.[address] [facility] HEMATOLOGY MCH 27.6 27.0 - 11/15 [place] 31.[address] [facility] HEMATOLOGY WBC 10.6 3.7 - 10.4 11/[address] [facility] [place] [id number] 11/[address] [facility] BODY FLUIDS RBC BF 133 11/[address] [facility] BODY FLUIDS CellCnt BF Synovial 11/14 [facility] Type (11/14/16 1:29 PM) [facility] BODY FLUIDS Clarity BF Moderate Cloudy Clear 11/14 M H [place] *ABN* /2016 Medical (11/14/16 1:29 PM) Center BODY FLUIDS Color BF Light Yellow Colorless 11/14 [place] (11/14/16 1:29 PM) [facility] [place] BODY FLUIDS Supernat BF Yellow Colorless 11/14 [place] *ABN* /2016 [facility] (11/14/16 1:29 PM) Center BODY FLUIDS Crystal BF Synovial 11/14 [facility] Type (11/14/16 1:29 PM) [facility] [place] BODY FLUIDS Crystal BF [place] Na Urate Negative 11/14 [place] *ABN* /2016 Medical (11/14/16 1:29 PM) Center CHEM PANEL Phosphorus 4.9 2.5 - 4.5 11/[address] [facility] CHEM PANEL Magnesium 1.9 1.8 - 2.4 11/13 [facility] Lvl /[address] [facility] CHEM PANEL Creatinine 0.62 0.50 - 11/13 [facility] 1.[address] [facility] CHEM PANEL eGFR 134 11/13 Result Comment: The Medical eGFR is Center calculated using the CKD-EPI formula. In most young, healthy individuals the eGFR will be >90 mL/min/1.73m2 . The eGFR declines with age. An eGFR of 60-89 may be normal in some populations, particularly the elderly, for whom the CKD-EPI formula has not been extensively validated. Use of the eGFR is not recommended in the following populations:< br/>
Karma viduals with unstable creatinine concentration s, including patients and those with serious co-morbid conditions.<b r/>
Patie nts with extremes in muscle mass or diet.

The data above are obtained from the National Kidney Disease Education Program (NKDEP) which additionally recommends that when the eGFR is used in patients with extremes of body mass index for purposes of drug dosing, the eGFR should be multiplied by the estimated BMI. CHEM PANEL BUN 3 7 - 22 11/[address] [facility] CHEM PANEL Chloride Lvl 98 95 - 109 11/13 [facility] CHEM PANEL Glucose Lvl 107 70 - 99 11/[address] [facility] CHEM PANEL Sodium Lvl 135 135 - 145 11/[address] [facility] CHEM PANEL CO2 29 24 - 32 11/[address] [facility] CHEM PANEL Potassium 3.6 3.5 - 5.1 11/13 [facility] l [facility] CHEM PANEL AGAP 11.6 10.0 - 11/13 [place] 20.[address] [facility] CHEM PANEL Calcium Lvl 8.6 8.5 - 10.5 11/[address] [facility] HEMATOLOGY MCH 27.5 27.0 - 11/13 [place] 31.[address] [facility] HEMATOLOGY Hgb 8.4 14.0 - 11/13 [place] 18.[address] [facility] HEMATOLOGY Hct 25.8 42.0 - 11/13 [place] 54.[address] [facility] HEMATOLOGY MCV 84.2 80.0 - 11/13 [place] 94.[address] [facility] HEMATOLOGY RBC 3.06 4.70 - 11/13 [place] 6.[address] [facility] HEMATOLOGY WBC 13.1 3.7 - 10.4 11/[address] [facility] HEMATOLOGY Platelet 332 133 - 450 11/[address] [facility] HEMATOLOGY RDW 15.9 11.5 - 11/13 [place] 14.[address] [facility] HEMATOLOGY MPV 8.3 7.4 - 10.4 11/[address] [facility] HEMATOLOGY MCHC 32.6 32.0 - 11/13 [place] 36.[address] [facility] HEMATOLOGY Lymphocytes 2.0 1.0 - 5.5 11/13 a s # [facility] HEMATOLOGY Monocytes # 1.3 0.0 - 0.8 11/[address] [facility] HEMATOLOGY Segs-Bands # 9.7 1.5 - 8.1 11/[address] [facility] HEMATOLOGY Eosinophils 0.1 0.0 - 0.5 11/13 s # [facility] HEMATOLOGY Basophils # 0.1 0.0 - 0.2 11/[address] [facility] HEMATOLOGY Segs 73.8 45.0 - 11/[address] [facility] HEMATOLOGY Lymphocytes 14.9 20.0 - 11/[address] [facility] HEMATOLOGY Basophils 0.4 0.0 - 1.0 11/[address] [facility] HEMATOLOGY Monocytes 10.1 2.0 - 12.0 11/[address] [facility] HEMATOLOGY Eosinophils 0.8 0.0 - 4.0 11/[address] [facility] LIPIDS VLDL 29 11/[address] [facility] LIPIDS LDL 75 <=99 mg/dL 11/13 (Calculated) [facility] LIPIDS Chol 140 <=199 11/13 mg/dL [facility] LIPIDS Trig 143 <=149 11/13 [facility] mg/dL [facility] LIPIDS HDL 36 >=61 mg/dL 11/[address] [facility] LIPIDS CHD Risk 3.89 4.00 - 11/[address] [facility] CHEM PANEL Lipase Lvl 325 73 - 393 11/[address] [facility] CHEM PANEL eGFR 133 11/12 Result Comment: The Medical eGFR is Center calculated using the CKD-EPI formula. In most young, healthy individuals the eGFR will be >90 mL/min/1.73m2 . The eGFR declines with age. An eGFR of 60-89 may be normal in some populations, particularly the elderly, for whom the CKD-EPI formula has not been extensively validated. Use of the eGFR is not recommended in the following populations:< br/>
Karma viduals with unstable creatinine concentration s, including patients and those with serious co-morbid conditions.<b r/>
Patie nts with extremes in muscle mass or diet.

The data above are obtained from the National Kidney Disease Education Program (NKDEP) which additionally recommends that when the eGFR is used in patients with extremes of body mass index for purposes of drug dosing, the eGFR should be multiplied by the estimated BMI. CHEM PANEL Sodium Lvl 141 135 - 145 11/[address] CHEM PANEL Creatinine 0.63 0.50 - 11/12 [facility] Lvl 1.[address] [facility] CHEM PANEL BUN 6 7 - 22 11/12 [facility] CHEM PANEL Glucose Lvl 105 70 - 99 11/[address] CHEM PANEL Total 6.8 6.4 - 8.4 11/12 [facility] Protein [facility] CHEM PANEL Calcium Lvl 8.5 8.5 - 10.5 11/12 [facility] CHEM PANEL CO2 24 24 - 32 11/[address] CHEM PANEL Chloride Lvl 107 95 - 109 11/12 [facility] CHEM PANEL Potassium 3.6 3.5 - 5.1 11/12 [facility] CHEM PANEL Bili Total 0.2 0.2 - 1.3 11/[address] CHEM PANEL Alk Phos 66 39 - 136 11/[address] CHEM PANEL AST 12 0 - 37 11/[address] CHEM PANEL ALT 30 0 - 65 11/[address] CHEM PANEL Albumin Lvl 3.0 3.5 - 5.0 11/12 [facility] CHEM PANEL Globulin 3.8 2.7 - 4.2 11/[address] CHEM PANEL B/C Ratio 10 6 - 25 11/[address] CHEM PANEL AGAP 13.6 10.0 - 11/12 [place] 20.[address] [facility] CHEM PANEL A/G Ratio 0.8 0.7 - 1.6 11/[address] CHEM PANEL Phosphorus 4.8 2.5 - 4.5 11/[address] CHEM PANEL Magnesium 1.3 1.8 - 2.4 11/12 [facility] HEMATOLOGY Segs 61.1 45.0 - 11/12 [place] [address] [facility] HEMATOLOGY Lymphocytes 25.7 20.0 - 04 [place] 40.[address] [facility] HEMATOLOGY Monocytes 10.4 2.0 - 12.0 11/[address] [facility] HEMATOLOGY Eosinophils 2.2 0.0 - 4.0 11/[address] [facility] HEMATOLOGY Monocytes # 1.0 0.0 - 0.8 11/12 [facility] s [facility] HEMATOLOGY Eosinophils 0.2 0.0 - 0.5 11/[place] [facility] HEMATOLOGY Basophils 0.6 0.0 - 1.0 11/[address] [facility] HEMATOLOGY Segs-Bands # 6.1 1.5 - 8.1 11/[address] [facility] HEMATOLOGY Lymphocytes 2.6 1.0 - 5.5 11/12 [facility] s [facility] HEMATOLOGY Basophils # 0.1 0.0 - 0.2 11/12 [facility] HEMATOLOGY WBC 10.0 3.7 - 10.4 11/[address] [facility] HEMATOLOGY Hgb 8.2 14.0 - 11/[address] [facility] HEMATOLOGY RBC 2.89 4.70 - 11/[address] [facility] HEMATOLOGY Hct 24.7 42.0 - 11/[address] [facility] HEMATOLOGY MPV 7.8 7.4 - 10.4 11/[address] [facility] HEMATOLOGY MCH 28.3 27.0 - 11/[address] [facility] HEMATOLOGY MCV 85.5 80.0 - 11/12 [place] 94.[address] [facility] HEMATOLOGY Platelet 341 133 - 450 11/[address] [facility] HEMATOLOGY RDW 15.8 11.5 - 11/[address] [facility] HEMATOLOGY MCHC 33.1 32.0 - 11/12 [place] 36.[address] [facility] CHEM PANEL B/C Ratio 12 6 - 25 10/[address] [facility] CHEM PANEL Globulin 4.2 2.7 - 4.2 10/[address] [facility] CHEM PANEL A/G Ratio 0.8 0.7 - 1.6 10/[address] [facility] CHEM PANEL AGAP 11.6 10.0 - 10/29 [facility] [place] 20.[address] [facility] CHEM PANEL eGFR 131 10/29 Result Comment: The Medical eGFR is Center calculated using the CKD-EPI formula. In most young, healthy individuals the eGFR will be >90 mL/min/1.73m2 . The eGFR declines with age. An eGFR of 60-89 may be normal in some populations, particularly the elderly, for whom the CKD-EPI formula has not been extensively validated. Use of the eGFR is not recommended in the following populations:< br/>
Karma viduals with unstable creatinine concentration s, including patients and those with serious co-morbid conditions.<b r/>
Patie nts with extremes in muscle mass or diet.

The data above are obtained from the National Kidney Disease Education Program (NKDEP) which additionally recommends that when the eGFR is used in patients with extremes of body mass index for purposes of drug dosing, the eGFR should be multiplied by the estimated BMI. CHEM PANEL Bili Total 0.2 0.2 - 1.3 10/[address] [facility] CHEM PANEL AST 23 0 - 37 10/[address] CHEM PANEL Alk Phos 47 39 - 136 10/[address] CHEM PANEL Calcium Lvl 9.1 8.5 - 10.5 10/29 [facility] CHEM PANEL Total 7.4 6.4 - 8.4 10/29 [facility] CHEM PANEL Chloride Lvl 98 95 - 109 10/29 [facility] CHEM PANEL CO2 30 24 - 32 10/29 [facility] CHEM PANEL Albumin Lvl 3.2 3.5 - 5.0 10/29 [facility] CHEM PANEL ALT 27 0 - 65 10/[address] CHEM PANEL Potassium 4.6 3.5 - 5.1 10/29 [facility] CHEM PANEL Creatinine 0.66 0.50 - 10/29 [facility] 1.[address] [facility] CHEM PANEL Sodium Lvl 135 135 - 145 10/[address] CHEM PANEL Glucose Lvl 97 70 - 99 10/[address] CHEM PANEL BUN 8 7 - 22 10/29 [facility] HEMATOLOGY Basophils 1.0 0.0 - 1.0 10/[address] [facility] HEMATOLOGY Segs-Bands # 5.3 1.5 - 8.1 10/[address] [facility] HEMATOLOGY Lymphocytes 3.4 1.0 - 5.5 10/[place] [facility] HEMATOLOGY Eosinophils 2.6 0.0 - 4.0 10/29 a [address] [facility] HEMATOLOGY Monocytes 7.7 2.0 - 12.0 10/[address] [facility] HEMATOLOGY Eosinophils 0.3 0.0 - 0.5 10/[place] [facility] HEMATOLOGY Monocytes # 0.8 0.0 - 0.8 10/[place] [facility] HEMATOLOGY Basophils # 0.1 0.0 - 0.2 10/[place] [facility] HEMATOLOGY RBC Morph Normal 10/29 [facility] (10/29/16 5:11 AM) [facility] HEMATOLOGY Plt Morph Normal 10/29 [facility] (10/29/16 5:11 AM) [facility] HEMATOLOGY Lymphocytes 34.5 20.0 - 10/29 [place] 40.[address] [facility] HEMATOLOGY Segs 54.2 45.0 - 10/29 [place] 75.0 [facility] [facility] HEMATOLOGY MPV 8.0 7.4 - 10.4 10/[address] [facility] HEMATOLOGY Hgb 7.6 14.0 - 10/29 [place] 18.[address] [facility] HEMATOLOGY Hct 22.9 42.0 - 10/29 [place] 54.[address] [facility] HEMATOLOGY MCH 30.2 27.0 - 10/29 [place] 31.[address] [facility] HEMATOLOGY MCV 90.8 80.0 - 10/29 [place] 94.[address] [facility] HEMATOLOGY RDW 14.8 11.5 - 10/29 [place] 14.[address] [facility] HEMATOLOGY Platelet 814 133 - 450 10/[address] [facility] HEMATOLOGY MCHC 33.2 32.0 - 10/29 [place] 36.[address] [facility] HEMATOLOGY WBC 9.8 3.7 - 10.4 10/[address] [facility] HEMATOLOGY RBC 2.52 4.70 - 10/29 [place] 6.[address] [facility] ELECTROLYTE AGAP 10.9 10.0 - 10/28 [facility] S 20.[address] [facility] ELECTROLYTE eGFR 132 10/28 Result [facility] Comment: The Medical eGFR is Center calculated using the CKD-EPI formula. In most young, healthy individuals the eGFR will be >90 mL/min/1.73m2 . The eGFR declines with age. An eGFR of 60-89 may be normal in some populations, particularly the elderly, for whom the CKD-EPI formula has not been extensively validated. Use of the eGFR is not recommended in the following populations:< br/>
Karma viduals with unstable creatinine concentration s, including patients and those with serious co-morbid conditions.<b r/>
Patie nts with extremes in muscle mass or diet.

The data above are obtained from the National Kidney Disease Education Program (NKDEP) which additionally recommends that when the eGFR is used in patients with extremes of body mass index for purposes of drug dosing, the eGFR should be multiplied by the estimated BMI. ELECTROLYTE Calcium Lvl 9.1 8.5 - 10.5 10/[address] [place] [facility] ELECTROLYTE Glucose Lvl 117 70 - 99 10/28 [facility] ELECTROLYTE BUN 8 7 - 22 10/28 [facility] ELECTROLYTE Creatinine 0.64 0.50 - 10/28 [facility] Lvl 1.[address] [facility] ELECTROLYTE Sodium Lvl 136 135 - 145 10/28 [facility] [address] [facility] ELECTROLYTE Potassium 3.9 3.5 - 5.1 10/28 [facility] ELECTROLYTE Chloride Lvl 100 95 - 109 10/28 [facility] ELECTROLYTE CO2 29 24 - 32 10/28 [facility] [address] [facility] HEMATOLOGY Platelet 837 133 - 450 10/[address] HEMATOLOGY Hct 22.2 42.0 - 10/28 [facility] 54.[address] [facility] HEMATOLOGY MCV 91.2 80.0 - 10/28 [facility] 94.[address] [facility] HEMATOLOGY MCH 30.6 27.0 - 10/28 [facility] 31.[address] [facility] HEMATOLOGY MPV 8.1 7.4 - 10.4 10/[address] HEMATOLOGY WBC 10.7 3.7 - 10.4 10/[address] [facility] HEMATOLOGY RBC 2.43 4.70 - 10/28 [place] 6.[address] [facility] HEMATOLOGY RDW 14.9 11.5 - 10/[address] [facility] HEMATOLOGY MCHC 33.5 32.0 - 10/28 [place] 36.[address] [facility] HEMATOLOGY Hgb 7.4 14.0 - 10/[address] [facility] HEMATOLOGY Basophils 1.9 0.0 - 1.0 10/[address] [facility] HEMATOLOGY Eosinophils 3.0 0.0 - 4.0 10/[address] [facility] HEMATOLOGY Eosinophils 0.3 0.0 - 0.5 10/28 [place] # [facility] HEMATOLOGY Basophils # 0.2 0.0 - 0.2 10/[address] [facility] HEMATOLOGY Monocytes # 0.8 0.0 - 0.8 10/[address] [facility] HEMATOLOGY Lymphocytes 2.4 1.0 - 5.5 10/28 s # [facility] HEMATOLOGY Segs-Bands # 6.9 1.5 - 8.1 10/[address] [facility] HEMATOLOGY Lymphocytes 22.6 20.0 - 10/28 [place] 40.[address] [facility] HEMATOLOGY Monocytes 7.8 2.0 - 12.0 10/[address] [facility] HEMATOLOGY Segs 64.7 45.0 - 10/28 [place] 75.[address] [facility] HEMATOLOGY Anisocyte 1+ None Seen 10/28 *ABN* /2016 [facility] (10/28/16 9:10 AM) [place] HEMATOLOGY Hgb 8.1 14.0 - 10/[address] [facility] CHEM PANEL Phosphorus 4.2 2.5 - 4.5 10/[address] [facility] CHEM PANEL eGFR 141 10/27 Result Comment: The Medical eGFR is Center calculated using the CKD-EPI formula. In most young, healthy individuals the eGFR will be >90 mL/min/1.73m2 . The eGFR declines with age. An eGFR of 60-89 may be normal in some populations, particularly the elderly, for whom the CKD-EPI formula has not been extensively validated. Use of the eGFR is not recommended in the following populations:< br/>
Karma viduals with unstable creatinine concentration s, including patients and those with serious co-morbid conditions.<b r/>
Patie nts with extremes in muscle mass or diet.

The data above are obtained from the National Kidney Disease Education Program (NKDEP) which additionally recommends that when the eGFR is used in patients with extremes of body mass index for purposes of drug dosing, the eGFR should be multiplied by the estimated BMI. CHEM PANEL Calcium Lvl 9.0 8.5 - 10.5 10/[address] [facility] CHEM PANEL CO2 28 24 - 32 10/[address] [facility] CHEM PANEL Chloride Lvl 103 95 - 109 10/[address] [facility] CHEM PANEL Potassium 3.9 3.5 - 5.1 10/27 [facility] CHEM PANEL Sodium Lvl 138 135 - 145 10/27 [facility] CHEM PANEL Glucose Lvl 119 70 - 99 10/[address] [facility] CHEM PANEL BUN 6 7 - 22 10/[address] [facility] CHEM PANEL Creatinine 0.55 0.50 - 10/27 [facility] 1.[address] [facility] CHEM PANEL AGAP 10.9 10.0 - 10/27 [place] 20.[address] [facility] CHEM PANEL Magnesium 2.3 1.8 - 2.4 10/27 [facility] Lvl [facility] HEMATOLOGY Eosinophils 0.3 0.0 - 0.5 10/27 [place] # [facility] HEMATOLOGY Basophils 1.3 0.0 - 1.0 10/[address] [facility] HEMATOLOGY Segs-Bands # 6.9 1.5 - 8.1 10/[address] [facility] HEMATOLOGY Lymphocytes 3.4 1.0 - 5.5 10/27 [place] # [facility] HEMATOLOGY Monocytes # 0.9 0.0 - 0.8 10/[place] [facility] HEMATOLOGY Eosinophils 2.8 0.0 - 4.0 10/[place] [facility] HEMATOLOGY Basophils # 0.2 0.0 - 0.2 10/[place] [facility] HEMATOLOGY Segs 59.0 45.0 - 10/27 [place] [address] [facility] HEMATOLOGY Monocytes 7.9 2.0 - 12.0 10/[address] [facility] HEMATOLOGY Lymphocytes 29.0 20.0 - 10/27 [place] 40.0 /[address] [facility] HEMATOLOGY MCH 29.8 27.0 - 10/27 [place] 31.[address] [facility] HEMATOLOGY MCHC 33.0 32.0 - 10/27 [place] 36.[address] [facility] HEMATOLOGY Hct 20.5 42.0 - 10/27 [place] 54.[address] [facility] HEMATOLOGY RBC 2.26 4.70 - 10/27 [place] 6.[address] [facility] HEMATOLOGY WBC 11.6 3.7 - 10.4 10/[address] [facility] HEMATOLOGY MCV 90.4 80.0 - 10/27 [place] 94.[address] [facility] HEMATOLOGY Platelet 747 133 - 450 10/[address] [facility] HEMATOLOGY RDW 14.5 11.5 - 10/27 [facility] 14.[address] [facility] HEMATOLOGY MPV 7.9 7.4 - 10.4 10/[address] [facility] CHEM PANEL Phosphorus 4.5 2.5 - 4.5 10/[address] [facility] CHEM PANEL Magnesium 2.1 1.8 - 2.4 10/26 [facility] Lvl [facility] HEMATOLOGY Plt Morph Normal 10/26 (10/26/16 4:22 AM) [facility] HEMATOLOGY Macrocyte 1+ None Seen 10/26 *ABN* [facility] (10/26/16 4:22 AM) Center HEMATOLOGY Polychrom Moderate None Seen 10/26 *ABN* [facility] (10/26/16 4:22 AM) Center HEMATOLOGY Microcyte 1+ None Seen 10/26 *ABN* [facility] (10/26/16 4:22 AM) Center CHEM PANEL Total 7.5 6.4 - 8.4 10/25 [facility] Protein [facility] CHEM PANEL B/C Ratio 23 6 - 25 10/25 [facility] CHEM PANEL Albumin Lvl 2.5 3.5 - 5.0 10/[place] [facility] CHEM PANEL Globulin 5.0 2.7 - 4.2 10/[address] [facility] CHEM PANEL A/G Ratio 0.5 0.7 - 1.6 10/[address] [facility] CHEM PANEL Bili Total 0.3 0.2 - 1.3 10/25 [facility] CHEM PANEL Alk Phos 48 39 - 136 10/25 [facility] CHEM PANEL ALT 24 0 - 65 10/25 [facility] CHEM PANEL AST 25 0 - 37 10/[address] CHEM PANEL Lipase Lvl 1665 73 393 10/[address] HEMATOLOGY Bands 2.0 0.0 - 11.0 10/[address] HEMATOLOGY Metamyelocyt 2.0 0.0 - 1.0 10/25 [place] [facility] HEMATOLOGY Myelocytes 2.0 <=0.0 % 10/25 [facility] HEMATOLOGY Atypical 0.0 <=0.0 % 10/25 [facility] HEMATOLOGY RBC Morph Normal 10/25 [facility] (10/25/16 2:39 AM) [facility] HEMATOLOGY Plt Morph Normal 10/25 [facility] (10/25/16 2:39 AM) /2016 [facility] HEMATOLOGY Atypical 0.0 <=0.0 % 10/24 [facility] [address] [place] [address] HEMATOLOGY Myelocytes 1.0 <=0.0 % 10/24 [facility] [address] [place] [address] HEMATOLOGY Bands 3.0 0.0 - 11.0 10/24 [facility] HEMATOLOGY Rouleaux Present None Seen 10/24 [facility] *ABN* [facility] (10/24/16 5:42 AM) [place] CHEM PANEL Lipase Lvl 8935 73 393 10/23 [facility] CHEM PANEL Globulin 4.7 2.7 - 4.2 10/23 [facility] [address] [place] [address] CHEM PANEL B/C Ratio 15 6 - 25 10/[address] CHEM PANEL A/G Ratio 0.5 0.7 - 1.6 10/23 [facility] [address] [place] [address] CHEM PANEL Bili Total 0.3 0.2 - 1.3 10/[address] CHEM PANEL Alk Phos 76 39 - 136 10/[address] CHEM PANEL AST 23 0 - 37 10/[address] CHEM PANEL ALT 22 0 - 65 10/[address] CHEM PANEL Total 7.2 6.4 - 8.4 10/23 [facility] Protein [facility] CHEM PANEL Albumin Lvl 2.5 3.5 - 5.0 10/[place] [facility] HEMATOLOGY PTT 38.7 22.9 - 10/23 [place] [address] [facility] HEMATOLOGY INR 1.09 0.85 - 10/23 [place] [address] [facility] HEMATOLOGY PT 14.3 12.0 - 10/23 [place] 14[address] [facility] CHEM PANEL Phosphorus 3.6 2.5 - 4.5 10/22 [facility] CHEM PANEL Magnesium 2.4 1.8 - 2.4 10/22 [facility] Lvl /[address] [facility] HEMATOLOGY RBC Morph Normal 10/22 [facility] (10/22/16 4:04 AM) /2016 [facility] HEMATOLOGY Bands 8.0 0.0 - 11.0 10/21 [facility] HEMATOLOGY Atypical 0.0 <=0.0 % 10/21 [facility] Lymphs [facility] HEMATOLOGY Metamyelocyt 2.0 0.0 - 1.0 10/21 [place] [facility] CHEM PANEL Bili Direct 0.2 0.0 - 0.3 10/[place] [facility] CHEM PANEL Bili 0.3 0.0 - 1.0 10/20 [facility] Indirect [facility] HEMATOLOGY Metamyelocyt 2.0 0.0 - 1.0 10/20 [place] [facility] HEMATOLOGY Myelocytes 2.0 <=0.0 % 10/20 [facility] LIPIDS Trig 187 <=149 10/20 [facility] mg/dL [facility] HEMATOLOGY Tot Cell Ct 100 10/19 [facility] HEMATOLOGY NRBC 1 10/19 [facility] PARATHYROID Ca Norm WB 1.04 1.05 - 10/19 [place] PROFILE [address]. [facility] PARATHYROID Ca Ion WB 1.06 1.05 - 10/19 [place] PROFILE . [facility] HEMATOLOGY NRBC 2 10/18 [facility] HEMATOLOGY INR 1.14 0.85 - 10/18 [place] [address] [facility] HEMATOLOGY PT 14.8 12.0 - 10/18 [place] 14.[address] [facility] PARATHYROID Ca Ion WB 1.10 1.05 - 10/18 MH [place] PROFILE 1. [facility] PARATHYROID Ca Norm WB 1.11 1.05 - 10/18 [place] PROFILE 08.[address] [facility] CARDIAC Total CK 274 12 - 191 10/17 [facility] ENZYMES [facility] CHEM PANEL Lactic Acid 1.4 0.5 - 2.2 10/17 [facility] s Lv [facility] HEMATOLOGY NRBC 2 10/[address] [facility] PARATHYROID Ca Ion WB 1.09 1.05 - 10/17 [facility] PROFILE 08.[address] [facility] PARATHYROID Ca Norm WB 1.14 1.05 - 10/17 [facility] PROFILE 08.[address] [facility] CHEM PANEL Lipase Lvl 848 73 - 393 10/16 [facility] CHEM PANEL Bili 0.3 0.0 - 1.0 10/16 [facility] Indirect [facility] CHEM PANEL Bili Direct 0.2 0.0 - 0.3 10/16 [facility] s [facility] LIPIDS Trig 397 <=149 10/16 [facility] mg/dL [facility] CHEM PANEL Lactic Acid 1.9 0.5 - 2.2 10/16 [facility] s [facility] HEMATOLOGY PT 15.2 12.0 - 10/16 [place] 14.[address] [facility] HEMATOLOGY INR 1.18 0.85 - 10/16 [place] [address] [facility] HEMATOLOGY PTT 35.3 22.9 - 10/16 [place] 35.8 /[address] [facility] CHEM PANEL Procalcitoni 5.06 0.00 - 10/15 Result [facility] n l 0.10 Comment: [facility] Result(s) called to perico torrez at _10/15/2016 14:50 by_silviak Read back [place]. CHEM PANEL Lactic Acid 1.6 0.5 - 2.2 10/15 [facility] s Lvl [facility] LIPIDS Trig 394 <=149 10/15 [place] mg/dL /[address] [facility] CHEM PANEL Procalcitoni 6.20 0.00 - 10/15 Result [facility] n Lvl 0.10 Comment: [facility] Critical [facility] Result(s) called to perico stiles at _10/15/2016 12:42 by_kachristophe. Read back [place]. CHEM PANEL Uric Acid 7.5 3.8 - 8.0 10/15 [facility] CHEM PANEL Uric Acid 9.2 3.8 - 8.0 10/14 [facility] CHEM PANEL LACTATE 467 98 - 192 10/14 [facility] DEHYDROGEN Medical E Center HEMATOLOGY Tot Cell Ct 100 10/14 [facility] DRUG SCREEN U Opiate Scr Positive Negative 10/14 [place] *ABN* Medical (10/14/16 12:44 AM) Cente r DRUG SCREEN U Cara Scr Negative Negative 10/14 [place] *NA* Medical (10/14/16 12:44 AM) Cente r DRUG SCREEN U Cannab Scr Positive Negative 10/14 [place] *ABN* Medical (10/14/16 12:44 AM) Cente r DRUG SCREEN U Cocaine Negative Negative 10/14 [place] Scr *NA* Medical (10/14/16 12:44 AM) Cente r DRUG SCREEN U Benzodia Positive Negative 10/14 [place] Scr *ABN* Medical (10/14/16 12:44 AM) Cente r DRUG SCREEN U Propoxyph Negative Negative 10/14 [place]r *NA* Medical (10/14/16 12:44 AM) Cente r DRUG SCREEN U Methadone Negative Negative 10/14 [place] *NA* Medical (10/14/16 12:44 AM) Cente r DRUG SCREEN UDS Note See Note 10/14 [facility] (10/14/16 12:44 AM) Medic al Center DRUG SCREEN U Phencyc Negative Negative 10/14 [facility] Scr *NA* Medical (10/14/16 12:44 AM) Cente r DRUG SCREEN U Amph Scr Negative Negative 10/14 [place] *NA* Medical (10/14/16 12:44 AM) Cente r URINE AND UA Ketones TR 10/14 [facility] STOOL /2016 Medical Center URINE AND UA Mucus Few /LPF None Seen 10/14 [facility] STOOL /LPF /2016 [facility] URINE AND UA <=1.0 0.1 - 1.0 10/14 [facility] STOOL Urobilinogen mg/dL /2016 Medical Center URINE AND UA Leuk Est Negative Negative 10/14 [facility] STOOL (10/14/16 12:44 AM) /2016 Medic al Center URINE AND UA Sq Epi None Seen 10/14 [facility] STOOL Medical [place] URINE AND UA Spec Grav >=1.050 <=1.030 10/14 [facility] STOOL *ABN* Medical (10/14/16 12:44 AM) Cente r URINE AND UA WBC 1 0 - 5 10/14 [place] STOOL [facility] URINE AND UA RBC 2 0 - 2 10/14 [facility] STOOL Medical Center URINE AND UA Glucose Negative Negative 10/14 [facility] STOOL mg/dL mg/dL Medical [place] URINE AND UA Bili Negative Negative 10/14 [facility] STOOL *NA* Medical (10/14/16 12:44 AM) Cente r URINE AND UA Blood Small Negative 10/14 [facility] STOOL *ABN* Medical (10/14/16 12:44 AM) Cente r URINE AND UA Nitrite Negative Negative 10/14 [facility] STOOL (10/14/16 12:44 AM) /2016 Medic [facility] URINE AND UA Color Yellow Yellow 10/14 [facility] STOOL *NA* Medical (10/14/16 12:44 AM) Cente r URINE AND UA Turbidity Clear Clear 10/14 [place] [facility] (10/14/16 12:44 AM) /2016 [facility] [place] URINE AND UA pH 6.5 5.0 - 8.0 10/14 [facility] URINE AND UA Protein 70 mg/dL Negative 10/14 [facility] STOOL mg/dL [facility] IMMUNOLOGY HIV 1/2 Ab Negative Negative 10/14 [facility] *NA* Medical (10/13/16 11:54 PM) Cente r IMMUNOLOGY Hep B Core Negative Negative 10/14 [facility] IgM *NA* Medical (10/13/16 11:54 PM) Cente r IMMUNOLOGY Hep A IgM Negative Negative 10/14 [place] *NA* Medical (10/13/16 11:54 PM) Cente r IMMUNOLOGY Hep C Ab Negative 10/14 [place] *NA* Medical (10/13/16 11:54 PM) Cente r IMMUNOLOGY Hep Bs Ag Negative Negative 10/14 [place] *NA* Medical (10/13/16 11:54 PM) Cente r VIRAL - Influ B Negative Negative 10/14 [facility] SEROLOGY (10/13/16 11:54 PM) /2016 [facility] VIRAL - Influ A Negative Negative 10/14 [facility] SEROLOGY (10/13/16 11:54 PM) /2016 [facility] BACTERIAL - MRSA by PCR Negative 10/14 [place] SER[facility] (10/13/16 11:38 PM) [facility] CARDIAC BNP 15 <=100 10/14 [facility] ENZYMES pg/mL [facility] CHEM PANEL Ketone 0.09 <=0.27 10/14 [facility] Quantitative mmol/L [facility] CHEM PANEL Amylase Lvl 75 25 - 115 10/14 [facility] /[address] [facility] HEMATOLOGY PTT 30.4 22.9 - 10/14 [facility] 35.[address] [facility] LIPIDS VLDL See Note 2 10/14 Result [facility] *NA* /2016 Comment: VLDL [facility] (10/13/16 11:38 PM) - Cholesterol Center level cannot be accurately calculated due to very high triglycerides (>400 mg/dL). LIPIDS LDL See Note <=99 mg/dL 10/14 Result [facility] (Calculated) mg/dL Comment: LDL [facility] cholesterol Center cannot be calculated due to very high triglycerides (>400 mg/dL). Recommend Direct LDL if clinically indicated. LIPIDS Chol 235 <=199 10/14 [facility] mg/dL /[address] [facility] LIPIDS CHD Risk 7.12 4.00 - 10/14 [facility] 7.[address] [facility] LIPIDS HDL 33 >=61 mg/dL 10/14 [facility] SPECIAL Hgb A1C 5.9 <=5.6 % 10/14 [facility] CHEMISTRY [facility] TOXICOLOGY Ethanol Lvl <3 10/14 [facility] /[address] [facility] TOXICOLOGY Etoh (%) <0.003 10/14 [facility] /[address] [facility] BODY FLUIDS Crystal BF See Note 1, 2 Negative 09/29 Result (09/29/15 2:50 PM) Comment: [facility] needle like structures appear in wet mount but when cytocentrifug ed and stained no crystals bifringent or not was noted. Set up for path review
Catalina murphy Comment: needle like structures appear in wet mount but when cytocentrifug ed and stained no crystals bifringent or not was noted. Set up for path review
<b r/>Positive: crystals consistent with Na urate/gout.<b r/>Reviewed by Heather Sinclair MD 09/30/2015 BODY FLUIDS Crystal BF Synovial 09/29 MH Type (09/29/15 2:50 PM) /[facility] B[facility] FLUIDS UricAcd BF Synovial 09/29 [facility] Type *NA* /2015 [place] (09/29/15 2:50 PM) BODY FLUIDS Uric Acid BF 8.6 09/29 /2015 [facility] BODY FLUIDS Color BF Yellow Colorless 09/29 [facility] (09/29/15 2:50 PM) /2015 [facility] BODY FLUIDS RBC BF 900 09/29 [facility] BODY FLUIDS WBC BF [id number] 09/29 [facility] BODY FLUIDS Supernat BF Yellow Colorless 09/29 MH *ABN* /2015 [facility] (09/29/15 2:50 PM) BODY FLUIDS Clarity BF Moderate Cloudy Clear 09/29 M H *ABN* /2015 (09/29/15 2:50 PM) BODY FLUIDS CellCnt BF Synovial 09/29 MH Type (09/29/15 2:50 PM) /2015 [facility] ast BODY FLUIDS Macrophage 10 09/29 BF /2015 [facility] BODY FLUIDS Segs BF 90 09/29 [facility] BODY FLUIDS Gluc BF Type Synovial 09/29 MH *NA* /2015 [facility] (09/29/15 2:50 PM) BODY FLUIDS Glucose BF 4 09/29 [facility] BODY FLUIDS Protein BF 6.1 09/29 [facility] BODY FLUIDS Prot BF Type Synovial 09/29 MH *NA* /2015 [facility] (09/29/15 2:50 PM) HEMATOLOGY Sed Rate 35 0 - 15 09/29 [facility] HEMATOLOGY Hgb 16.8 14.0 - 09/29 18.0 /2015 [facility] HEMATOLOGY WBC 23.6 3.7 - 10.4 09/29 [facility] HEMATOLOGY MCH 30.4 27.0 - 09/29 31.0 [facility] HEMATOLOGY MCV 90.1 80.0 - 09/29 94.0 /2015 [facility] HEMATOLOGY Hct 49.8 42.0 - 09/29 54.0 /2015 [facility] HEMATOLOGY MPV 7.7 7.4 - 10.4 09/29 [facility] HEMATOLOGY Platelet 379 133 - 450 09/29 [facility] HEMATOLOGY RBC 5.53 4.70 - 09/29 MH 6.10 /2015 [facility] HEMATOLOGY RDW 13.5 11.5 - 09/29 14.5 /2015 [facility] HEMATOLOGY MCHC 33.7 32.0 - 09/29 36.0 /2015 [facility] HEMATOLOGY Lymphocytes 1.9 1.0 - 5.5 09/29 # /2016 [facility] HEMATOLOGY Basophils # 0.1 0.0 - 0.2 09/29 [facility] HEMATOLOGY Monocytes # 2.5 0.0 - 0.8 09/29 [facility] HEMATOLOGY Segs-Bands # 19.0 1.5 - 8.1 09/29 /2015 [facility] HEMATOLOGY Monocytes 10.6 2.0 - 12.0 09/29 [facility] HEMATOLOGY Lymphocytes 8.2 20.0 - 09/29 MH 40.0 /2016 [facility] HEMATOLOGY Basophils 0.4 0.0 - 1.0 09/29 [facility] HEMATOLOGY Segs 80.8 45.0 - 09/29 75.0 /2016 [facility] IMMUNOLOGY C-REACTIVE 253.0 <=2.9 mg/L 09/29 /2015 [facility] Pathology Reports No Data Provided for This Section Diagnostic Reports Report Value Date Source Torso-Outside EXAM: CT ABDOMEN AND PELVIS WITHOUT CONTRAST [facility] Medical Consult CT DATE: 11/12/2016 10:[address] INDICATION: Outside consult for pancreatitis. ADDITIONAL INFORMATION: None. COMPARISON: CT abdomen pelvis 2016 TECHNIQUE: Volumetric CT acq uisition of the abdomen and pelvis before and after the intravenous administration of contrast. Axial, coronal and sagittal reconstructions. IV contrast: None Enteric contrast: None. DLP: 1263 mGy-cm FINDINGS: Lines, tubes and hardware: None. Lower thorax: Clear. Liver: The liver is enlarged , however there has been interval decrease in fatty infiltration of the liver. Biliary tree: No intra- or extrahepatic biliary ductal dilation. Gallbladder: Normal. No CT evidence of gallstone s. Pancreas: Examination is colbert ited due to absence of IV contrast. The head and neck of the pancreas are unremarkable, however the distal body and tail are not well delineated. Overall there is decreased p erinephric stranding and flu id at the tail of pancreas, however there is slight increase in mesenteric stranding extending to the splenic flexure. There is a 5.5 cm crescent-shaped necrotic collection a t the tail the pancreas with extension into the gastrosplenic region and running inferiorly just anterior to the left kidney. Spleen: Chronic occlusion of the splenic artery is noted Adrenals: Normal. Kidneys and ureters: Normal. Bladder: Normal. Reproductive organs: No CT abnormality. Gastrointestinal tract: Dive rticulosis without evidence of diverticulitis. Normal caliber. Appendix: Normal. Peritoneum, mesentery and re troperitoneum: Small amount of free fluid within the pelvis. No pneumoperitoneum is identified. Lymph nodes: Normal. Vasculature: Chronic splenic artery occlusion as above. Bones: No acute abnormality. Soft tissues: Normal. IMPRESSION: 1. Compared to 2016, interval significant decrease in the pancreatic and peripancreatic necrotic collection involving and surrounding the distal body and tail with small to moderate residual wall ed off necrotic collection on today's examinatio n. 2. Fat stranding in the lef t upper quadrant with retroperitoneal fascial thickening surrounding the walled off necrotic collection in the distal body/tail region although has shown improvement, there h as been increase in fat stra nding in few areas concerning for another episode of acute pancreatitis. 3. 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 4. Trace fluid in the pelvis. 5. Hepatomegaly seen again, there is significant improvement in the diffuse fatty liver seen on the comparison exam from 10/13/2016. Abdomen/Pelvis w IV EXAM: CT ABDOMEN WITH CONTRAST 2016 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 ADDITIONAL INFORMATION: None. COMPARISON: 10/13/2016 CT abdomen pelvis TECHNIQUE: Volumetric CT acq uisition of the abdomen after the intravenous administration contrast. Axial, coronal and sagittal reconstructions. Postcontrast phases: Venous and delayed. IV contrast: 120 mL Omnipaque 350 Oral contrast: Gastrografin. FINDINGS: Lines and tubes: None. Lower thorax: Scattered grou nd glass opacity in the visualized portion of the right middle lobe may relate to aspiration or infection. Liver: Mild hepatic steatosis. Hepatomegaly. Biliary tree: No intra- or extrahepatic biliary ductal dilation. Gallbladder: Decompressed. Pancreas: Hypoenhancement of the pancreatic tail with a moderate to large amount of fluid surrounding the pancreatic tail, and extending superiorly surrounding the stomach, and inferiorly along the left anterior perirenal space an d paracolic gutter to the level of the pelvis. Hypoattenuation of the pancreatic tail may relate to an acute necrotic collection. There is mild enhancement surrounding the il l-defined peripancreatic flu id. The peripancreatic fluid collection is significantly increased in size when compared to 10/13/2016. No definite foci of air are seen. Spleen: Normal. Adrenals: Normal. Kidneys and ureters: Normal. Gastrointestinal tract: Mild thickening of the sigmoid colon wall is likely reactive. Contrast material is seen to the level of the rectum. Appendix: Normal. Peritoneum and retroperitone um: Large amount of peripancreatic fluid as described above. No pneumoperitoneum. Lymph nodes: Normal. Vasculature: Thrombosis of t he splenic vein. Nonocclusive thrombus extends from the splenic confluens through the main portal vein and into the anterior and posterior portions of the right portal vein. Visualized abdominal aorta and IVC within liz l limits in caliber. Bones: Normal. Soft tissues: Normal. IMPRESSION: 1. Acute pancreatitis with hypoattenuation of a large portion of the pancreatic tail, increase in size when compared to the prior study, consistent with a necrotizing pancreatitis component. A large am ount, increased from the shane or study, of peripherally enhancing peripancreatic fluid extends from the level of the stomach inferiorly into the pelvis. No foci of gas are seen to suggest superimposed inf ection, although this cannot be ruled out on the basis of imaging. These findings were communicated to Dr. Herman over the phone at 9:40 am 2016. 2. Nonopacification of the splenic vein suggestive of thrombosis, most likely sequela of pancreatitis. 3. 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 This finding was communicated to Dr. Nolan over the phone at 1147 hours 2016. Knee 3 views DX EXAM: XR RIGHT KNEE 3 VIEWS 10/20/2016 [facility] DATE: 10/20/2016 9:[address] INDICATION: Pain and swelling COMPARISON: 09/21/2015 TECHNIQUE: AP, lateral and oblique radiographs of the right knee FINDINGS: No fracture, periosteal reaction, or erosions id entified. Joint alignment is normal. Lateral compartment joint space narrowing presen t. Tricompartmental osteophytes present. Lateral compartment sclerosis and remodeling pre sent. Small suprapatella bursal effusion present. 1.2 cm intra-articular body present in the lateral aspect of the suprapatella bursa. Heterotopic ossification in the patellar tendon adjacent to the tibial tuberosity is unchanged. IMPRESSION: No fractures identified. 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 Small suprapatella bursal effusion with intra-ar ticular body. Heterotopic ossification in the patellar tendon likely sequela of remote trauma or Devin-Schlatter's disease during adolescence. Chest 1view DX EXAM: XR CHEST 1 VIEW 10/19/2016 [facility] edical DATE: 10/19/2016 Center INDICATION: Chest pain . Comparison is made wit h yesterday FINDINGS: Cardiomediastinal silhouette and feeding tube are unchanged. Lung volumes are low. This produces spurious widening of the transverse diameter of the heart and mediastinum and crowding of the b jake lung markings. This pro duces platelike atelectasis at both lung bases. Underlying consolidation is not excluded. IMPRESSION: No significant interval change when compared to prior radiograph. Chest 1view DX EXAM: XR CHEST 1 VIEW 10/18/2016 [facility] edical DATE: 10/18/2016 5:59 AM CDT Cent er INDICATION: Abnormal chest sounds COMPARISON: 10/16/2016 TECHNIQUE: AP chest FINDINGS: There is a stable feeding tube coursing to the stomach. The gastric bubble is distended. Interval progression of diffuse airspace opacities which could be from infection, aspiration, edema. Th radhika findings are superimpose d on low lung volumes and subsegmental atelectasis. Stable cardiomediastinal silhouette. IMPRESSION: Interval progre ssion of diffuse airspace opacities which could be from infection, aspiration, edema. These findings are superimposed on low lung volumes and subsegmental atelectasis Abdomen AP DX EXAM: XR ABDOMEN 1 VIEW 10/18/2016 [facility] DATE: 10/17/2016 7:30 PM CDT Cent er INDICATION: Tube placement/removal/reposition ADDITIONAL INFORMATION: None. COMPARISON: None. TECHNIQUE: AP view of the abdomen. FINDINGS: IMPRESSION: A Dobbhoff tube tip projecti ng over the 1st portion of the duodenum. Recommend further advancement.. Moderate gaseous distention of the stomach. Persistent small bowel dilation with caliber measuring at 5.5 cm compared to 4.8 cm o n this exam. Recommend follow-up abdominal radiographs. IMPRESSION: 1. No abdominal abnormalities. Abdomen AP DX EXAM: XR ABDOMEN 1 VIEW 10/16/2016 [facility] DATE: 10/16/2016 10:[address] INDICATION: Feeding intolerance ADDITIONAL INFORMATION: None. COMPARISON: None. TECHNIQUE: AP view of the abdomen. Number of im ages: 2 FINDINGS: Lines and tubes: Dobbhoff tu be tip likely overlies the first portion of the duodenum. Lower thorax: Unremarkable. Bowel: Gaseous dilatation of multiple small bowel loops in the mid abdomen measures up to 4.9 cm in diameter. Gas is present within the large bowel. Bones: No acute abnormalities seen. Soft tissues. Unremarkable. IMPRESSION: 1. Dilated, gas-filled loop s of small bowel in the mid and right abdomen, likely representing ileus. 2. Dobbhoff tube tip overli es the region of the first portion of the duodenum. Chest 1view DX EXAM: XR CHEST 1 VIEW 10/16/2016 [facility] DATE: 10/16/2016 11:[address] INDICATION: Absent of breath sounds COMPARISON: 10/15/2016 TECHNIQUE: AP chest IMPRESSION: New feeding tube coursing into the stomach. The gastric bubble is distended. Significantly decreased lung volumes with abundant retrocardiac subsegmental atelectasis with or without superimp osed infection. Stable cardi omediastinal silhouette. No definite pleural effusion. Abdomen AP DX EXAM: XR ABDOMEN 1 VIEW 10/16/2016 [facility] DATE: 10/16/2016 1:58 PM CDT [facility] INDICATION: Tube placement/removal/reposition ADDITIONAL INFORMATION: None. COMPARISON: 10/15/2016 TECHNIQUE: AP view of the abdomen. FINDINGS: Dobbhoff tube in place with tip in the 1st portion the duodenum. Scattered gas present in small and large bowel loops, with no definite obstruction. IMPRESSION: . 1. Dobbhoff tube in place with tip in the 1st p ortion of the duodenum Abdomen AP DX EXAM: XR ABDOMEN 1 VIEW 10/15/2016 [facility] DATE: 10/15/2016 10:[address] INDICATION: Constipation. Has a diagnosis of beasley creatitis. TECHNIQUE: AP view of the abdomen. FINDINGS: The stomach bubbl e is normal in appearance. There are multiple dilated loops of small bowel in the right mid abdomen measuring up to 3.3 cm in diameter. There are no small bowel loops and the remainder of the abdomen wh ich are filled with air. Portions of the transverse colon and splenic flexure are gas distended and are normal in appearance. IMPRESSION: 1. There are some mildly dil ated loops of small bowel in the right mid abdomen. This is probably local ileus related to the patient's underlying pancreatitis. Chest 1view DX EXAM: XR CHEST 1 VIEW 10/15/2016 [facility] edical DATE: 10/15/2016 Center INDICATION: Abnormal chest sounds . Comparison is made with October 13 FINDINGS: Lung volumes are l ow. This produces spurious widening of the transverse diameter of the heart and mediastinum and crowding of the basal lung markings. This There are bilateral retrocar diac opacities obscuring the hemidiaphragms and silhouette of the descending thoracic aorta which may represent bilateral pleural effusions with or without underlying atelect asis or consolidation of both lower lobes. The upper lungs are clear IMPRESSION: Low lung volumes Chest 1view DX EXAM: XR CHEST 1 VIEW 10/13/2016 [facility] edical DATE: 10/13/2016 10:[address] INDICATION: Shortness of Breath COMPARISON: Same day CT abdomen and pelvis TECHNIQUE: AP chest FINDINGS: Lines and tubes and devices: None. Lungs and pleura: Low lung v olumes result in bilateral perihilar vascular crowding and minimal bibasilar subsegmental atelectasis. Otherwise lungs are clear with no focal consolidation, pleural effusion s, or pneumothorax. Upright radiograph is required to evaluate for small apical pneumothoraces. Heart and mediastinum: The h eart size is normal for technique. The mediastinal contours are normal. Bones and soft tissues: No a cute bony abnormality is identified. No acute soft tissue abnormality is identified. IMPRESSION: No acute cardiopulmonary abnormalit y. Knee 3 views DX View Patient Name: ISAAC BREEN [birth year] [facility] : 1985; Age: 30 years y/o Male MR: [id number] * RIGHT FEMUR, 2 views History: Injury, trauma to right thigh region - right lower extremity Technique: Frontal and lateral radiographs of th e right femur were obtained. A prior study of 09/29/2015 was reviewed. FINDINGS: 1. There is no evidence of fracture, dislocation , or acute change. 2. Severe degenerative quarles es primarily involving the lateral patellofemoral compartments. There is marked narrowing of the lateral joint space with valgus deformity. There is mild marginal osteophyte formation. There is moderate narrowing of the patellofemoral joint space with extensive spurring anteriorly and mild spurring inferiorly. There are relatively mild degenerative change involving the medial joint space. 3.There are no destructive lesions or other osse ous abnormalities. 4. There is fullness in the suprapatellar region, probable large joint effusion. Please correlate with clinical examination. SL: [id number] Ext Lower Venous Patient Name: ISAAC BREEN [birth year][address] [place] [address] [place] : 1985; Age: 30 years y/o Male MR: [id number] * RIGHT LOWER EXTREMITY VENOUS DOPPLER HISTORY: Right lower extremity pain. Comparison: None TECHNIQUE: Sonographic evaluation of th e right lower extremity venous system was performed from the popliteal fossa to the inguinal ligament using high resolution grayscale B-mode imaging, along with pulse (spectral) and color Doppler imaging. FINDINGS: * Right lower extremity: The right common femoral vei n, superficial femoral vein, popliteal vein and visualized posterior tibial/calf veins are patent and compressible with good flow. There is good spontaneous phasic venous hawa w with good augmentation wit h calf compression. This constitutes a normal examination. IMPRESSION: Negative venous Doppler of t he right lower extremity. Specifically, there is no evidence of deep venous thrombosis or venous obstruction. SL: [id number] Foot series DX RIGHT FOOT RADIOGRAPH 3 VIEWS 09/29/2015 [facility] INDICATION: Right foot erythema and pain, histor y of gout COMPARISON: None DISCUSSION: There is mild nonspecific so ft tissue swelling of the right foot. No acute fractures or dislocations are visualized. The joint spaces are maintained. No erosive changes are identified. No suspicious lyt ic or sclerotic lesions are seen. The soft tissues are radiographically unremarkable. IMPRESSION: Mild nonspecific soft tissue swelling of the right foot. No acute bony abnormalities are seen. No erosive arthritic change is identified. SL:16 Knee series 3 views Knee series 3 views DX 09/29/2015 [facility] CLINICAL HISTORY: Pain and swelling FINDINGS/IMPRESSION: 3 views of the right knee are submitted for revi ew. There is no evidence for fra cture or subluxation.. The visualized bones demonstrate normal radiodensity. Extensive degenerative quarles es present with decrease in joint space height most decreased in the lateral compartment. Large marginal osteophytes are present. Large amount of fluid is present in the suprapat ellar bursa.. SL: [id number] Consultation Notes No Data Provided for This Section Discharge Summaries No Data Provided for This Section History and Physicals No Data Provided for This Section Vital Signs Vital Sign Value Date Comments Source Systolic (mm Hg) 116 11/15/2016 [facility] Diastolic (mm Hg) 72 11/15/2016 [facility] Temperature Oral (F) 97.6 F 11/15/2016 [facility] Heart Rate 72 11/15/2016 [facility] Respitory Rate 18 11/15/2016 [facility] Systolic (mm Hg) 136 11/15/2016 [facility] Diastolic (mm Hg) 77 11/15/2016 [facility] Respitory Rate 19 11/15/2016 [facility] Heart Rate 96 11/15/2016 [facility] Temperature Oral (F) 97.4 F 11/15/2016 [facility] Heart Rate 90 11/15/2016 [facility] Temperature Oral (F) 98.1 F 11/15/2016 [facility] Respitory Rate 20 11/15/2016 [facility] Systolic (mm Hg) 132 11/15/2016 [facility] Diastolic (mm Hg) 65 11/15/2016 [facility] Height 182.88 cm 11/12/2016 [facility] Weight 102.869 11/12/2016 [facility] BMI Calculated 30.76 11/12/2016 [facility] Temperature Oral (F) 98.3 F 10/29/2016 [facility] Heart Rate 92 10/29/2016 [facility] Respitory Rate 20 10/29/2016 [facility] Systolic (mm Hg) 133 10/29/2016 [facility] Diastolic (mm Hg) 81 10/29/2016 [facility] Respitory Rate 20 10/29/2016 [facility] Systolic (mm Hg) 128 10/29/2016 [facility] Diastolic (mm Hg) 76 10/29/2016 [facility] Heart Rate 82 10/29/2016 [facility] Systolic (mm Hg) 120 10/29/2016 [facility] Diastolic (mm Hg) 77 10/29/2016 [facility] Respitory Rate 20 10/29/2016 [facility] Heart Rate 98 10/29/2016 [facility] Temperature Oral (F) 98.2 F 10/29/2016 [facility] Temperature Oral (F) 98.3 F 10/29/2016 [facility] Height 182.88 cm 10/14/2016 [facility] BMI Calculated 31.42 10/14/2016 [facility] Weight 105.085 10/14/2016 [facility] BMI Calculated 31.26 10/14/2016 [facility] Weight 104.545 10/14/2016 [facility] Height 182.88 cm 10/14/2016 [facility] Weight 105.136 10/14/2016 [facility] Respitory Rate 18 12/24/2015 [facility] Heart Rate 91 12/24/2015 [facility] Systolic (mm Hg) 144 12/24/2015 [facility] Diastolic (mm Hg) 98 12/24/2015 [place] [facility] Weight 104.545 12/24/2015 [facility] Height 182.88 cm 12/24/2015 [facility] BMI Calculated 31.26 12/24/2015 [facility] Temperature Oral (F) 98.3 F 12/24/2015 [place] Systolic (mm Hg) 116 12/24/2015 [place] Diastolic (mm Hg) 58 12/24/2015 [place] Respitory Rate 18 12/24/2015 [facility] Heart Rate 110 12/24/2015 [place] [facility] Respitory Rate 16 09/29/2015 [facility] Systolic (mm Hg) 157 09/29/[place] [facility] Diastolic (mm Hg) 89 09/29/[address] Temperature Oral (F) 97.9 F 09/29/2015 [facility] Heart Rate 92 09/29/2015 [facility] Respitory Rate 16 09/29/2015 [facility] Systolic (mm Hg) 158 09/29/2015 [place] [facility] Diastolic (mm Hg) 91 09/29/[address] Heart Rate 110 09/29/2015 [facility] Temperature Oral (F) 97.9 F 09/29/2015 [place] [facility] BMI Calculated 31.94 09/29/2015 [facility] Weight 106.818 09/29/2015 [facility] Height 182.88 cm 09/29/2015 [facility] Temperature Oral (F) 98.1 F 09/29/2015 [place] [facility] Heart Rate 101 09/29/2015 [facility] Systolic (mm Hg) 168 09/29/2015 [place] Diastolic (mm Hg) 107 09/29/[address] Respitory Rate 16 09/29/2015 [facility] Encounters Location Location Encounter Encounter Reason Attending ADM DC Stat us Source Details Type Number For Provider Date Date Visit [facility] [id number] [place] 09/29 09/29 [facility] [place] /2015 [facility] [id number] [place] 12/23 12/23 [facility] Emergency Carie /2015 [facility] In[facility] [id number] Ad[place] 10/14 10/30 [facility] Yaima /2016 [facility] [id number] [place] 11/12 11/15 [facility] [place] /2016 [facility] Procedures No Data Provided for This Section Assessment and Plan Assessment and Plan Date Source Extracted from:Title: Progress Note 11/15/2016 [facility] Author: Joseph Foster MD Center Date: 11/14/16 Assessment/Plan 1.Acute pancreatitis Resolving. Continue IVfluids and becki lgesia. Weaning IV Diluadid.Advanced to regular diet. GI recommends repeatCT abdomen/pelvis with contrast in 4-6 weeks for re-evalaution. GI follow-up in [place] has been arranged. Patient has also fill his previous prescription for Creon and isin the process of obtaining [employer] health insurance. 2.Splenic vein thrombosis Continue management above. No needfor anticoagulation. 3.Acute pain Secondary to acute pancreatitis and gout flare. Continue analgesia. 4.Gout Acute gout flare. Rheumatology consu lted for arthrocentesis of right knee. Synovial fluid consistent with acute gout flare.Intra-articular steroids given. Will start Colchicine andibuprofen.Patient will need outpatient follow-up with PCP or theoretical physics teacher. 5.Leukocytosis Secondary to resolving pancreatitis and acute gout flare . 6.Hypertension Well controlled, continue lisinopril. 7.Hyperlipidemia Hypertriglyceridemiasecondary to alc ohol abuse. Continue fenofibrate and alcohol abstainance. 8.Anemia Likely anemia of chronicdisease.H&H stable. 9.H/o alcohol abuse Patient denies alcohol use since [facility] last admission. No evidence of acute withdrawal. Orders: colchicine 0.6 mg oral tablet, 0.6 mg, 1 tab, Route: PO, Drug form: TAB, BID, Dosing Weight 102.869, kg, Start date: 11/14/16 17:00:00 CDT, Duration: 7 day, Stop date: 11/21/16 9:00:00 CDT ibuprofen, 600 mg, 1 tab, Route: PO, Drug form: TAB, Q8H, Dosing Weight 102.869, kg, Priority: NOW, Start date: 11/14/16 16:05:00 CDT, Duration: 30 day, Stop date: 12/14/16 16:00:00 CDT Diet Adult Regular Prophylaxis DVT PPX: Lovenox Disposition Home Extracted from:Title: Rheumatology Consult Note Author: Cori Sanchez MD Date: 11/14/16 Impression and Plan Mr. Breen is a 31 y M readmitted with al coholic pancreatitis, now with development of acute oligoarticular gout flare involving R knee, L olecranon bursa, L MTP. As the knee swelling is quite severe, we aspirated this joint followed by inject ion with depo-medrol as documented in procedure note. The other areas of pain are much less severe. Joint fluid has returned with 19k WBC, +monosodium urate cryst als, consistent with gout. Culture also sent and pending. Recommendations: - please continue allopurinol 300 mg daily - please add colchicine 0.6 mg PO BID x7 days, followed by 0.6 mg PO daily (for prophylaxis; please provide short supply until he can establish care with either primary care or theoretical physics teacher) - remainder of pain control per primary team - I have encouraged him to establish car e with a PCP or a theoretical physics teacher and we discussed need to slowly uptitrate his allopurinol over time until he reaches goal uric acid of <5.5; he voiced und erstanding. He may call our clinic for a ppointment if he wishes, however he lives in [place] and prefers to try to establish care there first Please call with any questions. We will check in on him again on Wednesday if he remains hospitalized. Seen and discussed with Dr. Karely Hyman. Cori Sanchez MD Rheumatology fellow Extracted from:Title: Progress Note 10/30/2016 KEVAN patel Medical Author: Sandra Bearden MD Center Date: 10/28/16 Assessment/Plan This is a 30 year old man w/ a pmh of HT N and Gout who presents as a transfer from OSH for continued management of pancreatitis 2/2 hypertryglyceridemia w/ questionable necrotizing pancreatitisof the ta il of the pancreas. Treated for alcohol withdrawal and is s/p ketamine and precedex gtt. He isnow stable, alert, oriented,and his pain is much improved since presentation. 1.Necrotizing pancreatitis -likely 2/2 hypertriglyceridemia, trig lycerides originally 1037, improved to 187; patient is s/p insulin gtt -original CT abdomen/pelvis showed a flu id collection near the tail of the pancreas, concerning for necrotizing pancreatitis. CT abd/pelvisrepeated andconsistent w/ necrotizing pancreatitis and an incre ased amount of peripherally enhancing pe ripancreatic fluid. Also, possible splenic vein thrombosis, and nonocclusive thrombosis of the main and right portal veins. -holding anticoagulation for thrombosis2 /2 the patient'sincreased risk of hemorrhage -IR was consulted for possible drainage of pancreatic fluid collection, however IR states the collection is mostly a phlegmon and needs to mature prior to interventions. -patient now has a NJ tube for feeds, ho wever will clamp and allow trial of PO intake with full liquid diet -The patient is continued on Meropenem f or superinfection necrotizingpancreatitis. GI recommends 7 days, currrently D7/7. Was previously on Zosyn 10/20-10/22. -will continue Creonper GI recsfor pain. -Serial CT scans every 2-3 weeks to asse ss when walled off necrosis develops. At that time, GI intervention can be done. Patient says he can get [employer] once he leaves and is able tostart work. 2.Acute pain -patient experiences abdominal pain 2/2 necrotizing pancr eatitis -will adjust current pain medication reg imen as follows: tylenol 1g q6h, oxycodone 5mg q4h, lyrica 100mg q8h, tramadol 100mg q6h, dilaudid 0.5mg q4h PRN severe pain, and oxycodone 5mg q5h PRN moderate pain -the patient expressed understanding of the current pain reg imen 3.Gout -patient has h/o gout -managed on allopurinol 300 mg daily, will continue -had symptoms of inflamed right elbow an d received 1x colchicine during early hospitalization with relief of symptoms 4.Hyperlipemia -original TGY >1000, now 185 -continue fenofibrate 145mg daily -will continue to monitor 5.Alcohol withdrawal -resolved -was previously on ketamine and then pre cedex gtt in the MICU 2/2 large benzo requirement -the patient was educated regarding the importance of quitting alcohol consumption and was offered resources for treating alcohol addiction. 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 We informed him that he is able to let us know if he changes his mind and he feels he needs to pursue resources and/or location to facilitate this process. 6.Acute renal insufficiency secondary to hypovolemia -resolved with volume repletion -will continue to monitor kidney function with AM labs 7.Hypertension -currently normotensive -will continue lisinopril 20mg daily Prophylaxis sq heparin Disposition pending improved pain management; will require close follow-up upon discharge, however insurance is pending at this time Addendum by Stefani Jensen MD on 10/28/2016 16:34 CDT TEACHING ATTENDING ATTESTATION STATEMENT: I have seen and examined this patient an d discussed the findings on this patient in detail with the team on teaching rounds. I have reviewed the note above and I agree with the findings and plan of care outlined by Dr. Bearden with the followin g additions/ exceptions improving pain and increased appetite. Will transition to full liquid diet today. Multimodal scheduled pain regimen initiated and dilaudid IV dose weaned. Pt is ambulating to and from bathroom and through hallway. anticipate further pain control on oral regimen Extracted from:Title: Clinical Document Author: Peter Gutiérrez MD Date: 10/23/16 Interventional Radiology Consultation Date of Consultation: 10.23.16 Referring Physician: Reason for Consult:pamcreatitis HPI: Past Medical History Gout Hypertension Past Surgical History No qualifying data available Social History Alcohol Details: Current, Frequency: Daily. Pre vious treatment: None. Alcohol use interferes with work or home: No. Drinks more than intended: No. Others hurt by drinking: No. Ready to change: Yes. Household alcohol concerns: No. Tobacco Details: Use: Current some day smoker. 3 year(s). Started age 27.0 Years. Previous treatment: None. Ready to change: Yes. Household tobacco concerns: No. Tobacco smoke exposure: None. Other Tobac co Frequency once a week. Did the Patie nt Smoke Cigarettes Anytime During the Last 365 Days? Yes. Cessation Counseling Provided? No. Family History No qualifying data available Allergy Allergies: NKDA Current Medications Scheduled Meds (10): 10/21/16 9:00 allopurinol 300 mg PO Daily [eMAR Schedule: (10/23/16) 09:00] [Future Dose: 10/24/16 09:00] 10/15/16 9:45 docusate-senna (docusate-s saeed 50 mg-8.6 mg oral tablet) 2 tab PO Q12H [Last Rescheduled Dt/Tm: 10/15/16 21:00:00 CDT] [eMAR Schedule: (10/23/16) 09:00] [Future Dose: 10/23/16 21:00] 10/15/16 17:00 fenofibrate 145 mg PO Dinner [eMAR Schedule: (10/23/16) 17:00] [Future Dose: 10/24/16 17:00] 10/14/16 0:00 heparin 7,500 unit SUB-Q Q8H [eMAR Schedule: (10/23/16) 00:00, 08:00, 16:00] 10/21/16 18:00 ibuprofen (ibuprofen 400 mg oral tablet) 800 mg PO Q6H [eMAR Schedule: (10/23/16) 00:00, 06:00, 12:00, 18:00] 10/14/16 9:00 lisinopril 20 mg PO Daily [eMAR Schedule: (10/23/16) 09:00] [Future Dose: 10/24/16 09:00] 10/19/16 9:00 menthol-zinc oxide topical (Calmoseptine) [address] TOP BID [eMAR Schedule: (10/23/16) 09:00, 17:00] 10/22/16 17:00 meropenem 500 mg IVPB ABXQ6H [Last Rescheduled Dt/Tm: 10/22/16 17:00:00 CDT] [eMAR Schedule: (10/23/16) 05:00, 11:00, 17:00] 10/15/16 9:44 polyethylene glycol 3350 (MiraLax) 17 gm PO Da tyler [Last Rescheduled Dt/Tm: 10/16/16 9:00:00 CDT] [eMAR Schedule: (10/23/16) 09:00] [Future Dose: 10/24/16 09:00] 10/14/16 9:00 sodium chloride (Saline Flush 0.9%) 10 ml IVP Q12H [eMAR Schedule: (10/23/16) 09:00] [Future Dose: 10/23/16 21:00] Unscheduled Meds: None PRN Meds (20): 10/18/16 19:03 Dextrose 50% in Water IV (Dextrose 50% Syring e) 12.5 gm IVP PRN 10/18/16 19:03 Dextrose 50% in Water IV (Dextrose 50% Syring e) 25 gm IVP PRN 10/18/16 19:03 Insulin regular 1 unit SUB-Q TID-Before Meals 10/18/16 19:03 Insulin regular 2 unit SUB-Q TID-Before Meals 10/18/16 19:03 Insulin regular 3 unit SUB-Q TID-Before Meals 10/18/16 19:03 Insulin regular 4 unit SUB-Q TID-Before Meals 10/18/16 19:03 Insulin regular 5 unit SUB-Q TID-Before Meals 10/13/16 22:59 LORazepam 2 mg IVP Q2H 10/13/16 22:59 LORazepam 4 mg IVP Q2H 10/13/16 22:59 LORazepam 6 mg IVP Q2H 10/21/16 14:09 acetaminophen-hydrocodone ([place] 5/325 oral tablet) 1 tab PO Q6H 10/18/16 19:03 glucagon 1 mg IM PRN 10/22/16 18:39 hydromorphone (Dilaudid) 2 mg PO Q6H 10/16/16 11:48 lactulose (lactulose 10 g/15 mL oral syrup) 2 0 gm PO Q8H 10/14/16 20:30 naloxone 0.04 mg IVP Q2MIN 10/13/16 22:37 nystatin topical (nystati n topical 100,000 units/g powder) 1 appl TOP PRN 10/13/16 22:57 ondansetron (Zofran) 4 mg IV Q6H 10/14/16 19:26 simethicone 80 mg PO Q6H 10/13/16 22:37 sodium chloride (Saline Flush 0.9%) 10 ml IVP PRN 10/22/16 8:23 tramadol 100 mg PO Q6H One Time Meds (1): 10/22/16 20:44 (Completed) melatonin (melatonin 3 mg oral ta blet) 6 mg PO ONCE Continuous Infusions (1): 10/21/16 13:26 sodium chloride 0.9% 1000 ml INJ 1,000 mL 1,0 00 mL 125 ml/hr Labs 24hr Labs 10/23 0747 Glucose POC 133 H 10/23 0536 Sodium Lvl 136 Potassium Lvl 3.6 Chloride Lvl 97 CO2 30 AGAP 12.6 Glucose Lvl 142 H Creatinine Lvl 0.54 BUN 8 B/C Ratio 15 Total Protein 7.2 Albumin Lvl 2.5 L Globulin 4.7 H A/G Ratio 0.5 L Calcium Lvl 9.1 ALT 22 AST 23 Bili Total 0.3 Alk Phos 76 eGFR 142 Lipase Lvl 1849 H WBC 17.0 H RBC 3.43 L Hgb 10.3 L Hct 30.4 L MCV 88.6 MCH 29.9 MCHC 33.8 RDW 14.4 Platelet 528 H MPV 8.0 PT 14.3 INR 1.09 PTT 38.7 H 10/22 2034 Glucose POC 141 H 10/22 1649 Glucose POC 118 H 10/22 1127 Glucose POC 129 H 10/22 0801 Glucose POC 146 H Re Vital Sign Vitals Tmp(F) Tmp(C) Ttype B P MAP Pulse RR SpO2 FIO2 ETCO2 10/23 08:33 98.0 36.67 oral 176/91 --- 94 20 98 --- --- 10/23 05:30 98.0 36.67 oral 157/92 --- 106 20 100 --- --- 10/23 00:20 98.4 36.89 oral 164/84 --- 101 20 99 --- --- 10/22 20:22 98.3 36.83 oral 165/102 --- 98 20 98 --- --- 10/22 16:13 98.2 36.78 oral 142/86 --- 86 20 100 --- --- 24 Hr Tmax: 98.4F (36.89c) at 10/23 00:2 0 Vital Signs are the last 5 in the past 48 hours. 24 Hr Tmin: 98.0F (36.67c) at 10/23 08: 33 Weights are the last 5 in 60 days, plus initial. Date Wt(kg) Wt(lb) Ht(cm) Ht(in) Method BM I BSA 10/23 110.45 243.00 Measured 10/21 107.59 236.70 Measured 10/19 109.50 240.90 Measured 10/18 113.23 249.10 Measured 10/13 (initial) 104.55 230.00 182.88 72.00 Measured 31.3 2.30 24 Hr Point of Care Glucoses 10/23 0747 Glucose POC 133 H 10/22 2034 Glucose POC 141 H 10/22 1649 Glucose POC 118 H 10/22 1127 Glucose POC 129 H 10/22 0801 Glucose POC 146 H Most Recent Scores: 10/23/16 [place] Fall Score 6 10/23/16 Pain Intensity NRS (0-10) 0 10/22/16 Teddy Score 21 10/22/16 [place] Coma Score 15 Lines, Tubes, and Drains: 10/20/2016 08:45 Peripheral Lines: Forea rm Right 20 gauge Over the needle catheter (no surgical procedures documented) Physical Examination en: Alert, oriented, in position laying on R side Eye: PERRL, EOMI, normal conjunctiva, vision unchanged HENT: normocephalic, normal hearing, moist oral mucosa, no p haryngeal edema Neck: supple, nontender, no carotid brui t, no JVD, no lymphadenopathy, no thyromegaly Resp: currently on HFNC; lungs CTAB, non -labored respirations, equal breath sounds, symmetrical expansion, no chest wall tenderness CV: RRR, S1 S2 audible, no murmurs, no g allops, pulses 2+ UE/LE, no edema, normal cap refill GI: firm, severe tenderness to palpation , pain radiates to the back in paraspinal area, pain more concentrated in mid-epigastric region, but also diffuse tenderness in all 4 quadrants; non-distended, normal bowel sounds, no hepatosplenomegaly : no CVA tenderness, no inguinal tenderness, no discharge, no lesions Lymph: no lymphadenopathy in neck, axilla, groin MSK: normal ROM, normal strength, no ten derness, no swelling, no deformity, normal gait Derm: warm, dry, pink, intact, moist, no pallor, no rashes Neuro: AAOx3, CN II-XII intact, speech i ntact, sensation intact, strength 5/5 BUE/BLE, normal gait, negative rhomberg Psych: cooperative, appropriate mood and affect, liz l judgement, non-suicidal Assessment/Plan: mostly a phlegmon. needs to mature D/W Dr. Swartz Extracted from:Title: ICU H and P Author: Justyn Medina MD Date: 10/14/16 Patient: ISAAC BREEN Age: 30 years Sex: Male : 1985 Associated Diagnoses: None Author: Justyn Medina MD Basic Information Source of history: Self. History of Present Illness 30 yo male w/ pmh of HTN and gout presen ts as a transfer from [facility] ER in [place] for pancreatitis. Patient was drinking "a lot of vodka" w/ some friends 3 days ago. When he awoke the nex t morning he felt "stomach tightness" an d "an uncomfortable feeling in my bakc". He at breakfast, but immediately vomited it up. The entire day he experienced nause w/ worsening, &qu ot;sharp, stabbing" abdominal pain. The next day the patient was not able to tolerate liquid PO intake and had continued pain. Yesterday the pain continued and the patient decided to present to the ER. There his pain was controlled w/ dilaudi d. He was noted to be tachycardic to the to 150 w/ BP of 199/111. His labwork was significant for a leukocytosis of 32.4, slightly elevated liver enzymes, and a n ormal amylase. Lipase was not drawn. On CT abd/pelvis w/ IV contrast severe pancreatitis was characterized w/ a concern for necrotizing pancreatitis due to "hypoenhancement of the tail of the pancr eas". He was then transferred to the MICU for higher level o f care. Now patient describes constant, severe, epigastric and left flank pain that radiates to the back. Patient denies CP, SOB, hemeatemesis, hematuria, or melena. Review of Systems Constitutional: Chills, Sweats, No fever. Eye: No recent visual problem, No discharge. Ear/Nose/Mouth/Throat: No nasal congestion, No sore throat. Respiratory: Shortness of breath, No co ugh, No sputum production, No hemoptysis. Cardiovascular: No chest pain, No syncope. Gastrointestinal: Nausea, Vomiting, No diarrhea, No constip ation. Genitourinary: No dysuria, No hematuria. Endocrine: No excessive thirst, No polyuria. Musculoskeletal: No joint pain, No muscle pain. Integumentary: No rash, No breakdown. Neurologic: No numbness, No tingling, No headache. Health Status Allergies: Allergic Reactions (All) Severity Not Documented NKDA- No reactions were documented., Allergies (1) Active Reaction NKDA None Documented Current medications: (Selected) Inpatient Medications Ordered LORazepam: 2 mg, 1 mL, IVP, Q2H, PRN: Other -See Comment LORazepam: 4 mg, 2 mL, IVP, Q2H, PRN: Other -See Comment LORazepam: 6 mg, 3 mL, IVP, Q2H, PRN: Other -See Comment Lactated Ringers 1,000 mL: 200 ml/hr, IV, Stop: 11/12/16 22: 43:00 CDT MORPhine sulfate INTELLIGENCE MANAGER 30 mg/30 ml INJ syr jaya 30 mg: Per INTELLIGENCE MANAGER Order as Directed, IV, Stop: 11/12/16 22:59:00 CDT Saline Flush 0.9%: 10 ml, IVP, PRN, PRN: Line Flush Saline Flush 0.9%: 10 ml, IVP, Q12H Zofran: 4 mg, 2 mL, IV, Q6H, PRN: Nausea calcium carbonate 500 mg (200 mg element al calcium) oral tablet: 1,000 mg, PO, PRN, PRN: Abnormal Lab Result calcium carbonate 500 mg (200 mg element al calcium) oral tablet: 500 mg, PO, PRN, PRN: Abnormal Lab Result calcium gluconate: 1 gm, IVPB, PRN, PRN: Abnormal Lab Result famotidine: 20 mg, 2 mL, IVP, Q12H folic acid: 1 mg, 1 tab, PO, Daily heparin: 5,000 unit, 1 mL, SUB-Q, Q8H magnesium oxide: 800 mg, PO, PRN, PRN: Abnormal Lab Result magnesium sulfate: 2 gm, IVPB, PRN, PRN: Abnormal Lab Result multivitamin: 1 tab, PO, Daily naloxone: 0.04 mg, 0.1 mL, IVP, Q2MIN, PRN: Narcotic Reversa l nystatin topical 100,000 units/g powder: 1 appl, TOP, PRN, PRN: For Fungal Prophylaxis potassium chloride: 10 mEq, IVPB, PRN, PRN: Abnormal Lab Res ult potassium chloride: 20 mEq, IVPB, PRN, PRN: Abnormal Lab Res ult potassium chloride: 20 mEq, NJ, PRN, PRN: Abnormal Lab Resul t potassium chloride: 20 mEq, PO, PRN, PRN: Abnormal Lab Resul t potassium phosphate-sodium phosphate 250 mg-280 mg-160 mg oral powder for reconstitution: 2 pkt, PO, PRN, PRN: Abnormal Lab Result potassium phosphate: 15 mmol, IVPB, PRN, PRN: Abnormal Lab R esult potassium phosphate: 30 mmol, IVPB, PRN, PRN: Abnormal Lab R esult potassium phosphate: 45 mmol, IVPB, PRN, PRN: Abnormal Lab R esult sodium phosphate: 15 mmol, IVPB, PRN, PRN: Abnormal Lab Resu lt sodium phosphate: 30 mmol, IVPB, PRN, PRN: Abnormal Lab Resu lt sodium phosphate: 45 mmol, IVPB, PRN, PRN: Abnormal Lab Resu lt thiamine: 100 mg, 1 tab, PO, Daily Prescriptions Prescribed Motrin 800 mg oral tablet: 800 mg, 1 tab , PO, Q8H, Take with food, PRN: Pain, 30 tab, 0 Refill(s), Medications (31) Active Scheduled: (6) famotidine 20 mg/2 ml INJ VL 20 mg 2 mL, IVP, Q12H folic acid 1 mg TAB 1 mg 1 tab, PO, Daily heparin 5000 unit/1 ml INJ VL 5,000 unit 1 mL, SUB-Q, Q8H multiple vit Therapeutic TAB 1 tab, PO, Daily sodium chloride 0.9% 10 ml flush syr BD 10 ml, IVP, Q12H thiamine 100 mg TAB 100 mg 1 tab, PO, Daily Continuous: (2) Lactated Ringers 1,000 mL 1,000 mL, IV, 200 ml/hr MORPhine sulfate INTELLIGENCE MANAGER 30 mg/30 ml INJ syringe 30 mg 30 mg 30 mL, IV PRN: (23) calcium carbonate 500 mg, PO, PRN calcium carbonate 1,000 mg, PO, PRN calcium gluconate 1 gm, IVPB, PRN LORazepam 2 mg/1 ml INJ VL 2 mg 1 mL, IVP, Q2H LORazepam 2 mg/1 ml INJ VL 4 mg 2 mL, IVP, Q2H LORazepam 2 mg/1 ml INJ VL 6 mg 3 mL, IVP, Q2H magnesium oxide 800 mg, PO, PRN magnesium sulfate 2 gm, IVPB, PRN naloxone 0.4 mg/ml 1ml INJ vial 0.04 mg 0.1 mL, IVP, Q2MIN nystatin [id number] unit/gm 15 gm PWD 1 appl, TOP, PRN ondansetron 4 mg/2ml INJ VL 4 mg 2 mL, IV, Q6H potassium chloride 20 mEq, IVPB, PRN potassium chloride 10 mEq, IVPB, PRN potassium chloride 20 mEq, PO, PRN potassium chloride 20 mEq, [place], PRN potassium phosphate 15 mmol, IVPB, PRN potassium phosphate 30 mmol, IVPB, PRN potassium phosphate 45 mmol, IVPB, PRN potassium phosphate-sodium phosphate 2 pkt, PO, PRN sodium chloride 0.9% 10 ml flush syr BD 10 ml, IVP, PRN sodium phosphate 15 mmol, IVPB, PRN sodium phosphate 30 mmol, IVPB, PRN sodium phosphate 45 mmol, IVPB, PRN Problem list: No qualifying data available Histories Past Medical History: Resolved Hypertension ([id number]): Onset in 2012 at 27 years. Resol nica. Gout ([id number]): Resolved. Family History: No family history items have been selected or recorded. Procedure history: No active procedure history items have been selected or db rded. Social History Social and Psychosocial Habits Alcohol 10/13/2016 Use: Current Frequency: Daily Previous treatment: None Has alcohol use interfered with work or home life? No Do you ever drink more than intended? No Has anyone been hurt or at risk by your drinking? No Ready to change: Yes Concerns about alcohol use in household: No Tobacco 10/13/2016 Use: Current some day smoker Number of years: 3 Started at age: 27.0 Years Previous treatment: None Ready to change: Yes Concerns about tobacco use in household: No Exposure to Tobacco Smoke None Other Tobacco Frequency once a week Cigarette Smoking Last 365 Days Yes Reg Smoking Cessation Counseling No . Physical Examination VS/Measurements Vital Signs (last 24 hrs) Last Charted _ Temp Axillary H 99.6DegF (OCT 13 22:00) Heart Rate Apical H 133bpm (OCT 14 00:38) Resp Rate H 29BRMIN (OCT 14 00:38) SBP H 186mmHg (OCT 14 00:38) DBP H 108mmHg (OCT 14 00:38) SpO2 96 % (OCT 14 00:38) Weight 105.08 kg (OCT 13 22:43) Height 182.88 cm (OCT 13 22:43) BMI 31.42 (OCT 13 22:43) , Measurements from flowsheet : Measurements 10/13/2016 22:43 Heparin Dosing Weight (kg) 88.59 10/13/2016 22:43 Heparin Dosing Weight (kg) 88.38 10/13/2016 22:43 Height 182.88 cm Height Collection Method Stated Weight 105.085 kg Dosing Weight Difference Percent -0.049 % Dosing Weight Collection Method Measured Body Surface Area 2.3105 m2 Body Mass Index 31.42 m2 10/13/2016 22:42 Heparin Dosing Weight (kg) 88.61 10/13/2016 22:42 Height 182.88 cm Height Collection Method Measured Weight 104.545 kg Dosing Weight Difference Percent 0 % Dosing Weight Collection Method Measured Body Surface Area 2.3045 m2 Body Mass Index 31.26 m2 10/13/2016 22:41 Weight 105.136 kg Dosing Weight Difference Percent 0.565 % Dosing Weight Collection Method Measured General: Alert and oriented, Moderate distress. Eye: Pupils are equal, round and reacti ve to light, Extraocular movements are intact. HENT: Normocephalic. Neck: Supple, Non-tender, No jugular venous distention. Respiratory: Lungs are clear to auscult ation, Patient w/ decreased inspiratory effort due to pain. Cardiovascular: Regular rhythm, No murmur, No gallop, tachy cardic. Gastrointestinal: +BS, distended, gener alized ttp, no flank or heron-umbilical ecchymosis. Musculoskeletal Normal range of motion. Normal strength. tophi on right elbow. Integumentary: Warm, Dry. Neurologic: Alert, Oriented, Normal mot or function, No focal deficits, Cranial Nerves II-XII are grossly intact. Review / Management Results review: No qualifying data available. Impression and Plan 30 yo male w/ pmh of HTN and Gout presen ts as a transfer in from outside ER w/ pancreatitis w/ questionable necrotizing of the tail of the pancreas. Patient was found to have elevated triglycerides as well. Problem List 1. Pancreatitis 2. HTN 3. HLP 4. Gout #Neuro: -no acute issues #Respiratory -patient saturating well on RA #Cardiovascular: HTN - On home metoprolol, unknown dose, admitted non-compliance - Gave two labetalol pushes due to HTN and tachycardia - Start lisinopril 10mg PO HLP - elevated LDL and triglycerides - started gemfibrozil 600mg BIDand atorvastatin 20mg nightly #FEN/GI Pancreatitis - combination of hypertriglyceridemia and sarah ol induced - Due to lipase > 3x upper limit, trigly cerides > 1000, and lactic acidosis apheresis is indicated - Bolus 1L LR - LR at 200cc/hr - Morphine INTELLIGENCE MANAGER for pain - CT abd/pelvis shows fluid collection n ear tail concerning for nectrotizing pancreatitis, expectant management for now #Renal: - no acute issues #Infectious disease - no acute issues #Heme - no acute issues #Endo - no acute issues #MSK/Derm Gout - Patient not currently on any treatment - Tophi on right elbow - multiple flares a year - no current flare - f/u uric acid level, goal < 5 mg/dL - patient was on alloprurinol, will restart at 100mg daily a nd titrate up DVT ppx: Heparin 5000u TID GI ppx: NPO Dispo: MIMU pending improvement in respiratory status Addendum by Nicholas Mccormack MD on 10/19/2016 21:36 [facility] Attending Teaching Attestation and Critical Care Progress Note I saw, evaluated, and participated in th e care of the patient with the resident physician Dr. Justyn Medina on the date of this note. I concur with the assessment and plan in their note dated 2016. I have extensively reviewed the p atient's available history, information, labs and imaging. My appropriate corrections, additions, and emphasized points if appropriate are below. The patient's condition has high probabi lity for clinically significant or life- threatening deterioration and requires the highest level of physician preparedness to intervene urgently and thus nec essitates MICU care. Critical care time was 33 min excludin g procedures. Problem List / Plan Acute pancreatitis - suspect ETOH, triglyceridemia - follow up RUQ scan - pain control - advance diet ETOH use - CIWA - thiamine/folate/MVI - monitor for mental status changes HTN hx Gout hx with tophi HLP - TGs elevated, LDL Plan of Care No Data Provided for This Section Social History Social History Date Source Social History TypeResponse 11/12/2016 [facility] Alcohol Current, Frequency: Daily. Previous sridhar atment: None. Alcohol use interferes with work or home: No. Drinks more than intended: No. Others hurt by drinking: No. Ready to change: Yes. Household alcohol concerns: No. Smoking Status Light tobacco smoker; Number of years: 3 ; Started at age: 27.0; Previous treatment: None; Ready to change: Yes; Concerns about tobacco use in household: No; Exposure to Tobacco Smoke None; Other Tobacco Frequency once a week; Cigarette Smokin g Last 365 Days Yes; Reg Smoking Cessation Counseling No Social History TypeResponse 12/24/2015 [facility] Smoking Status Never smoker; Exposure to Tobacco Smoke None; Cigarette Smoking Last 365 Days No; Reg Smoking Cessation Counseling No Social History TypeResponse 09/29/2015 [facility] Smoking Status Never smoker; Exposure to Tobacco Smoke None; Cigarette Smoking Last 365 Days No; Reg Smoking Cessation Counseling No Family History No Data Provided for This Section Advance Directives No Data Provided for This Section Functional Status No Data Provided for This Section
[2020-06-25 11:28] VITALS: BP 140/96; TEMP 96.9; O2SAT 99
== END 2020-06-25 09:58 | disposition home or self-care (01) ==
LOC: ER 09:13
DX: S83.8X1A Sprain of other specified parts of right knee, initial encounter (principal); W05.1XXA Fall from non-moving nonmotorized scooter, initial encounter; Y93.9 Activity, unspecified; Y92.89 Other specified places as the place of occurrence of the external cause; I10 Essential (primary) hypertension
CPT/HCPCS: 96372; 99283

== ENCOUNTER 2020-10-24 23:15 | Emergency (ER) | payer BC ==
--- OUTSIDE RECORDS SUMMARY | 2020-10-24 23:21 | XMS REPORT | Continuity of Care Document ---
:[address] [facility] t Address [address] [place] [address] Care Team Providers Name Role Phone Lab, Fam Pob I Attending Clinician Unavailable Doctor Unassigned, Name Attending Clinician Unavailable Chon Foster Attending Clinician Mariely Jensen Attending Clinician Kilo Darnell Attending Clinician Mejia Pleitez Attending Clinician Harrison Steel Admitting Clinician Michelle Erwin Admitting Clinician Problems Condition Condition Condition Status Onset Resolution Last Treating Co mments Source Name Details Category Date Date Treatment Clinician Date PANCREATIT Diagnosis Active 2016-11-23 Memoria IS 4-13 21:54:00 l 00:00: [facility] PANCREATIT 00 IS Active 7 [facility] RIGHT LEG Diagnosis Active 2015-12-24 Memoria SWELLING 5-24 15:09:00 l RIGHT 00:00: [place] LEG 00 SWELLING Active 12/24/2015 [facility] SWOLLEN Diagnosis Active 2015-09-29 Me moria FOOT 2-28 13:25:00 l SWOLLEN 00:00: [facility] FOOT 00 Active 09/29/2015 [facility] Gout Problem Resolve 2016-11-18 Arun ronn (disorder) d 00:11:47 l Gout Hipolito (disorder) Resolved Problem 11/18/2016 [facility], Mariely Shah [facility] ILLNESS, Diagnosis Active 2016-10-27 M emoria UNSPECIFIE 23:08:00 l D ILLNESS, Castro n UNSPECIFIE D Active [facility] Hypertensi Problem Resolve 2016-11-18 2016-11-18 Memoria ve d 08-02 00:11:47 00:11:47 l disorder, 00:00: [place]ol[place] systemic Hypertensi 00 arterial ve (disorder) disorder, systemic arterial (disorder) Resolved 08/02/2012 Problem 11/18/2016 [facility] History of Past Illness Condition Condition Condition Status Onset Resolution Last Treating Co mments Source Name Details Category Date Date Treatment Clinician Date Discharge Problem 2015-12-27 2015-12-27 Memoria Diagnosis: 12-23 04:58:21 04:58:21 l Effusion, 05:00: [place]ito right knee Discharge 00 Diagnosis: Effusion, right knee 12/24/2015 12/27/2015 Mariely Shah Allergies, Adverse Reactions, Alerts This patient has no known allergies or adverse reactions. Social History Social Habit Start Date Stop Date Quantity Comments Source Social History 2016-11-12 2016-11-12 [facility] boy 08:55:10 08:55:10 Smoking Status Start Date Stop Date Source Social History [facility] Medications Ordered Filled Start Stop Current Ordering Indication Dosage Frequency Signature Comments Components Source Medication Medication Date Date Medication? Clinician (SIG) Name Name lisinopril Yes 20 mg = 1 Me moria 20 mg oral 4-16 tab, PO, l tablet 15:00: Daily, # Hipolito 57 30 tab, 0 Refill(s) Fenofibrate Yes 145 mg = 1 Memoria 145 MG Oral 4-16 tab, PO, l Tablet 15:00: Dinner, # Castro n 46 30 tab, 0 Refill(s) allopurinol Yes 300 mg = 1 Memoria 300 mg oral 4-16 tab, PO, l tablet 15:00: Daily, # [place] 21 30 tab, 0 Refill(s) pregabalin Yes 100 mg = 1 M emoria 100 mg oral 4-16 cap, PO, l capsule 15:00: Q8H, # 30 Desiree nn 00 cap, 0 Refill(s) ibuprofen Yes 600 mg = 1 Me moria 600 mg oral 4-16 tab, PO, l tablet 15:00: Q8H, X 10 Castro n 00 day, # 30 tab, 0 Refill(s) Acetaminoph Yes 1 tab, PO, Memoria en 325 MG / 4-16 Q6H-02, # l Hydrocodone 15:00: 60 tab, 0 H ermann Bitartrate 00 Refill(s), 10 MG Oral given to Tablet patient [Coxsackie 10/325] Colchicine Yes See Memoria 0.6 MG Oral 4-16 Instructio l Tablet 15:00: ns, 1 tab Castro n 00 PO twice a day for 7 days, then 1 tab daily for 7 days, # 21 tab, 0 Refill(s) Colchicine No 0.6 mg, 1 Me moria 0.6 MG Oral 4-15 tab, l Tablet 22:00: Route: PO, Desiree nn 00 Drug form: TAB, BID, Dosing Weight 102.869, kg, Start date: 11/14/16 17:00:00 CDT, Duration: 7 day, Stop date: 11/21/16 9:00:00 CDT Ibuprofen No Notes: Memori a 4-15 (Same as: l 21:05: Motrin) "Do Not Crush" Take with food. Ketorolac No 4 days. Arun ronn 4-15 l 11:29: [place] pregabalin No Notes: Memor ia 4-14 (Same as: l 21:00: Lyrica) Dilaudid No Notes: Memoria 4-14 Same as: l 16:15: Dilaudid [facility] oxyCODONE 5 No 5 mg = 1 Me moria mg oral 4-14 cap, PO, l capsule 15:44: Q6H, PRN Castro n 00 Pain, 0 Refill(s) Acetaminoph No Notes: Do M emoria en 325 MG / 4-14 not exceed l Hydrocodone 14:00: 4gm/day of Hipolito Bitartrate 00 acetaminop 10 MG Oral hen. Tablet (Same as: [Coxsackie Coxsackie 10/325] 325/10) Dilaudid No Notes: Memoria 4-14 Same as: l 04:01: Dilaudid pregabalin No Notes: Memor ia 4-14 (Same as: l 02:00: Lyrica) Fenofibrate No Notes: Arun ronn 145 MG Oral 4-13 (Same as: l Tablet 22:00: Tricor) Sucralfate No Notes: November M emoria 100 MG/ML 4-13 interfere l Oral 22:00: w/enteral feeds - [Carafate] Take 1 hr before or 2 hr after antacids, dairy pdt, meals & minerals - On empty stomach. For patients unable to swallow tablet, dissolve in 10mL - 30mL of water or juice and stir before giving. (Same As: Carafate) Magnesium No Notes: Memori a Sulfate - WASTE: F/P l 22:00: - Sink; E - Municipal Trash Bin Lactated No 1,000 mL, Arun ronn Ringers - Rate: 125 l 1,000 mL 17:03: ml/hr, Infuse over: 8 hr, Route: IV, Dosing Weight 102.869 kg, Total Volume: 1,000, Start date: 11/12/16 12:03:00 CDT, Duration: 30 day, Stop date: 12/12/16 12:02:00 CDT Dilaudid No Notes: Memoria 4-13 Same as: l 16:46: Dilaudid Lisinopril No Notes: Memor ia 4-13 (Same as: l 14:00: Prinivil, Zestril) gabapentin No Notes: Memor ia 300 MG Oral 4-13 (Same as: l Capsule 14:00: Neurontin) Allopurinol No Notes: Arun ronn 4-13 (Same as: l 14:00: Zyloprim) Amylases No Notes: Memoria 18684 UNT / 4-13 (lipase l Endopeptida 13:00: 6,000 [place] [address] 00 units, UNT / protease Lipase 6000 19,000 UNT Enteric units, Coated amylase Capsule 30,000 [Creon 6] units DRC) Same as: Creon (Creon 6) Protonix No Notes: Memoria 4-13 Tablet l 12:30: should not [facility] 00 be chewed or crushed. (Same as: Protonix) Sucralfate No Notes: May M emoria 100 MG/ML 4-13 interfere l Oral 11:00: w/enteral Hipolito Suspension 00 feeds - [Carafate] Take 1 hr before or 2 hr after antacids, dairy pdt, meals & minerals - On empty stomach. For patients unable to swallow tablet, dissolve in 10mL - 30mL of water or juice and stir before giving. (Same As: Carafate) tramadol No Notes: Not Mem oria hydrochlori 4-13 to exceed l de 50 MG 11:00: 400mg/day. Her ogden Oral Tablet 00 (Same As: Ultram) Lovenox No Notes: Memoria 4-13 (Same as: l 10:00: Lovenox) [facility] 00 Oxycodone No Notes: Memori a Hydrochlori -13 (Same as: l de 5 MG 09:35: Roxicodone Herm crystal Oral Tablet 00 ) Simethicone No Notes: Arun ronn 4-13 (Same as: l 09:34: Mylicon) [facility] 00 Saline No Notes: Memoria Flush 0.9% - preservati l 09:31: ve free. [facility] Ondansetron No Notes: Arun ronn 4-13 (Same as: l 09:31: Zofran) Hipolito MEDICATION WASTE Product Size: 4 mg Product Wasted: ___ mg Acetaminoph No Notes: Do M emoria en 4-13 not exceed l 09:31: 4 gm/day. Hipolito 00 (Same as: Tylenol) Sodium No 1,000 mL, Memori a Chloride 4-13 Rate: 125 l 0.154 09:31: ml/hr, [facility] MEQ/ML 00 Infuse Injectable over: 8 Solution hr, Route: IV, Dosing Weight 102.869 kg, Total Volume: 1,000, Start date: 11/12/16 4:31:00 CDT, Duration: 30 day, Stop date: 05/13/17 4:30:00 CDT Dilaudid No Notes: Memoria 4-13 Same as: l 09:30: Dilaudid [place] 00 Sucralfate Yes 1 gm = 10 Me moria 100 MG/ML 3-30 ml, PO, l Oral 20:31: Q6H, # 560 [facility] Suspension 00 mL, 0 [Carafate] Refill(s) omeprazole Yes 40 mg = 1 Me moria 40 mg oral 3-30 cap, PO, l delayed 20:31: Daily, # Castro n release 00 90 cap, 0 capsule Refill(s) acetaminoph No 1,000 mg = Memoria en 500 mg 3-30 2 tab, PO, l oral tablet 20:04: Q6H, # 100 [facility] 00 tab, 0 Refill(s) gabapentin Yes 300 mg = 1 M emoria 300 MG Oral 3-30 cap, PO, l Capsule 20:04: TID, # 90 Desiree nn 00 cap, 0 Refill(s) simethicone Yes 80 mg = Mem oria 40 mg/0.6 3-30 1.2 mL, l mL oral 20:04: PO, Q6H, Castro n liquid 00 PRN Gas, # 15 mL, 0 Refill(s) tramadol Yes 100 mg = 2 Mem oria hydrochlori 3-30 tab, PO, l de 50 MG 20:04: Q6H, # 90 Herm crystal Oral Tablet 00 tab, 0 Refill(s) Amylases Yes 1 cap, PO, Mem oria 08045 UNT / 3-30 TID-Meals, l [place]opeptida 20:04: [place] [address] 00 UNT / Lipase 6000 , # 120 UNT Enteric cap, 0 Coated Refill(s) Capsule [Creon 6] lisinopril Yes 20 mg = 1 Me moria 20 mg oral 3-30 tab, PO, l tablet 20:04: Daily, # [place] 00 90 tab, 0 Refill(s) Fenofibrate Yes 145 mg = 1 Memoria 145 MG Oral 3-30 tab, PO, l Tablet 20:04: Dinner, # Castro n 00 90 tab, 0 Refill(s) allopurinol Yes 300 mg = 1 Memoria 300 mg oral 3-30 tab, PO, l tablet 20:04: Daily, # [facility] 00 90 tab, 0 Refill(s) Dilaudid No Notes: Memoria 3-30 Same as: l 14:04: Dilaudid [place] 00 pregabalin No Notes: Memor ia - (Same as: l 19:00: Lyrica) [place] 00 Tramadol No Notes: Not Mem oria 10-28 to exceed l 17:00: 400mg/day. [facility] 00 (Same As: Ultram) Tylenol No Notes: Max Arun ronn 10-28 acetaminop l 17:00: hen 4000 [place]ito 00 mg/day (4 gm/day). (Same as: Tylenol Extra Strength) Oxycodone No Notes: Memori a Hydrochlori 10-28 (Same as: l de 5 MG 17:00: Roxicodone Herm crystal Oral Tablet 00 ) meropenem No Notes: Memori a 10-28 Same as l 15:00: Merrem [facility] 00 MEDICATION WASTE Product Size: 500 mg Product Wasted: ___ mg Dilaudid No Notes: Memoria 3 Same as: l 14:37: Dilaudid [facility] 00 Oxycodone No Notes: Memori a Hydrochlori 10-28 (Same as: l de 5 MG 14:35: Roxicodone Herm crystal Oral Tablet 00 ) ibuprofen No Notes: Memori a 100 mg/5 mL 10-26 (Same as: l oral 22:00: Motrin [facility] suspension 00 Children's , Advil Children's ) Take with food. Zyloprim No Notes: Memoria 10-26 Allopurino l 21:30: l oral [place] 00 susp. Refrigerat e/shake well. Compound ed Product - formulatio n not commercial ly available* * (Same as: Zyloprim) Prinivil No Notes: Memoria 3- Shake well l 21:30: before use. Refrigerat e For Oral Use Only. Compound ed Product - formulatio n not commercial ly available* * Dilaudid No Notes: Memoria 10-26 Same as: l 21:04: Dilaudid Lactulose No Notes: Memori a 667 MG/ML 10-26 (Same l Oral 21:00: as:Chronul Solution ac) Ondansetron No 4 mg, Memor ia 10-26 Route: l 13:14: IVP, ONCE, Dosing Weight 105.085, kg, PRN Nausea & Vomiting, Start date: 10/26/16 8:14:00 CDT Flumazenil No 0.2 mg, Arun ronn 10-26 Route: l 13:14: IVP, PRN, Dosing Weight 105.085, kg, PRN Benzodiaze pine Reversal, Initial dose, Start date: 10/26/16 8:14:00 CDT, Duration: 30 day, Stop date: 11/25/16 8:13:00 CDT Naloxone No 0.4 mg, Memori a 10-26 Route: l 13:14: IVP, [facility] 00 Q2MIN, Dosing Weight 105.085, kg, PRN Narcotic Reversal, Start date: 10/26/16 8:14:00 CDT, Duration: 8 doses or times, Stop date: Limited # of times Hydromorpho No 0.5 mg, Mem oria ne 10-26 Route: l 13:14: IVP, [facility] 00 Q5Min, Dosing Weight 105.085, kg, PRN Pain Score 7-10, Start date: 10/26/16 8:14:00 CDT, Duration: 4 doses or times, Stop date: Limited # of times Morphine No 2 mg, Memoria 10-26 Route: l 13:14: IVP, [facility] 00 Q5Min, Dosing Weight 105.085, kg, PRN Pain Score 4-6, Start date: 10/26/16 8:14:00 CDT, Duration: 5 doses or times, Stop date: Limited # of times Hydralazine No 10 mg, Arun ronn 10-26 Route: l 13:14: IVP, [facility] 00 Q20Min, Dosing Weight 105.085, kg, PRN Elevated BP, Start date: 10/26/16 8:14:00 CDT, Duration: 2 doses or times, Stop date: Limited # of times Labetalol No 10 mg, Memori a 10-26 Route: l 13:14: IVP, [facility] 00 Q5Min, Dosing Weight 105.085, kg, PRN Elevated BP, Start date: 10/26/16 8:14:00 CDT, Duration: 5 doses or times, Stop date: Limited # of times Dilaudid No Notes: Memoria 10-25 Same as: l 15:22: Dilaudid [place] Dilaudid No Notes: Memoria 10-24 (Same as: l 20:00: Dilaudid) [facility] Dilaudid No Notes: Memoria 3 Same as: l 15:44: Dilaudid [place] 00 Dilaudid No Notes: Memoria 10-24 Same as: l 02:00: Dilaudid [place] Amylases No Notes: Memoria 18511 UNT / 3-24 (lipase l Endopeptida 22:00: 6,000 [place] [address] 00 units, UNT / protease Lipase 6000 19,000 UNT Enteric units, Coated amylase Capsule 30,000 [Creon 6] units DRC) Same as: Creon (Creon 6) Dilaudid No Notes: Memoria 3-24 (Same as: l 20:42: Dilaudid) [place] Tramadol No Notes: Not Mem oria 3-24 to exceed l 20:31: 400mg/day. [place] (Same As: Ultram) pregabalin No Notes: Memor ia 10-23 Same as l 19:00: Lyrica [place] Dilaudid No Notes: Memoria 3-24 Same as: l 18:47: Dilaudid [facility] 00 Melatonin 3 No Notes: Arun ronn MG Extended 10-23 (Same as: l Release 01:44: Melatonin) Herm crystal Tablet Dilaudid No Notes: Memoria 3-23 (Same as: l 23:39: Dilaudid) [facility] 00 meropenem No Notes: Memori a 3- Same as l 22:00: Merrem [place] 00 MEDICATION WASTE Product Size: 500 mg Product Wasted: ___ mg Tramadol No Notes: Not Mem oria - to exceed l 13:23: 400mg/day. [place] 00 (Same As: Ultram) Iohexol No 60 mL, Memoria 10-22 Route: l 13:16: IVP, Drug Form: SOLN, Dosing Weight 105.085, kg, ONCALL, STAT, Start date: 10/22/16 8:16:00 CDT, Duration: 1 doses or times, Dose = 2.2ml/kg, Max dose = 100ml -- "To be infused by Radiology Staff ONLY" Ibuprofen No Notes: Memori a 400 MG Oral -22 (Same as: l Tablet 23:00: Motrin [place] 00 Children's , Advil Children's ) Take with food. Dilaudid No Notes: Memoria 3-22 Same as: l 19:23: Dilaudid [place] 00 Acetaminoph No Notes: Arun ronn en 325 MG / - (Same as: l Hydrocodone 19:09: Coxsackie Desiree nn Bitartrate 00 325/5) Do 5 MG Oral not exceed Tablet 4gm/day of [Coxsackie acetaminop 5/325] hen. sodium No 1,000 mL, Memori a chloride - Rate: 125 l 0.9% 1000 18:26: ml/hr, Castro n ml INJ 00 Infuse 1,000 mL over: 8 hr, Route: IV, Dosing Weight 105.085 kg, Total Volume: 1,000, Start date: 10/21/16 13:26:00 CDT, Duration: 30 day, Stop date: 11/20/16 13:25:00 CDT Sodium No 125 mL, Memoria Chloride 3-22 125 ml/hr, l 0.154 18:07: Infuse Hipolito MEQ/ML 00 Over: 1 Injectable hr, Route: Solution IV, 125, Drug form: INJ, ONCE, Priority: STAT, Dosing Weight 105.085 kg, Start date: 10/21/16 13:07:00 CDT, Duration: 1 doses or times, Stop date: 10/21/16 13:07:00 CDT Allopurinol No Notes: Arun ronn 10-21 Allopurino l 14:00: l oral susp. Refrigerat e/shake well. Compound ed Product - formulatio n not commercial ly available* * (Same as: Zyloprim) Colchicine No 0.6 mg, 1 Me moria 0.6 MG Oral 10-20 tab, l Tablet 22:00: Route: PO, Desiree nn Drug form: TAB, BID, Dosing Weight 105.085, kg, Start date: 10/20/16 17:00:00 CDT, Duration: 30 day, Stop date: 11/19/16 9:00:00 CDT Zosyn No Notes: Memoria 10-20 (Same as: l 21:00: Zosyn) Dosing based on Piperacill in component MEDICATION WASTE Product Size: 3375 mg Product Wasted: ___ mg Colchicine No 1.2 mg, 2 Me moria - tab, l 16:13: Route: PO, [facility] 00 Drug form: TAB, ONCE, Dosing Weight 105.085, kg, Start date: 10/20/16 11:13:00 CDT, Stop date: 10/20/16 11:13:00 CDT Tramadol No Notes: Not Mem oria - to exceed l 14:16: 400mg/day. [place]olito (Same As: Ultram) Acetaminoph No Notes: Arun ronn en 325 MG / 10-20 (Same as: l Hydrocodone 14:16: Coxsackie Desiree nn Bitartrate 00 325/5) Do 5 MG Oral not exceed Tablet 4gm/day of [Coxsackie acetaminop 5/325] hen. potassium No 10 mEq, Memor ia chloride 10-20 Route: l 13:00: IVPB, Q1H, Dosing Weight 105.085, kg, Total Dose = 40 meq, Start date: 10/20/16 8:00:00 CDT, Duration: 4 doses or times, Stop date: 10/20/16 11:00:00 CDT, Periphe ral Line Potassium No Notes: Memori a Chloride 3-21 (Same as: l 1.33 MEQ/ML 12:43: Potassium H ermann Oral 00 Chloride) Solution Calmoseptin No Notes: Arun ronn e 3-20 (Same as: l 14:00: Calmosepti Hipolito 00 ne) Insulin No 60 Memoria regular 3-20 units) l 00:03: WASTE: F/P [facility] - Black; E - Municipal Trash Bin Stable for 28 days at room temperatur e Expires in days from ____Date Glucagon No 1 mg, Memoria 3-20 Route: IM, l 00:03: Drug form: [facility] PDR/INJ, PRN, Dosing Weight 105.085, kg, PRN Blood Glucose Results, Start date: 10/18/16 19:03:00 CDT, Duration: 30 day, Stop date: 11/17/16 19:02:00 CDT Dextrose No 12.5 gm, Memor ia 50% Syringe 3-20 25 mL, l 00:03: Route: Hipolito 00 IVP, Drug Form: INJ, Dosing Weight 105.085, kg, PRN, PRN Blood Glucose Results, Start date: 10/18/16 19:03:00 CDT, Duration: 30 day, Stop date: 11/17/16 19:02:00 CDT Chlordiazep No Notes: Arun ronn oxide 3-19 (Same As: l Hydrochlori 15:25: Librium) He bozena de 10 MG 00 Oral Capsule Lactated No 1,000 mL, Arun ronn Ringers 3-18 Rate: 125 l 1,000 mL 18:37: ml/hr, Infuse over: 8 hr, Route: IV, Dosing Weight 105.085 kg, Total Volume: 1,000, Start date: 10/17/16 13:37:00 CDT, Duration: 30 day, Stop date: 11/16/16 13:36:00 CDT molasses 2016-0 No Notes: Memoria 3-18 (Same l 16:49: as:Molasse Hipolito 00 s) Calcium 2016-0 No 1,000 mL, Memor ia Chloride -18 1,000 l 0.0014 15:27: ml/hr, Hipolito MEQ/ML / 00 Infuse Potassium Over: 1 Chloride hr, Route: 0.004 IV, 1,000, MEQ/ML / Drug form: Sodium INJ, ONCE, Chloride Priority: 0.103 STAT, MEQ/ML / Dosing Sodium Weight Lactate 105.085 0.028 kg, Start MEQ/ML date: Injectable 10/17/16 Solution 10:27:00 CDT, Duration: 1 doses or times, Stop date: 10/17/16 10:27:00 CDT Ativan 2016-0 No Notes: Memoria 3-18 (Same as: l 13:55: Ativan) [place]ito 00 Versed No 1 mg, Memoria 18 Route: l 09:25: IVP, ONCE, [place]ol[place] 00 Dosing Weight 105.085, kg, Start date: 10/17/16 4:25:00 CDT, Stop date: 10/17/16 4:25:00 CDT Dexmedetomi 2016- No 24 hours M emoria dine 3-18 l 05:50: Hipolito 00 ketAMINE 2016-0 No 245 mL, Memori a 500 mg + 18 Rate: l sodium 01:30: Titrate as Desiree nn chloride 00 directed, 0.9% 250 mL Route: IV, INJ (for IV Dosing set) 245 mL Weight 105.085 kg, Total Volume: 250, Start date: 10/16/16 20:30:00 CDT, Duration: 30 day, Stop date: 11/15/16 20:29:00 CDT ketAMINE 2016- No 100 mg, Memori a 100mg/NS 3-18 100 mL, l 100ml 00:18: Route: IV, Castro n (1mg/ml) 00 Drug form: 100 mg INJ, Dosing Weight 105.085, kg, Start date: 10/16/16 19:18:00 CDT, Stop date: 10/16/16 20:45:00 CDT Docusate No Notes: Memoria Sodium 50 -17 (Same as l MG / 22:00: Senokot-S) Hipolito sennosides, 00 Equiv. to FDC 8.6 MG Tala-Colac Oral Tablet e. Thiamine No Notes: Memoria 3-17 (Same As: l 17:10: Vitamin B1) Lactated No 1,000 mL, Arun ronn Ringers -17 Rate: 125 l 1,000 mL 16:48: ml/hr, Infuse over: 8 hr, Route: IV, Dosing Weight 105.085 kg, Total Volume: 1,000, Start date: 10/16/16 11:48:00 CDT, Duration: 30 day, Stop date: 11/15/16 11:47:00 CDT Lactulose No Notes: Memori a 667 MG/ML 17 (Same l Oral 16:48: as:Chronul Hipolito Solution 00 ac) Ketamine No Notes: Memoria 3-17 Total l 16:18: Concentrat ion = 1mg/ml Total Volume = 100ml Infusion Rate= Begin Infusion at an initial rate of 0.1mg/kg/h r to a Maximum Rate of 0.25mg/kg/ hr Please place a Med Request 2 hours before the next dose is needed. Folic Acid No 1 mg, Memori a 17 Route: PO, l 14:00: Daily, Dosing Weight 105.085, kg, Start date: 10/16/16 9:00:00 CDT, Duration: 5 day, Stop date: 10/20/16 9:00:00 CDT multivitami No 1 tab, Arun ronn n -17 Route: PO, l 14:00: Dosing Weight 105.085, kg, Daily, Start date: 10/16/16 9:00:00 CDT, Duration: 5 day, Stop date: 10/20/16 9:00:00 CDT Thiamine No 100 mg, Memori a 3-17 Route: PO, l 14:00: Daily, Dosing Weight 105.085, kg, Start date: 10/16/16 9:00:00 CDT, Duration: 5 day, Stop date: 10/20/16 9:00:00 CDT Ativan No Notes: Memoria 3-17 (Same as: l 08:18: Ativan) Ativan No 2 mg, Memoria 3-17 Route: IV, l 07:24: ONCE, Dosing Weight 105.085, kg, Start date: 10/16/16 2:24:00 CDT, Stop date: 10/16/16 2:24:00 CDT Ativan No Notes: Memoria 3-17 (Same as: l 07:00: Ativan) Dilaudid No Notes: Memoria 3-17 Same as: l 05:54: Dilaudid atorvastati No Notes: Arun ronn n -17 Same as l 02:00: Lipitor Lorazepam No Notes: Memori a 3-16 (Same as: l 23:00: Ativan) Fenofibrate No Notes: Arun ronn 3-16 (Same as: l 22:00: Tricor) Lorazepam No 2 mg, Memoria 3-16 Route: l 20:52: IVP, Q2H, Dosing Weight 105.085, kg, PRN Other -See Comment, CIWA Score 8 -14, Start date: 10/15/16 15:52:00 CDT, Duration: 30 day, Stop date: 11/14/16 15:51:00 CDT Albuterol No Notes: SEE Me moria 0.83 MG/ML 3-16 RT l Inhalant 15:04: DOCUMENTAT Her ogden Solution 00 ION (Same as: Proventil) Docusate No Notes: Memoria Sodium 50 3-16 (Same as l MG / 14:45: Senokot-S) sennosides, 00 Equiv. to FDC 8.6 MG Tala-Colac Oral Tablet e. Miralax No Notes: Memoria 3-16 Dissolve l 14:44: in 8 oz of water or juice. (Same as: Miralax) sodium No 1,000 mL, Memori a chloride 3-16 Rate: 250 l 0.9% 1000 09:04: ml/hr, Castro n ml INJ 00 Infuse 1,000 mL over: 4 hr, Route: IV, Dosing Weight 105.085 kg, Total Volume: 1,000, Start date: 10/15/16 4:04:00 CDT, Duration: 30 day, Stop date: 11/14/16 4:03:00 CDT atorvastati No Notes: Arun ronn n 3-16 (Same As: l 02:00: Lipitor) [place]ol[place] 00 Hydromorpho No Notes: Arun ronn ne 3-16 (Same as: l 01:30: Dilaudid) conc = 0.5 mg/ml Hydromorph one [employer] Dose: ;Delay: ;Basal: Naloxone No Notes: Memoria 3-16 Same as l 01:30: Narcan [facility] 00 Calcium No Notes: Memoria Gluconate 3-16 WASTE: F/P l 00:38: - Sink; E [facility] 00 - Municipal Trash Bin Simethicone No Notes: Arun ronn 3-16 (Same as: l 00:26: Mylicon, [facility] 00 Phazyme, Genasyme) D10W 961.5 No 961.5 mL, Me moria mL + sodium 3-15 Rate: 250 l chloride 21:51: ml/hr, [facility] 154 mEq 00 Infuse over: 4 hr, Route: IV, Dosing Weight 105.085 kg, Total Volume: 1,000, Start date: 10/14/16 16:51:00 CDT, Duration: 30 day, Stop date: 11/13/16 16:50:00 CDT Dextrose No 1,000 mL, Arun ronn 10% with 3-15 Rate: 250 l 0.9% NaCl 21:34: ml/hr, Castro n IV 1000 mL 00 Infuse over: 4 hr, Route: IV, Dosing Weight 105.085 kg, Total Volume: 1,000, Start date: 10/14/16 16:34:00 CDT, Duration: 30 day, Stop date: 11/13/16 16:33:00 CDT Sodium 2017-0 No 1,000 mL, Memori a Chloride 3-15 1,000 l 0.154 20:48: ml/hr, [place]ol[place] MEQ/ML 00 Infuse Injectable Over: 1 Solution hr, Route: IV, 1,000, Drug form: INJ, ONCE, Priority: STAT, Dosing Weight 105.085 kg, Start date: 10/14/16 15:48:00 CDT, Duration: 1 doses or times, Stop date: 10/14/16 15:48:00 CDT Sodium 2017-0 No Route: IV, Memor ia Chloride 3-15 ONCE, l 0.154 20:39: Dosing [facility] MEQ/ML 00 Weight Injectable 105.085 Solution kg, Start date: 10/14/16 15:39:00 CDT, Stop date: 10/14/16 15:39:00 CDT Sodium 2017-0 No 1,000 mL, Memori a Chloride 3-15 1,000 l 0.154 16:25: ml/hr, [place]ol[place] MEQ/ML 00 Infuse Injectable Over: 1 Solution hr, Route: IV, 1,000, Drug form: INJ, ONCE, Priority: STAT, Dosing Weight 105.085 kg, Start date: 10/14/16 11:25:00 CDT, Duration: 1 doses or times, Stop date: 10/14/16 11:25:00 CDT D5NS 1,000 2017-0 No 1,000 mL, Me moria mL 3-15 Rate: 250 l 14:12: ml/hr, Hipolito 00 Infuse over: 4 hr, Route: IV, Dosing Weight 105.085 kg, Total Volume: 1,000, Start date: 10/14/16 9:12:00 CDT, Duration: 30 day, Stop date: 11/13/16 9:11:00 CDT Dextrose 2017-0 No 12.5 gm, Memor ia 50% Syringe 3-15 25 mL, l 14:10: Route: [place] 00 IVP, Drug Form: INJ, Dosing Weight 105.085, kg, PRN, PRN Blood Glucose Results, Start date: 10/14/16 9:10:00 CDT, Duration: 30 day, Stop date: 11/13/16 9:09:00 CDT Insulin 2017-0 No Notes: Memoria regular 100 3-15 (Same as: l unit + 14:10: Humulin R Castro n sodium 00 and chloride NovoLIN R) 0.9% INJ 99 WASTE: mL F/P - Black; E - Municipal Trash Bin (Do not shake) Saline No Notes: Memoria Flush 0.9% 3-15 (Same as: l 14:00: BD Posiflush) Famotidine No Notes: Memor ia 3-15 (Same as: l 14:00: Pepcid) Can be dilute in 5-10cc NS IVP: Slow IV push over at least 2 minutes. Lisinopril No Notes: Memor ia 3-15 Shake well l 14:00: before use. Refrigerat e For Oral Use Only. Compound ed Product - formulatio n not commercial ly available* * Allopurinol No 100 mg, Mem oria 3-15 Route: IV, l 14:00: Daily, Dosing Weight 105.085, kg, Start date: 10/14/16 9:00:00 CDT, Duration: 30 day, Stop date: 11/12/16 9:00:00 CDT Thiamine No Notes: Memoria 3-15 (Same As: l 14:00: Vitamin B1) multivitami No Notes: Arun ronn n 3-15 (Same l 14:00: as:Thera) WASTE: F/P - Black; E - Municipal Trash Bin Take with food. Folic Acid No Notes: Memor ia 3-15 (Same as: l 14:00: Folvite) Gemfibrozil No Notes: Arun ronn 3-15 (Same as: l 14:00: Lopid) Morphine No Notes: Memoria 3-15 Dose: 1 l 10:30: mg Delay: 10 min Basal rate: 0 4hr limit: 20 mg (Same as:Amairani connelly) Naloxone No Notes: Memoria 3-15 Same as l 10:20: Narcan Morphine No Notes: Memoria 3-15 Dose: 1 mg l 10:00: [facility] 00 Delay: 10 min Basal rate: 0 mg 4hr limit: 15 mg (Same as:Amairani ct) Labetalol No 5 mg, 1 [facility] 3-15 mL, Route: l 08:37: IV, Drug form: INJ, ONCE, Dosing Weight 105.085, kg, Start date: 10/14/16 3:37:00 CDT, Stop date: 10/14/16 3:37:00 CDT Dilaudid No Notes: [facility] 3-15 Same as: l 07:29: Dilaudid Dilaudid No Notes: [facility] 3-15 Same as: l 05:11: Dilaudid heparin No Notes: [facility] 3-15 porcine l 05:00: heparin Labetalol No 5 mg, [facility] 3-15 Route: l 04:58: IVP, Drug form: INJ, ONCE, Dosing Weight 105.085, kg, Start date: 10/13/16 23:58:00 CDT, Stop date: 10/13/16 23:58:00 CDT Hydralazine No 10 mg, Arun ronn 3-15 Route: IV, l 04:56: ONCE, Dosing Weight 105.085, kg, Start date: 10/13/16 23:56:00 CDT, Stop date: 10/13/16 23:56:00 CDT morphine No Notes: [facility] Sulfate 3-15 (Same l 04:27: as:MORPhin [place] 00 e Sulfate) Morphine No Notes: [facility] 3-15 (Same l 04:19: as:MORPhin [place] e Sulfate) Morphine No Notes: [facility] 3-15 Loading l 04:00: Dose: 2 [place] 00 mg Dose: 1 mg Delay: 10 min Basal rate: 0 4hr limit: 30 mg (Same as:Amairani ct) Lorazepam No Notes: [facility] a 3-15 (Same as: l 03:59: Ativan) Zofran No Notes: [facility] 3-15 (Same as: l 03:57: Zofran) [facility] 00 MEDICATION WASTE Product Size: 4 mg Product Wasted: 0 mg Naloxone 2017 No Notes: [facility] 3-15 Same as l 03:47: Narcan [place] 00 Calcium 2017-0 No 1,000 mL, [facility] Chloride 3-15 1,000 l 0.0014 03:44: ml/hr, [place] MEQ/ML / 00 Infuse Potassium Over: 1 Chloride hr, Route: 0.004 IV, 1,000, MEQ/ML / Drug form: Sodium INJ, ONCE, Chloride Priority: 0.103 STAT, MEQ/ML / Dosing Sodium Weight Lactate 105.085 0.028 kg, Start MEQ/ML date: Injectable 10/13/16 Solution 22:44:00 CDT, Duration: 1 doses or times, Stop date: 10/13/16 22:44:00 CDT Lactated 2017 No 1,000 mL, Arun ronn Ringers 3-15 Rate: 200 l 1,000 mL 03:44: ml/hr, [facility] 00 Infuse over: 5 hr, Route: IV, Dosing Weight 105.085 kg, Total Volume: 1,000, Start date: 10/13/16 22:44:00 CDT, Duration: 30 day, Stop date: 11/12/16 22:43:00 CDT Calcium No Notes: [facility] Carbonate 3-15 (Same As: l 500 MG 03:37: Tums) [place] Chewable 00 Calcium Tablet Carbonate 500 mg = 200 mg elemental calcium Dose = mg calcium carbonate ( mg elemental calcium) potassium No Notes: [facility] a phosphate + 3-15 (Same as: l sodium 03:37: K [place] chloride 00 Phosphate. 0.9% INJ ) 1 mMol 250 mL phoshate has 1.47 mEq potassium Infuse over 4 hours sodium 2017-0 No 45 mmol, [facility] phosphate + 3-15 15 mL, l sodium 03:37: Route: [place] chloride 00 IVPB, PRN, 0.9% INJ Dosing 250 mL Weight 104.545, kg, PRN Abnormal Lab Result, Start date: 10/13/16 22:37:00 CDT, Duration: 30 day, Stop date: 11/12/16 22:36:00 CDT, FOR ICU USE ONLY Calcium No Notes: [facility] Gluconate 3-15 WASTE: F/P l 03:37: - Sink; E - Municipal Trash Bin Magnesium No Notes: [facility] a Oxide 3-15 (Same as: l 03:37: Mag-Ox [facility] 400) Magnesium oxide 655yp=448b g elemental magnesium Dose=____m g magnesium oxide (___mg elemental magnesium) Magnesium No Notes: [facility] a Sulfate 3-15 WASTE: F/P l 03:37: - Sink; E [facility] 00 - Municipal Trash Bin potassium No Notes: [facility] a phosphate-s 3-15 (Same as: l odium 03:37: Phos-NaK) [facility] phosphate 00 Each 1.5 250 mg-280 gm pkt has mg-160 mg 250mg oral powder phosphorou for s. Mix reconstitut w/2.5oz ion water and stir. potassium No Notes: [facility] a chloride 3-15 (Same as: l 03:37: KCL) [facility] Infuse over 2 hours. Saline No Notes: [facility] Flush 0.9% 3-15 (Same as: l 03:37: BD [facility] Posiflush) Nystatin No Notes: [facility] 100 UNT/MG 3-15 (Same l Topical 03:37: as:Mycosta Herm crystal Powder 00 tin, Nilstat) For external use only. Ibuprofen Yes 800 mg = 1 Me moria 800 MG Oral 5-24 tab, PO, l Tablet 22:06: Q8H, PRN [facility] [Motrin] 00 Pain, Take with food, # 30 tab, 0 Refill(s) {21 Yes See [facility] (Methylpred 5-24 Instructio l nisolone 4 22:06: ns, PO, Herm crystal MG Oral 00 Take by Tablet mouth as [Medrol]) } directed Pack on label., [Medrol X 6 day, # Dosepak] 1 Pack, 0 Refill(s) Dilaudid No Notes: [facility] 5-24 Same as: l 21:10: Dilaudid [facility] Acetaminoph No Notes: Arun ronn en 325 MG / 5-24 (Same as: l Hydrocodone 19:39: [place] Desiree nn Bitartrate 00 325/5) Do 5 MG Oral not exceed Tablet 4gm/day of [[place] acetaminop 5/325] hen. Ketorolac 0 No 4 days [facility] -24 l 19:39: MEDICATION [place] WASTE Product Size: 60 mg Product Wasted: ___ mg Acetaminoph Yes 1 tab, PO, [facility] en 300 MG / -28 Q6H, PRN l Codeine 22:27: Pain Score Herm crystal Phosphate 00 4-6, X 5 30 MG Oral day, # 30 Tablet tab, 0 [Tylenol Refill(s) with Codeine #3] indomethaci Yes 50 mg = 1 M emoria n 50 mg 09-29 cap, PO, l oral 22:26: TID, X 10 [facility] capsule 00 day, # 30 cap, 0 Refill(s) Dilaudid No 0.5 mg, [facility] a 09-29 Route: IV, l 22:09: ONCE, [place] Dosing Weight 106.818, kg, Start date: 09/29/15 16:09:00, Stop date: 09/29/15 16:09:00 Morphine No 4 mg, [facility] 09-29 Route: l 20:36: IVP, Drug form: INJ, ONCE, Dosing Weight 106.818, kg, Priority: STAT, Start date: 09/29/15 14:36:00, Stop date: 09/29/15 14:36:00 Sodium 2015-0 No 1,000 mL, [facility] a Chloride 09-29 1,000 l 0.154 18:52: ml/hr, [place] MEQ/ML 00 Infuse Injectable Over: 1 Solution hr, Route: IV, 1,000, Drug form: INJ, ONCE, Priority: STAT, Dosing Weight 106.818 kg, Start date: 09/29/15 12:52:00, Duration: 1 doses or times, Stop date: 09/29/15 12:52:00 Morphine 2015-0 No Notes: [facility] 09-29 (Same l 18:52: as:MORPhin [facility] e Sulfate) Vital Signs Vital Name Observation Time Observation Value Comments Source Systolic (mm Hg) 2016-11-15 17:02:00 Arun rial [place] Diastolic (mm Hg) 2016-11-15 17:02:00 Mem orial [place] Temperature Oral (F) 2016-11-15 17:02:00 97.6 F [facility] [place] Heart Rate 2016-11-15 17:02:00 [facility] [place] Respitory Rate 2016-11-15 17:02:00 [facility]ori al [facility] Systolic (mm Hg) 2016-11-15 13:00:00 Arun rial [place] Diastolic (mm Hg) 2016-11-15 13:00:00 Mem orial [place] Respitory Rate 2016-11-15 13:00:00 [facility] Heart Rate 2016-11-15 13:00:00 [facility] Temperature Oral (F) 2016-11-15 13:00:00 97.4 F [facility] [place] Heart Rate 2016-11-15 08:06:00 [facility] Temperature Oral (F) 2016-11-15 08:06:00 98.1 F [facility] Respitory Rate 2016-11-15 08:06:00 [facility] [place] Systolic (mm Hg) 2016-11-15 08:06:00 Arun rial [facility] Diastolic (mm Hg) 2016-11-15 08:06:00 Mem orial [place] Height 2016-11-12 08:53:00 182.88 cm [facility] Weight 2016-11-12 08:53:00 [facility] [place] BMI Calculated 2016-11-12 08:53:00 [facility] [place] Temperature Oral (F) 2016-10-29 21:34:00 98.3 F [facility] [place] Heart Rate 2016-10-29 21:34:00 [facility] [place] Respitory Rate 2016-10-29 21:34:00 [facility] [place] Systolic (mm Hg) 2016-10-29 21:34:00 Arun rial [facility] Diastolic (mm Hg) 2016-10-29 21:34:00 Mem orial [facility] Respitory Rate 2016-10-29 17:07:00 [facility] [place] Systolic (mm Hg) 2016-10-29 17:07:00 Arun rial [place] Diastolic (mm Hg) 2016-10-29 17:07:00 Mem orial [place] Heart Rate 2016-10-29 17:07:00 [facility] Systolic (mm Hg) 2016-10-29 16:57:00 Arun rial [facility] Diastolic (mm Hg) 2016-10-29 16:57:00 Mem orial [place] Respitory Rate 2016-10-29 16:57:00 [facility] Heart Rate 2016-10-29 16:57:00 [facility] Temperature Oral (F) 2016-10-29 16:57:00 98.2 F [facility] [place] Temperature Oral (F) 2016-10-29 13:09:00 98.3 F [facility] Height 2016-10-14 03:43:00 182.88 cm [facility] BMI Calculated 2016-10-14 03:43:00 [facility] [place] Weight 2016-10-14 03:43:00 [facility] [place] BMI Calculated 2016-10-14 03:42:00 [facility] [place] Weight 2016-10-14 03:42:00 [facility] Height 2016-10-14 03:42:00 182.88 cm [facility] Weight 2016-10-14 03:41:00 [facility] Respitory Rate 2015-12-24 22:00:00 [facility] Heart Rate 2015-12-24 22:00:00 [facility] Systolic (mm Hg) 2015-12-24 22:00:00 Arun rial [place] Diastolic (mm Hg) 2015-12-24 22:00:00 Mem [facility] Weight 2015-12-24 18:47:00 [facility] Height 2015-12-24 18:47:00 182.88 cm [facility] BMI Calculated 2015-12-24 18:47:00 [facility] [place] Temperature Oral (F) 2015-12-24 18:47:00 98.3 F [facility] Systolic (mm Hg) 2015-12-24 18:47:00 Arun rial [place] Diastolic (mm Hg) 2015-12-24 18:47:00 Mem [facility] Respitory Rate 2015-12-24 18:47:00 [facility] [place] Heart Rate 2015-12-24 18:47:00 [facility] Respitory Rate 2015-09-29 22:42:00 [facility] Systolic (mm Hg) 2015-09-29 22:42:00 Arun rial [place] Diastolic (mm Hg) 2015-09-29 22:42:00 [facility] [place] Temperature Oral (F) 2015-09-29 22:42:00 97.9 F [facility] Heart Rate 2015-09-29 22:42:00 [facility] Respitory Rate 2015-09-29 21:57:00 [facility] [place] Systolic (mm Hg) 2015-09-29 21:57:00 Arun rial [place] Diastolic (mm Hg) 2015-09-29 21:57:00 [facility] Heart Rate 2015-09-29 21:57:00 [facility] [place] Temperature Oral (F) 2015-09-29 21:57:00 97.9 F [facility] BMI Calculated 2015-09-29 18:34:00 [facility] [place] Weight 2015-09-29 18:34:00 [facility] Height 2015-09-29 18:34:00 182.88 cm [facility] Temperature Oral (F) 2015-09-29 18:32:00 98.1 F [facility] Heart Rate 2015-09-29 18:32:00 [facility] Systolic (mm Hg) 2015-09-29 18:32:00 Arun rial [facility] Diastolic (mm Hg) 2015-09-29 18:32:00 Mem orial [facility] Respitory Rate 2015-09-29 18:32:00 [facility] al [place] Procedures This patient has no known procedures. Encounters Start End Encounter Admission Attending Care Care Encounter Source Date/Time Date/Time Type Type Clinicians Facility Department ID 2020-07-15 2020-07-15 Laboratory Lab, Ad[facility] [id number] 16:44:23 16:46:22 Only Fam [facility] [id number] [place] [id number] Professio [id number] nal [address] 2020-07-15 2020-07-15 Letter Doctor WM [id number] 00:00:00 00:00:00 (Out) Unassigned, GRACE [id number] [place] [facility] [id number] 2016-11-12 2016-11-15 Outpatient Cristian [facility] [id number] 03:08:00 14:30:00 Joseph Givens 2016-10-13 2016-10-29 Outpatient Stefani Jensen [facility] [id number] 22:23:00 23:30:00 Mariely Orta 2015-12-24 2015-12-24 Outpatient ZAIDA Darnell [facility] [id number] 13:41:00 17:07:00 Wm Boateng 2015-09-29 2015-09-29 Outpatient ADRIANA Pleitez [facility] [id number] 12:31:00 16:43:00 Christopher 00 Mejia Results Test Description Test Time Test Comments Results Result Comments Source CHEM PANEL 2016-11-15 2.1 [facility] 07:08:00 CHEM PANEL 2016-11-15 4.0 [facility] 07:08:00 ELECTROLYTES 2016-11-15 14.0 [facility] [place] 07:08:00 ELECTROLYTES 2016-11-15 126 [facility] [place] 07:08:00 ELECTROLYTES 2016-11-15 7 [facility] [place] 07:08:00 ELECTROLYTES 2016-11-15 0.72 [facility] [place] 07:08:00 ELECTROLYTES 2016-11-15 148 [facility] [place] 07:08:00 ELECTROLYTES 2016-11-15 100 [facility] [place] 07:08:00 ELECTROLYTES 2016-11-15 28 [facility] [place] 07:08:00 ELECTROLYTES 2016-11-15 138 [facility] [place] 07:08:00 ELECTROLYTES 2016-11-15 4.0 [facility] [place] 07:08:00 ELECTROLYTES 2016-11-15 9.4 [facility] [place] 07:08:00 HEMATOLOGY 2016-11-15 6.8 [facility] 07:08:00 HEMATOLOGY 2016-11-15 4.2 [facility] 07:08:00 HEMATOLOGY 2016-11-15 88.9 [facility] 07:08:00 HEMATOLOGY 2016-11-15 0.4 [facility] 07:08:00 HEMATOLOGY 2016-11-15 0.7 [facility] 07:08:00 HEMATOLOGY 2016-11-15 0.1 [facility] nn 07:08:00 HEMATOLOGY 2016-11-15 9.5 [facility] nn 07:08:00 HEMATOLOGY 2016-11-15 84.5 [facility] nn 07:08:00 HEMATOLOGY 2016-11-15 25.9 [facility] nn 07:08:00 HEMATOLOGY 2016-11-15 8.2 [facility] nn 07:08:00 HEMATOLOGY 2016-11-15 300 [facility] nn 07:08:00 HEMATOLOGY 2016-11-15 8.5 [facility] nn 07:08:00 HEMATOLOGY 2016-11-15 3.07 [facility] nn 07:08:00 HEMATOLOGY 2016-11-15 15.8 [facility] nn 07:08:00 HEMATOLOGY 2016-11-15 32.7 [facility] nn 07:08:00 HEMATOLOGY 2016-11-15 07:08:00 Test Item Value Reference Range Interpretation Comme nts MCH (test code = MCH) 27.6 pg 27.0-31.0 [facility] CkowtgpOCEDQQXUDU3713-77-98 07:08:0010.6[facility] HermannBODY FLUIDS 2016-11-14 18:29:2354636Eanowqse HermannBODY VWTCDL5622-18-38 18:29:42728 [facility]annBODY LDSCMF0361-20-55 18:29:00Synovial (11/14/16 1:29 PM)[facility] HermannBODY DGWCFF3943-52-75 18:29:00Moderate Cloudy *ABN*(11/14/16 1:29 PM) [facility]annB[facility] LKSJMB9475-49-36 18:29:00Light Yellow (11/14/16 1:29 PM) [facility] LOGGBJ3214-60-37 18:29:00Yellow *ABN*(11/14/16 1:29 PM) [facility]ann[facility] LIBFEK1072-84-52 18:29:00Synovial (11/14/16 1:29 PM)[facility]annBODY CYXDJJ3147-91-84 18:29:00Mono Na Urate *ABN*(11/14/16 1:29 PM) [facility] HermannCHEM ZDWPA7440-03-12 07:59:004.9[facility] HermannCHEM PANEL 2016-11-13 07:59:001.9[facility] HermannCHEM ZIDMY0993-97-65 07:59:000.62[facility] HermannCHEM SCHEZ3423-11-67 07:59:46059Wgyjnpgm HermannCHEM LOEHA3567-31-70 07:59:003[facility] HermannCHEM XYAOX0753-18-33 07:59:0098[facility] HermannCHEM VHUZW7311-38-48 07:59:57235Tcgxdqza HermannCHEM MUJYP5079-67-34 07:59:08123 [facility] HermannCHEM SBYTD1034-27-88 07:59:0029[facility] HermannCHEM PANEL 2016-11-13 07:59:003.6[facility] HermannCHEM CRBEF5479-62-33 07:59:0011.6[facility] HermannCHEM NDCGL3522-55-06 07:59:008.6[facility] IehnygwKEBMGACVSZ4661-92-71 07:59:00 Test Item Value Reference Range Interpretation Comments MCH (test code = MCH) 27.5 pg 27.0-31.0 [facility] JjcblgzQMCNFMBBGD0361-52-23 07:59:008.4[facility] HermannHEMATOLOGY 2016-11-13 07:59:0025.8[facility] ZpxesjwKJKCXOHJCB0698-89-39 07:59:0084.2[facility] WndryatTHOQOMQZEJ9597-89-14 07:59:003.06[facility] XwgxnxeUVGWJBKLNF8713-31-14 07:59:0013.1[facility] OuzulipWYVASDEYJM3156-00-07 07:59:69824Sgaeuceb [place] FAPFKKWLVK6202-03-09 07:59:0015.9[facility] LwocegqPKVVDOCAKI9699-84-24 07:59:00 8.3[facility] MlrwrptVTJURQUTAE1736-67-49 07:59:0032.6[facility] HermannHEMATOLOGY 2016-11-13 07:59:002.0[facility] SzacnyrGBTQWCXQKW8425-51-64 07:59:001.3[facility] YkljsrdKJDXNJPKNM1827-81-93 07:59:009.7[facility] DsbysljIJRKZKYPAL1744-24-27 07:59:000.1[facility] OiwptjiMDPTWCDVUY5713-56-16 07:59:000.1[facility] FEINRHJFOE9150-11-01 07:59:0073.8[facility] AcxjgjnNMAITWCAUP2885-40-06 07:59:00 14.9[facility] RubnlrmSDYCDMVDDG2172-52-88 07:59:000.4[facility] HermannHEMATOLOGY 2016-11-13 07:59:0010.1[facility] WutcowbXMSTIOUVTA7796-57-91 07:59:000.8[facility] EvmmkrzMFRJBE7040-74-37 07:59:0029[facility] ZaquschCMDDBW6653-68-95 07:59:0075 [facility] HthxvidHATNLY8514-10-66 07:59:97152Cusdruau HdronvlZTKGLI0180-64-00 07:59:59529Gtbbmbem CkgumxbXGWWUF2404-97-09 07:59:0036[facility] HermannLIPIDS 2016-11-13 07:59:003.89[facility] HermannCHEM EEMGP2547-39-14 10:04:000.63[facility] HermannCHEM JNXTE5137-17-83 10:04:006[facility] HermannCHEM XQZTJ6786-59-01 10:04:45148Aywiiowh HermannCHEM LSXYF6060-31-40 10:04:006.8[facility] HermannCHEM RQBYB5994-57-94 10:04:008.5[facility] HermannCHEM BIDUM4498-32-45 10:04:0024 [facility] HermannCHEM TAHML7110-74-84 10:04:46765Mhfyykol HermannCHEM PANEL 2016-11-12 10:04:003.6[facility] HermannCHEM PARPU2485-44-28 10:04:000.2[facility] HermannCHEM ZKPVW7651-74-51 10:04:0066[facility] HermannCHEM TTRFC4612-69-95 10:04:0012[facility] HermannCHEM JMAXK3126-99-26 10:04:0030[facility] HermannCHEM CIXOC1999-70-71 10:04:003.0[facility] HermannCHEM NOMVY1266-82-32 10:04:003.8 [facility] HermannCHEM FHTQO4956-89-12 10:04:0010[facility] HermannCHEM PANEL 2016-11-12 10:04:0013.6[facility] HermannCHEM RJBYB2677-12-44 10:04:000.8[facility] HermannCHEM HPBTB7360-80-72 10:04:004.8[facility] HermannCHEM LOJGH6614-31-22 10:04:001.3[facility] EpbwswuNLDPENNKBX3957-44-98 10:04:0061.1[facility] OKHIKXMDCZ2577-31-28 10:04:0025.7[facility] EukvwcaLWQBUAJSMJ5380-33-71 10:04:00 10.4[facility] AbpkftsNYXCWTPJQR3942-53-93 10:04:002.2[facility] HermannHEMATOLOGY 2016-11-12 10:04:001.0[facility] BcwpiugBIHHPCPZOT3062-37-57 10:04:000.2[facility] XrcmwhuLBJQTWMQKP7285-83-54 10:04:000.6[facility] LpwtwjrEKOMUKEZGO0518-59-94 10:04:006.1[facility] QvpfoyzZUXNUWOJTP1541-90-40 10:04:002.6[facility] LKBQTVMCWX2168-06-83 10:04:000.1[facility] XkyyfvqWIDUQVKNLH0857-91-72 10:04:00 10.0[facility] BculucrSGSZZZDPVP1294-63-88 10:04:008.2[facility] HermannHEMATOLOGY 2016-11-12 10:04:002.89[facility] McacydpCEYKOTIZTQ8856-71-09 10:04:0024.7[facility] LlezoccRUBQVLUHSA4380-90-87 10:04:007.8[facility] DnmpmcjRCUTOLRSZC5053-02-75 10:04:00 Test Item Value Reference Range Interpretation Comments MCH (test code = MCH) 28.3 pg 27.0-31.0 [facility] WdlsplqIIXTBZFZXG7598-82-43 10:04:0085.5[facility] HermannHEMATOLOGY 2016-11-12 10:04:61309Japvednn WfixainTGDDNKVSKH0721-11-94 10:04:0015.8[facility] BwfipwdEIZCNTYJNE5195-46-70 10:04:0033.1[facility] HermannCHEM JJJBY2916-36-75 10:04:70737Tfcithia HermannCHEM YGDYA1599-99-32 10:04:58531Qexbvuka HermannCHEM TVEVS3438-53-46 10:04:73174Qnyeedbc HermannCHEM FJZDH1058-26-88 10:11:0012 [facility] HermannCHEM JXGAW8077-67-84 10:11:004.2[facility] HermannCHEM PANEL 2016-10-29 10:11:000.8[facility] HermannCHEM ZDOQA9397-14-70 10:11:0011.6[facility] HermannCHEM TZXMO4226-31-09 10:11:97180Rneciyae HermannCHEM VCICS8553-24-19 10:11:000.2[facility] HermannCHEM NUZIL2138-17-71 10:11:0023[facility] HermannCHEM ZWOMG4168-60-70 10:11:0047[facility] HermannCHEM JJTEY2881-48-06 10:11:009.1 [facility] HermannCHEM GYGRG2383-82-79 10:11:007.4[facility] HermannCHEM PANEL 2016-10-29 10:11:0098[facility] HermannCHEM ZTOVA3472-63-14 10:11:0030[facility] HermannCHEM JFRQE4787-57-85 10:11:003.2[facility] HermannCHEM KSSLR7057-02-24 10:11:0027[facility] HermannCHEM PGHGT0577-69-76 10:11:004.6[facility] HermannCHEM UTLXA7430-58-61 10:11:000.66[facility] HermannCHEM DSJRA4155-71-55 10:11:34707 [facility] HermannCHEM GMMVG9995-40-04 10:11:0097[facility] HermannCHEM PANEL 2016-10-29 10:11:008[facility] ImbccfuQTWOKOTICA8266-16-03 10:11:001.0[facility] SmljmcnPXCMRTRJVO1471-85-95 10:11:005.3[facility] FxhzrmxIVSXISWAMJ3100-19-19 10:11:003.4[facility] QbemajgQSGKFNXRYE2155-55-63 10:11:002.6[facility] IXTPJCGKWC3502-79-89 10:11:007.7[facility] ZvmxaeyHDRFRVLAHV7586-33-02 10:11:000.3 [facility] EadjifdHKQGBIUENY6082-65-84 10:11:000.8[facility] HermannHEMATOLOGY 2016-10-29 10:11:000.1[facility] UpvuydiLJXFIAXWPU4396-36-18 10:11:00Normal (10/29/16 5:11 AM)[facility] KxgcvtlJKEFLSZSQW6653-38-58 10:11:00Normal (10/29/16 5:11 AM)[facility] YknamjlIVXSKVGQKX8654-07-44 10:11:0034.5[facility] YUZFQNISWX0478-56-58 10:11:0054.2[facility] FeograxKRMFNHWAOG9540-21-27 10:11:00 8.0[facility] VvpguzyMOINQUEWAR1141-05-72 10:11:007.6[facility] HermannHEMATOLOGY 2016-10-29 10:11:0022.9[facility] BswuakhSJIUPFQTHF6421-91-65 10:11:00 Test Item Value Reference Range Interpretation Comments MCH (test code = MCH) 30.2 pg 27.0-31.0 [facility] DwcwowxRTGSDEGXKV8197-45-74 10:11:0090.8[facility] HermannHEMATOLOGY 2016-10-29 10:11:0014.8[facility] PmoqccqNJSWSWEPTB2578-63-60 10:11:21235Rkngrzjz PhrbkrnSSYHZDEUTY6977-10-21 10:11:0033.2[facility] WkekmscBSTFEJHACS2010-16-09 10:11:009.8[facility] IzmqcuxTNHCSBPHDT4306-68-09 10:11:002.52[facility] EIZSIQDGKSHT1075-28-43 14:10:0010.9[facility] PpspossUVZKFZBGUHZZ7103-02-44 14:10:60855Aeycsrbn TulnfkaOKOIOXWHWAGK2523-76-35 14:10:009.1[facility] URFDQMFTVUZN0308-34-65 14:10:27981Vocpyaix OgdpyuqGXXJBNECSTHA1058-52-07 14:10:008[facility] XfnjktfGUDIGCCYJHBQ7350-03-35 14:10:000.64[facility] MPHYXAUAJHGW6129-43-16 14:10:61953Qefiydht AzwnimsJRIVFKUODHFN9943-25-11 14:10:003.9[facility] FbcklliOOKUDUZZMRCB9760-89-58 14:10:83600Umnkenhn [place] JKTCTEZKEYGH9930-68-42 14:10:0029[facility] SwelemtMPYJRVHGRD0652-60-28 14:10:00 837[facility] McnqzspTUIXYLELYC1417-17-86 14:10:0022.2[facility] HermannHEMATOLOGY 2016-10-28 14:10:0091.2[facility] GaybcqfUWCEVVQHPY4680-80-85 14:10:00 Test Item Value Reference Range Interpretation Comments MCH (test code = MCH) 30.6 pg 27.0-31.0 [facility] BuxrhurLWQTVYGNOS1695-95-90 14:10:008.1[facility]HE[facility]OLOGY 2016-10-28 14:10:0010.7[facility] BobkqwwJOMYYQOIST3354-43-99 14:10:002.43[facility] QdgptbbFGXQAIMUNX4942-91-19 14:10:0014.9[facility] XbkelzlWQVBLLLHYE5789-69-25 14:10:0033.5[facility] HbptjhoBEYIBACRYA6523-86-77 14:10:007.4[facility] MRIPQPAVVL5934-60-04 14:10:001.9[facility] KexjcysLPEXVKNKYG6700-45-32 14:10:003.0 [facility] ApfxbhfDJLGJASEJZ3569-86-23 14:10:000.3[facility]annHEMATOLOGY 2016-10-28 14:10:000.2[facility] CpchnbcWOEEKYNPOI8965-07-37 14:10:000.8[facility] DtejjuxSXOKUAQGXS3373-16-80 14:10:002.4[facility] EjljpriCZNZOYHDQW8159-78-76 14:10:006.9[facility] UxhcntsBWHLLIPTUY6754-64-44 14:10:0022.6[facility] LUICDYMJRJ5873-24-15 14:10:007.8[facility] BiakeopDUGCODLWIE6876-14-02 14:10:00 64.7[facility] QxbxlxuPSIFCSIARD2111-71-84 14:10:001+ *ABN*(10/28/16 9:10 AM) [facility] FcbannnHWNKRPQTJK1334-28-59 14:13:008.1[facility]annCHEM PANEL 2016-10-27 09:30:004.2[facility]annCHEM XTHSI8263-19-16 09:30:90890Ayweepey HermannCHEM CQODG6527-71-18 09:30:009.0[facility]annCHEM GADTB9753-22-51 09:30:0028[facility]annCHEM VFGVI8871-35-23 09:30:31307Lqbhzelg HermannCHEM FFTXX5381-16-38 09:30:003.9[facility]annCHEM IFRCF2373-29-23 09:30:31018 [facility]annCHE[facility] ATXKH7721-43-48 09:30:43918Jjprjsyw HermannCHEM PANEL 2016-10-27 09:30:006[facility]annCHEM MRDMD4056-39-68 09:30:000.55[facility]annCHEM QWFJV3677-65-88 09:30:0010.9[facility]annCHEM YQJDG8949-55-06 09:30:002.3[facility] RmgrudzSIXXKNIGOH4265-77-46 09:30:000.3[facility] KYCDOCYZGC2536-86-13 09:30:001.3[facility] LsofpglLMKEPKBHIF8051-08-20 09:30:006.9 [facility] KkcfvpqNNGMJHNZHY4000-30-51 09:30:003.4[facility]annHEMATOLOGY 2016-10-27 09:30:000.9[facility] LsordnaFRFMRBVCOY6549-80-32 09:30:002.8[facility] SqcbqhrGQFGCLZGQZ0116-74-27 09:30:000.2[facility] RqqvgndHZQHLFSTTO2361-42-88 09:30:0059.0[facility] HjyhecaDUGLBKEGZZ5346-38-24 09:30:007.9[facility] HMEVOEUQNQ6127-07-35 09:30:0029.0[facility] GlstxbqUBOYRHQFMJ5466-63-18 09:30:00 Test Item Value Reference Range Interpretation Comments MCH (test code = MCH) 29.8 pg 27.0-31.0 [facility] XblsuiuTEEZGTVWTK1628-17-49 09:30:0033.0[facility]annHEMATOLOGY 2016-10-27 09:30:0020.5[facility] PiqyfcwNWIFWCPKNK5809-13-68 09:30:002.26[facility] HlokwlaOPRQONBGLN4329-73-60 09:30:0011.6[facility] DihsorvPBEDYDBEEK8620-82-22 09:30:0090.4[facility] DplqvqwJDMFRVGCUP1069-01-04 09:30:98853Ctbfvbtl [facility] YRYFRKOXZQ2360-48-00 09:30:0014.5[facility] VoqdoreXFWAEABESP4693-81-51 09:30:00 7.9[facility]annCHEM AJMYX8000-67-42 09:22:004.5[facility] HermannCHEM PANEL 2016-10-26 09:22:002.1[facility] KiwhjulSCBVACYTSY0293-04-56 09:22:00Normal (10/26/16 4:22 AM)[facility] LoksyfmLOABBCZAOK7803-57-41 09:22:001+ *ABN*(10/26/16 4:22 AM)[facility] LqgxoojFHHYSCRQGD7011-53-55 09:22:00Moderate *ABN*(10/26/16 4:22 AM)[facility] TetqcajMVGIUFGHOJ2253-70-47 09:22:001+ *ABN*(10/26/16 4:22 AM) [facility]annCHEM SNMQF3438-29-65 07:39:007.5[facility]annCHEM PANEL 2016-10-25 07:39:0023[facility]annCHEM KICLP9298-15-23 07:39:002.5[facility]annCHEM CATDM2719-23-19 07:39:005.0[facility]annCHEM CNMKG3140-25-29 07:39:000.5[facility]annCHEM OBSLH4232-54-79 07:39:000.3[facility]annCHEM NNOQC4903-71-25 07:39:0048[facility]annCHEM NNAZD1786-43-91 07:39:0024 [facility]annCHEM AHLXT3634-66-65 07:39:0025[facility]annCHEM PANEL 2016-10-25 07:39:253474Hgffsfke XulstpjYNURWHNOTE8156-19-70 07:39:002.0[facility] TcxxoftENKNXSXGOA1655-94-62 07:39:002.0[facility] NrzqfdnVUFVSNIWQX5214-03-10 07:39:002.0[facility] RuezlpsSICPLFTBJT3806-64-01 07:39:000.0[facility] LZVEANXSVB3150-97-40 07:39:00Normal (10/25/16 2:39 AM)[facility]annHEMATOLOGY 2016-10-25 07:39:00Normal (10/25/16 2:39 AM)[facility] EedkedvJZZEGFGTEL0226-99-19 10:42:000.0[facility] IxvsuwxWGGYJSDLGM7930-65-88 10:42:001.0[facility] JUYQUYKCHM4666-41-59 10:42:003.0[facility] JheajanVKZLOOIAPM4927-52-07 10:42:00 Present *ABN*(10/24/16 5:42 AM)[facility]annCHEM ZROUS2061-93-71 10:36:790248 [facility]annCHEM DWNBR2793-47-23 10:36:004.7[facility] HermannCHEM PANEL 2016-10-23 10:36:0015[facility] HermannCHEM ZVAXK7003-09-88 10:36:000.5[facility]annCHEM VBUER9793-79-49 10:36:000.3[facility] HermannCHEM WOSLC7754-39-67 10:36:0076[facility] HermannCHEM DZHCB7374-28-96 10:36:0023[facility]annCHEM TUBFC9439-62-53 10:36:0022[facility]annCHEM IZXPX5551-09-92 10:36:007.2 [facility]CHE[facility] VBHWH9723-59-56 10:36:002.5[facility]annHEMATOLOGY 2016-10-23 10:36:00 Test Item Value Reference Range Interpretation Comments PTT (test code = PTT) 38.7 s 22.9-35.8 [facility] AzoviqyRENGNPCTTE4024-52-04 10:36:001.09[facility]annHEMATOLOGY 2016-10-23 10:36:00 Test Item Value Reference Range Interpretation Comments PT (test code = PT) 14.3 s 12.0-14.7 [facility]annCHEM XYZHM0885-49-27 09:04:003.6[facility]annCHEM PANEL 2016 09:04:002.4[facility] MxwouwoJVKXHDXCGG7755-16-72 09:04:00Normal (10/22/16 4:04 AM)[facility] NbufxioXLRCNURIAI6239-84-91 08:29:008.0[facility] GzstpfiQJVIEVXIVW2061-86-98 08:29:000.0[facility] NupiyhfURUXMLASAA9418-50-15 08:29:002.0[facility]annCHEM ETUAQ6743-00-98 08:13:000.2[facility]annCHEM GBZJZ7708-08-07 08:13:000.3[facility] FfmmdfvROSIIHOJVU8776-75-50 08:13:002.0 [facility] NzjkqnaESHOKNLDDM0365-30-35 08:13:002.0[facility] OgqlcgxQGYZPT3428-38-42 08:00:05520Jiatrlfn RolkzulGHOYLLXMTY6659-29-96 09:16:00 Test Item Value Reference Range Interpretation Comments Tot Cell Ct (test code = Tot Cell Ct) 100 1 [facility] VsskwulRDVJMMJBFT0676-38-97 09:16:001[facility] HermannPARATHYROID JHXYESG6999-19-99 09:16:001.04[facility] HermannPARATHYROID MJTSAFV6947-08-20 09:16:001.06[facility] KvhbkhcTDHIEYAOQB5777-87-32 08:33:002[facility] EZPSJMBNJS2069-24-25 08:33:001.14[facility] FporburXKFPVBHAPP2042-46-70 08:33:00 Test Item Value Reference Range Interpretation Comments PT (test code = PT) 14.8 s 12.0-14.7 [facility] HermannPARATHYROID CTELAQP2785-51-13 08:33:001.10[facility] PARATHYROID TDPOPHL4566-03-26 08:33:001.11[facility] HermannCARDIAC ENZYMES 2016-10-17 10:36:69757Iuxjczdw HermannCHEM DDCMR4611-91-37 10:36:001.4[facility] BvwdwreRUVNAFHHLR1984-12-20 10:36:002[facility] HermannPARATHYROID PROFILE 2016-10-17 10:36:001.09[facility] HermannPARATHYROID NMFRELE9889-01-43 10:36:00 1.14[facility]annCHEM ZCPYG1435-02-11 18:44:93118Wnyopcjz HermannCHEM PANEL 2016-10-16 18:44:000.3[facility]annCHEM EBKNS1676-59-72 18:44:000.2[facility] UtubutzUNMIRK4595-75-24 18:44:62305Gpmtifny HermannCHEM ZTPDP5073-59-42 05:14:00 1.9[facility] GjtjducSZSBCFKVBM5772-98-45 05:14:00 Test Item Value Reference Range Interpretation Comments PT (test code = PT) 15.2 s 12.0-14.7 [facility] PoffcxoSFNWVYVKDO4402-95-24 05:14:001.18[facility] HermannHEMATOLOGY 2016-10-16 05:14:00 Test Item Value Reference Range Interpretation Comments PTT (test code = PTT) 35.3 s 22.9-35.8 [facility]annCHEM DMUMT4928-44-72 17:26:005.06[facility]annCHEM PANEL 2016-10-15 13:59:001.6[facility] GtwosguACJEIX0297-18-34 13:59:60542Egdrzqpc HermannCHEM ZVLQJ2142-01-14 13:57:006.20[facility]annCHEM CPSNE9308-80-74 05:32:007.5[facility]annCHEM LKMGI0900-22-96 14:31:009.2[facility]annCHEM WRLOM5080-44-07 14:31:82782Ruzmbjav ZybxevtHAFNSEKKWN3797-99-85 14:31:00 Test Item Value Reference Range Interpretation Comments Tot Cell Ct (test code = Tot Cell Ct) 100 1 [facility]annDRUG BTKGXM6353-17-80 05:44:00Positive *ABN*(10/14/16 12:44 AM) [facility]DR[facility] RONSCK8755-26-88 05:44:00Negative *NA*(10/14/16 12:44 AM) [facility] YUHAVY9185-23-85 05:44:00Positive *ABN*(10/14/16 12:44 AM) [facility] NKSSAW5724-82-27 05:44:00Negative *NA*(10/14/16 12:44 AM) [facility] XPCZDK3384-81-77 05:44:00Positive *ABN*(10/14/16 12:44 AM) [facility] TZBKGG6226-06-16 05:44:00Negative *NA*(10/14/16 12:44 AM) [facility] YDUFUN5065-55-45 05:44:00Negative *NA*(10/14/16 12:44 AM) [facility] YYAXRY6948-13-46 05:44:00See Note (10/14/16 12:44 AM) [facility]DR[facility] DNAMRF4250-01-21 05:44:00Negative *NA*(10/14/16 12:44 AM) [facility] YYQHKE7512-80-09 05:44:00Negative *NA*(10/14/16 12:44 AM) [facility] BYUYV9756-44-33 05:44:00Negative (10/14/16 12:44 AM) [facility] CDKIO4744-33-99 05:44:00>=1.050 *ABN*(10/14/16 12:44 AM)[facility] DIOUB3244-69-91 05:44:001[facility] AND XNKJA3768-43-07 05:44:002[facility]UR[facility] AND UCWZI6224-85-09 05:44:00 Negative *NA*(10/14/16 12:44 AM)[facility] MXHWI7082-34-42 05:44:00Small *ABN*(10/14/16 12:44 AM)[facility] JRXXJ3439-24-55 05:44:00Negative (10/14/16 12:44 AM)[facility] UAECR3442-84-28 05:44:00Yellow *NA*(10/14/16 12:44 AM)[facility] UBKYU5256-99-78 05:44:00Clear (10/14/16 12:44 AM)[facility] AND AVRON4099-91-41 05:44:006.5[facility] AnzfidwPUWNSAYHLQ5837-50-82 04:54:00Negative *NA*(10/13/16 11:54 PM)[facility] CpzfbcsGFVXKJBRPF4528-86-10 04:54:00Negative *NA*(10/13/16 11:54 PM)[facility] RngvwtqQTHIOSKLCB5426-62-18 04:54:00Negative *NA*(10/13/16 11:54 PM)[facility] QecgzenZSMCMGJYTV5603-46-70 04:54:00Negative *NA*(10/13/16 11:54 PM)[facility] RsqlftwFVOMWJGVRV0752-09-07 04:54:00Negative *NA*(10/13/16 11:54 PM)[facility] HermannVIRAL - GIVEAVDX7253-13-79 04:54:00Negative (10/13/16 11:54 PM)[facility] HermannVIRAL - VHVFDNSQ8543-49-32 04:54:00Negative (10/13/16 11:54 PM)[facility] HermannBACTERIAL - CJEFECLJ6887-07-77 04:38:00Negative (10/13/16 11:38 PM)[facility] HermannCARDIAC GSZZIXQ7577-72-32 04:38:0015[facility] HermannCHEM HOLAG5046-99-05 04:38:000.09[facility] HermannCHEM KNAFK3702-95-74 04:38:0075[facility] PmxmihnMVYPFFNHLB4702-65-15 04:38:00 Test Item Value Reference Range Interpretation Comments PTT (test code = PTT) 30.4 s 22.9-35.8 [facility] VxafxqnHJFDKD3891-76-73 04:38:00See Note 2*NA*(10/13/16 11:38 PM) [facility] RiwrourZORXFN9818-32-82 04:38:00147Aqryemic IrveewlETVSJY2817-77-70 04:38:007.12[facility] QfqbvhrVAWCNG1299-37-46 04:38:0033[facility] HermannSPECIAL FLOUWRUAU3896-90-90 04:38:005.9[facility] OenxfdwPDIXUUOAMY7834-93-76 04:38:00 <3[facility] OvxykvcWJOGUEQLJY9774-70-46 04:38:00<0.003[facility] HermannBODY TDMEWU8693-97-18 20:50:00See Note 1, 2(09/29/15 2:50 PM)[facility]annBODY UZCYMS8016-07-25 20:50:00Synovial (09/29/15 2:50 PM)[facility]annB[facility] FLUIDS 2015-09-29 20:50:00Synovial *NA*(09/29/15 2:50 PM)[facility]annBODY FLUIDS 2015-09-29 20:50:008.6[facility] HermannBODY NSBZCM1465-06-57 20:50:00Yellow (09/29/15 2:50 PM)[facility] HermannBODY EIDCAN4199-53-27 20:50:44598Ktwpyycf HermannBODY XEGOJA6647-99-68 20:50:9051569Dubkjgfs HermannBODY SEGHMD6349-73-82 20:50:00Yellow *ABN*(09/29/15 2:50 PM)[facility]annBODY AJBXYW9227-54-47 20:50:00Moderate Cloudy *ABN*(09/29/15 2:50 PM)[facility]annBODY FLUIDS 2015-09-29 20:50:00Synovial (09/29/15 2:50 PM)[facility]annB[facility] FLUIDS 2015-09-29 20:50:0010[facility] HermannBODY YTAASL4350-90-53 20:50:0090[facility] HermannBODY ZJJPBX2371-26-89 20:50:00Synovial *NA*(09/29/15 2:50 PM)[facility]annBODY HGXJNI7201-18-94 20:50:004[facility] HermannBODY CNAPER4693-02-06 20:50:006.1[facility] HermannBODY CDUJKV4047-54-42 20:50:00Synovial *NA*(09/29/15 2:50 PM)[facility] EokoqwsZQMSUWXBRO8701-02-52 19:09:0035[facility] ZUXISNMMYM0062-98-41 19:09:0016.8[facility] EeaaoaqVSFGDEWKPD5580-61-22 19:09:00 23.6[facility] AswilabZWMDEAXJAF2284-13-00 19:09:00 Test Item Value Reference Range Interpretation Comments MCH (test code = MCH) 30.4 pg 27.0-31.0 [facility] FaojgbcGSRCAUPOML5163-02-00 19:09:0090.1[facility] HermannHEMATOLOGY 2015-09-29 19:09:0049.8[facility] OtqbuotLLMAXVAZKR1551-48-97 19:09:007.7[facility] HhrgfxbMFFCUDQXSE2895-11-30 19:09:08138Shbztvcc XwwaftxJQPTAGYYCA7511-31-86 19:09:005.53[facility] JpfjxlwBQXLMUFNOI4940-90-72 19:09:0013.5[facility] QICXJGVPUR7569-46-14 19:09:0033.7[facility] XnajkitKJYMKNLJHH9944-34-27 19:09:00 1.9[facility] FfuugbxKMKSFDRDFJ7122-64-18 19:09:000.1[facility] HermannHEMATOLOGY 2015-09-29 19:09:002.5[facility] CvrpajmIBMUEIZCMO3436-77-34 19:09:0019.0[facility] DihfsamDCNTFBHVET3355-23-33 19:09:0010.6[facility] PanbbpiJTVVNVNXSU1258-29-55 19:09:008.2[facility] OniurhxPFITHEKAHS2972-87-23 19:09:000.4[facility] EJHSCWVVZV3534-22-96 19:09:0080.8[facility] VlbyqsoDRFCUPSMKR0741-87-91 19:09:00 253.0[facility]
[2020-10-24 23:45] LABS: Absolute Lymphocytes (CBC) 4.8 K/uL (0.7-4.9); Basophils % 0.9 % (0-1.3); Hematocrit 47.8 % (39.6-49.0); Lymphocytes % 46.5 % (15.3-44.8); MPV 9.2 fL (7.6-11.3)
[2020-10-24 23:56] LABS: ALT/SGPT 49 U/L (12-78); AST/SGOT 30 U/L (15-37); Alkaline Phosphatase 77 U/L (45-117); BUN Blood Urea Nitrogen 9 mg/dL (7-18); Bicarbonate 27 mmol/L (21-32); Bilirubin Direct < 0.1 mg/dL (0-0.2); Bilirubin Total 0.3 mg/dL (0.2-1.0); Glucose Level 385 mg/dL (74-106); Lipase 38 U/L (73-393); Sodium Level 137 mmol/L (136-145)
[2020-10-25] MEDS ORDERED: INSULIN -REGULAR HUMAN 50 UNIT/0.5 ML ML ONE (00:59)
[2020-10-25] MEDS ORDERED: NA CHLORIDE 0.9% 2,000 ML ONE (00:59)
--- NOTE | 2020-10-25 02:20 | EDPHYS ---
Physician Documentation [facility] Name: Micah Inman Age: 35 yrs Sex: Male : 1985 Arrival Date: 10/24/2020 Time: 23:17 Bed 7 Private MD: ED Physician Neymar Wells HPI: 10/24 23:23 This 35 yrs old Male presents to ER via EMS with complaints of Hyperglycemia. cp 23:23 The patient or guardian reports hyperglycemia, that was potentially precipitated by no cp particular event. Onset: The symptoms/episode began/occurred today. Patient brought to ED via EMS for elevated blood glucose and accompanied by law enforcement. Patient was pulled over by law enforcement for suspected alcohol intoxication. EMS was called and patient was found to have elevated blood glucose. Historical: - Allergies: 10/25 00:25 No Known Allergies; sg - PMHx: 10/24 23:23 Pancreatitis; Hypertension; Anxiety; ea - PSHx: 23:23 right knee; ea - Immunization history:: Adult Immunizations up to date. - Social history:: Smoking status: Patient denies any tobacco usage or history of. ROS: 23:25 Eyes: Negative for injury, pain, redness, and discharge. cp 23:25 Constitutional: Negative for body aches, chills, fever, poor PO intake. 23:25 Cardiovascular: Negative for chest pain. 23:25 Respiratory: Negative for cough, shortness of breath, wheezing. 23:25 Abdomen/GI: Negative for abdominal pain, nausea, vomiting, and diarrhea. 23:25 Neuro: Negative for altered mental status, headache, weakness. 23:25 All other systems are negative. Exam: 23:26 Head/Face: Normocephalic, atraumatic. cp 23:26 Constitutional: The patient appears in no acute distress, alert, awake, non-diaphoretic, non-toxic, well developed, well nourished. 23:26 Eyes: Pupils: equal, round, and reactive to light and accomodation, Conjunctiva: normal, no exudate, no injection, Sclera: no appreciated abnormality, Lids and lashes: appear normal, bilaterally. 23:26 ENT: External ear(s): are unremarkable, Nose: is normal, Mouth: Lips: moist, Oral mucosa: moist, Posterior pharynx: Airway: no evidence of obstruction, patent. 23:26 Neck: ROM/movement: is normal, is supple, without pain, no range of motions limitations. 23:26 Chest/axilla: Inspection: normal, Palpation: is normal, no crepitus, no tenderness. 23:26 Cardiovascular: Rate: normal, Rhythm: regular. 23:26 Respiratory: the patient does not display signs of respiratory distress, Respirations: normal, no use of accessory muscles, no retractions, labored breathing, is not present, Breath sounds: are clear throughout, no decreased breath sounds. 23:26 Abdomen/GI: Inspection: abdomen appears normal, Palpation: abdomen is soft and non-tender, in all quadrants. 23:26 Neuro: Orientation: to person, place, situation, Mentation: able to follow commands, slow to respond, Motor: moves all fours, strength is normal. 23:33 ECG was reviewed by the Attending Physician. Vital Signs: 23:17 BP 154 / 103; Pulse 91; Resp 18; Temp 98.1; Pulse Ox 96% ; Weight 106.59 kg; Height 6 ea ft. (182.88 cm); 10/25 01:30 BP 150 / 77; Pulse 87; Resp 18; Pulse Ox 99% ; ea 02:27 BP 145 / 77; Pulse 80; Resp 18; Temp 98.0; Pulse Ox 99% ; ea 10/24 23:17 Body Mass Index 31.87 (106.59 kg, 182.88 cm) ea MDM: 10/24 23:20 Patient medically screened. 10/25 02:18 Differential diagnosis: hyperglycemia, hypoglycemic episode, new onset diabetes. Data ma2 reviewed: vital signs, nurses notes. Counseling: I had a detailed discussion with the patient and/or guardian regarding: the historical points, exam findings, and any diagnostic results supporting the discharge/admit diagnosis, the presence of at least one elevated blood pressure reading (>120/80) during this emergency department visit, the need for outpatient follow up. Response to treatment: the patient's symptoms have markedly improved after treatment. 10/24 23:19 Order name: Basic Metabolic Panel 10/24 23:19 Order name: CBC with Diff; Complete Time: 00:25 10/25 00:25 Interpretation: Normal except: LYM% 46.5. 10/24 23:19 Order name: Hepatic Function; Complete Time: 00:25 cp 10/25 00:32 Interpretation: Normal except: GLOB 4.0; A/G 1.0. cp 10/24 23:19 Order name: Lipase; Complete Time: 00:25 cp 10/24 23:19 Order name: Ketone, Serum; Complete Time: 00:25 cp 10/24 23:19 Order name: ETOH Level; Complete Time: 00:25 cp 10/25 00:30 Interpretation: Abnormal: ETOH 298. cp 10/24 23:20 Order name: Basic Metabolic Panel; Complete Time: 00:25 EDMS 10/25 00:32 Interpretation: Normal except: GLUC 385. cp 10/24 23:44 Order name: Glucose, Ancillary Testing; Complete Time: 00:25 EDMS 10/25 00:33 Interpretation: Abnormal: GLUC,ANCIL 372. cp 10/25 00:42 Order name: Legal Draw EDDC 10/25 01:47 Order name: Glucose, Ancillary Testing; Complete Time: 02:18 EDMS 10/24 23:19 Order name: IV Saline Lock; Complete Time: 23:54 cp 10/24 23:19 Order name: Labs collected and sent; Complete Time: 23:54 cp 10/24 23:19 Order name: Accucheck Blood Glucose; Complete Time: 23:54 cp 10/24 23:19 Order name: EKG; Complete Time: 23:20 cp 10/24 23:19 Order name: EKG - Nurse/Tech; Complete Time: 23:33 cp EC/25 23:33 Rate is 91 beats/min. Rhythm is regular. MT interval is normal. QRS interval is normal. cp QT interval is normal. T waves are Inverted in lead aVR. Interpreted by me. Reviewed by me. Administered Medications: 23:21 Drug: NS 0.9% 1000 ml {Note: administered by EMS, continues to infuse.} Route: IV; sg Rate: 1 bolus; Site: right antecubital; 10/25 00:45 Drug: NovoLIN R 10 units {Co-Signature: kanika (Izzy Milan RN).} Route: Sub-Q; Site: ea right lower abdomen; 01:35 Follow up: Response: No adverse reaction 00:45 Drug: NS 0.9% 1000 ml Route: IV; Rate: 1 bolus; Site: right antecubital; ea 01:35 Drug: NS 0.9% 1000 ml Route: IV; Rate: 1 bolus; Site: right antecubital; ea Point of Care Testing: Blood Glucose: 01:36 Blood Glucose: 299 mg/dL; ea Ranges: Critical Glucose Levels:Adult <50 mg/dl or >400 mg/dl <40 mg/dl or >180 mg/dl Disposition: 02:19 Co-signature as Attending Physician, Neymar Wells MD. ma2 Disposition: 10/25/20 02:19 Discharged to Home. Impression: Diabetes mellitus due to underlying condition with hyperglycemia. - Condition is Stable. - Discharge Instructions: Complementary and Alternative Medical Therapies for Diabetes, Form - Daily Diabetes Record, Blood Glucose Monitoring, Adult. - Medication Reconciliation Form, Thank You Letter, Antibiotic Education, Prescription Opioid Use form. - Follow up: Private Physician; When: Tomorrow; Reason: If symptoms return, Continuance of care. Signatures: Dispatcher [employer] EDKobi Saeed RN RN sg Page, Corey, PA PA cp Antunez, Elena, RN RN ea Alzahri, Mohammad, MD MD ma2 Izzy Milan RN bb Corrections: (The following items were deleted from the chart) 02:27 02:19 10/25/2020 02:19 Discharged to Home. Impression: Diabetes mellitus due to ea underlying condition with hyperglycemia. Condition is Stable. Forms are Medication Reconciliation Form, Thank You Letter, Antibiotic Education, Prescription Opioid Use. Follow up: Private Physician; When: Tomorrow; Reason: If symptoms return, Continuance of care. ma2
--- NOTE | 2020-10-25 02:20 | ER ---
Nurse's Notes [facility] Name: Micah Inman Age: 35 yrs Sex: Male : 1985 Arrival Date: 10/24/2020 Time: 23:17 Bed 7 Private MD: Diagnosis: Diabetes mellitus due to underlying condition with hyperglycemia Presentation: 10/24 23:17 Chief complaint: EMS states: PD called pt complaining of having an elevated blood ea sugar. + ETOH, BGL 340 history of diabetes. Coronavirus screen: At this time, the client does not indicate any symptoms associated with coronavirus-19. Ebola Screen: No symptoms or risks identified at this time. Initial Sepsis Screen: Does the patient meet any 2 criteria? No. Patient's initial sepsis screen is negative. Does the patient have a suspected source of infection? No. Patient's initial sepsis screen is negative. Risk Assessment: Do you want to hurt yourself or someone else? Patient reports no desire to harm self or others. Onset of symptoms. 23:17 Method Of Arrival: EMS: [facility] ea 23:17 Acuity: FUENTES 3 ea Historical: - Allergies: 10/25 00:25 No Known Allergies; sg - PMHx: 10/24 23:23 Pancreatitis; Hypertension; Anxiety; ea - PSHx: 23:23 right knee; ea - Immunization history:: Adult Immunizations up to date. - Social history:: Smoking status: Patient denies any tobacco usage or history of. Screenin:22 Abuse screen: Denies threats or abuse. Nutritional screening: No deficits noted. ea Tuberculosis screening: No symptoms or risk factors identified. Fall Risk None identified. Assessment: 23:12 Reassessment: pt reports needing to urinate, pt provided with a urinal. pt states he sg attempted to pee but was not able to at this time. 23:24 General: Appears in no apparent distress. Behavior is calm, cooperative, appropriate ea for age. Pain: Denies pain. Neuro: Level of Consciousness is awake, alert, obeys commands, Oriented to person, place, time. Cardiovascular: Patient's skin is warm and dry. Respiratory: Airway is patent Respiratory effort is even, unlabored, Respiratory pattern is regular, symmetrical. Derm: Skin is pink, warm \T\ dry. 10/25 00:18 Reassessment: pt reports needing to urinate, pt provided with a urinal at this time. sg 01:00 Reassessment: Patient and/or family updated on plan of care and expected duration. Pain ea level reassessed. Patient is alert, oriented x 3, equal unlabored respirations, skin warm/dry/pink. 02:25 Reassessment: Patient and/or family updated on plan of care and expected duration. Pain ea level reassessed. Patient is alert, oriented x 3, equal unlabored respirations, skin warm/dry/pink. Discharge instruction given to patient verbalized the understanding of instruction. Pt left ED ambulatory accompanied by PD. Vital Signs: 10/24 23:17 BP 154 / 103; Pulse 91; Resp 18; Temp 98.1; Pulse Ox 96% ; Weight 106.59 kg; Height 6 ea ft. (182.88 cm); 10/25 01:30 BP 150 / 77; Pulse 87; Resp 18; Pulse Ox 99% ; ea 02:27 BP 145 / 77; Pulse 80; Resp 18; Temp 98.0; Pulse Ox 99% ; ea 10/24 23:17 Body Mass Index 31.87 (106.59 kg, 182.88 cm) ea ED Course: 10/24 23:17 Patient arrived in ED. ea 23:18 Juanito Grande PA is PHCP. cp 23:18 Neymar Wells MD is Attending Physician. cp 23:22 Triage completed. ea 23:22 Arm band placed on right wrist. Patient placed in an exam room, on a stretcher, on ea pulse oximetry. 23:23 Patient has correct armband on for positive identification. Placed in gown. Bed in low ea position. Side rails up X2. 23:23 Initial lab(s) drawn, by me, sent to lab. Maintain EMS IV. Dressing intact. Good blood sg return noted. Site clean \T\ dry. Gauge \T\ site: 20 G RAC. 10/25 00:19 Kobi Dunn, RN is Primary Nurse. sg 00:39 Kaleigh Temple, COSMO is Primary Nurse. ea 02:26 No provider procedures requiring assistance completed. IV discontinued, intact, ea bleeding controlled, No redness/swelling at site. Pressure dressing applied. Administered Medications: 10/24 23:21 Drug: NS 0.9% 1000 ml {Note: administered by EMS, continues to infuse.} Route: IV; sg Rate: 1 bolus; Site: right antecubital; 10/25 00:45 Drug: NovoLIN R 10 units {Co-Signature: kanika (Izzy Milan RN).} Route: Sub-Q; Site: ea right lower abdomen; 01:35 Follow up: Response: No adverse reaction ea 00:45 Drug: NS 0.9% 1000 ml Route: IV; Rate: 1 bolus; Site: right antecubital; ea 01:35 Drug: NS 0.9% 1000 ml Route: IV; Rate: 1 bolus; Site: right antecubital; ea Point of Care Testing: Blood Glucose: 01:36 Blood Glucose: 299 mg/dL; ea Ranges: Outcome: 02:19 Discharge ordered by MD. plummer 02:26 Discharged to Law Enforcement ea 02:26 Condition: stable 02:26 Discharge instructions given to patient, Instructed on discharge instructions, follow up and referral plans. Demonstrated understanding of instructions, follow-up care. 02:27 Patient left the ED. ea Signatures: Kobi Dunn, RN RN Juanito Angel PA PA cp Antunez, Elena RN RN Neymar Shipley MD MD ma2 Brenda Ballard RN bb
[2020-10-25 04:56] VITALS: O2SAT 99
[2020-10-25 04:58] VITALS: BP 145/77; TEMP 98
--- NOTE | 2020-10-25 15:02 | EKG ---
Test Date: 2020-10-24 Test Time: 23:28:12 Software Database Architect: ANTHONY MEASUREMENT RESULTS: Intervals: Rate: 91 OR: 148 QRSD: 92 QT: 356 QTc: 437 Sebastian: P: 57 OR: 148 QRS: 17 T: 34 INTERPRETIVE STATEMENTS: Normal sinus rhythm Normal ECG Compared to ECG 12/16/2017 09:08:03 Sinus tachycardia no longer present Electronically Signed On 10-25-20 15:01:49 CDT by Prudencio Ignacio
== END 2020-10-25 02:27 | disposition home or self-care (01) ==
LOC: ER 23:15
DX: E11.65 Type 2 diabetes mellitus with hyperglycemia (principal); I10 Essential (primary) hypertension; F41.9 Anxiety disorder, unspecified
CPT/HCPCS: 93005; 85025; 80048; 36415 ×2; 80320; 82010; 82947 ×2; 80076; 83690; 96372; 99284; J7030

== ENCOUNTER 2021-02-19 00:08 | Emergency (ER) | payer BC ==
--- OUTSIDE RECORDS SUMMARY | 2021-02-19 00:18 | XMS REPORT | Continuity of Care Document ---
:1985 Author Organization [facility] t Address [address] [place] [address] Care Team Providers Name Role Phone Lab, [...] 2016-11-23 Memoria IS 4-13 21:54:00 l 00:00: [place] PANCREATIT 00 IS Active 7 [facility] RIGHT LEG Diagnosis Active 2015-12-24 Memoria SWELLING 5-24 15:09:00 l RIGHT 00:00: [place] LEG 00 SWELLING Active 12/24/2015 [facility] [place] SWOLLEN Diagnosis Active 2015-09-29 Me moria FOOT 2-28 13:25:00 l SWOLLEN 00:00: [place] FOOT 00 Active 09/29/2015 [facility] Gout Problem Resolve 2016-11-18 Arun ronn (disorder) d 00:11:47 l Gout [place] (disorder) Resolved Problem 11/18/2016 [facility], [facility] ILLNESS, Diagnosis Active 2016-10-27 M emoria UNSPECIFIE 23:08:00 l D ILLNESS, Castro n UNSPECIFIE D Active [facility] Hypertensi Problem Resolve 2016-11-18 2016-11-18 Memoria ve d 08-02 00:11:47 00:11:47 l disorder, 00:00: [place] systemic Hypertensi 00 arterial ve (disorder) disorder, systemic arterial (disorder) Resolved 08/02/2012 Problem 11/18/2016 [facility] History of Past Illness Condition Condition Condition [...] Quantity Comments Source Social History 2016-11-12 2016-11-12 [facility] boy 08:55:10 08:55:10 Smoking Status Start Date Stop Date Source Social History [facility] Medications Ordered Filled Start Stop Current Ordering [...] 10 MG Oral given to Tablet patient [[place] 10/325] Colchicine Yes See Memoria 0.6 MG [...] 4 days. Arun ronn 4-15 l 11:29: [place] pregabalin No Notes: Memor ia 4-14 (Same as: l 21:00: Lyrica) Dilaudid No Notes: Memoria 4-14 Same as: l 16:15: Dilaudid [place] oxyCODONE 5 No 5 mg = 1 Me moria mg oral 4-14 cap, PO, l capsule 15:44: Q6H, PRN Csatro n 00 Pain, 0 Refill(s) Acetaminoph No Notes: Do M emoria en 325 MG / 4-14 not exceed l Hydrocodone 14:00: 4gm/day of [place] Bitartrate 00 acetaminop 10 MG Oral hen. Tablet (Same as: [[place] 10/325] 325/10) Dilaudid No Notes: Memoria 4-14 [...] l 14:00: Zyloprim) Amylases No Notes: Memoria 63537 UNT / 4-13 (lipase l Endopeptida 13:00: 6,000 [place] [address] 00 units, UNT / protease Lipase 6000 19,000 UNT Enteric units, Coated amylase Capsule 30,000 [Creon 6] units DRC) Same as: Creon (Creon 6) Protonix No Notes: Memoria 4-13 Tablet l 12:30: should not [place] 00 be chewed or crushed. (Same as: Protonix) Sucralfate No Notes: May M emoria 100 MG/ML 4-13 interfere l Oral 11:00: w/enteral [place] Suspension 00 feeds - [Carafate] Take 1 [...] Memoria 4-13 (Same as: l 10:00: Lovenox) [place] 00 Oxycodone No Notes: Memori a Hydrochlori -13 (Same as: l de 5 MG 09:35: Roxicodone Herm crystal Oral Tablet 00 ) Simethicone No Notes: Arun ronn 4-13 (Same as: l 09:34: Mylicon) [place] 00 Saline No Notes: Memoria Flush 0.9% - preservati l 09:31: ve free. [place] Ondansetron No Notes: Arun ronn 4-13 (Same as: l 09:31: Zofran) [place] MEDICATION WASTE Product Size: 4 mg Product Wasted: ___ mg Acetaminoph No Notes: Do M emoria en 4-13 not exceed l 09:31: 4 gm/day. [place] 00 (Same as: Tylenol) Sodium No 1,000 mL, Memori a Chloride 4-13 Rate: 125 l 0.154 09:31: ml/hr, [place] MEQ/ML 00 Infuse Injectable over: 8 Solution hr, Route: IV, Dosing Weight 102.869 kg, Total Volume: 1,000, Start date: 11/12/16 4:31:00 CDT, Duration: 30 day, Stop date: 05/13/17 4:30:00 CDT Dilaudid No Notes: Memoria 4-13 Same as: l 09:30: Dilaudid [place] 00 Sucralfate Yes 1 gm = 10 Me moria 100 MG/ML 3-30 ml, PO, l Oral 20:31: Q6H, # 560 [place] Suspension 00 mL, 0 [Carafate] Refill(s) omeprazole Yes 40 mg = 1 Me moria 40 mg oral 3-30 cap, PO, l delayed 20:31: Daily, # Castro n release 00 90 cap, 0 capsule Refill(s) acetaminoph No 1,000 mg = Memoria en 500 mg 3-30 2 tab, PO, l oral tablet 20:04: Q6H, # 100 [place] 00 tab, 0 Refill(s) gabapentin Yes 300 [...] Amylases Yes 1 cap, PO, Mem oria 85286 UNT / 3-30 TID-Meals, l Endopeptida 20:04: [place] [address] 00 UNT / Lipase 6000 , # 120 UNT Enteric cap, 0 Coated Refill(s) Capsule [Creon 6] lisinopril Yes 20 mg = 1 Me moria 20 mg oral 3-30 tab, PO, l tablet 20:04: Daily, # [place] 00 90 tab, 0 Refill(s) Fenofibrate Yes 145 mg = 1 Memoria 145 MG Oral 3-30 tab, PO, l Tablet 20:04: Dinner, # Castro n 00 90 tab, 0 Refill(s) allopurinol Yes 300 mg = 1 Memoria 300 mg oral 3-30 tab, PO, l tablet 20:04: Daily, # [place] 00 90 tab, 0 Refill(s) Dilaudid No Notes: Memoria 3-30 Same as: l 14:04: Dilaudid [place] 00 pregabalin No Notes: Memor ia - (Same as: l 19:00: Lyrica) [place] 00 Tramadol No Notes: Not Mem oria 10-28 to exceed l 17:00: 400mg/day. Preston 00 (Same As: Ultram) Tylenol No Notes: Max Arun ronn 10-28 acetaminop l 17:00: hen 4000 Preston 00 mg/day (4 gm/day). (Same as: Tylenol Extra Strength) Oxycodone No Notes: Memori a Hydrochlori 10-28 (Same as: l de 5 MG 17:00: Roxicodone Herm crystal Oral Tablet 00 ) meropenem No Notes: Memori a 10-28 Same as l 15:00: Merrem [place] 00 MEDICATION WASTE Product Size: 500 mg Product Wasted: ___ mg Dilaudid No Notes: Memoria 3 Same as: l 14:37: Dilaudid [place] 00 Oxycodone No Notes: Memori a Hydrochlori 10-28 (Same as: l de 5 MG 14:35: Roxicodone Herm crystal Oral Tablet 00 ) ibuprofen No Notes: Memori a 100 mg/5 mL 10-26 (Same as: l oral 22:00: Motrin [place] suspension 00 Children's , Advil Children's ) Take with food. Zyloprim No Notes: Memoria 10-26 Allopurino l 21:30: l oral [place] 00 susp. Refrigerat e/shake well. Compound ed [...] Memori a 10-26 Route: l 13:14: IVP, [place] 00 Q2MIN, Dosing Weight 105.085, kg, PRN Narcotic Reversal, Start date: 10/26/16 8:14:00 CDT, Duration: 8 doses or times, Stop date: Limited # of times Hydromorpho No 0.5 mg, Mem oria ne 10-26 Route: l 13:14: IVP, Preston 00 Q5Min, Dosing Weight 105.085, kg, PRN Pain Score 7-10, Start date: 10/26/16 8:14:00 CDT, Duration: 4 doses or times, Stop date: Limited # of times Morphine No 2 mg, Memoria 10-26 Route: l 13:14: IVP, [place] 00 Q5Min, Dosing Weight 105.085, kg, PRN Pain Score 4-6, Start date: 10/26/16 8:14:00 CDT, Duration: 5 doses or times, Stop date: Limited # of times Hydralazine No 10 mg, Arun ronn 10-26 Route: l 13:14: IVP, [place] 00 Q20Min, Dosing Weight 105.085, kg, PRN Elevated BP, Start date: 10/26/16 8:14:00 CDT, Duration: 2 doses or times, Stop date: Limited # of times Labetalol No 10 mg, Memori a 10-26 Route: l 13:14: IVP, [place] 00 Q5Min, Dosing Weight 105.085, kg, PRN Elevated BP, Start date: 10/26/16 8:14:00 CDT, Duration: 5 doses or times, Stop date: Limited # of times Dilaudid No Notes: Memoria 10-25 Same as: l 15:22: Dilaudid [place] Dilaudid No Notes: Memoria 10-24 (Same as: l 20:00: Dilaudid) [place] Dilaudid No Notes: Memoria 3 Same as: l 15:44: Dilaudid [place] 00 Dilaudid No Notes: Memoria 10-24 Same as: l 02:00: Dilaudid [place] Amylases No Notes: Memoria 23621 UNT / 3-24 (lipase l Endopeptida 22:00: 6,000 [place] [address] 00 units, UNT / protease Lipase 6000 19,000 UNT Enteric units, Coated amylase Capsule 30,000 [Creon 6] units DRC) Same as: Creon (Creon 6) Dilaudid No Notes: Memoria 3-24 (Same as: l 20:42: Dilaudid) [place] Tramadol No Notes: Not Mem oria 3-24 to exceed l 20:31: 400mg/day. [place] (Same As: Ultram) pregabalin No Notes: Memor ia 10-23 Same as l 19:00: Lyrica [place] Dilaudid No Notes: Memoria 3-24 Same as: l 18:47: Dilaudid [place] 00 Melatonin 3 No Notes: Arun ronn MG Extended 10-23 (Same as: l Release 01:44: Melatonin) Herm crystal Tablet Dilaudid No Notes: Memoria 3-23 (Same as: l 23:39: Dilaudid) [place] 00 meropenem No Notes: Memori a 3- Same as l 22:00: Merrem [place] 00 MEDICATION WASTE Product Size: 500 mg Product Wasted: ___ mg Tramadol No Notes: Not Mem oria - to exceed l 13:23: 400mg/day. Preston 00 (Same As: Ultram) Iohexol No 60 mL, Memoria 10-22 Route: l 13:16: IVP, Drug Form: SOLN, Dosing Weight 105.085, kg, ONCALL, STAT, Start date: 10/22/16 8:16:00 CDT, Duration: 1 doses or times, Dose = 2.2ml/kg, Max dose = 100ml -- "To be infused by Radiology Staff ONLY" Ibuprofen No Notes: Memori a 400 MG Oral -22 (Same as: l Tablet 23:00: Motrin [place] 00 Children's , Advil Children's ) Take with food. Dilaudid No Notes: Memoria 3-22 Same as: l 19:23: Dilaudid [place] 00 Acetaminoph No Notes: Arun ronn en 325 MG / - (Same as: l Hydrocodone 19:09: [place] Desiree nn Bitartrate 00 325/5) Do 5 MG Oral not exceed Tablet 4gm/day of [[place] acetaminop 5/325] hen. sodium No 1,000 mL, [...] moria - tab, l 16:13: Route: PO, Preston 00 Drug form: TAB, ONCE, Dosing Weight 105.085, kg, Start date: 10/20/16 11:13:00 CDT, Stop date: 10/20/16 11:13:00 CDT Tramadol No Notes: Not Mem oria - to exceed l 14:16: 400mg/day. Preston (Same As: Ultram) Acetaminoph No Notes: Arun ronn en 325 MG / 10-20 (Same as: l Hydrocodone 14:16: [place] Desiree nn Bitartrate 00 325/5) Do 5 MG Oral not exceed Tablet 4gm/day of [[place] acetaminop 5/325] hen. potassium No 10 mEq, [...] e 3-20 (Same as: l 14:00: Calmosepti Preston 00 ne) Insulin No 60 Memoria regular 3-20 units) l 00:03: WASTE: F/P [place] - Black; E - Municipal Trash Bin Stable for 28 days at room temperatur e Expires in days from ____Date Glucagon No 1 mg, Memoria 3-20 Route: IM, l 00:03: Drug form: [place] PDR/INJ, PRN, Dosing Weight 105.085, kg, PRN [...] Memoria 3-18 (Same as: l 13:55: Ativan) Preston 00 Versed No 1 mg, Memoria 18 Route: l 09:25: IVP, ONCE, Preston 00 Dosing Weight 105.085, kg, Start date: 10/17/16 4:25:00 CDT, Stop date: 10/17/16 4:25:00 CDT Dexmedetomi 2016- No 24 hours M emoria dine 3-18 l 05:50: Preston 00 ketAMINE 2016-0 No 245 mL, Memori [...] 22:00: Senokot-S) [place] sennosides, 00 Equiv. to PENITENTIARY 8.6 MG Tala-Colac Oral Tablet e. Thiamine [...] / 14:45: Senokot-S) sennosides, 00 Equiv. to PENITENTIARY 8.6 MG Tala-Colac Oral Tablet e. Miralax [...] n 3-16 (Same As: l 02:00: Lipitor) Preston 00 Hydromorpho No Notes: Arun ronn ne 3-16 (Same as: l 01:30: Dilaudid) conc = 0.5 mg/ml Hydromorph one VOLUNTEER COORDINATOR Dose: ;Delay: ;Basal: Naloxone No Notes: Memoria 3-16 Same as l 01:30: Narcan [place] 00 Calcium No Notes: Memoria Gluconate 3-16 WASTE: F/P l 00:38: - Sink; E [place] 00 - Municipal Trash Bin Simethicone No Notes: Arun ronn 3-16 (Same as: l 00:26: Mylicon, Preston 00 Phazyme, Genasyme) D10W 961.5 No 961.5 mL, Me moria mL + sodium 3-15 Rate: 250 l chloride 21:51: ml/hr, Hip[place] 154 mEq 00 Infuse over: 4 hr, [...] Chloride 3-15 ONCE, l 0.154 20:39: Dosing Preston MEQ/ML 00 Weight Injectable 105.085 Solution kg, [...] mL 3-15 Rate: 250 l 14:12: ml/hr, Preston 00 Infuse over: 4 hr, Route: IV, Dosing Weight 105.085 kg, Total Volume: 1,000, Start date: 10/14/16 9:12:00 CDT, Duration: 30 day, Stop date: 11/13/16 9:11:00 CDT Dextrose 2017-0 No 12.5 gm, Memor ia 50% Syringe 3-15 25 mL, l 14:10: Route: [place] 00 IVP, Drug Form: INJ, [...] Memoria 3-15 Dose: 1 mg l 10:00: [place] 00 Delay: 10 min Basal rate: 0 [...] Memoria Sulfate 3-15 (Same l 04:27: as:MORPhin [place] 00 e Sulfate) Morphine No Notes: Memoria 3-15 (Same l 04:19: as:MORPhin [place] e Sulfate) Morphine No Notes: Memoria 3-15 Loading l 04:00: Dose: 2 Preston 00 mg Dose: 1 mg Delay: 10 min Basal rate: 0 4hr limit: 30 mg (Same as:Amairani ct) Lorazepam No Notes: Memori a 3-15 (Same as: l 03:59: Ativan) Zofran No Notes: Memoria 3-15 (Same as: l 03:57: Zofran) [place] 00 MEDICATION WASTE Product Size: 4 mg Product Wasted: 0 mg Naloxone 2017 No Notes: Memoria 3-15 Same as l 03:47: Narcan [place] 00 Calcium 2017-0 No 1,000 mL, Memor ia Chloride 3-15 1,000 l 0.0014 03:44: ml/hr, Preston MEQ/ML / 00 Infuse Potassium Over: 1 [...] Rate: 200 l 1,000 mL 03:44: ml/hr, Preston 00 Infuse over: 5 hr, Route: IV, [...] 3-15 15 mL, l sodium 03:37: Route: Preston chloride 00 IVPB, PRN, 0.9% INJ Dosing 250 mL Weight 104.545, kg, PRN Abnormal Lab Result, Start date: 10/13/16 22:37:00 CDT, Duration: 30 day, Stop date: 11/12/16 22:36:00 CDT, FOR ICU USE ONLY Calcium No Notes: Memoria Gluconate 3-15 WASTE: F/P l 03:37: - Sink; E - Municipal Trash Bin Magnesium No Notes: Memori a Oxide 3-15 (Same as: l 03:37: Mag-Ox Preston 400) Magnesium oxide 198ht=979p g elemental magnesium Dose=____m g magnesium oxide (___mg elemental magnesium) Magnesium No Notes: Memori a Sulfate 3-15 WASTE: F/P l 03:37: - Sink; E [place] 00 - Municipal Trash Bin potassium No Notes: Memori a phosphate-s 3-15 (Same as: l odium 03:37: Phos-NaK) Preston phosphate 00 Each 1.5 250 mg-280 gm pkt has mg-160 mg 250mg oral powder phosphorou for s. Mix reconstitut w/2.5oz ion water and stir. potassium No Notes: Memori a chloride 3-15 (Same as: l 03:37: KCL) Preston Infuse over 2 hours. Saline No Notes: Memoria Flush 0.9% 3-15 (Same as: l 03:37: BD [place] Posiflush) Nystatin No Notes: Memoria 100 UNT/MG 3-15 (Same l Topical 03:37: as:Mycosta Herm crystal Powder 00 tin, Nilstat) For external use only. Ibuprofen Yes 800 mg = 1 Me moria 800 MG Oral 5-24 tab, PO, l Tablet 22:06: Q8H, PRN Preston [Motrin] 00 Pain, Take with food, # 30 tab, 0 Refill(s) {21 Yes See Memoria (Methylpred 5-24 Instructio l nisolone 4 22:06: ns, PO, Herm crystal MG Oral 00 Take by Tablet mouth as [Medrol]) } directed Pack on label., [Medrol X 6 day, # Dosepak] 1 Pack, 0 Refill(s) Dilaudid No Notes: Memoria 5-24 Same as: l 21:10: Dilaudid [place] Acetaminoph No Notes: Arun ronn en 325 MG / 5-24 (Same as: l Hydrocodone 19:39: [place] Desiree nn Bitartrate 00 325/5) Do 5 MG Oral not exceed Tablet 4gm/day of [[place] acetaminop 5/325] hen. Ketorolac 0 No 4 [...] PO, l oral 22:26: TID, X 10 [place] capsule 00 day, # 30 cap, 0 Refill(s) Dilaudid No 0.5 mg, Memori a 09-29 Route: IV, l 22:09: ONCE, Preston Dosing Weight 106.818, kg, Start date: 09/29/15 [...] Notes: Memoria 09-29 (Same l 18:52: as:MORPhin [place] e Sulfate) Vital Signs Vital Name Observation Time Observation Value Comments Source Systolic (mm Hg) 2016-11-15 17:02:00 Arun rial [place] Diastolic (mm Hg) 2016-11-15 17:02:00 Mem orial [place] Temperature Oral (F) 2016-11-15 17:02:00 97.6 F [facility] [place] Heart Rate 2016-11-15 17:02:00 [facility] [place] Respitory Rate 2016-11-15 17:02:00 Memori al [place] Systolic (mm Hg) 2016-11-15 13:00:00 Arun rial [place] Diastolic (mm Hg) 2016-11-15 13:00:00 Mem orial [place] Respitory Rate 2016-11-15 13:00:00 Memori al [place] Heart Rate 2016-11-15 13:00:00 [facility] [place] Temperature Oral (F) 2016-11-15 13:00:00 97.4 F [facility] [place] Heart Rate 2016-11-15 08:06:00 [facility] [place] Temperature Oral (F) 2016-11-15 08:06:00 98.1 F [facility] [place] Respitory Rate 2016-11-15 08:06:00 Memori al [place] Systolic (mm Hg) 2016-11-15 08:06:00 Arun rial [place] Diastolic (mm Hg) 2016-11-15 08:06:00 Mem orial [place] Height 2016-11-12 08:53:00 182.88 cm [facility] [place] Weight 2016-11-12 08:53:00 [facility] [place] BMI Calculated 2016-11-12 08:53:00 Memori al [place] Temperature Oral (F) 2016-10-29 21:34:00 98.3 F [facility] [place] Heart Rate 2016-10-29 21:34:00 [facility] [place] Respitory Rate 2016-10-29 21:34:00 Memori al [place] Systolic (mm Hg) 2016-10-29 21:34:00 Arun rial [place] Diastolic (mm Hg) 2016-10-29 21:34:00 Mem orial [place] Respitory Rate 2016-10-29 17:07:00 Memori al [place] Systolic (mm Hg) 2016-10-29 17:07:00 Arun rial [place] Diastolic (mm Hg) 2016-10-29 17:07:00 Mem orial [place] Heart Rate 2016-10-29 17:07:00 [facility] [place] Systolic (mm Hg) 2016-10-29 16:57:00 Arun rial [place] Diastolic (mm Hg) 2016-10-29 16:57:00 Mem orial [place] Respitory Rate 2016-10-29 16:57:00 Memori al [place] Heart Rate 2016-10-29 16:57:00 [facility] [place] Temperature Oral (F) 2016-10-29 16:57:00 98.2 F [facility] [place] Temperature Oral (F) 2016-10-29 13:09:00 98.3 F [facility] [place] Height 2016-10-14 03:43:00 182.88 cm [facility] [place] BMI Calculated 2016-10-14 03:43:00 Memori al [place] Weight 2016-10-14 03:43:00 [facility] [place] BMI Calculated 2016-10-14 03:42:00 Memori al [place] Weight 2016-10-14 03:42:00 [facility] [place] Height 2016-10-14 03:42:00 182.88 cm [facility] [place] Weight 2016-10-14 03:41:00 [facility] [place] Respitory Rate 2015-12-24 22:00:00 Memori al [place] Heart Rate 2015-12-24 22:00:00 [facility] [place] Systolic (mm Hg) 2015-12-24 22:00:00 Arun rial [place] Diastolic (mm Hg) 2015-12-24 22:00:00 Mem orial [place] Weight 2015-12-24 18:47:00 [facility] [place] Height 2015-12-24 18:47:00 182.88 cm [facility] [place] BMI Calculated 2015-12-24 18:47:00 Memori al [place] Temperature Oral (F) 2015-12-24 18:47:00 98.3 F [facility] [place] Systolic (mm Hg) 2015-12-24 18:47:00 Arun rial [place] Diastolic (mm Hg) 2015-12-24 18:47:00 Mem orial [place] Respitory Rate 2015-12-24 18:47:00 Memori al [place] Heart Rate 2015-12-24 18:47:00 [facility] [place] Respitory Rate 2015-09-29 22:42:00 Memori al [place] Systolic (mm Hg) 2015-09-29 22:42:00 Arun rial [place] Diastolic (mm Hg) 2015-09-29 22:42:00 Mem orial [place] Temperature Oral (F) 2015-09-29 22:42:00 97.9 F [facility] [place] Heart Rate 2015-09-29 22:42:00 [facility] [place] Respitory Rate 2015-09-29 21:57:00 Memori al [place] Systolic (mm Hg) 2015-09-29 21:57:00 Arun rial [place] Diastolic (mm Hg) 2015-09-29 21:57:00 Mem orial [place] Heart Rate 2015-09-29 21:57:00 [facility] [place] Temperature Oral (F) 2015-09-29 21:57:00 97.9 F [facility] [place] BMI Calculated 2015-09-29 18:34:00 Memori al [place] Weight 2015-09-29 18:34:00 [facility] [place] Height 2015-09-29 18:34:00 182.88 cm [facility] [place] Temperature Oral (F) 2015-09-29 18:32:00 98.1 F [facility] [place] Heart Rate 2015-09-29 18:32:00 [facility] [place] Systolic (mm Hg) 2015-09-29 18:32:00 Arun rial [place] Diastolic (mm Hg) 2015-09-29 18:32:00 Mem orial [place] Respitory Rate 2015-09-29 18:32:00 Memori al [place] Procedures This patient has no known procedures. Encounters Start End Encounter Admission Attending Care Care Encounter Source Date/Time Date/Time Type Type Clinicians Facility Department ID 2020-07-15 2020-07-15 Laboratory Lab, Adc [facility] [id number] 16:44:23 16:46:22 Only Fam [facility] [id number] [place] [id number] Professio [id number] nal [address] 2020-07-15 2020-07-15 Letter Doctor WM [id number] 00:00:00 00:00:00 (Out) Unassigned, GRACE [id number] [place] [facility] [id number] 2016-11-12 2016-11-15 Outpatient Cristian [facility] [id number] 03:08:00 14:30:00 Joseph Givens 2016-10-13 2016-10-29 Outpatient Stefani Jensen [facility] [id number] 22:23:00 23:30:00 Mariely Orta 2015-12-24 2015-12-24 Outpatient ZAIDA Darnell [facility] [id number] 13:41:00 17:07:00 Wm Boateng 2015-09-29 2015-09-29 Outpatient ADRIANA Pleite[place] [facility] [id number] 12:31:00 16:43:00 Christopher 00 Mejia Results [...] code = MCH) 27.6 pg 27.0-31.0 [facility] VevenbyJTKYPNABBG6149-99-37 07:08:0010.6[facility]ann[facility] FLUIDS 2016-11-14 18:29:2192095Ajeykmzv HermannBODY [id number] 18:29:56519 [facility] ESQFYW1611-11-38 18:29:00Synovial (11/14/16 1:29 PM)[facility] [id number] 18:29:00Moderate Cloudy *ABN*(11/14/16 1:29 PM) [facility] [id number] 18:29:00Light Yellow (11/14/16 1:29 PM) [facility] [id number] 18:29:00Yellow *ABN*(11/14/16 1:29 PM) [facility] [id number] 18:29:00Synovial (11/14/16 1:29 PM)[facility] [id number] 18:29:00Mono Na Urate *ABN*(11/14/16 1:29 PM) [facility]annCHEM [id number] 07:59:004.9[facility] HermannCHEM PANEL 2016-11-13 07:59:001.9[facility] HermannCHEM UUVVU7564-64-56 07:59:000.62[facility] HermannCHEM [id number] 07:59:29357Fcfoyfpt HermannCHEM WBWJZ6596-22-12 07:59:003[facility] HermannCHEM KMEMG0072-75-70 07:59:0098[facility] HermannCHEM CSCDL0230-64-00 07:59:12739Jthywvtt HermannCHEM EEQJH7776-68-98 07:59:97707 [facility] HermannCHEM VSGOS8912-37-11 07:59:0029[facility] HermannCHEM PANEL 2016-11-13 07:59:003.6[facility] HermannCHEM FNFIJ2146-00-56 07:59:0011.6[facility] HermannCHEM ZDNFY0517-31-74 07:59:008.6[facility] KmfrokmXJZMFKLYDP4114-65-28 07:59:00 Test Item Value Reference Range Interpretation Comments MCH (test code = MCH) 27.5 pg 27.0-31.0 [facility] PftokzeHPZKFGSFRS2841-04-81 07:59:008.4[facility] HermannHEMATOLOGY 2016-11-13 07:59:0025.8[facility] CobftleRJTQILPPDG8591-26-90 07:59:0084.2[facility] LljmkfmBJOGVAUVVH1125-87-25 07:59:003.06[facility] XvzqzynIBXFBIKUUM8446-36-42 07:59:0013.1[facility] LvglakeRECKRNKFXH4569-30-49 07:59:15985Suqlpjgl [place] DZEAAMQDDM4082-19-38 07:59:0015.9[facility] XhvqaooDKRBYELRGT8464-72-92 07:59:00 8.3[facility] GzamptmAEISPODFCF8167-81-12 07:59:0032.6[facility] HermannHEMATOLOGY 2016-11-13 07:59:002.0[facility] AwynrfiHPXJXVKIDU0834-13-05 07:59:001.3[facility] LdotwctVFBJAXECRQ4052-77-49 07:59:009.7[facility] RrvfjmuRPUPRTTGMT2600-10-44 07:59:000.1[facility] WrlfoizWOLBWRPJHR1880-23-00 07:59:000.1[facility] [place] PURNYSFDTO6916-88-01 07:59:0073.8[facility] JmhvlyzBMWOQXNOBC9014-35-69 07:59:00 14.9[facility] YbjrwwhBUSQFEBPTS2700-33-08 07:59:000.4[facility] HermannHEMATOLOGY 2016-11-13 07:59:0010.1[facility] UbzvzqdSFKXUKHRAI5015-24-76 07:59:000.8[facility] JbforhwYXEEZO4853-09-10 07:59:0029[facility] WlvrohfHSXGDT0120-16-35 07:59:0075 [facility] JaevjkeUCCBUD7696-14-23 07:59:13477Ecczxejh UcfidvvSMRYQU6961-76-74 07:59:14019Opqmhaeo VxsrdhoVABLSV2561-10-52 07:59:0036[facility] HermannLIPIDS 2016-11-13 07:59:003.89[facility] HermannCHEM BAACQ6375-93-09 10:04:000.63[facility] HermannCHEM FHNTG0684-59-90 10:04:006[facility] HermannCHEM ZJFZP1969-24-22 10:04:43859Gwfbfbsq HermannCHEM BZZSG9812-33-85 10:04:006.8[facility] HermannCHEM PIIFW2122-85-71 10:04:008.5[facility] HermannCHEM UAXOB6200-02-31 10:04:0024 [facility] HermannCHEM DRPHB0863-05-20 10:04:44083Yyyysjjj HermannCHEM PANEL 2016-11-12 10:04:003.6[facility] HermannCHEM INPZV3503-71-52 10:04:000.2[facility] HermannCHEM WYYSM8002-82-34 10:04:0066[facility]annCHE[facility] QFGDM9889-18-73 10:04:0012[facility]annCHE[facility] QATKK8459-07-51 10:04:0030[facility]annCHE[facility] TPOMG6226-79-50 10:04:003.0[facility]annCHE[facility] MIRLZ2917-53-89 10:04:003.8 [facility]CHE[facility] LBRKS0916-34-09 10:04:0010[facility]annCHEM PANEL 2016-11-12 10:04:0013.6[facility]annCHEM NAZFD8670-83-26 10:04:000.8[facility]annCHEM SJVXD2510-36-19 10:04:004.8[facility]annCHE[facility] EQKIX4236-95-47 10:04:001.3[facility] LxyxsacGGJDKXFRHF5724-53-31 10:04:0061.1[facility] MLDAUQYPSF3822-15-39 10:04:0025.7[facility] AmytyxlTNZCHCZDXM7764-29-28 10:04:00 10.4[facility] UhadsitIMQFVYHSKP1884-29-30 10:04:002.2[facility] HermannHEMATOLOGY 2016-11-12 10:04:001.0[facility] PxduaplNBZLANBPZP1795-51-51 10:04:000.2[facility] LssbtorODVMFCDLJC5434-48-57 10:04:000.6[facility] RwxjpphATCDVZFWTH0644-51-02 10:04:006.1[facility] VcvnnbjUUJMOZHJXE6648-55-48 10:04:002.6[facility] QOKQVOJWVT1299-53-86 10:04:000.1[facility] TpjemivEAYJQWEQXM9243-48-97 10:04:00 10.0[facility] VkazlmfPNSJJMUTMS6725-58-15 10:04:008.2[facility]annHEMATOLOGY 2016-11-12 10:04:002.89[facility] ZrzaktxGUOZTXLBRS9625-19-58 10:04:0024.7[facility] EgulnibTBRPJSGVNG6422-36-57 10:04:007.8[facility] KutabnzEAXRDCLMFN9437-58-84 10:04:00 Test Item Value Reference Range Interpretation Comments MCH (test code = MCH) 28.3 pg 27.0-31.0 [facility] XfhdcgbGOWDFSMZRV8663-69-55 10:04:0085.5[facility]annHEMATOLOGY 2016-11-12 10:04:07256Mnmtnfkl JxbuolmKQJSSGTAOM1725-14-06 10:04:0015.8[facility] ObmtdvwWFSHAUGVUU9115-82-48 10:04:0033.1[facility]annCHEM XYLSG3246-82-80 10:04:12900Mqenkfxl HermannCHEM WBYCQ5670-85-69 10:04:99696Lvanzhxq HermannCHEM ZTTQU1212-61-74 10:04:94068Bgiklisa HermannCHEM NPHEL6171-22-31 10:11:0012 [facility]CHE[facility] NQUDP6651-91-59 10:11:004.2[facility]annCHEM PANEL 2016-10-29 10:11:000.8[facility]annCHEM UINDP2483-58-35 10:11:0011.6[facility]annCHEM AUBGY3210-37-35 10:11:76647Osjorztn HermannCHEM DTVUM4733-33-61 10:11:000.2[facility]annCHEM MDDYV7957-36-36 10:11:0023[facility]annCHE[facility] JXYDE4982-86-48 10:11:0047[facility]annCHE[facility] UOVYG6856-29-92 10:11:009.1 [facility]annCHE[facility] GWOMD5286-36-27 10:11:007.4[facility]annCHEM PANEL 2016-10-29 10:11:0098[facility]annCHEM TZMVR4879-68-64 10:11:0030[facility]annCHEM BYFME4414-47-24 10:11:003.2[facility]annCHEM DXRUS0108-64-81 10:11:0027[facility]annCHEM VMVBI8818-70-59 10:11:004.6[facility]annCHEM FEDUM4095-12-74 10:11:000.66[facility]annCHEM RGMSU4288-97-07 10:11:43796 [facility] DCAXC3296-81-17 10:11:0097[facility]annCHEM PANEL 2016-10-29 10:11:008[facility] QogdbnsYXBOEYPYWG8317-62-76 10:11:001.0[facility] VjbedttTBREIPTBTZ0954-06-96 10:11:005.3[facility] UkjznoeRBZQVKUPQO0951-72-90 10:11:003.4[facility] VggeimqLLMGHFHOKO5950-92-38 10:11:002.6[facility] FEEKDGZWNV9459-11-76 10:11:007.7[facility] VnowqvlNCILAITTVH4032-45-26 10:11:000.3 [facility] AfmgtyjCLEYIJUMHJ6497-98-88 10:11:000.8[facility]annHEMATOLOGY 2016-10-29 10:11:000.1[facility] JkjmuhvTYCCNWVCSQ9098-29-88 10:11:00Normal (10/29/16 5:11 AM)[facility] DyuhbemBYRZWPOMUE1057-41-60 10:11:00Normal (10/29/16 5:11 AM)[facility] YjchjusUKBVWRTUHQ3964-21-15 10:11:0034.5[facility] JETZYSKLRH8474-03-63 10:11:0054.2[facility] YvhashwZPJIOHYUDR6747-23-34 10:11:00 8.0[facility] YhakbruWDXGYURKKL0374-09-64 10:11:007.6[facility]annHEMATOLOGY 2016-10-29 10:11:0022.9[facility] VplzthrTUCYQUTXYN2311-68-62 10:11:00 Test Item Value Reference Range Interpretation Comments MCH (test code = MCH) 30.2 pg 27.0-31.0 [facility] YnqtzqfWRTYUNVPPO2513-72-49 10:11:0090.8[facility]annHEMATOLOGY 2016-10-29 10:11:0014.8[facility] TsxvficCMEPAMZLYI5814-98-65 10:11:50056Nofqkfki SewuawtMZVYJMBNDI9999-73-34 10:11:0033.2[facility] ItnfmzyURBJOOBKKU5692-70-95 10:11:009.8[facility] ZckjxhvRLOTSVBWFC2427-76-77 10:11:002.52[facility] UNXEQNLRMAEU2596-73-87 14:10:0010.9[facility] NpykggsBRXAXOFQRPUC6915-30-75 14:10:43866Xayzqsix ZzmoukaVEWFASRUXTLG3044-31-24 14:10:009.1[facility] SNLMDYOYEUNT5260-40-02 14:10:12217Vnjpkrwl SnthcmlEUTLBIAOFEDR2662-32-39 14:10:008[facility] LgwyvccKQEKSMQXBPDX6892-61-54 14:10:000.64[facility] UXXVMFLZQFRH2325-91-37 14:10:16733Akjzrhuj LgiqsvzQCFBRXYNAMQC3980-68-42 14:10:003.9[facility] MaoedrpGIZDJCBSDDRC4324-54-40 14:10:31667Bdxtvuit [facility] UTUOUWQNINRT6308-01-98 14:10:0029[facility] UklyfreIXJJXIUROI5888-56-96 14:10:00 837[facility] RlarjzlCYBCTCEOBO7483-14-79 14:10:0022.2[facility]annHEMATOLOGY 2016-10-28 14:10:0091.2[facility] QqcipnhXPNZCJSTJY7300-31-10 14:10:00 Test Item Value Reference Range Interpretation Comments MCH (test code = MCH) 30.6 pg 27.0-31.0 [facility] RihxbrwKTDLSGDANF0398-24-69 14:10:008.1[facility]annHEMATOLOGY 2016-10-28 14:10:0010.7[facility] BnpuwipDPHMEVCFVC5342-24-96 14:10:002.43[facility] KpkhqrkONTSHNLBQD1128-79-46 14:10:0014.9[facility] HsntacjVBMBGJQYWU3214-95-47 14:10:0033.5[facility] EbcucgvONAYUXUGDJ1887-67-04 14:10:007.4[facility] UWKVDMXKRZ4442-25-43 14:10:001.9[facility] ZvsnxihBPGHTMMRZQ0252-16-54 14:10:003.0 [facility] HjzuzyiZSVEHPDVJB7817-03-24 14:10:000.3[facility]annHEMATOLOGY 2016-10-28 14:10:000.2[facility] HuankblSRHURKWEVD5127-33-81 14:10:000.8[facility] XcuxujeDPIACSWGFN5860-99-59 14:10:002.4[facility] ApqsqnyCWEVMXQEIJ3134-72-50 14:10:006.9[facility] KffgtzhXGUNSNLOZX0398-16-85 14:10:0022.6[facility] BMERDJAYSC2542-65-44 14:10:007.8[facility] TrgxxojKYHAZJWTBW5971-26-13 14:10:00 64.7[facility] HyuehjdDXFVNCGRSX7540-66-24 14:10:001+ *ABN*(10/28/16 9:10 AM) [facility] PblvxvvDJIGXNIIQC5423-98-35 14:13:008.1[facility]annCHEM PANEL 2016-10-27 09:30:004.2[facility]annCHEM BWGJY6666-94-11 09:30:45859Oovtumks HermannCHEM UBITB8031-77-25 09:30:009.0[facility]annCHEM FBRDJ6493-36-89 09:30:0028[facility]annCHEM NGKUD8228-83-35 09:30:13092Tttziohz HermannCHEM WIKGX9689-80-97 09:30:003.9[facility]annCHEM WOKGY8873-03-23 09:30:42815 [facility]annCHE[facility] SOOWN7167-14-08 09:30:82320Cvkljbap HermannCHEM PANEL 2016-10-27 09:30:006[facility]annCHE[facility] QTBRT1654-15-20 09:30:000.55[facility]annCHEM FYQMX4167-03-26 09:30:0010.9[facility]annCHEM YAIDM9205-12-81 09:30:002.3[facility] TqcbpqpEUDZLHHEDK6202-23-59 09:30:000.3[facility] JUOVQOSPKW4641-21-03 09:30:001.3[facility] PefbuvcSEJYLEKWSU8031-33-46 09:30:006.9 [facility] OuflzhvVSHIBLZBYY7183-58-26 09:30:003.4[facility]annHEMATOLOGY 2016-10-27 09:30:000.9[facility] KvjvznsIZDAQNIZJJ0554-93-37 09:30:002.8[facility] ZhpslujGGYQDQMGWW8442-57-26 09:30:000.2[facility] PpbgblnRLVMEULODR1548-34-09 09:30:0059.0[facility] RqjnvqbARKKSDBNCQ3575-31-12 09:30:007.9[facility] WLZOOHJPKN7279-81-10 09:30:0029.0[facility] LglpghxASPFECAOYU7949-29-50 09:30:00 Test Item Value Reference Range Interpretation Comments MCH (test code = MCH) 29.8 pg 27.0-31.0 [facility] TdqsdjkJZPJQRLIDY5493-52-90 09:30:0033.0[facility]annHEMATOLOGY 2016-10-27 09:30:0020.5[facility] RhtivzhNMEPMNPLHK4652-59-33 09:30:002.26[facility] KxtvcksGAZBTHIQAH8635-80-26 09:30:0011.6[facility] TdavgbxKKZSGSLVRF6548-48-09 09:30:0090.4[facility] WpmfrhyAIXJUHNQCL6841-58-75 09:30:24020Yfuyrmyn [facility] CSPBXPZJSF2235-00-78 09:30:0014.5[facility] JffkqxuFAEXVSVFUU5685-20-96 09:30:00 7.9[facility]annCHEM BDPJX0804-38-23 09:22:004.5[facility]annCHEM PANEL 2016-10-26 09:22:002.1[facility] DqqldfxAUGYTDADSV8481-42-70 09:22:00Normal (10/26/16 4:22 AM)[facility] JmfamsbTFJMWMBAGQ5726-42-70 09:22:001+ *ABN*(10/26/16 4:22 AM)[facility] BroyqvjIGCBTEQLDL4832-47-85 09:22:00Moderate *ABN*(10/26/16 4:22 AM)[facility] SitvqzlVYRTBHMWHB2195-47-49 09:22:001+ *ABN*(10/26/16 4:22 AM) [facility]annCHEM WORCR3659-85-25 07:39:007.5[facility]annCHEM PANEL 2016-10-25 07:39:0023[facility]annCHEM QWGIY3202-55-39 07:39:002.5[facility]annCHEM BKMSJ9271-33-37 07:39:005.0[facility]annCHEM QTMEA5654-16-94 07:39:000.5[facility]annCHEM AJIZN0880-21-00 07:39:000.3[facility]annCHEM FHQTU5194-71-54 07:39:0048[facility]annCHE[facility] PGQSZ6806-93-28 07:39:0024 [facility]annCHE[facility] KMVNH6050-85-97 07:39:0025[facility]annCHEM PANEL 2016-10-25 07:39:707416Giizaxda VjyaewqPFZPGBHCDG3244-92-38 07:39:002.0[facility] ToouwtgUQCVMPIAJX2971-66-20 07:39:002.0[facility] GpoawfoDUFXNDVCAR8514-46-82 07:39:002.0[facility] EvhadebQHZOFMTZBD7065-16-54 07:39:000.0[facility] WBXFVRERJV6871-57-42 07:39:00Normal (10/25/16 2:39 AM)[facility]annHEMATOLOGY 2016-10-25 07:39:00Normal (10/25/16 2:39 AM)[facility] HbkpkonKELLXOMFAD1395-33-11 10:42:000.0[facility] PnoxzyeGKJCQOZMGA7926-98-49 10:42:001.0[facility] AYSGMWRBIP3984-09-68 10:42:003.0[facility] LxpyireZXIQXFBSAH2712-44-08 10:42:00 Present *ABN*(10/24/16 5:42 AM)[facility]annCHEM RUHVV4081-18-11 10:36:061874 [facility]annCHEM YRONZ3898-02-22 10:36:004.7[facility]annCHEM PANEL 2016-10-23 10:36:0015[facility]annCHEM WHONL7591-88-74 10:36:000.5[facility]annCHEM ESIMK4393-44-87 10:36:000.3[facility]annCHEM CXLDF1456-17-35 10:36:0076[facility]annCHEM ZMSSZ4266-06-07 10:36:0023[facility]annCHEM WAGQH2636-15-09 10:36:0022[facility]annCHEM ECGUA7515-39-63 10:36:007.2 [facility]annCHE[facility] YHDWA2133-54-10 10:36:002.5[facility]annHEMATOLOGY 2016-10-23 10:36:00 Test Item Value Reference Range Interpretation Comments PTT (test code = PTT) 38.7 s 22.9-35.8 [facility] GhuqteoIQRBSIFSEF3045-99-10 10:36:001.09[facility]annHEMATOLOGY 2016-10-23 10:36:00 Test Item Value Reference Range Interpretation Comments PT (test code = PT) 14.3 s 12.0-14.7 [facility]annCHEM BCISZ5421-14-20 09:04:003.6[facility]annCHEM PANEL 2016 09:04:002.4[facility] YijjjvvMYVINISYCO7694-64-08 09:04:00Normal (10/22/16 4:04 AM)[facility] HlcxpiyYIZRYXKILQ2036-85-97 08:29:008.0[facility] DmqqjnuXJUZGNAMZW5108-12-97 08:29:000.0[facility] WyjjlpbHHAOSFPKMZ4305-90-89 08:29:002.0[facility]annCHEM YUGET3791-13-15 08:13:000.2[facility]annCHEM FTVUX1268-76-00 08:13:000.3[facility] XnftyimBBMTBEVAQO1414-56-42 08:13:002.0 [facility] HcsueahRLHVKKXYLE9125-87-97 08:13:002.0[facility] LbpzrkgUFEAHV4556-39-00 08:00:76029Dnwbjbro VjosyksZISGSJWDEU1915-68-44 09:16:00 Test Item Value Reference Range Interpretation Comments Tot Cell Ct (test code = Tot Cell Ct) 100 1 [facility] QfnbczuSXGQAYRDVK5869-02-46 09:16:001[facility] HermannPARATHYROID RSKDYJG6619-88-41 09:16:001.04[facility] HermannPARATHYROID TBEMWAE8419-27-75 09:16:001.06[facility] GvpjckaNPHVYSVOIQ5874-58-91 08:33:002[facility] UKPEJSJSNH5204-60-41 08:33:001.14[facility] FwnscuqNOWDWYKKTD1032-12-28 08:33:00 Test Item Value Reference Range Interpretation Comments PT (test code = PT) 14.8 s 12.0-14.7 [facility] HermannPARATHYROID TALOCFI5741-13-59 08:33:001.10[facility] PARATHYROID WHWAGPZ7416-50-14 08:33:001.11[facility] HermannCARDIAC ENZYMES 2016-10-17 10:36:19238Hyetmdwu HermannCHEM UDNWU3617-48-26 10:36:001.4[facility] JtqauolCSDKZDRLMZ4183-94-22 10:36:002[facility] HermannPARATHYROID PROFILE 2016-10-17 10:36:001.09[facility] HermannPARATHYROID KTUJPSJ6630-34-23 10:36:00 1.14[facility]annCHEM QHUFC0067-12-95 18:44:10259Desnritp HermannCHEM PANEL 2016-10-16 18:44:000.3[facility]annCHEM BMQKG5910-63-03 18:44:000.2[facility] RnlqnfePRWMNH5804-79-39 18:44:00554Cakoafew HermannCHEM CZXVD2605-78-49 05:14:00 1.9[facility] BcwoazdRYUVREEIMN9615-73-68 05:14:00 Test Item Value Reference Range Interpretation Comments PT (test code = PT) 15.2 s 12.0-14.7 [facility] GlwlnvnMMQDHJZNVS4742-43-95 05:14:001.18[facility]annHEMATOLOGY 2016-10-16 05:14:00 Test Item Value Reference Range Interpretation Comments PTT (test code = PTT) 35.3 s 22.9-35.8 [facility]annCHE[facility] QDUOY8399-26-23 17:26:005.06[facility]annCHEM PANEL 2016-10-15 13:59:001.6[facility] HxgystoZWYWZP4752-87-37 13:59:00096Nyghjwwx HermannCHEM ZLWTJ4119-89-38 13:57:006.20[facility]annCHEM XHNWL5491-03-77 05:32:007.5[facility]annCHEM QOVXE0047-19-70 14:31:009.2[facility]annCHEM SBEXB7961-19-82 14:31:69493Cehvdbla OtegghzECNETPSZYP7050-64-67 14:31:00 Test Item Value Reference Range Interpretation Comments Tot Cell Ct (test code = Tot Cell Ct) 100 1 [facility]annDRUG XUIHCV5151-68-93 05:44:00Positive *ABN*(10/14/16 12:44 AM) [facility]DR[facility] ZVVMCX1028-97-03 05:44:00Negative *NA*(10/14/16 12:44 AM) [facility]DR[facility] DOMOHD9826-85-21 05:44:00Positive *ABN*(10/14/16 12:44 AM) [facility]DR[facility] OSSFBS4133-39-80 05:44:00Negative *NA*(10/14/16 12:44 AM) [facility] CVATYV5170-11-02 05:44:00Positive *ABN*(10/14/16 12:44 AM) [facility]DR[facility] ITPBTK3908-98-42 05:44:00Negative *NA*(10/14/16 12:44 AM) [facility]DR[facility] SHGICJ0270-11-87 05:44:00Negative *NA*(10/14/16 12:44 AM) [facility] XQLEEX2644-13-40 05:44:00See Note (10/14/16 12:44 AM) [facility] NAHAKR5471-02-42 05:44:00Negative *NA*(10/14/16 12:44 AM) [facility] UZUNER7392-18-77 05:44:00Negative *NA*(10/14/16 12:44 AM) [facility] AND EJJBL3950-29-92 05:44:00Negative (10/14/16 12:44 AM) [facility] OKKGQ8436-54-75 05:44:00>=1.050 *ABN*(10/14/16 12:44 AM)[facility] AND ESFLK3848-80-63 05:44:001[facility]annUR[facility] AND TSVPS7551-32-28 05:44:002[facility]UR[facility] AND MSYIF9255-47-93 05:44:00 Negative *NA*(10/14/16 12:44 AM)[facility] AND ZZIJJ5557-87-64 05:44:00Small *ABN*(10/14/16 12:44 AM)[facility] AND HXNMR8257-12-98 05:44:00Negative (10/14/16 12:44 AM)[facility] AND OKUYP1819-12-21 05:44:00Yellow *NA*(10/14/16 12:44 AM)[facility] AND HPIVI5002-96-64 05:44:00Clear (10/14/16 12:44 AM)[facility] AND EHXFN2095-67-28 05:44:006.5[facility] EfdjmqiDXCBMGGDLX3797-26-04 04:54:00Negative *NA*(10/13/16 11:54 PM)[facility] OtryilxNZHYGIMFMW8163-46-48 04:54:00Negative *NA*(10/13/16 11:54 PM)[facility] DeygamiMXMDGJJAGQ5971-15-05 04:54:00Negative *NA*(10/13/16 11:54 PM)[facility] KjcsdtdRBVJAXZFTD0003-27-86 04:54:00Negative *NA*(10/13/16 11:54 PM)[facility] WlwgofrAUHAOSSUVR4399-79-73 04:54:00Negative *NA*(10/13/16 11:54 PM)[facility] HermannVIRAL - YELBJGMN5227-67-61 04:54:00Negative (10/13/16 11:54 PM)[facility] HermannVIRAL - OZCDKNHT2722-32-78 04:54:00Negative (10/13/16 11:54 PM)[facility] HermannBACTERIAL - JAIDTUFK4892-18-16 04:38:00Negative (10/13/16 11:38 PM)[facility] HermannCARDIAC ABIUOXH9705-65-35 04:38:0015[facility]annCHEM SQIFY3458-08-48 04:38:000.09[facility] HermannCHEM LLONW3458-58-74 04:38:0075[facility] KvyrkzlNCORWEXJRG7003-67-28 04:38:00 Test Item Value Reference Range Interpretation Comments PTT (test code = PTT) 30.4 s 22.9-35.8 [facility] CflhsvaBVPCPJ6334-77-02 04:38:00See Note 2*NA*(10/13/16 11:38 PM) [facility] YgpcoffYHSRBQ9235-10-43 04:38:66209Wistnrde TuflqplURAKMQ8049-79-63 04:38:007.12[facility] SykgnooSRFNNS6919-70-41 04:38:0033[facility] HermannSPECIAL YCCNLVOQY5174-18-91 04:38:005.9[facility] GqqzshtQQGBVBDWQK6303-04-45 04:38:00 <3[facility] ZapekkvYIIZJXYVED1459-32-85 04:38:00<0.003[facility] HermannBODY WPBELD9861-54-64 20:50:00See Note 1, 2(09/29/15 2:50 PM)[facility] HermannBODY KGWVIB4644-06-74 20:50:00Synovial (09/29/15 2:50 PM)[facility]annBODY FLUIDS 2015-09-29 20:50:00Synovial *NA*(09/29/15 2:50 PM)[facility]annBODY FLUIDS 2015-09-29 20:50:008.6[facility] HermannBODY OIAGVD1890-45-48 20:50:00Yellow (09/29/15 2:50 PM)[facility] HermannBODY TZFBSO9002-10-58 20:50:10559Hckkzvsn HermannBODY WZCJOW9434-48-01 20:50:5292009Fsjnocur HermannBODY UZUFDQ2664-14-03 20:50:00Yellow *ABN*(09/29/15 2:50 PM)[facility]annBODY SYVZUY4251-44-31 20:50:00Moderate Cloudy *ABN*(09/29/15 2:50 PM)[facility]annBODY FLUIDS 2015-09-29 20:50:00Synovial (09/29/15 2:50 PM)[facility]annBODY FLUIDS 2015-09-29 20:50:0010[facility] HermannBODY YMRYUM3760-25-55 20:50:0090[facility]annBODY BOAJYW5086-06-66 20:50:00Synovial *NA*(09/29/15 2:50 PM)[facility]annBODY SMOASA5979-28-74 20:50:004[facility]annBODY OWODNQ1357-67-83 20:50:006.1[facility] HermannBODY OFHBJW0087-37-06 20:50:00Synovial *NA*(09/29/15 2:50 PM)[facility] XglfdsoADKNUWPWAP6040-65-31 19:09:0035[facility] HGUESSAWSZ6023-61-31 19:09:0016.8[facility] YeikzdeBJSHXWCPXZ2761-45-88 19:09:00 23.6[facility] HugnfmyFSLNMUPUAI9775-93-19 19:09:00 Test Item Value Reference Range Interpretation Comments MCH (test code = MCH) 30.4 pg 27.0-31.0 [facility] FxaxpkvTYBCTCJAHL8122-50-94 19:09:0090.1[facility] HermannHEMATOLOGY 2015-09-29 19:09:0049.8[facility] FlcmpciIODOAUKVRD0561-02-52 19:09:007.7[facility] EjclsvdTZKRHGYNAD2447-99-24 19:09:66801Oooqpxuy FklwhetEUDPSMPRVK9453-79-15 19:09:005.53[facility] GnlumohXLQUTBGETM5323-10-95 19:09:0013.5[facility] GXJVUKQNIT9510-46-66 19:09:0033.7[facility] BqyrptmYFFVOQLDVT6138-94-84 19:09:00 1.9[facility] FqesvikELZYODCVIZ2588-91-17 19:09:000.1[facility] HermannHEMATOLOGY 2015-09-29 19:09:002.5[facility] AszdvkaJPHLELAKES4805-04-27 19:09:0019.0[facility] TscusgbAZWHVJETGL1848-23-46 19:09:0010.6[facility] PczebmbPHGYNBGHPK2000-45-81 19:09:008.2[facility] WvucagmXEGQENBEVW0492-49-30 19:09:000.4[facility] VUVRRMKJME6212-74-48 19:09:0080.8[facility] HqffwfuOWBLYFRARI9127-96-23 19:09:00 253.0[facility]
[2021-02-19] MEDS ORDERED: IBUPROFEN 400 MG TAB ONE (01:19)
[2021-02-19] MEDS ORDERED: HYDROCODONE/APAP 7.5/325 MG TAB ONE (01:19)
--- NOTE | 2021-02-19 01:51 | ER ---
Nurse's Notes [facility] Name: Micah Inman Age: 35 yrs Sex: Male : 1985 Arrival Date: 02/19/2021 Time: 00:13 Bed 4 Private MD: Rocco Marrufo Diagnosis: Pain in right knee Presentation: 02/19 00:34 Chief complaint: Patient states: he had his right knee lock up on Wednesday and it has bb been hurting and swollen ever since. Coronavirus screen: At this time, the client does not indicate any symptoms associated with coronavirus-19. Ebola Screen: No symptoms or risks identified at this time. Initial Sepsis Screen: Does the patient meet any 2 criteria? No. Patient's initial sepsis screen is negative. Does the patient have a suspected source of infection? No. Patient's initial sepsis screen is negative. Risk Assessment: Do you want to hurt yourself or someone else? Patient reports no desire to harm self or others. Onset of symptoms was February 16, 2021. 00:34 Method Of Arrival: Ambulatory bb 00:34 Acuity: FUENTES 3 bb Historical: - Allergies: 00:36 No Known Allergies; bb - Home Meds: 00:36 lisinopril Oral [Active]; metoprolol tartrate 25 mg Oral tab 1 tab 2 times per day bb [Active]; Xanax 1 mg Oral tab 1 tab four times a day [Active]; pantoprazole oral [Active]; Tresiba U-100 Insulin subcutaneous [Active]; - PMHx: 00:36 Anxiety; Hypertension; Pancreatitis; Diabetes mellitus; bb - PSHx: 00:36 right knee; bb - Immunization history:: Adult Immunizations up to date. - Social history:: Smoking status: Patient denies any tobacco usage or history of. Patient uses alcohol, occasionally. Screenin:00 Abuse screen: Denies threats or abuse. Nutritional screening: No deficits noted. ea Tuberculosis screening: No symptoms or risk factors identified. Fall Risk None identified. Assessment: 01:00 General: Appears uncomfortable, Behavior is appropriate for age. Pain: Complains of ea pain in right knee. Neuro: Level of Consciousness is awake, alert, obeys commands, Oriented to person, place, time. Respiratory: Airway is patent Respiratory effort is even, unlabored, Respiratory pattern is regular, symmetrical. Derm: Skin is pink, warm \T\ dry. 02:15 Reassessment: Patient and/or family updated on plan of care and expected duration. Pain ea level reassessed. Patient is alert, oriented x 3, equal unlabored respirations, skin warm/dry/pink. Discharge instruction given to patient verbalized the understanding of instruction. Pt left ED with crutches accompanied by family. Vital Signs: 00:34 BP 141 / 84; Pulse 88; Resp 16 S; Temp 98.5; Pulse Ox 97% on R/A; Weight 99.79 kg; bb Height 6 ft. 0 in. (182.88 cm) (R); Pain 8/10; 02:00 BP 132 / 68; Pulse 70; Resp 18; Pulse Ox 98% ; ea 00:34 Body Mass Index 29.84 (99.79 kg, 182.88 cm) bb ED Course: 00:13 Patient arrived in ED. es 00:13 Rocco Marrufo MD is Private Physician. es 00:36 Triage completed. bb 00:36 Arm band placed on Patient placed in an exam room, on a stretcher. bb 00:37 Juanito Grande PA is PHCP. cp 00:37 Ricardo Fields MD is Attending Physician. cp 01:00 Patient has correct armband on for positive identification. Bed in low position. Call ea light in reach. Side rails up X2. 01:50 Kobi Smith MD is Referral Physician. cp 02:15 No provider procedures requiring assistance completed. Patient did not have IV access ea during this emergency room visit. Administered Medications: 00:58 Drug: Hydrocodone-Acetaminophen (7.5 mg-325 mg) 1 tabs Route: PO; ak2 01:22 Follow up: Response: No adverse reaction ea 00:58 Drug: Ibuprofen 800 mg Route: PO; ak2 01:22 Follow up: Response: No adverse reaction ea Outcome: 01:50 Discharge ordered by . cp 02:15 Discharged to home ambulatory, with family. ea 02:15 Condition: stable 02:15 Discharge instructions given to patient, Instructed on discharge instructions, follow up and referral plans. medication usage, Demonstrated understanding of instructions, follow-up care, medications, Prescriptions given X 2. 02:17 Patient left the ED. ea Signatures: Gwendolyn Beauchamp Brenda, RN RN Juanito Guan PA PA cp Antunez, Elena RN RN Van Ellis
--- NOTE | 2021-02-19 01:51 | EDPHYS ---
Physician Documentation [facility] Name: Micah Inman Age: 35 yrs Sex: Male : 1985 Arrival Date: 02/19/2021 Time: 00:13 Bed 4 Private MD: Rocco Marrufo ED Physician Ricardo Fields HPI: 02/19 00:55 This 35 yrs old Male presents to ER via Ambulatory with complaints of Knee cp Pain. 00:55 The patient presents with pain, that is acute. cp 00:55 The complaints affect the right knee. Context: The problem was sustained at home, when cp patient edwardo knee to chest and turned ankle inward. Onset: The symptoms/episode began/occurred 3 day(s) ago. 00:55 Associated signs and symptoms: Pertinent positives: "locking" of knee. cp 00:55 Modifying factors: the symptoms are aggravated by weight bearing, bending knee. cp Historical: - Allergies: 00:36 No Known Allergies; bb - Home Meds: 00:36 lisinopril Oral [Active]; metoprolol tartrate 25 mg Oral tab 1 tab 2 times per day bb [Active]; Xanax 1 mg Oral tab 1 tab four times a day [Active]; pantoprazole oral [Active]; Tresiba U-100 Insulin subcutaneous [Active]; - PMHx: 00:36 Anxiety; Hypertension; Pancreatitis; Diabetes mellitus; bb - PSHx: 00:36 right knee; bb - Immunization history:: Adult Immunizations up to date. - Social history:: Smoking status: Patient denies any tobacco usage or history of. Patient uses alcohol, occasionally. ROS: 00:55 MS/extremity: Positive for pain, swelling, tenderness, of the right knee, Negative for cp decreased range of motion, deformity. 00:55 Skin: Negative for cellulitis, rash. 00:55 Constitutional: Negative for body aches, chills, fever. cp 00:55 Neck: Negative for pain with movement, pain at rest, stiffness. cp 00:55 Back: Negative for pain at rest, pain with movement. 00:55 All other systems are negative. Exam: 01:00 Constitutional: The patient appears in no acute distress, alert, awake, non-toxic, well cp developed, well nourished. 01:00 Chest/axilla: Inspection: normal. cp 01:00 Cardiovascular: Rate: normal, Pulses: Pulses are 2+ in right dorsalis pedis artery. 01:00 Respiratory: the patient does not display signs of respiratory distress, Respirations: normal, no use of accessory muscles, no retractions. 01:00 Musculoskeletal/extremity: ROM: limited passive range of motion due to pain, in the right knee, Joints: All joints are normal except the right knee displays painful range of motion, swelling, medial and lateral joint line tenderness, Weight bearing: able to fully bear weight. 01:00 Skin: cellulitis, is not appreciated, no rash present. Vital Signs: 00:34 BP 141 / 84; Pulse 88; Resp 16 S; Temp 98.5; Pulse Ox 97% on R/A; Weight 99.79 kg; bb Height 6 ft. 0 in. (182.88 cm) (R); Pain 8/10; 02:00 BP 132 / 68; Pulse 70; Resp 18; Pulse Ox 98% ; ea 00:34 Body Mass Index 29.84 (99.79 kg, 182.88 cm) bb MDM: 00:45 Patient medically screened. cp 01:00 Differential diagnosis: closed fracture, tendonitis, ligament injury, meniscus tear. cp 01:46 Data reviewed: vital signs, nurses notes, radiologic studies, plain films. Test cp interpretation: by ED physician or midlevel provider: xrays of right knee negative for fracture. Counseling: I had a detailed discussion with the patient and/or guardian regarding: the historical points, exam findings, and any diagnostic results supporting the discharge/admit diagnosis, radiology results, the need for outpatient follow up, for definitive care, a orthopedic surgeon, to return to the emergency department if symptoms worsen or persist or if there are any questions or concerns that arise at home. 02/19 00:51 Order name: XRAY Knee RIGHT 3 view cp 02/19 01:18 Order name: Knee Immobilizer; Complete Time: 02:07 cp 02/19 01:18 Order name: Crutches; Complete Time: 02:07 cp Administered Medications: 00:58 Drug: Hydrocodone-Acetaminophen (7.5 mg-325 mg) 1 tabs Route: PO; ak2 01:22 Follow up: Response: No adverse reaction ea 00:58 Drug: Ibuprofen 800 mg Route: PO; ak2 01:22 Follow up: Response: No adverse reaction ea Disposition: 01:55 Chart complete. cp 02:55 Co-signature as Attending Physician, Ricardo Fields MD. rn Disposition Summary: 02/19/21 01:50 Discharge Ordered Location: Home cp Problem: new cp Symptoms: have improved cp Condition: Stable cp Diagnosis - Pain in right knee cp Followup: cp - With: Kobi Smith MD - When: 2 - 3 days - Reason: Recheck today's complaints Discharge Instructions: - Discharge Summary Sheet cp - How to Use a Knee Immobilizer cp - Acute Knee Pain, Adult cp Forms: - Medication Reconciliation Form cp - Thank You Letter cp - Antibiotic Education cp - Prescription Opioid Use cp - Work release form ak2 Prescriptions: - Diclofenac Sodium 75 mg Oral Tablet Sustained Release - take 1 tablet by ORAL route 2 times per day; 30 tablet; Refills: 0, Product cp Selection Permitted - Tramadol 50 mg Oral Tablet - take 1 tablet by ORAL route every 8 hours as needed; 12 tablet; Refills: 0, cp Product Selection Permitted Signatures: Dispatcher [employer] Izzy Rose RN RN bb Nieto, Roman, MD MD rn Page, Corey, PA PA cp [place] ak2 Kaleigh Temple RN, ea Corrections: (The following items were deleted from the chart) 01:16 01:15 MS/extremity: Positive for pain, swelling, tenderness, of the right knee, cp Negative for decreased range of motion, deformity, cp 01:16 01:15 Skin: Negative for cellulitis, rash, cp cp 23:44 00:55 Onset: The symptoms/episode began/occurred 2 day(s) ago, cp cp
[2021-02-19 05:54] VITALS: TEMP 98.5
[2021-02-19 05:56] VITALS: BP 132/68; O2SAT 98
--- NOTE | 2021-02-19 07:56 | RAD REPORT ---
EXAM DESCRIPTION: RAD - Knee Right 3 View - 02/19/2021 7:21 am CLINICAL HISTORY: Right knee pain FINDINGS: No acute fracture or dislocation seen. Small joint effusion. Soft tissue swelling Moderate to marked osteoarthritis lateral compartment consisting of joint space narrowing and osteoph ytes. Marked osteoarthritis patellofemoral compartment. Bony density anterior to the proximal tibia and bony/calcific density adjacent to the lateral aspect of the distal femoral diaphysis likely chronic.
== END 2021-02-19 02:17 | disposition home or self-care (01) ==
LOC: ER 00:08
DX: M25.561 Pain in right knee (principal); I10 Essential (primary) hypertension; E11.9 Type 2 diabetes mellitus without complications; F41.9 Anxiety disorder, unspecified; Z79.4 Long term (current) use of insulin
CPT/HCPCS: 99283

== ENCOUNTER 2022-03-24 09:05 | Emergency (ER) | payer BC, OTHER ==
--- OUTSIDE RECORDS SUMMARY | 2022-03-24 09:33 | XMS REPORT | Continuity of Care Document ---
:1985 Author Organization [facility] t Address [address] [place] [address] Care Team Providers Name Role Phone Lab, [facility] Fam Pob I Attending Clinician Unavailable Mike Dalton Attending Clinician MIKE CORONA Attending Clinician Unavailable Doctor Unassigned, [place] Attending Clinician Unavailable Payers Payer Name Policy Type Policy Number Effective Date Expiration Date S ource Problems This patient has no known problems. Allergies, Adverse Reactions, Alerts Allergy Allergy Status Severity Reaction(s) Onset Inactive Treating Comm ents Source Name Type Date Date Clinician NO KNOWN Drug Active Univers ALLERGIE Class ity of [facility] Social History Social Habit Start Date Stop Date Quantity Comments [facility] to [facility] Smoking Status Start Date Stop Date Source Unknown if ever smoked Universit y [facility] Medications This patient has no known medications. Procedures This patient has no known procedures. Encounters Start End Encounter Admission Attending Care Care Encounter Source Date/Time Date/Time Type Type Clinicians Facility Department ID 2020-07-15 2020-07-15 Laboratory Lab, [facility] [id number] 16:44:23 16:46:22 Only Fam Pob I Health [id number] [place] [id number] Professio [id number] [address] 2020-07-15 2020-07-15 Laboratory Lab, [facility] Fam Pob I [facility] 1.. [id number] Univers 16:44:23 16:46:22 Only Mike Corona [facility] [id number] ity of [place] [id number] Werner as Professio [phone] [facility] [address] 2020-07-15 2020-07-15 Outpatient R [facility] [id number] Univers 16:40:00 16:40:00 MIKE ity of [facility] 2020-07-15 2020-07-15 Letter Doctor WM [id number] 00:00:00 00:00:00 (Out) Unassigned, GRACE [id number] [place] [facility] [phone] [facility] 2020-07-15 2020-07-15 Letter Doctor WM [id number] [facility] 00:00:00 00:00:00 (Out) Unassigned, GRACE [id number] ity of [place] [facility] [id number] Werner as [phone] [place] [address] [address] Results This patient has no known results.
[2022-03-24 09:53] LABS: Absolute Lymphocytes (CBC) 0.6 K/uL (0.7-4.9); Hematocrit 41.7 % (39.6-49.0); Lymphocytes % 7.1 % (15.3-44.8); MCV 87.1 fL (80-100); MPV 8.1 fL (7.6-11.3); RBC Red Blood Cell Count 4.78 M/uL (4.33-5.43)
[2022-03-24 09:56] LABS: Urine Blood Negative (Negative); Urine Glucose Negative (Negative); Urine Protein Trace (Negative); Urine Specific Gravity 1.015 (1.005-1.030)
[2022-03-24 10:10] LABS: Albumin 3.9 g/dL (3.4-5.0); Bilirubin Total 0.9 mg/dL (0.2-1.0); Potassium 4.2 mmol/L (3.5-5.1); Protein, Total 7.2 g/dL (6.4-8.2)
[2022-03-24] MEDS ORDERED: ONDANSETRON 4 MG/2 ML VIAL ONE (10:18)
[2022-03-24] MEDS ORDERED: IBUPROFEN 400 MG TAB ONE (10:18)
[2022-03-24] MEDS ORDERED: FAMOTIDINE 20 MG/2 ML VIAL IV ONE (10:18)
[2022-03-24] MEDS ORDERED: NA CHLORIDE 0.9% 1,000 ML ONE (10:18)
--- NOTE | 2022-03-24 10:51 | RAD REPORT ---
EXAM DESCRIPTION: CTAbdomen Pelvis W Contrast - 03/24/2022 10:25 am CLINICAL HISTORY: abdominal pain COMPARISON: Liver Abd Pancreas W Wo dated 12/22/2017 TECHNIQUE: CT of the abdomen and pelvis was performed with IV contrast. All CT scans are performed using dose optimization technique as appropriate and may include automated exposure control or mA/KV adjustment according to patient size. FINDINGS: Lower chest: No acute abnormality. Mild circumferential thickened distal esophagus. Liver: Hepatic steatosis. Hepatomegaly. The liver measures over 23 cm in CC dimension Biliary: No biliary ductal dilatation. Stomach: No significant focal abnormality. Duodenum: No significant focal abnormality. Pancreas: Atrophic pancreas. Small fluid collection at the pancreatic body measuring 15 millimeters. This may represent a pseudocyst. Masslike thickening in the uncinate and pancreatic head. No pancreat ic ductal dilatation. Mild peripancreatic stranding is present. Spleen: Splenomegaly. The spleen measures 15 cm in long axis. Adrenal: No suspicious lesions. Kidney/ureter: No hydronephrosis. No renal calculi. Retroperitoneum: No retroperitoneal adenopathy. Vascular: No aneurysm. Prominent perisplenic and omental collateral vessels. 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 Peritoneum: No ascites or free air. Enlarged lymph node in the transverse mesocolon measuring 11 mill imeters. Bladder: Circumferential bladder wall thickening. Reproductive: No adnexal masses. Bones: No acute fracture. Other: n/a IMPRESSION: 1. Sequela of chronic pancreatitis with atrophic pancreas. Cannot exclude a mild acute c omponent. Correlate with lipase. Probable small pseudocyst along the pancreatic body. The pancreatic head and uncinate has an area of masslike hypoattenuation. This is not well assessed. Recommend furth er evaluation with pancreatic protocol MRI to exclude an underlying mass. 2. Hepatosplenomegaly.
[2022-03-24] MEDS ORDERED: MORPHINE 4 MG/ML SYR ONE ×2 (13:25→14:06)
--- NOTE | 2022-03-24 14:02 | EDPHYS ---
Physician Documentation [facility] Name: Micah Inman Age: 36 yrs Sex: Male : 1985 Arrival Date: 03/24/2022 Time: 09:09 Bed 11 Private MD: ED Physician Steve Garcia HPI: 03/24 13:09 This 36 yrs old Male presents to ER via Ambulatory with complaints of Diarrhea.jmm 13:09 The patient presents to the emergency department with nausea, diarrhea, abdominal pain. jmm Onset: The symptoms/episode began/occurred acutely. Possible causes: unknown. The symptoms are aggravated by nothing. The symptoms are alleviated by nothing. 36-year-old male with history of diabetes mellitus, hypertension, pancreatitis the presents emerged part with complaints of left-sided and epigastric abdominal pain beginning last night along with multiple episodes of diarrhea. Patient denies vomiting but states having some nausea. Denies any recent infectious exposure, denies recent travel, denies recent antibiotic use.. Historical: - Allergies: 11:46 No Known Allergies; ss - PMHx: 09:34 Anxiety; diabetes mellitus; Hypertension; Pancreatitis; jh5 - PSHx: 09:34 right knee; jh5 - Immunization history:: Adult Immunizations up to date. - Social history:: Smoking status: Patient denies any tobacco usage or history of. ROS: 13:09 Cardiovascular: Negative for chest pain, palpitations, and edema, Respiratory: Negative jmm for shortness of breath, cough, wheezing, and pleuritic chest pain. 13:09 Constitutional: Positive for body aches. 13:09 Abdomen/GI: Positive for abdominal pain, diarrhea. 13:09 All other systems are negative. Exam: 13:09 Head/Face: atraumatic. Eyes: EOMI, no conjunctival erythema appreciated ENT: Moist jmm Mucus Membranes Neck: Trachea midline, Supple Chest/axilla: Normal chest wall appearance and motion. 13:09 Abdomen/GI: Non distended Back: Normal ROM Skin: General appearance color normal MS/ Extremity: Moves all extremities, no obvious deformities appreciated, no edema noted to the lower extremities Neuro: Awake and alert Psych: Behavior is normal, Mood is normal, Patient is cooperative and pleasant 13:09 Constitutional: The patient appears alert, awake, uncomfortable. 13:09 Cardiovascular: Rate: normal, Rhythm: regular. 13:09 Respiratory: the patient does not display signs of respiratory distress, Respirations: normal, Breath sounds: are clear throughout. Vital Signs: 09:30 BP 135 / 86; Pulse 93; Resp 18; Temp 98.7; Pulse Ox 97% ; Weight 103.42 kg; Height 5 [facility] ft. 11 in. (180.34 cm); 13:30 BP 132 / 82; Pulse 88; Resp 16; Pulse Ox 99% on R/A; Pain 8/10; hb 09:30 Body Mass Index 31.80 (103.42 kg, 180.34 cm) [facility] MDM: 09:33 Patient medically screened. [facility] 13:59 Data reviewed: vital signs, nurses notes. Counseling: I had a detailed discussion with [facility] the patient and/or guardian regarding: the historical points, exam findings, and any diagnostic results supporting the discharge/admit diagnosis, lab results, radiology results, the need for outpatient follow up, to return to the emergency department if symptoms worsen or persist or if there are any questions or concerns that arise at home. ED course: . 03/24 09:34 Order name: CBC with Diff; Complete Time: 10:06 [facility] 03/24 09:34 Order name: CMP; Complete Time: 10:11 [facility] 03/24 09:34 Order name: Lipase; Complete Time: 10:11 [facility] 03/24 09:35 Order name: SARS-COV-2 RT PCR (Document "Date of Onset" if Symptomatic); Complete Time: [facility] 10:44 03/24 09:57 Order name: Urine Dipstick-Ancillary; Complete Time: 10:06 [facility] 03/24 11:03 Order name: Flu; Complete Time: 11:55 03/24 09:34 Order name: IV Saline Lock; Complete Time: 09:45 [facility] 03/24 10:07 Order name: CT Abd/Pelvis - IV Contrast Only; Complete Time: 10:54 [facility] 03/24 09:34 Order name: Labs collected and sent; Complete Time: 09:46 [facility] 03/24 09:34 Order name: Urine Dipstick-Ancillary (obtain specimen); Complete Time: 09:55 [facility] 03/24 11:14 Order name: PO challenge; Complete Time: 11:17 [facility] Administered Medications: 10:13 Drug: NS 0.9% 1000 ml Route: IV; Rate: 1 bolus; Site: right antecubital; ss 11:46 Follow up: IV Status: Completed infusion; IV Intake: 1000ml ss 10:14 Drug: Zofran (Ondansetron) 4 mg Route: IVP; Site: right antecubital; ss 10:18 Drug: Pepcid (famotidine) 20 mg Route: IVP; Site: right antecubital; ss 11:46 Follow up: Response: No adverse reaction ss 10:18 Drug: Ibuprofen 400 mg Route: PO; ss 11:46 Follow up: Response: No adverse reaction ss 13:15 Drug: morphine 4 mg Route: IVP; Infused Over: 4 mins; Site: right antecubital; hb 13:59 Drug: morphine 4 mg Route: IVP; Infused Over: 4 mins; Site: right antecubital; hb Disposition: 14:00 Chart complete. Chart complete. [facility] 15:35 Co-signature as Attending Physician, Steve Garcia MD I agree with the assessment and kdr plan of care. Disposition Summary: 03/24/22 14:00 Discharge Ordered Location: Home [facility] Condition: Stable [facility] Diagnosis - Abdominal pain, unspecified jmm - Diarrhea, unspecified jmm Followup: [facility] - With: Private Physician - When: 2 - 3 days - Reason: Recheck today's complaints, Continuance of care, Re-evaluation by your physician Discharge Instructions: - Discharge Summary Sheet jmm - Abdominal Pain, Adult jmm - Food Choices to Help Relieve Diarrhea, Adult [facility] Forms: - Work release form bd - Medication Reconciliation Form [facility] - Thank You Letter [facility] - Antibiotic Education [facility] - Prescription Opioid Use [facility] Prescriptions: - dicyclomine 20 mg Oral Tablet - take 1 tablet by ORAL route 3 times per day; 30 tablet; Refills: 0, Product [facility] Selection Permitted - ondansetron 4 mg Oral tablet,disintegrating - place 1 tablet by TRANSLINGUAL route every 4-6 hours As needed; 20 tablet; [facility] Refills: 0, Product Selection Permitted Signatures: Dispatcher [employer] Steve Wilson MD MD kdr Mickail, Joel, PA PA [facility] Amber Srinivasan RN RN Hanh Preciado RN RN Rico, Sandra, RN RN jh5
--- NOTE | 2022-03-24 14:02 | ER ---
Nurse's Notes [facility] Name: Micah Inman Age: 36 yrs Sex: Male : 1985 Arrival Date: 03/24/2022 Time: 09:09 Bed 11 Private MD: Diagnosis: Abdominal pain, unspecified;Diarrhea, unspecified Presentation: 03/24 09:30 Chief complaint: Patient states: "I feel like poop, I have a migraine and keep going to [facility] the bathroom on every 20-30 minutes, with cold sweats, unable to go back to sleep" Pt endorses abdominal pain and nausea. Coronavirus screen: Vaccine status: Patient reports being unvaccinated. Client denies travel out of the [place] in the last 14 days. Ebola Screen: Patient negative for fever greater than or equal to 101.5 degrees Fahrenheit, and additional compatible Ebola Virus Disease symptoms Patient denies exposure to infectious person. Patient denies travel to an Ebola-affected area in the 21 days before illness onset. Initial Sepsis Screen: Does the patient meet any 2 criteria? No. Patient's initial sepsis screen is negative. Does the patient have a suspected source of infection? No. Patient's initial sepsis screen is negative. Risk Assessment: Do you want to hurt yourself or someone else? Patient reports no desire to harm self or others. Onset of symptoms was March 24, 2022. 09:30 Method Of Arrival: Ambulatory [facility] 09:30 Acuity: FUENTES 3 5 Triage Assessment: 09:34 General: Appears in no apparent distress. Behavior is calm, cooperative, appropriate [facility] for age, anxious. Pain: Complains of pain in abdomen. GI: Reports upper abdominal pain, diarrhea, nausea, vomiting. Historical: - Allergies: 11:46 No Known Allergies; ss - PMHx: 09:34 Anxiety; diabetes mellitus; Hypertension; Pancreatitis; [facility] - PSHx: 09:34 right knee; 5 - Immunization history:: Adult Immunizations up to date. - Social history:: Smoking status: Patient denies any tobacco usage or history of. Screenin:19 Abuse screen: Denies threats or abuse. Denies injuries from another. Nutritional ss screening: No deficits noted. Tuberculosis screening: Never had TB. Fall Risk None identified. Assessment: 10:18 Reassessment: Pt to CT now VIA wheelchair. ss 11:46 Reassessment: Patient appears in no apparent distress at this time. Patient and/or ss family updated on plan of care and expected duration. Pain level reassessed. Patient is alert, oriented x 3, equal unlabored respirations, skin warm/dry/pink. Vital Signs: 09:30 BP 135 / 86; Pulse 93; Resp 18; Temp 98.7; Pulse Ox 97% ; Weight 103.42 kg; Height 5 jh5 ft. 11 in. (180.34 cm); 13:30 BP 132 / 82; Pulse 88; Resp 16; Pulse Ox 99% on R/A; Pain 8/10; hb 09:30 Body Mass Index 31.80 (103.42 kg, 180.34 cm) [facility] ED Course: 09:09 Patient arrived in ED. [facility] 09:17 Dayton Krishnamurthy PA is PHCP. [facility] 09:17 Steve Garcia MD is Attending Physician. [facility] 09:34 Triage completed. [facility] 09:34 Arm band placed on left wrist. 5 09:45 Inserted saline lock: 20 gauge in right antecubital area, using aseptic technique. kc6 Blood collected. 09:45 SARS-COV-2 RT PCR (Document "Date of Onset" if Symptomatic) Sent. 6 09:46 CBC with Diff Sent. kc6 09:46 CMP Sent. kc6 09:46 Lipase Sent. kc6 10:00 Amber Srinivasan, RN is Primary Nurse. ss 10:19 Patient has correct armband on for positive identification. Bed in low position. Call ss light in reach. 10:27 CT Abd/Pelvis - IV Contrast Only In Process Unspecified. EDMS 11:11 Flu Sent. kc6 14:18 No provider procedures requiring assistance completed. IV discontinued, intact, hb bleeding controlled, No redness/swelling at site. Administered Medications: 10:13 Drug: NS 0.9% 1000 ml Route: IV; Rate: 1 bolus; Site: right antecubital; ss 11:46 Follow up: IV Status: Completed infusion; IV Intake: 1000ml ss 10:14 Drug: Zofran (Ondansetron) 4 mg Route: IVP; Site: right antecubital; ss 10:18 Drug: Pepcid (famotidine) 20 mg Route: IVP; Site: right antecubital; ss 11:46 Follow up: Response: No adverse reaction ss 10:18 Drug: Ibuprofen 400 mg Route: PO; ss 11:46 Follow up: Response: No adverse reaction ss 13:15 Drug: morphine 4 mg Route: IVP; Infused Over: 4 mins; Site: right antecubital; hb 13:59 Drug: morphine 4 mg Route: IVP; Infused Over: 4 mins; Site: right antecubital; hb Medication: 14:18 VIS not applicable for this client. hb Intake: 11:46 IV: 1000ml; Total: 1000ml. ss Outcome: 14:00 Discharge ordered by . prasanna 14:18 Discharged to home ambulatory. hb 14:18 Condition: stable 14:18 Discharge instructions given to patient, Instructed on discharge instructions, follow up and referral plans. medication usage, Demonstrated understanding of instructions, follow-up care, medications, Prescriptions given X 2. 14:25 Patient left the ED. hb Signatures: Dispatcher [employer] EDMS Dayton Krishnamurthy PA PA jmm Smirch, Shelby, RN RN ss Baxter, Heather, RN RN hb Garcia, Rubi rg4 Sandra Gómez RN RN jh5 Natlaiia Guthrie 6
[2022-03-24 14:43] VITALS: TEMP 98.7
[2022-03-24 14:45] VITALS: BP 132/82; O2SAT 99
== END 2022-03-24 14:25 | disposition home or self-care (01) ==
LOC: SUPCPDRO 09:05 → ER 09:05
DX: R19.7 Diarrhea, unspecified (principal); R10.9 Unspecified abdominal pain; R11.0 Nausea; Z20.822 Contact with and (suspected) exposure to COVID-19
CPT/HCPCS: 85025; 36415; 81003; 83690; 80053; 87804 ×2; 74177; U0003; Q9967; J7030; J2405

== ENCOUNTER 2023-03-26 09:57 | Emergency (ER) | payer BC ==
--- OUTSIDE RECORDS SUMMARY | 2023-03-26 10:06 | XMS REPORT | Continuity of Care Document ---
:1985 Author Organization [facility] t Address [address] [facility] [address] [place] [address] Care Team Providers Name Role Phone Lab, Adc Fam Pob I Attending Clinician Unavailable Danika Dalton Attending Clinician DANIKA CORONA Attending Clinician Unavailable Doctor Unassigned, Vesper Attending Clinician Unavailable Joseph Foster Attending Clinician Stefani Jensen Attending Clinician Wm Darnell Attending Clinician Isaac Pleitez Attending Clinician Pedro Steel Admitting Clinician Adonis Erwin Admitting Clinician Payers Payer Name Policy Type Policy Number Effective Date Expiration Date S ource Problems Condition Condition Condition Status Onset Resolution Last Treating Co mments Source Name Details Category Date Date Treatment Clinician Date PANCREATIT PANCREATI Diagnosis Active 2016-11-23 Memoria IS TIS Active 11-12 21:54:00 l 00:00: Castro Sesay [address] RIGHT LEG RIGHT LEG Diagnosis Active 2015-12-24 Memoria SWELLING SWELLING 12-23 15:09:00 l Active 00:00: Hipolito 12/24/[address] [place] [address] Hipolito SWOLLEN SWOLLEN Diagnosis Active 2015-09-29 Memoria FOOT FOOT 09-29 13:25:00 l Active 00:00: [place] 09/29/2015 [facility] G[facility] Gout Problem Resolve 2016-11-18 Arun ronn (disorder) (disorder) d 00:11:47 l Resolved Hipolito Problem 11/18/2016 [facility], Mariely Shah [facility] ILLNESS, ILLNESS, Diagnosis Active 2016-10-27 Memoria UNSPECIFIE UNSPECIFIE 23:08:00 l D D Active Hipolito [facility] Hypertensi Hypertens Problem Resolve 2016-11-18 2016-11-18 Memoria ve hayden d 08-02 00:11:47 00:11:47 l disorder, disorder, 00:00: Herm crystal systemic systemic 00 arterial arterial (disorder) (disorder) Resolved 08/02/2012 Problem 11/18/2016 [facility] History of Past Illness Condition Condition Condition Status Onset Resolution Last Treating Co mments Source Name Details Category Date Date Treatment Clinician Date Discharge Discharge Problem 2015-12-27 2015-12-27 Memoria Diagnosis: Diagnosis: 12-23 04:58:21 04:58:21 l Effusion, Effusion, 05:00: Herm crystal right knee right knee 00 12/24/2015 6 Mariely Shah [facility] Allergies, Adverse Reactions, Alerts Allergy Allergy Status Severity Reaction(s) Onset Inactive Treating Comm ents Source Name Type Date Date Clinician NO KNOWN Drug Active Univers ALLERGIE Class ity [facility] Social History Social Habit Start Date Stop Date Quantity Comments Source Sex Assigned At [facility] Exposure to Yes [facility] SARS-CoV-2 (event) [facility] Social History 2016-11-12 2016-11-12 Pat brunson 08:55:10 08:55:10 Smoking Status Start Date Stop Date Source Unknown if ever smoked [facility] Social [facility] [place] Medications Ordered Filled Start Stop Current Ordering Indication Dosage Frequency Signature Comments Components Source Medication Medication Date Date Medication? Clinician (SIG) Name Name lisinopril Yes 20 mg = 1 Me moria 20 mg oral 4-16 tab, PO, l tablet 15:00: Daily, Elisha Mcmillan 57 30 tab, 0 Refill(s) Fenofibrate Yes 145 mg = 1 Memoria 145 MG Oral 4-16 tab, PO, l Tablet 15:00: Dinner, Elisha Erazo n 46 30 tab, 0 Refill(s) allopurinol Yes 300 mg = 1 Memoria 300 mg oral 4-16 tab, PO, l tablet 15:00: Daily, # [place] 21 30 tab, 0 Refill(s) pregabalin Yes [...] 10 MG Oral given to Tablet patient [[place] 10/325] Colchicine Yes See Memoria 0.6 MG [...] 4 days. Arun ronn 4-15 l 11:29: pregabalin No Notes: Memor ia 4-14 (Same as: l 21:00: Lyrica) Dilaudid No Notes: Memoria 4-14 Same as: l 16:15: Dilaudid oxyCODONE 5 No 5 mg = 1 Me moria mg oral 4-14 cap, PO, l capsule 15:44: Q6H, PRN Castro n 00 Pain, 0 Refill(s) Acetaminoph No Notes: Do M emoria en 325 MG / 4-14 not exceed l Hydrocodone 14:00: 4gm/day of [place] Bitartrate 00 acetaminop 10 MG Oral hen. (Same Tablet as: [place] [[place] 325/10) 10/325] Dilaudid No Notes: Memoria 4-14 Same as: l 04:01: Dilaudid pregabalin No Notes: Memor ia 4-14 (Same as: l 02:00: Lyrica) Fenofibrate No Notes: Arun ronn 145 MG Oral -13 (Same as: l Tablet 22:00: Tricor) Sucralfate No Notes: May M emoria 100 MG/ML -13 interfere l Oral 22:00: w/enteral [place] Suspension feeds - [Carafate] Take 1 hr before [...] Lactated No 1,000 mL, Arun ronn Ringers 11-12 Rate: 125 l 1,000 mL 17:03: ml/hr, [...] 4-13 (Same as: l Capsule 14:00: Neurontin) Herm crystal Allopurinol No Notes: Arun ronn 4-13 (Same as: l 14:00: Zyloprim) [place] Amylases No Notes: Memoria 82515 UNT / 4-13 (lipase l Endopeptida 13:00: 6,000 [place] [address] 00 units, UNT / protease Lipase 6000 19,000 UNT Enteric units, Coated amylase Capsule 30,000 [Creon 6] units DR) Same as: Creon (Creon 6) Protonix No Notes: Memoria 4-13 Tablet l 12:30: should not [place] be chewed or crushed. (Same as: Protonix) Sucralfate No Notes: May M emoria 100 MG/ML -13 interfere l Oral 11:00: w/enteral [place] Suspension 00 feeds - [Carafate] Take 1 hr before or 2 hr after antacids, dairy pdt, meals & minerals - On empty stomach. For patients unable to swallow tablet, dissolve in 10mL - 30mL of water or juice and stir before giving. (Same As: Carafate) tramadol No Notes: Not Mem oria hydrochlori -13 to exceed l de 50 MG 11:00: 400mg/day. Her ogden Oral Tablet 00 (Same As: Ultram) Lovenox No Notes: Memoria 4-13 (Same as: l 10:00: Lovenox) Oxycodone No Notes: Memori a Hydrochlori -13 (Same as: l de 5 MG 09:35: Roxicodone Herm crystal Oral Tablet 00 ) Simethicone No Notes: Arun ronn 4-13 (Same as: l 09:34: Mylicon) [place] Saline No Notes: Memoria Flush 0.9% - preservati l 09:31: ve free. Hip[place] 00 Ondansetron No Notes: Arun ronn 4-13 (Same as: l 09:31: Zofran) [place] MEDICATION WASTE Product Size: 4 mg Product Wasted: ___ mg Acetaminoph No Notes: Do M emoria en 11-12 not exceed l 09:31: 4 gm/day. [place] 00 (Same as: Tylenol) Sodium No 1,000 mL, Memori a Chloride 11-12 Rate: 125 l 0.154 09:31: ml/hr, [place] MEQ/ML 00 Infuse Injectable over: 8 Solution hr, Route: IV, Dosing Weight 102.869 kg, Total Volume: 1,000, Start date: 11/12/16 4:31:00 CDT, Duration: 30 day, Stop date: 12/12/16 4:30:00 CDT Dilaudid No Notes: Memoria 11-12 Same as: l 09:30: Dilaudid [place] 00 Sucralfate Yes 1 gm = 10 Me moria 100 MG/ML 3-30 ml, PO, l Oral 20:31: Q6H, # 560 [place] Suspension 00 mL, 0 [Carafate] Refill(s) omeprazole Yes 40 mg = 1 Me moria 40 mg oral 3-30 cap, PO, l delayed 20:31: Daily, # Castro n release 00 90 cap, 0 capsule Refill(s) acetaminoph No 1,000 mg = Memoria en 500 mg 3-30 2 tab, PO, l oral tablet 20:04: Q6H, # 100 [place] 00 tab, 0 Refill(s) gabapentin Yes 300 [...] Amylases Yes 1 cap, PO, Mem oria 53076 UNT / 3-30 TID-Meals, l Endopeptida 20:04: [place] [address] 00 UNT / Lipase 6000 , # 120 UNT Enteric cap, 0 Coated Refill(s) Capsule [Creon 6] lisinopril Yes 20 mg = 1 Me moria 20 mg oral 3-30 tab, PO, l tablet 20:04: Daily, # [place] 00 90 tab, 0 Refill(s) Fenofibrate Yes 145 mg = 1 Memoria 145 MG Oral 3-30 tab, PO, l Tablet 20:04: Dinner, # Castro n 00 90 tab, 0 Refill(s) allopurinol Yes 300 mg = 1 Memoria 300 mg oral 3-30 tab, PO, l tablet 20:04: Daily, # [place] 00 90 tab, 0 Refill(s) Dilaudid No Notes: Memoria 3-30 Same as: l 14:04: Dilaudid [place] pregabalin No Notes: Memor ia 3-29 (Same as: l 19:00: Lyrica) [place] 00 Tramadol No Notes: Not Mem oria 3-29 to exceed l 17:00: 400mg/day. [place] 00 (Same As: Ultram) Tylenol No Notes: Max Arun ronn 3-29 acetaminop l 17:00: hen 4000 [place] 00 mg/day (4 gm/day). (Same as: Tylenol Extra Strength) Oxycodone No Notes: Memori a Hydrochlori 3-29 (Same as: l de 5 MG 17:00: Roxicodone Herm crystal Oral Tablet 00 ) meropenem No Notes: Memori a 3-29 Same as l 15:00: Merrem [place] 00 MEDICATION WASTE Product Size: 500 mg Product Wasted: ___ mg Dilaudid No Notes: Memoria 3-29 Same as: l 14:37: Dilaudid [place] 00 Oxycodone No Notes: Memori a Hydrochlori 3-29 (Same as: l de 5 MG 14:35: Roxicodone Herm crystal Oral Tablet ) ibuprofen No Notes: Memori a 100 mg/5 mL 10-26 (Same as: l oral 22:00: Motrin [place] suspension 00 Children's , Advil Children's ) Take with food. Zyloprim No Notes: Memoria 10-26 Allopurino l 21:30: l oral [place] susp. Refrigerat e/shake well. Compound ed Product - formulatio n not commercial ly available* * (Same as: Zyloprim) Prinivil No Notes: Memoria 10-26 Shake well l 21:30: before [place] 00 use. Refrigerat e For Oral Use Only. Compound ed Product - formulatio n not commercial ly available* * Dilaudid No Notes: Memoria 10-26 Same as: l 21:04: Dilaudid [place] 00 Lactulose No Notes: Memori a 667 MG/ML 10-26 (Same l Oral 21:00: as:Chronul [place] Solution 00 ac) Ondansetron No 4 mg, Memor ia [...] oria ne 10-26 Route: l 13:14: IVP, [place] 00 Q5Min, Dosing Weight 105.085, kg, PRN Pain Score 7-10, Start date: 10/26/16 8:14:00 CDT, Duration: 4 doses or times, Stop date: Limited # of times Morphine No 2 mg, Memoria 3 Route: l 13:14: IVP, [place] 00 Q5Min, Dosing Weight 105.085, kg, PRN Pain Score 4-6, Start date: 10/26/16 8:14:00 CDT, Duration: 5 doses or times, Stop date: Limited # of times Hydralazine No 10 mg, Arun ronn 10-26 Route: l 13:14: IVP, [place] 00 Q20Min, Dosing Weight 105.085, kg, PRN Elevated BP, Start date: 10/26/16 8:14:00 CDT, Duration: 2 doses or times, Stop date: Limited # of times Labetalol No 10 mg, Memori a 10-26 Route: l 13:14: IVP, [place] 00 Q5Min, Dosing Weight 105.085, kg, PRN Elevated BP, Start date: 10/26/16 8:14:00 CDT, Duration: 5 doses or times, Stop date: Limited # of times Dilaudid No Notes: Memoria 3 Same as: l 15:22: Dilaudid Dilaudid No Notes: Memoria 3 (Same as: l 20:00: Dilaudid) Dilaudid No Notes: Memoria 3 Same as: l 15:44: Dilaudid Dilaudid No Notes: Memoria 3 Same as: l 02:00: Dilaudid Amylases No Notes: Memoria 40259 UNT / 3-24 (lipase l Endopeptida 22:00: 6,000 [place] [address] 00 units, UNT / protease Lipase 6000 19,000 UNT Enteric units, Coated amylase Capsule 30,000 [Creon 6] units DRC) Same as: Creon (Creon 6) Dilaudid No Notes: Memoria 3-24 (Same as: l 20:42: Dilaudid) Tramadol No Notes: Not Mem oria 3-24 to exceed l 20:31: 400mg/day. [place] 00 (Same As: Ultram) pregabalin No Notes: Memor ia 3-24 Same as l 19:00: Lyrica [place] Dilaudid No Notes: Memoria 3-24 Same as: l 18:47: Dilaudid [place] Melatonin 3 No Notes: Arun ronn MG Extended 24 (Same as: l Release 01:44: Melatonin) Herm crystal Tablet Dilaudid No Notes: Memoria -23 (Same as: l 23:39: Dilaudid) [place] meropenem No Notes: Memori a - Same as l 22:00: Merrem [place] 00 MEDICATION WASTE Product Size: 500 mg Product Wasted: ___ mg Tramadol No Notes: Not Mem oria - to exceed l 13:23: 400mg/day. [place] (Same As: Ultram) Iohexol No 60 mL, Memoria 10-22 Route: l 13:16: IVP, Drug Form: SOLN, Dosing Weight 105.085, kg, ONCALL, STAT, Start date: 10/22/16 8:16:00 CDT, Duration: 1 doses or times, Dose = 2.2ml/kg, Max dose = 100ml -- "To be infused by Radiology Staff ONLY" Ibuprofen No Notes: Memori a 400 MG Oral - (Same as: l Tablet 23:00: Motrin [place] Children's , Advil Children's ) Take with food. Dilaudid No Notes: Memoria 3-22 Same as: l 19:23: Dilaudid Acetaminoph No Notes: Arun ronn en 325 MG / 10-21 (Same as: l Hydrocodone 19:09: [place] Desiree nn Bitartrate 00 325/5) Do 5 MG Oral not exceed Tablet 4gm/day of [[place] acetaminop 5/325] hen. sodium No 1,000 mL, Memori a chloride -22 Rate: 125 l 0.9% 1000 18:26: ml/hr, Castro n ml INJ 00 Infuse 1,000 mL over: 8 hr, Route: IV, Dosing Weight 105.085 kg, Total Volume: 1,000, Start date: 10/21/16 13:26:00 CDT, Duration: 30 day, Stop date: 11/20/16 13:25:00 CDT Sodium No 125 mL, Memoria Chloride 10-21 125 ml/hr, l 0.154 18:07: Infuse [place] MEQ/ML 00 Over: 1 Injectable hr, Route: Solution IV, 125, Drug form: INJ, ONCE, Priority: STAT, Dosing Weight 105.085 kg, Start date: 10/21/16 13:07:00 CDT, Duration: 1 doses or times, Stop date: 10/21/16 13:07:00 CDT Allopurinol No Notes: Arun ronn 10-21 Allopurino l 14:00: l oral [place] 00 susp. Refrigerat e/shake well. Compound ed Product - formulatio n not commercial ly available* * (Same as: Zyloprim) Colchicine No 0.6 mg, 1 Me moria 0.6 MG Oral 3-21 tab, l Tablet 22:00: Route: PO, Desiree nn 00 Drug form: TAB, BID, Dosing Weight 105.085, kg, Start date: 10/20/16 17:00:00 CDT, Duration: 30 day, Stop date: 11/19/16 9:00:00 CDT Zosyn No Notes: Memoria 3-21 (Same as: l 21:00: Zosyn) [place] 00 Dosing based on Piperacill in component MEDICATION WASTE Product Size: 3375 mg Product Wasted: ___ mg Colchicine No 1.2 mg, 2 Me moria 3-21 tab, l 16:13: Route: PO, [place] 00 Drug form: TAB, ONCE, Dosing Weight 105.085, kg, Start date: 10/20/16 11:13:00 CDT, Stop date: 10/20/16 11:13:00 CDT Tramadol No Notes: Not Mem oria 3-21 to exceed l 14:16: 400mg/day. [place] 00 (Same As: Ultram) Acetaminoph No Notes: Arun ronn en 325 MG / 3-21 (Same as: l Hydrocodone 14:16: [place] Desiree nn Bitartrate 00 325/5) Do 5 MG Oral not exceed Tablet 4gm/day of [[place] acetaminop 5/325] hen. potassium No 10 mEq, Memor ia chloride 3-21 Route: l 13:00: IVPB, Q1H, Dosing Weight 105.085, kg, Total Dose = 40 meq, Start date: 10/20/16 8:00:00 CDT, Duration: 4 doses or times, Stop date: 10/20/16 11:00:00 CDT, Periphe ral Line Potassium No Notes: Memori a Chloride 3-21 (Same as: l 1.33 MEQ/ML 12:43: Potassium H erm Oral 00 Chloride) Solution Calmoseptin No Notes: Arun ronn e 3-20 (Same as: l 14:00: Calmosepti ne) Insulin No 60 units) Arun ronn regular 3-20 WASTE: F/P l 00:03: - Black; E - Municipal Trash Bin Stable for 28 days at room temperatur e Expires in days from ____Date Glucagon No 1 mg, Memoria 3-20 Route: IM, l 00:03: Drug form: PDR/INJ, PRN, Dosing Weight 105.085, kg, PRN Blood Glucose Results, Start date: 10/18/16 19:03:00 CDT, Duration: 30 day, Stop date: 11/17/16 19:02:00 CDT Dextrose No 12.5 gm, Memor ia 50% Syringe 3-20 25 mL, l 00:03: Route: IVP, Drug Form: INJ, Dosing Weight 105.085, kg, PRN, PRN Blood Glucose Results, Start date: 10/18/16 19:03:00 CDT, Duration: 30 day, Stop date: 11/17/16 19:02:00 CDT Chlordiazep No Notes: Arun ronn oxide -19 (Same As: l Hydrochlori 15:25: Librium) He rmann de 10 MG 00 Oral Capsule Lactated No 1,000 mL, Arun ronn Ringers -18 Rate: 125 l 1,000 mL 18:37: ml/hr, Infuse over: 8 hr, Route: IV, Dosing Weight 105.085 kg, Total Volume: 1,000, Start date: 10/17/16 13:37:00 CDT, Duration: 30 day, Stop date: 11/16/16 13:36:00 CDT molasses No Notes: Memoria 3-18 (Same l 16:49: as:Molasse 00 s) Calcium No 1,000 mL, Memor ia Chloride 18 1,000 l 0.0014 15:27: ml/hr, [place] MEQ/ML / 00 Infuse Potassium Over: 1 Chloride hr, Route: 0.004 IV, 1,000, MEQ/ML / Drug form: Sodium INJ, ONCE, Chloride Priority: 0.103 STAT, MEQ/ML / Dosing Sodium Weight Lactate 105.085 0.028 kg, Start MEQ/ML date: Injectable 10/17/16 Solution 10:27:00 CDT, Duration: 1 doses or times, Stop date: 10/17/16 10:27:00 CDT Ativan No Notes: Memoria 3-18 (Same as: l 13:55: Ativan) Versed No 1 mg, Memoria 3-18 Route: l 09:25: IVP, ONCE, Dosing Weight 105.085, kg, Start date: 10/17/16 4:25:00 CDT, Stop date: 10/17/16 4:25:00 CDT Dexmedetomi No 24 hours M emoria dine -18 l 05:50: [place] ketAMINE No 245 mL, Memori a 500 mg + 10-17 Rate: l sodium 01:30: Titrate as Desiree nn chloride 00 directed, 0.9% 250 mL Route: IV, INJ (for IV Dosing set) 245 mL Weight 105.085 kg, Total Volume: 250, Start date: 10/16/16 20:30:00 CDT, Duration: 30 day, Stop date: 11/15/16 20:29:00 CDT ketAMINE No 100 mg, Memori a 100mg/NS 3-18 100 mL, l 100ml 00:18: Route: IV, Castro n (1mg/ml) 00 Drug form: 100 mg INJ, Dosing Weight 105.085, kg, Start date: 10/16/16 19:18:00 CDT, Stop date: 10/16/16 20:45:00 CDT Docusate No Notes: Memoria Sodium 50 -17 (Same as l MG / 22:00: Senokot-S) [place] sennosides, 00 Equiv. to [facility] 8.6 MG Tala-Colac Oral Tablet e. Thiamine [...] Lactulose No Notes: Memori a 667 MG/ML -17 (Same l Oral 16:48: as:Chronul [place] Solution 00 ac) Ketamine No Notes: Memoria 3-17 Total l 16:18: Concentrat ion = 1mg/ml Total Volume = 100ml Infusion Rate= Begin Infusion at an initial rate of 0.1mg/kg/h r to a Maximum Rate of 0.25mg/kg/ hr Please place a Med Request 2 hours before the next dose is needed. Folic Acid No 1 mg, Memori a 3-17 Route: PO, l 14:00: Daily, [place] 00 Dosing Weight 105.085, kg, Start date: 10/16/16 9:00:00 CDT, Duration: 5 day, Stop date: 10/20/16 9:00:00 CDT multivitami 2016- No 1 tab, Arun ronn n 3-17 Route: PO, l 14:00: Dosing Weight 105.085, [...] Dilaudid atorvastati No Notes: Arun ronn n 3-17 Same as l 02:00: Lipitor Lorazepam No [...] / 14:45: Senokot-S) sennosides, 00 Equiv. to [facility] 8.6 MG Tala-Colac Oral Tablet e. Miralax No Notes: Memoria 3-16 Dissolve l 14:44: in 8 oz of [place] water or juice. (Same as: Miralax) sodium [...] 3-16 (Same As: l 02:00: Lipitor) [place] Hydromorpho No Notes: Arun ronn ne 3-16 (Same as: l 01:30: Dilaudid) conc = 0.5 mg/ml Hydromorph one EXAMINATION GRADER Dose: ;Delay: ;Basal: Naloxone No Notes: Memoria 3-16 Same as l 01:30: Narcan Calcium No Notes: Memoria Gluconate 3-16 WASTE: F/P l 00:38: - Sink; E [place] 00 - [facility] Trash Bin Simethicone No Notes: Arun ronn 3-16 (Same as: l 00:26: Mylicon, [place] 00 Phazyme, Genasyme) D10W 961.5 No 961.5 mL, Me moria mL + sodium 3-15 Rate: 250 l chloride 21:51: ml/hr, [place] 154 mEq 00 Infuse over: 4 hr, Route: IV, Dosing Weight 105.085 kg, Total Volume: 1,000, Start date: 10/14/16 16:51:00 CDT, Duration: 30 day, Stop date: 11/13/16 16:50:00 CDT Dextrose 2017-0 No 1,000 mL, Arun ronn 10% with [...] Chloride 3-15 ONCE, l 0.154 20:39: Dosing [place] MEQ/ML 00 Weight Injectable 105.085 Solution kg, Start date: 10/14/16 15:39:00 CDT, Stop date: 10/14/16 15:39:00 CDT Sodium 2017-0 No 1,000 mL, Memori a Chloride 3-15 1,000 l 0.154 16:25: ml/hr, [place] MEQ/ML 00 Infuse Injectable Over: 1 Solution [...] day, Stop date: 11/13/16 9:11:00 CDT Dextrose No 12.5 gm, Memor ia 50% Syringe 3-15 25 mL, l 14:10: Route: [place] 00 IVP, Drug Form: INJ, Dosing Weight 105.085, kg, PRN, PRN Blood Glucose Results, Start date: 10/14/16 9:10:00 CDT, Duration: 30 day, Stop date: 11/13/16 9:09:00 CDT Insulin No Notes: Memoria regular 100 3-15 (Same as: l unit + 14:10: Humulin R Castro n sodium 00 and chloride NovoLIN R) 0.9% INJ 99 WASTE: F/P mL - Black; E - Municipal Trash Bin (Do not shake) Saline No Notes: Memoria Flush 0.9% 3-15 (Same as: l 14:00: BD [place] 00 Posiflush) Famotidine No Notes: Memor ia 3-15 [...] Notes: Memoria 3-15 Dose: 1 mg l 10:30: Delay: 10 min Basal rate: 0 4hr limit: 20 mg (Same as:Lenai-Faizan ct) Naloxone No Notes: Memoria 3-15 Same as l 10:20: Narcan Morphine No Notes: Memoria 3-15 Dose: 1 mg l 10:00: Delay: 10 min Basal rate: 0 mg 4hr limit: 15 mg (Same as:Lenai-Faizan ct) Labetalol No 5 mg, 1 Memor [...] Memoria Sulfate 3-15 (Same l 04:27: as:MORPhin e Sulfate) Morphine No Notes: Memoria 3-15 (Same l 04:19: as:MORPhin [place] 00 e Sulfate) Morphine No Notes: Memoria 3-15 Loading l 04:00: Dose: 2 mg Dose: 1 mg Delay: 10 min Basal rate: 0 4hr limit: 30 mg (Same as:Amairani connelly) Lorazepam No Notes: Memori a 3-15 (Same as: l 03:59: Ativan) [place] 00 Zofran No Notes: Memoria 3-15 (Same as: l 03:57: Zofran) [place] 00 MEDICATION WASTE Product Size: 4 mg Product Wasted: 0 mg Naloxone No Notes: Memoria 3-15 Same as l 03:47: Narcan [place] 00 Calcium No 1,000 mL, Memor ia Chloride 3-15 [...] times, Stop date: 10/13/16 22:44:00 CDT Lactated No 1,000 mL, Arun ronn Ringers 3-15 Rate: 200 l 1,000 mL 03:44: ml/hr, Infuse over: 5 hr, Route: IV, Dosing [...] 3-15 (Same as: l sodium 03:37: K [place] chloride 00 Phosphate. 0.9% INJ ) 1 mMol 250 mL phoshate has 1.47 mEq potassium Infuse over 4 hours sodium 2017 No 45 mmol, Memoria phosphate + 3-15 [...] E [place] 00 - Municipal Trash Bin Magnesium No Notes: Memori a Oxide 3-15 (Same as: l 03:37: Mag-Ox [place] 00 400) Magnesium oxide 759fa=500e g elemental magnesium Dose=____m g magnesium oxide (___mg elemental magnesium) Magnesium No Notes: Memori a Sulfate 3-15 WASTE: F/P l 03:37: - Sink; E [place] 00 - Municipal Trash Bin potassium No Notes: Memori a phosphate-s 3-15 (Same as: l odium 03:37: Phos-NaK) [place] phosphate 00 Each 1.5 250 mg-280 gm pkt has mg-160 mg 250mg oral powder phosphorou for s. Mix reconstitut w/2.5oz ion water and stir. potassium No Notes: Memori a chloride 3-15 (Same as: l 03:37: KCL) [place] 00 Infuse over 2 hours. Saline No Notes: Memoria Flush 0.9% 3-15 (Same as: l 03:37: BD [place] 00 Posiflush) Nystatin No Notes: Memoria 100 UNT/MG 3-15 (Same l Topical 03:37: as:Mycosta Herm crystal Powder 00 tin, Nilstat) For external use only. Ibuprofen Yes 800 mg = 1 Me moria 800 MG Oral 5-24 tab, PO, l Tablet 22:06: Q8H, PRN [place] [Motrin] 00 Pain, Take with food, # 30 tab, 0 Refill(s) {21 Yes See Memoria (Methylpred 5-24 Instructio l nisolone 4 22:06: ns, PO, Herm crystal MG Oral 00 Take by Tablet mouth as [Medrol]) } directed Pack on label., [Medrol X 6 day, # Dosepak] 1 Pack, 0 Refill(s) Dilaudid No Notes: Memoria 5-24 Same as: l 21:10: Dilaudid Acetaminoph No Notes: Arun ronn en 325 MG / -24 (Same as: l Hydrocodone 19:39: [place] Desiree nn Bitartrate 00 325/5) Do 5 MG Oral not exceed Tablet 4gm/day of [[place] acetaminop 5/325] hen. Ketorolac No 4 days Memor ia 5-24 l 19:39: MEDICATION WASTE Product Size: 60 mg Product Wasted: ___ mg Acetaminoph Yes 1 tab, PO, Memoria en 300 MG / 2-28 Q6H, PRN l Codeine 22:27: Pain Score Herm crystal Phosphate 00 4-6, X 5 30 MG Oral day, # 30 Tablet tab, 0 [Tylenol Refill(s) with Codeine #3] indomethaci Yes 50 mg = 1 M emoria n 50 mg 09-29 cap, PO, l oral 22:26: TID, X 10 [place] capsule 00 day, # 30 cap, 0 Refill(s) Dilaudid No 0.5 mg, Memori a 09-29 Route: IV, l 22:09: ONCE, Dosing Weight 106.818, kg, Start date: 09/29/15 16:09:00, Stop date: 09/29/15 16:09:00 Morphine No 4 mg, Memoria 09-29 Route: l 20:36: IVP, Drug form: INJ, ONCE, Dosing Weight 106.818, kg, Priority: STAT, Start date: 09/29/15 14:36:00, Stop date: 09/29/15 14:36:00 Sodium No 1,000 mL, Memori a Chloride 09-29 1,000 l 0.154 18:52: ml/hr, [place] MEQ/ML 00 Infuse Injectable Over: 1 Solution hr, Route: IV, 1,000, Drug form: INJ, ONCE, Priority: STAT, Dosing Weight 106.818 kg, Start date: 09/29/15 12:52:00, Duration: 1 doses or times, Stop date: 09/29/15 12:52:00 Morphine 2016-0 No Notes: Memoria 09-29 (Same l 18:52: as:MORPhin [place] 00 e Sulfate) Vital Signs Vital Name Observation Time Observation Value Comments Source Systolic (mm Hg) 2016-11-15 17:02:00 Arun rial [place] Diastolic (mm Hg) 2016-11-15 17:02:00 Mem orial [place] Temperature Oral (F) 2016-11-15 17:02:00 97.6 F [facility] [place] Heart Rate 2016-11-15 17:02:00 [facility] [place] Respitory Rate 2016-11-15 17:02:00 Memori al [place] Systolic (mm Hg) 2016-11-15 13:00:00 Arun rial [place] Diastolic (mm Hg) 2016-11-15 13:00:00 Mem orial [place] Respitory Rate 2016-11-15 13:00:00 Memori al [place] Heart Rate 2016-11-15 13:00:00 [facility] [place] Temperature Oral (F) 2016-11-15 13:00:00 97.4 F [facility] [place] Heart Rate 2016-11-15 08:06:00 [facility] Temperature Oral (F) 2016-11-15 08:06:00 98.1 F [facility] Respitory Rate 2016-11-15 08:06:00 [facility] Systolic (mm Hg) 2016-11-15 08:06:00 [facility] [place] Diastolic (mm Hg) 2016-11-15 08:06:00 [facility] [place] Height 2016-11-12 08:53:00 182.88 cm [facility] Weight 2016-11-12 08:53:00 [facility] BMI Calculated 2016-11-12 08:53:00 [facility] Temperature Oral (F) 2016-10-29 21:34:00 98.3 F [facility] Heart Rate 2016-10-29 21:34:00 [facility] Respitory Rate 2016-10-29 21:34:00 [facility] Systolic (mm Hg) 2016-10-29 21:34:00 [facility] [place] Diastolic (mm Hg) 2016-10-29 21:34:00 [facility] [place] Respitory Rate 2016-10-29 17:07:00 [facility] [place] Systolic (mm Hg) 2016-10-29 17:07:00 [facility] Diastolic (mm Hg) 2016-10-29 17:07:00 [facility] Heart Rate 2016-10-29 17:07:00 [facility] [place] Systolic (mm Hg) 2016-10-29 16:57:00 [facility] [place] Diastolic (mm Hg) 2016-10-29 16:57:00 [facility] [place] Respitory Rate 2016-10-29 16:57:00 [facility] [place] [facility] 2016-10-29 16:57:00 [facility] Temperature Oral (F) 2016-10-29 16:57:00 98.2 F [facility] Temperature Oral (F) 2016-10-29 13:09:00 98.3 F [facility] Height 2016-10-14 03:43:00 182.88 cm [facility] BMI Calculated 2016-10-14 03:43:00 [facility] Weight 2016-10-14 03:43:00 [facility] BMI Calculated 2016-10-14 03:42:00 [facility] [place] Weight 2016-10-14 03:42:00 [facility] [place] Height 2016-10-14 03:42:00 182.88 cm [facility] Weight 2016-10-14 03:41:00 [facility] Respitory Rate 2015-12-24 22:00:00 [facility] [place] [facility] 2015-12-24 22:00:00 [facility] [place] Systolic (mm Hg) 2015-12-24 22:00:00 Arun rial [place] Diastolic (mm Hg) 2015-12-24 22:00:00 [facility] [place] Weight 2015-12-24 18:47:00 [facility] [place] Height 2015-12-24 18:47:00 182.88 cm [facility] BMI Calculated 2015-12-24 18:47:00 [facility] [place] Temperature Oral (F) 2015-12-24 18:47:00 98.3 F [facility] [place] Systolic (mm Hg) 2015-12-24 18:47:00 Arun rial [place] Diastolic (mm Hg) 2015-12-24 18:47:00 [facility] [place] Respitory Rate 2015-12-24 18:47:00 [facility] [place] [facility] 2015-12-24 18:47:00 [facility] [place] Respitory Rate 2015-09-29 22:42:00 [facility] [place] Systolic (mm Hg) 2015-09-29 22:42:00 Arun rial [place] Diastolic (mm Hg) 2015-09-29 22:42:00 [facility] Temperature Oral (F) 2015-09-29 22:42:00 97.9 F [facility] Heart Rate 2015-09-29 22:42:00 [facility] [place] Respitory Rate 2015-09-29 21:57:00 [facility] [place] Systolic (mm Hg) 2015-09-29 21:57:00 Arun rial [place] Diastolic (mm Hg) 2015-09-29 21:57:00 Mem orial [place] [facility] 2015-09-29 21:57:00 [facility] Temperature Oral (F) 2015-09-29 21:57:00 97.9 F [facility] BMI Calculated 2015-09-29 18:34:00 [facility] [place] Weight 2015-09-29 18:34:00 [facility] Height 2015-09-29 18:34:00 182.88 cm [facility] Temperature Oral (F) 2015-09-29 18:32:00 98.1 F [facility] [place] [facility] Rate 2015-09-29 18:32:00 [facility] [place] Systolic (mm Hg) 2015-09-29 18:32:00 Arun [facility] Diastolic (mm Hg) 2015-09-29 18:32:00 [facility] Respitory Rate 2015-09-29 18:32:00 [facility] [place] Procedures This patient has no known procedures. Encounters Start End Encounter Admission Attending Care Care Encounter Source Date/Time Date/Time Type Type Clinicians Facility Department ID 2020-07-15 2020-07-15 Laboratory Lab, Adc [facility] [id number] 16:44:23 16:46:22 Only [facility] [id number] [place] [id number] Professio [phone] [place] [address] Office Building [facility] 2020-07-15 2020-07-15 Laboratory Lab, Adc Fam Pob I [facility] [id number]. [id number] Univers 16:44:23 16:46:22 Only Danika Corona [facility] [id number] ity of [place] [id number] Werner as Professio [phone] [place] dical [address] Office Building [facility] 2020-07-15 2020-07-[address] [facility] [id number] Univers 16:40:00 16:40:[address] [facility] 2020-07-15 2020-07-15 Letter Doctor WM [id number] 00:00:00 00:00:00 (Out) Unassigned, GRACE [id number] [facility] [id number] [facility] 2020-07-15 2020-07-15 Letter Doctor WM [id number] Univers 00:00:00 00:00:00 (Out) Unassigned, GRACE [id number] [place]y of [place] [facility] [id number] Werner as [phone] [address] 2016-11-12 2016-11-15 Inpatient [facility] [id number] Mem[facility] 08:08:00 19:30:00 kaity Mcmillan 03 [facility] 2016-11-12 2016-11-15 Outpatient Cristian [facility] [id number] 03:08:00 14:30:00 Joseph Rhea Chon 2016-10-14 2016-10-30 Inpatient [facility] [id number] [facility] 03:23:00 04:30:00 [facility] 75 l [facility] 2016-10-13 2016-10-29 Outpatient Stefani Jensen [facility] [id number] 22:23:00 23:30:00 Mariely Marivel 2015-12-24 2015-12-24 [facility] [id number] [facility] 18:41:00 22:07:00 Emergency r [facility] 01 l [facility] 2015-12-24 2015-12-[id number] 13:41:00 17:07:00 Wm Boateng 2015-09-29 2015-09-29 EC Vishal [facility] [id number] 18:31[facility] 22:43:00 Emergency r [facility] 00 l [facility] 2015-09-29 2015-09-29 Outpatient ADRIANA Pleitez [facility] [id number] 12:31:00 16:43:00 Christopher 00 Mejia Results Test Description Test Time Test Comments Results Result Comments Source CHEM PANEL 2016-11-15 07:08:00 Test Item Value Reference Range Interpretation Comme nts Magnesium Lvl (test code = Magnesium Lvl) 2.1 1.8-2.4 [facility]2017-04-16 07:08:00 Test Item Value Reference Range Interpretation Comments Phosphorus (test code = Phosphorus) 4.0 2.5-4.5 [facility]RS[facility]SS1109[facility]23-18 07:08:00 Test Item Value Reference Range Interpretation Comments AGAP (test code = AGAP) 14.0 10.0-20.0 [facility]MfgsoplMHLGFEPKWMGN6526-45-04 07:08:00 Test Item Value Reference Range Interpretation Comments eGFR (test code = eGFR) 126 [facility]TqjakoaWBFFHXESFNJV2372-56-08 07:08:00 Test Item Value Reference Range Interpretation Comments BUN (test code = BUN) 7 7-22 [facility]DpopexrZBMXBJXZLZOX4938-83-57 07:08:00 Test Item Value Reference Range Interpretation Comments Creatinine Lvl (test code = Creatinine 0.72 0.50-1.40 Lvl) [facility]LhuqkwvZKVCWLCANXMU3800-41-42 07:08:00 Test Item Value Reference Range Interpretation Comments Glucose Lvl (test code = Glucose Lvl) 148 70-99 [facility]IddwxlxRYSWXORECBTA7571-05-21 07:08:00 Test Item Value Reference Range Interpretation Comments Chloride Lvl (test code = Chloride Lvl) 100 95-109 [facility]QeylnjbSROXZVMDVFFW6397-77-53 07:08:00 Test Item Value Reference Range Interpretation Comments CO2 (test code = CO2) 28 24-32 [facility]JpppbcpYURJJXRDYBTO3173-99-78 07:08:00 Test Item Value Reference Range Interpretation Comments Sodium Lvl (test code = Sodium Lvl) 138 135-145 [facility]XchlhszKCMNJWCBSKWZ0383-63-63 07:08:00 Test Item Value Reference Range Interpretation Comments Potassium Lvl (test code = Potassium 4.0 3.5-5.1 Lvl) [facility]OdecvuhIKJTQGZATRCV4325-13-37 07:08:00 Test Item Value Reference Range Interpretation Comments Calcium Lvl (test code = Calcium Lvl) 9.4 8.5-10.5 [facility]MgvfpryPMQOUGVIKG1757-04-62 07:08:00 Test Item Value Reference Range Interpretation Comments Lymphocytes (test code = Lymphocytes) 6.8 20.0-40.0 [facility] HospitalXfojossCSQCXTVOYE8697-77-60 07:08:00 Test Item Value Reference Range Interpretation Comments Monocytes (test code = Monocytes) 4.2 2.0-12.0 [facility] HospitalFweayqiNLOKCRDKJC5634-95-65 07:08:00 Test Item Value Reference Range Interpretation Comments Segs (test code = Segs) 88.9 45.0-75.0 [facility] HospitalKksyzkvDMLYWOCRCS7347-15-55 07:08:00 Test Item Value Reference Range Interpretation Comments Monocytes # (test code 0.4 See_Comment [Aut omated message] The = Monocytes #) system which generated this result tra nsmitted reference range : <=0.8. The reference r regan was not used to int erpret this result as normal/abnormal . [facility] HospitalZofnaanCWXTPYJVES3671-93-61 07:08:00 Test Item Value Reference Range Interpretation Comments Lymphocytes # (test code = Lymphocytes 0.7 1.0-5.5 #) [facility] HospitalOwaqkvaRLJFMPLHXK1800-41-66 07:08:00 Test Item Value Reference Range Interpretation Comments Basophils (test code = 0.1 See_Comment [Aut omated message] The Basophils) system which ge nerated this result tra nsmitted reference range : <=1.0. The reference r regan was not used to int erpret this result as normal/abnormal . [facility] HospitalDipcthcKBFOMTGUXT6028-14-86 07:08:00 Test Item Value Reference Range Interpretation Comments Segs-Bands # (test code = Segs-Bands #) 9.5 1.5-8.1 [facility] HospitalYjnrjuoCTUEBMROWJ6912-93-14 07:08:00 Test Item Value Reference Range Interpretation Comments MCV (test code = MCV) 84.5 80.0-94.0 [facility] HospitalRlpzayeMRNNYAHLGG3321-52-61 07:08:00 Test Item Value Reference Range Interpretation Comments Hct (test code = Hct) 25.9 42.0-54.0 [facility] HospitalUwyvqlpFNQKBAYENR6853-52-20 07:08:00 Test Item Value Reference Range Interpretation Comments MPV (test code = MPV) 8.2 7.4-10.4 [facility] HospitalKliigmdRJJPLMPUAU4694-55-50 07:08:00 Test Item Value Reference Range Interpretation Comments Platelet (test code = Platelet) 300 133-450 [facility] HospitalIqmdkodZAQJBNGAQO3817-85-21 07:08:00 Test Item Value Reference Range Interpretation Comments Hgb (test code = Hgb) 8.5 14.0-18.0 [facility] HospitalZyvmhxlQCJONZOZTE2418-67-97 07:08:00 Test Item Value Reference Range Interpretation Comments RBC (test code = RBC) 3.07 4.70-6.10 [facility] HospitalLqzcxguHIQUMHPXCM4843-83-02 07:08:00 Test Item Value Reference Range Interpretation Comments RDW (test code = RDW) 15.8 11.5-14.5 [facility] HospitalMofwrnvLCJSPESICI4707-93-02 07:08:00 Test Item Value Reference Range Interpretation Comments MCHC (test code = MCHC) 32.7 32.0-36.0 [facility] HospitalPhsfyshPKEUPGHMPY9305-76-71 07:08:00 Test Item Value Reference Range Interpretation Comments MCH (test code = MCH) 27.6 pg 27.0-31.0 [facility] HospitalDjluudnVVLQKCIIEJ8624-38-36 07:08:00 Test Item Value Reference Range Interpretation Comments WBC (test code = WBC) 10.6 3.7-10.4 [facility]2017-04-15 18:29:00 Test Item Value Reference Range Interpretation Comments WBC BF (test code = WBC BF) 39446 [facility]2017-04-15 18:29:00 Test Item Value Reference Range Interpretation Comments RBC BF (test code = RBC BF) 133 [facility]2017-04-15 18:29:00 Test Item Value Reference Range Interpretation Comments CellCnt BF Type (test Synovial (11/14/16 1:29 code = CellCnt BF PM) Type) [facility]2017-04-15 18:29:00 Test Item Value Reference Range Interpretation Comments Clarity BF (test code Moderate Cloudy = Clarity BF) *ABN*(11/14/16 1:29 PM) [facility]2017-04-15 18:29:00 Test Item Value Reference Range Interpretation Comments Color BF (test code = Light Yellow (11/14/16 Color BF) 1:29 PM) [facility]2017-04-15 18:29:00 Test Item Value Reference Range Interpretation Comments Supernat BF (test code = Yellow *ABN*(11/14/16 Supernat BF) 1:29 PM) [facility]2017-04-15 18:29:00 Test Item Value Reference Range Interpretation Comments Crystal BF Type (test Synovial (11/14/16 1:29 code = Crystal BF PM) Type) [facility]2017-04-15 18:29:00 Test Item Value Reference Range Interpretation Comments Crystal BF (test code = Trinity Na Urate Crystal BF) *ABN*(11/14/16 1:29 PM) [facility] HospitalGlmxesdAUSHCVYUAQ0044-85-44 07:59:00 Test Item Value Reference Range Interpretation Comments RBC (test code = RBC) 3.06 4.70-6.10 [facility] HospitalRostjiwLEKCZLYUTS6535-75-82 07:59:00 Test Item Value Reference Range Interpretation Comments WBC (test code = WBC) 13.1 3.7-10.4 [facility] HospitalIocfxpeFKZYXVXLCZ2141-51-77 07:59:00 Test Item Value Reference Range Interpretation Comments Platelet (test code = Platelet) 332 133-450 [facility] HospitalHcvoxewICJRCIQZWL3816-25-34 07:59:00 Test Item Value Reference Range Interpretation Comments RDW (test code = RDW) 15.9 11.5-14.5 [facility] HospitalYktowbwFLYWBPBIVU6638-15-51 07:59:00 Test Item Value Reference Range Interpretation Comments MPV (test code = MPV) 8.3 7.4-10.4 [facility] HospitalJadtrdrMESVEAMMUG5363-43-51 07:59:00 Test Item Value Reference Range Interpretation Comments MCHC (test code = MCHC) 32.6 32.0-36.0 [facility] HospitalQriyprfLQTQTEWOFT9992-67-53 07:59:00 Test Item Value Reference Range Interpretation Comments Lymphocytes # (test code = Lymphocytes 2.0 1.0-5.5 #) [facility] HospitalQybcundTTTRDVIFNN2087-51-09 07:59:00 Test Item Value Reference Range Interpretation Comments Monocytes # (test code 1.3 See_Comment [Aut omated message] The = Monocytes #) system which generated this result tra nsmitted reference range : <=0.8. The reference r regan was not used to int erpret this result as normal/abnormal . [facility] HospitalSzswjhcWSFYACAQIK3811-15-71 07:59:00 Test Item Value Reference Range Interpretation Comments Segs-Bands # (test code = Segs-Bands #) 9.7 1.5-8.1 [facility] HospitalTeovcmtOYGSBGFWHO9869-31-28 07:59:00 Test Item Value Reference Range Interpretation Comments Eosinophils # (test code 0.1 See_Comment [A utomated message] The = Eosinophils #) system whic h generated this result tra nsmitted reference range : <=0.5. The reference r regan was not used to int erpret this result as normal/abnormal . [facility] HospitalGyqberrEEZFFMFOKW8028-37-11 07:59:00 Test Item Value Reference Range Interpretation Comments Basophils # (test code 0.1 See_Comment [Aut omated message] The = Basophils #) system which generated this result tra nsmitted reference range : <=0.2. The reference r regan was not used to int erpret this result as normal/abnormal . [facility] HospitalXsibhtoXQSFWMIJMG5669-52-37 07:59:00 Test Item Value Reference Range Interpretation Comments Segs (test code = Segs) 73.8 45.0-75.0 [facility] HospitalGpqdasiTPVZEPLNNX0824-01-50 07:59:00 Test Item Value Reference Range Interpretation Comments Lymphocytes (test code = Lymphocytes) 14.9 20.0-40.0 [facility] HospitalSqdovujJCROXHDLOQ7523-03-95 07:59:00 Test Item Value Reference Range Interpretation Comments Basophils (test code = 0.4 See_Comment [Aut omated message] The Basophils) system which ge nerated this result tra nsmitted reference range : <=1.0. The reference r regan was not used to int erpret this result as normal/abnormal . [facility] HospitalWjosdabSHOKQRZJYW9468-30-66 07:59:00 Test Item Value Reference Range Interpretation Comments Monocytes (test code = Monocytes) 10.1 2.0-12.0 [facility]utjmemGMUQMAPUXW3063-36-16 07:59:00 Test Item Value Reference Range Interpretation Comments Eosinophils (test code = 0.8 See_Comment [A utomated message] The Eosinophils) system which ge nerated this result tra nsmitted reference range : <=4.0. The reference r regan was not used to int erpret this result as normal/abnormal . [facility] AustinDpyjhjoTLRQHW9715-40-33 07:59:00 Test Item Value Reference Range Interpretation Comments VLDL (test code = VLDL) 29 [facility] AustinXgisqsfUKFKOK3713-84-97 07:59:00 Test Item Value Reference Range Interpretation Comments LDL (Calculated) (test code = LDL 75 (Calculated)) [facility]McrmjzkIIQWDY2110-62-48 07:59:00 Test Item Value Reference Range Interpretation Comments Chol (test code = Chol) 140 [facility] AustinGgjjgajUIIGLA5564-27-70 07:59:00 Test Item Value Reference Range Interpretation Comments Trig (test code = Trig) 143 [facility] AustinAoeestjENEINL2320-72-83 07:59:00 Test Item Value Reference Range Interpretation Comments HDL (test code = HDL) 36 [facility] AustinHjwwaeuMSGOQG0316-54-67 07:59:00 Test Item Value Reference Range Interpretation Comments CHD Risk (test code = CHD Risk) 3.89 4.00-7.30 [facility]2017-04-14 07:59:00 Test Item Value Reference Range Interpretation Comments Phosphorus (test code = Phosphorus) 4.9 2.5-4.5 [facility]2017-04-14 07:59:00 Test Item Value Reference Range Interpretation Comments Magnesium Lvl (test code = Magnesium 1.9 1.8-2.4 Lvl) [facility]2017-04-14 07:59:00 Test Item Value Reference Range Interpretation Comments Creatinine Lvl (test code = Creatinine 0.62 0.50-1.40 Lvl) [facility]2017-04-14 07:59:00 Test Item Value Reference Range Interpretation Comments eGFR (test code = eGFR) 134 [facility]2017-04-14 07:59:00 Test Item Value Reference Range Interpretation Comments BUN (test code = BUN) 3 7-22 [facility]2017-04-14 07:59:00 Test Item Value Reference Range Interpretation Comments Chloride Lvl (test code = Chloride Lvl) 98 95-109 [facility]2017-04-14 07:59:00 Test Item Value Reference Range Interpretation Comments Glucose Lvl (test code = Glucose Lvl) 107 70-99 [facility]2017-04-14 07:59:00 Test Item Value Reference Range Interpretation Comments Sodium Lvl (test code = Sodium Lvl) 135 135-145 [facility]2017-04-14 07:59:00 Test Item Value Reference Range Interpretation Comments CO2 (test code = CO2) 29 24-32 [facility]2017-04-14 07:59:00 Test Item Value Reference Range Interpretation Comments Potassium Lvl (test code = Potassium 3.6 3.5-5.1 Lvl) [facility]2017-04-14 07:59:00 Test Item Value Reference Range Interpretation Comments AGAP (test code = AGAP) 11.6 10.0-20.0 [facility]2017-04-14 07:59:00 Test Item Value Reference Range Interpretation Comments Calcium Lvl (test code = Calcium Lvl) 8.6 8.5-10.5 [facility] HospitalRtnrehrIKIPUTKLUU9557-37-92 07:59:00 Test Item Value Reference Range Interpretation Comments MCH (test code = MCH) 27.5 pg 27.0-31.0 [facility] HospitalLyyzihyWBZGGOMNZG8670-75-61 07:59:00 Test Item Value Reference Range Interpretation Comments Hgb (test code = Hgb) 8.4 14.0-18.0 [facility] HospitalDnyphukTGDMDUBTUF0893-14-10 07:59:00 Test Item Value Reference Range Interpretation Comments Hct (test code = Hct) 25.8 42.0-54.0 [facility] HospitalCxoaqfeHNIPTFVDHV0325-46-51 07:59:00 Test Item Value Reference Range Interpretation Comments MCV (test code = MCV) 84.2 80.0-94.0 [facility]2017-04-13 10:04:00 Test Item Value Reference Range Interpretation Comments Lipase Lvl (test code = Lipase Lvl) 325 73-393 [facility]2017-04-13 10:04:00 Test Item Value Reference Range Interpretation Comments eGFR (test code = eGFR) 133 [facility]2017-04-13 10:04:00 Test Item Value Reference Range Interpretation Comments Sodium Lvl (test code = Sodium Lvl) 141 135-145 [facility]2017-04-13 10:04:00 Test Item Value Reference Range Interpretation Comments Creatinine Lvl (test code = Creatinine 0.63 0.50-1.40 Lvl) [facility]2017-04-13 10:04:00 Test Item Value Reference Range Interpretation Comments BUN (test code = BUN) 6 7-22 [facility]2017-04-13 10:04:00 Test Item Value Reference Range Interpretation Comments Glucose Lvl (test code = Glucose Lvl) 105 70-99 [facility]2017-04-13 10:04:00 Test Item Value Reference Range Interpretation Comments Total Protein (test code = Total 6.8 6.4-8.4 Protein) [facility]2017-04-13 10:04:00 Test Item Value Reference Range Interpretation Comments Calcium Lvl (test code = Calcium Lvl) 8.5 8.5-10.5 [facility]2017-04-13 10:04:00 Test Item Value Reference Range Interpretation Comments CO2 (test code = CO2) 24 24-32 [facility]2017-04-13 10:04:00 Test Item Value Reference Range Interpretation Comments Chloride Lvl (test code = Chloride Lvl) 107 95-109 [facility]2017-04-13 10:04:00 Test Item Value Reference Range Interpretation Comments Potassium Lvl (test code = Potassium 3.6 3.5-5.1 Lvl) [facility]2017-04-13 10:04:00 Test Item Value Reference Range Interpretation Comments Bili Total (test code = Bili Total) 0.2 0.2-1.3 [facility]2017-04-13 10:04:00 Test Item Value Reference Range Interpretation Comments Alk Phos (test code = Alk Phos) 66 39-136 [facility]2017-04-13 10:04:00 Test Item Value Reference Range Interpretation Comments AST (test code = AST) 12 See_Comment [Auto mated message] The system which ge nerated this result transmit shon reference range : <=37. The reference range was not used to interpr et this result as liz l/abnormal. [facility]2017-04-13 10:04:00 Test Item Value Reference Range Interpretation Comments ALT (test code = ALT) 30 See_Comment [Auto mated message] The system which ge nerated this result transmit shon reference range : <=65. The reference range was not used to interpr et this result as liz l/abnormal. [facility]2017-04-13 10:04:00 Test Item Value Reference Range Interpretation Comments Albumin Lvl (test code = Albumin Lvl) 3.0 3.5-5.0 [facility]2017-04-13 10:04:00 Test Item Value Reference Range Interpretation Comments Globulin (test code = Globulin) 3.8 2.7-4.2 [facility]2017-04-13 10:04:00 Test Item Value Reference Range Interpretation Comments B/C Ratio (test code = B/C Ratio) 10 6-25 [facility]2017-04-13 10:04:00 Test Item Value Reference Range Interpretation Comments AGAP (test code = AGAP) 13.6 10.0-20.0 [facility]2017-04-13 10:04:00 Test Item Value Reference Range Interpretation Comments A/G Ratio (test code = A/G Ratio) 0.8 0.7-1.6 [facility]2017-04-13 10:04:00 Test Item Value Reference Range Interpretation Comments Phosphorus (test code = Phosphorus) 4.8 2.5-4.5 [facility]2017-04-13 10:04:00 Test Item Value Reference Range Interpretation Comments Magnesium Lvl (test code = Magnesium 1.3 1.8-2.4 Lvl) [facility] HospitalVjnnujqRNZUTYOMKT9428-94-85 10:04:00 Test Item Value Reference Range Interpretation Comments Segs (test code = Segs) 61.1 45.0-75.0 [facility] HospitalPfrhcqwNAPJNRTKXL0890-29-71 10:04:00 Test Item Value Reference Range Interpretation Comments Lymphocytes (test code = Lymphocytes) 25.7 20.0-40.0 [facility] HospitalTnbxmodZPFMAHPHIS7953-27-78 10:04:00 Test Item Value Reference Range Interpretation Comments Monocytes (test code = Monocytes) 10.4 2.0-12.0 [facility] HospitalFrglkvcBKEBNKFRAR6014-34-01 10:04:00 Test Item Value Reference Range Interpretation Comments Eosinophils (test code = 2.2 See_Comment [A utomated message] The Eosinophils) system which ge nerated this result tra nsmitted reference range : <=4.0. The reference r regan was not used to int erpret this result as normal/abnormal . [facility] HospitalChncvqaYPBQSDLEJX5025-23-28 10:04:00 Test Item Value Reference Range Interpretation Comments Monocytes # (test code 1.0 See_Comment [Aut omated message] The = Monocytes #) system which generated this result tra nsmitted reference range : <=0.8. The reference r regan was not used to int erpret this result as normal/abnormal . [facility] HospitalKqfwbfaAHHXEXYFAL0359-13-33 10:04:00 Test Item Value Reference Range Interpretation Comments Eosinophils # (test code 0.2 See_Comment [A utomated message] The = Eosinophils #) system wh h generated this result tra nsmitted reference range : <=0.5. The reference r regan was not used to int erpret this result as normal/abnormal . [facility] HospitalIizghckPQMPIYOMXM8339-20-25 10:04:00 Test Item Value Reference Range Interpretation Comments Basophils (test code = 0.6 See_Comment [Aut omated message] The Basophils) system which ge nerated this result tra nsmitted reference range : <=1.0. The reference r regan was not used to int erpret this result as normal/abnormal . [facility] HospitalDerihpyBAOVMMVXBO3240-04-29 10:04:00 Test Item Value Reference Range Interpretation Comments Segs-Bands # (test code = Segs-Bands #) 6.1 1.5-8.1 [facility] HospitalNcgpfsfBAEYWLSOXZ5604-96-80 10:04:00 Test Item Value Reference Range Interpretation Comments Lymphocytes # (test code = Lymphocytes 2.6 1.0-5.5 #) [facility] [id number] 10:04:00 Test Item Value Reference Range Interpretation Comments Basophils # (test code 0.1 See_Comment [Aut omated message] The = Basophils #) system which generated this result tra nsmitted reference range : <=0.2. The reference r regan was not used to int erpret this result as normal/abnormal . [facility]YskfjnxHTSLPBJJWJ1799-72-58 10:04:00 Test Item Value Reference Range Interpretation Comments WBC (test code = WBC) 10.0 3.7-10.4 [facility] HospitalJoyvdedNBECLDJTYY6042-31-49 10:04:00 Test Item Value Reference Range Interpretation Comments Hgb (test code = Hgb) 8.2 14.0-18.0 [facility] HospitalXfeymvxTJXHGUVBDE1198-08-20 10:04:00 Test Item Value Reference Range Interpretation Comments RBC (test code = RBC) 2.89 4.70-6.10 [facility] HospitalLsltrplNHTMFEMFCB4161-58-27 10:04:00 Test Item Value Reference Range Interpretation Comments Hct (test code = Hct) 24.7 42.0-54.0 [facility] HospitalUgwqupnJHWSAGQQBY5984-51-70 10:04:00 Test Item Value Reference Range Interpretation Comments MPV (test code = MPV) 7.8 7.4-10.4 [facility] HospitalJypetxwWZTADXNNPP0286-76-13 10:04:00 Test Item Value Reference Range Interpretation Comments MCH (test code = MCH) 28.3 pg 27.0-31.0 [facility] HospitalObezrhlDERWZWQYEF1028-13-31 10:04:00 Test Item Value Reference Range Interpretation Comments MCV (test code = MCV) 85.5 80.0-94.0 [facility] HospitalEadyqguZZRLRPQNST1261-12-91 10:04:00 Test Item Value Reference Range Interpretation Comments Platelet (test code = Platelet) 341 133-450 [facility] HospitalJbyjkjwWVPPSRQKKF4605-12-97 10:04:00 Test Item Value Reference Range Interpretation Comments RDW (test code = RDW) 15.8 11.5-14.5 [facility] HospitalMzqsiezVJQIHKCYLW2912-16-21 10:04:00 Test Item Value Reference Range Interpretation Comments MCHC (test code = MCHC) 33.1 32.0-36.0 [facility] [id number] 10:11:00 Test Item Value Reference Range Interpretation Comments B/C Ratio (test code = B/C Ratio) 12 6-25 [facility] [id number] 10:11:00 Test Item Value Reference Range Interpretation Comments Globulin (test code = Globulin) 4.2 2.7-4.2 [facility]2017-03-30 10:11:00 Test Item Value Reference Range Interpretation Comments A/G Ratio (test code = A/G Ratio) 0.8 0.7-1.6 [facility]2017-03-30 10:11:00 Test Item Value Reference Range Interpretation Comments AGAP (test code = AGAP) 11.6 10.0-20.0 [facility]2017-03-30 10:11:00 Test Item Value Reference Range Interpretation Comments eGFR (test code = eGFR) 131 [facility]2017-03-30 10:11:00 Test Item Value Reference Range Interpretation Comments Bili Total (test code = Bili Total) 0.2 0.2-1.3 [facility]2017-03-30 10:11:00 Test Item Value Reference Range Interpretation Comments AST (test code = AST) 23 See_Comment [Auto mated message] The system which ge nerated this result transmit shon reference range : <=37. The reference range was not used to interpr et this result as liz l/abnormal. [facility]2017-03-30 10:11:00 Test Item Value Reference Range Interpretation Comments Alk Phos (test code = Alk Phos) 47 39-136 [facility]2017-03-30 10:11:00 Test Item Value Reference Range Interpretation Comments Calcium Lvl (test code = Calcium Lvl) 9.1 8.5-10.5 [facility]2017-03-30 10:11:00 Test Item Value Reference Range Interpretation Comments Total Protein (test code = Total 7.4 6.4-8.4 Protein) [facility]2017-03-30 10:11:00 Test Item Value Reference Range Interpretation Comments Chloride Lvl (test code = Chloride Lvl) 98 95-109 [facility]2017-03-30 10:11:00 Test Item Value Reference Range Interpretation Comments CO2 (test code = CO2) 30 24-32 [facility]2017-03-30 10:11:00 Test Item Value Reference Range Interpretation Comments Albumin Lvl (test code = Albumin Lvl) 3.2 3.5-5.0 [facility]2017-03-30 10:11:00 Test Item Value Reference Range Interpretation Comments ALT (test code = ALT) 27 See_Comment [Auto mated message] The system which ge nerated this result transmit shon reference range : <=65. The reference range was not used to interpr et this result as liz l/abnormal. [facility]2017-03-30 10:11:00 Test Item Value Reference Range Interpretation Comments Potassium Lvl (test code = Potassium 4.6 3.5-5.1 Lvl) [facility]2017-03-30 10:11:00 Test Item Value Reference Range Interpretation Comments Creatinine Lvl (test code = Creatinine 0.66 0.50-1.40 Lvl) [facility]2017-03-30 10:11:00 Test Item Value Reference Range Interpretation Comments Sodium Lvl (test code = Sodium Lvl) 135 135-145 [facility]2017-03-30 10:11:00 Test Item Value Reference Range Interpretation Comments Glucose Lvl (test code = Glucose Lvl) 97 70-99 [facility]2017-03-30 10:11:00 Test Item Value Reference Range Interpretation Comments BUN (test code = BUN) 8 7-22 [facility] HospitalIsfcbsuPYSDWBOGDY1547-76-54 10:11:00 Test Item Value Reference Range Interpretation Comments Basophils (test code = 1.0 See_Comment [Aut omated message] The Basophils) system which ge nerated this result tra nsmitted reference range : <=1.0. The reference r regan was not used to int erpret this result as normal/abnormal . [facility] HospitalJwuncquLQVIJUDSOF6751-00-26 10:11:00 Test Item Value Reference Range Interpretation Comments Segs-Bands # (test code = Segs-Bands #) 5.3 1.5-8.1 [facility] HospitalTauparwAIGRYFDAOO6618-97-45 10:11:00 Test Item Value Reference Range Interpretation Comments Lymphocytes # (test code = Lymphocytes 3.4 1.0-5.5 #) [facility] HospitalKkzdewnQKDUZEMNDE4677-97-72 10:11:00 Test Item Value Reference Range Interpretation Comments Eosinophils (test code = 2.6 See_Comment [A utomated message] The Eosinophils) system which ge nerated this result tra nsmitted reference range : <=4.0. The reference r regan was not used to int erpret this result as normal/abnormal . [facility] HospitalNbxscxeJIFYLOOTJW2624-24-17 10:11:00 Test Item Value Reference Range Interpretation Comments Monocytes (test code = Monocytes) 7.7 2.0-12.0 [facility] HospitalIdkpyrwSATWMNRWVF5271-03-10 10:11:00 Test Item Value Reference Range Interpretation Comments Eosinophils # (test code 0.3 See_Comment [A utomated message] The = Eosinophils #) system whic h generated this result tra nsmitted reference range : <=0.5. The reference r regan was not used to int erpret this result as normal/abnormal . [facility] HospitalYslphoxWJDELEKLXQ8671-18-57 10:11:00 Test Item Value Reference Range Interpretation Comments Monocytes # (test code 0.8 See_Comment [Aut omated message] The = Monocytes #) system which generated this result tra nsmitted reference range : <=0.8. The reference r regan was not used to int erpret this result as normal/abnormal . [facility] HospitalEjiwzhdQUGPTCDXUP7818-10-08 10:11:00 Test Item Value Reference Range Interpretation Comments Basophils # (test code 0.1 See_Comment [Aut omated message] The = Basophils #) system which generated this result tra nsmitted reference range : <=0.2. The reference r regan was not used to int erpret this result as normal/abnormal . [facility] HospitalXeuktxbZLBHPNAZZZ8742-45-91 10:11:00 Test Item Value Reference Range Interpretation Comments RBC Morph (test code = Normal (10/29/16 5:11 RBC Morph) AM) [facility] HospitalZvecfzjYEWZRZWOIG8616-85-18 10:11:00 Test Item Value Reference Range Interpretation Comments Plt Morph (test code = Normal (10/29/16 5:11 Plt Morph) AM) [facility] HospitalZtgoamkEVBICHPOZS2047-36-85 10:11:00 Test Item Value Reference Range Interpretation Comments Lymphocytes (test code = Lymphocytes) 34.5 20.0-40.0 [facility] HospitalUsbfmssBAHFAIRIEF4874-66-59 10:11:00 Test Item Value Reference Range Interpretation Comments Segs (test code = Segs) 54.2 45.0-75.0 [facility] HospitalDljodigDJWCUJXAQC5800-81-39 10:11:00 Test Item Value Reference Range Interpretation Comments MPV (test code = MPV) 8.0 7.4-10.4 [facility] HospitalJuovhnwZPWIWHCUBO5229-16-39 10:11:00 Test Item Value Reference Range Interpretation Comments Hgb (test code = Hgb) 7.6 14.0-18.0 [facility] HospitalAzgjihiLYPAGGMOTB9791-71-95 10:11:00 Test Item Value Reference Range Interpretation Comments Hct (test code = Hct) 22.9 42.0-54.0 [facility] HospitalCyymtsqDPBSGWLTSI9406-19-28 10:11:00 Test Item Value Reference Range Interpretation Comments MCH (test code = MCH) 30.2 pg 27.0-31.0 [facility] HospitalXqpjrzlLKNFSRKUHX9792-97-43 10:11:00 Test Item Value Reference Range Interpretation Comments MCV (test code = MCV) 90.8 80.0-94.0 [facility] HospitalIsojhqwEVGWBCDAIM5433-76-85 10:11:00 Test Item Value Reference Range Interpretation Comments RDW (test code = RDW) 14.8 11.5-14.5 [facility] HospitalAealaslGKQJBFFCOR4285-25-76 10:11:00 Test Item Value Reference Range Interpretation Comments Platelet (test code = Platelet) 814 133-450 [facility] HospitalYwstdxyFGRTIBPDAG1171-28-51 10:11:00 Test Item Value Reference Range Interpretation Comments MCHC (test code = MCHC) 33.2 32.0-36.0 [facility] HospitalTaanueiYMNFWKMBKK0540-51-07 10:11:00 Test Item Value Reference Range Interpretation Comments WBC (test code = WBC) 9.8 3.7-10.4 [facility] HospitalRyrmkneHKUTVJUAYU8893-93-94 10:11:00 Test Item Value Reference Range Interpretation Comments RBC (test code = RBC) 2.52 4.70-6.10 [facility]SpbkyvcCGGZKYEOKFFS1856-83-08 14:10:00 Test Item Value Reference Range Interpretation Comments AGAP (test code = AGAP) 10.9 10.0-20.0 [facility] HospitalJbdeafpRUGZYOJEMQUR6043-74-30 14:10:00 Test Item Value Reference Range Interpretation Comments eGFR (test code = eGFR) 132 [facility] HospitalHlsrsezWBEZSTVMQMQX1548-82-91 14:10:00 Test Item Value Reference Range Interpretation Comments Calcium Lvl (test code = Calcium Lvl) 9.1 8.5-10.5 [facility] HospitalVikpsteAZXLANTYHCNU6855-66-38 14:10:00 Test Item Value Reference Range Interpretation Comments Glucose Lvl (test code = Glucose Lvl) 117 70-99 [facility] HospitalQlcxmnkQCZLSJBGOXYP3087-38-24 14:10:00 Test Item Value Reference Range Interpretation Comments BUN (test code = BUN) 8 7-22 [facility] HospitalLjuszphCXFAIKRFLVUL7404-56-74 14:10:00 Test Item Value Reference Range Interpretation Comments Creatinine Lvl (test code = Creatinine 0.64 0.50-1.40 Lvl) [facility] HospitalCpdweapJWPJYMELQIAN0991-02-75 14:10:00 Test Item Value Reference Range Interpretation Comments Sodium Lvl (test code = Sodium Lvl) 136 135-145 [facility] HospitalMdshajwSZABUHKHCDCX3464-42-24 14:10:00 Test Item Value Reference Range Interpretation Comments Potassium Lvl (test code = Potassium 3.9 3.5-5.1 Lvl) [facility] HospitalQcvhdrdLOHSCQWQMASA7627-31-46 14:10:00 Test Item Value Reference Range Interpretation Comments Chloride Lvl (test code = Chloride Lvl) 100 95-109 [facility] HospitalFscadebHIPFFALUAWCQ6855-36-12 14:10:00 Test Item Value Reference Range Interpretation Comments CO2 (test code = CO2) 29 24-32 [facility] HospitalSoycccuLDRBAXIEYZ4148-83-31 14:10:00 Test Item Value Reference Range Interpretation Comments Platelet (test code = Platelet) 837 133-450 [facility] HospitalRtjekjvTMRPPKYQRT1194-66-88 14:10:00 Test Item Value Reference Range Interpretation Comments Hct (test code = Hct) 22.2 42.0-54.0 [facility] HospitalGouyecwZAEQXQJMVK8429-68-18 14:10:00 Test Item Value Reference Range Interpretation Comments MCV (test code = MCV) 91.2 80.0-94.0 [facility] HospitalSvmstkmAYZEOCDNMG1789-67-82 14:10:00 Test Item Value Reference Range Interpretation Comments MCH (test code = MCH) 30.6 pg 27.0-31.0 [facility] HospitalVpfjraoUPHLOUOQGV4434-04-96 14:10:00 Test Item Value Reference Range Interpretation Comments MPV (test code = MPV) 8.1 7.4-10.4 [facility] HospitalEpzchlePLTPZNYDKC9053-42-13 14:10:00 Test Item Value Reference Range Interpretation Comments WBC (test code = WBC) 10.7 3.7-10.4 [facility] HospitalWrifaahIWIHAGBAIP8370-64-23 14:10:00 Test Item Value Reference Range Interpretation Comments RBC (test code = RBC) 2.43 4.70-6.10 [facility] HospitalEffoxkcYHBJNOQZAP4628-30-99 14:10:00 Test Item Value Reference Range Interpretation Comments RDW (test code = RDW) 14.9 11.5-14.5 [facility] HospitalNviymayMJDJZFBEMH9152-26-89 14:10:00 Test Item Value Reference Range Interpretation Comments MCHC (test code = MCHC) 33.5 32.0-36.0 [facility] HospitalMftbmnwBSHUHLSJBG5181-54-03 14:10:00 Test Item Value Reference Range Interpretation Comments Hgb (test code = Hgb) 7.4 14.0-18.0 [facility] HospitalVijmktrAQUWUVQYBS6429-92-75 14:10:00 Test Item Value Reference Range Interpretation Comments Basophils (test code = 1.9 See_Comment [Aut omated message] The Basophils) system which ge nerated this result tra nsmitted reference range : <=1.0. The reference r regan was not used to int erpret this result as normal/abnormal . [facility] HospitalBgzlbvuCIVIMOQFPJ1406-01-02 14:10:00 Test Item Value Reference Range Interpretation Comments Eosinophils (test code = 3.0 See_Comment [A utomated message] The Eosinophils) system which ge nerated this result tra nsmitted reference range : <=4.0. The reference r regan was not used to int erpret this result as normal/abnormal . [facility] HospitalLippgxhWQWUKUWSBV2415-83-98 14:10:00 Test Item Value Reference Range Interpretation Comments Eosinophils # (test code 0.3 See_Comment [A utomated message] The = Eosinophils #) system whic h generated this result tra nsmitted reference range : <=0.5. The reference r regan was not used to int erpret this result as normal/abnormal . [facility] HospitalNtrjaatZQXLBPDGQB8773-03-21 14:10:00 Test Item Value Reference Range Interpretation Comments Basophils # (test code 0.2 See_Comment [Aut omated message] The = Basophils #) system which generated this result tra nsmitted reference range : <=0.2. The reference r regan was not used to int erpret this result as normal/abnormal . [facility] HospitalVfyntdjQZIZMBCTSK5905-47-56 14:10:00 Test Item Value Reference Range Interpretation Comments Monocytes # (test code 0.8 See_Comment [Aut omated message] The = Monocytes #) system which generated this result tra nsmitted reference range : <=0.8. The reference r regan was not used to int erpret this result as normal/abnormal . [facility] HospitalJsdtqsnVBWQZUXBWB4723-43-19 14:10:00 Test Item Value Reference Range Interpretation Comments Lymphocytes # (test code = Lymphocytes 2.4 1.0-5.5 #) [facility] HospitalNlzntazSJKGMAXOOP1116-63-10 14:10:00 Test Item Value Reference Range Interpretation Comments Segs-Bands # (test code = Segs-Bands #) 6.9 1.5-8.1 [facility] HospitalYdngzkrIDDOCAKVMN2537-06-84 14:10:00 Test Item Value Reference Range Interpretation Comments Lymphocytes (test code = Lymphocytes) 22.6 20.0-40.0 [facility] HospitalXniexpqALFYYMXQJM4651-18-70 14:10:00 Test Item Value Reference Range Interpretation Comments Monocytes (test code = Monocytes) 7.8 2.0-12.0 [facility] HospitalLisvfqfOPTNMAUXDR3014-87-73 14:10:00 Test Item Value Reference Range Interpretation Comments Segs (test code = Segs) 64.7 45.0-75.0 [facility] HospitalDvjdirbVKZGHQXSDY0114-81-88 14:10:00 Test Item Value Reference Range Interpretation Comments Anisocyte (test code = 1+ *ABN*(10/28/16 Anisocyte) 9:10 AM) [facility] HospitalAfutrxiUHJYMLTZAA5556-11-73 14:13:00 Test Item Value Reference Range Interpretation Comments Hgb (test code = Hgb) 8.1 14.0-18.0 [facility]2017-03-28 09:30:00 Test Item Value Reference Range Interpretation Comments Phosphorus (test code = Phosphorus) 4.2 2.5-4.5 [facility]2017-03-28 09:30:00 Test Item Value Reference Range Interpretation Comments eGFR (test code = eGFR) 141 [facility]2017-03-28 09:30:00 Test Item Value Reference Range Interpretation Comments Calcium Lvl (test code = Calcium Lvl) 9.0 8.5-10.5 [facility]2017-03-28 09:30:00 Test Item Value Reference Range Interpretation Comments CO2 (test code = CO2) 28 24-32 [facility]2017-03-28 09:30:00 Test Item Value Reference Range Interpretation Comments Chloride Lvl (test code = Chloride Lvl) 103 95-109 [place] 636717-03-28 09:30:00 Test Item Value Reference Range Interpretation Comments Potassium Lvl (test code = Potassium 3.9 3.5-5.1 Lvl) [facility]2017-03-28 09:30:00 Test Item Value Reference Range Interpretation Comments Sodium Lvl (test code = Sodium Lvl) 138 135-145 [place] 636717-03-28 09:30:00 Test Item Value Reference Range Interpretation Comments Glucose Lvl (test code = Glucose Lvl) 119 70-99 [place] 636717-03-28 09:30:00 Test Item Value Reference Range Interpretation Comments BUN (test code = BUN) 6 7-22 [facility]2017-03-28 09:30:00 Test Item Value Reference Range Interpretation Comments Creatinine Lvl (test code = Creatinine 0.55 0.50-1.40 Lvl) [facility]2017-03-28 09:30:00 Test Item Value Reference Range Interpretation Comments AGAP (test code = AGAP) 10.9 10.0-20.0 [place] 636717-03-28 09:30:00 Test Item Value Reference Range Interpretation Comments Magnesium Lvl (test code = Magnesium 2.3 1.8-2.4 Lvl) [facility] HospitalAjnqyikBBPVBWCIWU9710-67-98 09:30:00 Test Item Value Reference Range Interpretation Comments Eosinophils # (test code 0.3 See_Comment [A utomated message] The = Eosinophils #) system whic h generated this result tra nsmitted reference range : <=0.5. The reference r regan was not used to int erpret this result as normal/abnormal . [facility] HospitalYefzdvjYCPIAXJMQH8049-99-94 09:30:00 Test Item Value Reference Range Interpretation Comments Basophils (test code = 1.3 See_Comment [Aut omated message] The Basophils) system which ge nerated this result tra nsmitted reference range : <=1.0. The reference r regan was not used to int erpret this result as normal/abnormal . [facility] HospitalKbztvlnRNWIILOFCK2798-27-32 09:30:00 Test Item Value Reference Range Interpretation Comments Segs-Bands # (test code = Segs-Bands #) 6.9 1.5-8.1 [facility] HospitalEkuicqxHTDYXTIBPT6564-04-78 09:30:00 Test Item Value Reference Range Interpretation Comments Lymphocytes # (test code = Lymphocytes 3.4 1.0-5.5 #) [facility] HospitalLwtqrasPJHBBAFHCQ9807-85-72 09:30:00 Test Item Value Reference Range Interpretation Comments Monocytes # (test code 0.9 See_Comment [Aut omated message] The = Monocytes #) system which generated this result tra nsmitted reference range : <=0.8. The reference r regan was not used to int erpret this result as normal/abnormal . [facility] HospitalBsfiznhWRQSFNYZIT4145-37-68 09:30:00 Test Item Value Reference Range Interpretation Comments Eosinophils (test code = 2.8 See_Comment [A utomated message] The Eosinophils) system which ge nerated this result tra nsmitted reference range : <=4.0. The reference r regan was not used to int erpret this result as normal/abnormal . [facility] HospitalYulntljAGRKJKCINL1636-99-98 09:30:00 Test Item Value Reference Range Interpretation Comments Basophils # (test code 0.2 See_Comment [Aut omated message] The = Basophils #) system which generated this result tra nsmitted reference range : <=0.2. The reference r regan was not used to int erpret this result as normal/abnormal . [facility] HospitalUvizlauSZGLPLXDLB4704-31-17 09:30:00 Test Item Value Reference Range Interpretation Comments Segs (test code = Segs) 59.0 45.0-75.0 [facility] HospitalQcqirldGPZBPBYEJM1058-81-66 09:30:00 Test Item Value Reference Range Interpretation Comments Monocytes (test code = Monocytes) 7.9 2.0-12.0 [facility] HospitalYwbmemwHKUCVBXLDW1345-81-15 09:30:00 Test Item Value Reference Range Interpretation Comments Lymphocytes (test code = Lymphocytes) 29.0 20.0-40.0 [facility] HospitalBpbwfnmPSEBNWMSQN1628-65-16 09:30:00 Test Item Value Reference Range Interpretation Comments MCH (test code = MCH) 29.8 pg 27.0-31.0 [facility] HospitalKizlifdRNCENHPGOH1455-36-41 09:30:00 Test Item Value Reference Range Interpretation Comments MCHC (test code = MCHC) 33.0 32.0-36.0 [facility] HospitalZbhkvsmOPYONYLXRD9158-65-13 09:30:00 Test Item Value Reference Range Interpretation Comments Hct (test code = Hct) 20.5 42.0-54.0 [facility] HospitalOhkdfjfYKPBDPNQDZ0664-34-05 09:30:00 Test Item Value Reference Range Interpretation Comments RBC (test code = RBC) 2.26 4.70-6.10 [facility] HospitalUdzhgrnDFKWQGNMGS6592-53-43 09:30:00 Test Item Value Reference Range Interpretation Comments WBC (test code = WBC) 11.6 3.7-10.4 [facility] HospitalWonaqceRFONXIRTTG6732-07-52 09:30:00 Test Item Value Reference Range Interpretation Comments MCV (test code = MCV) 90.4 80.0-94.0 [facility] HospitalJjxgxnpXDWLGRUKNA6724-35-24 09:30:00 Test Item Value Reference Range Interpretation Comments Platelet (test code = Platelet) 216 056-450 [facility] HospitalAfnrsyuFFGMLKDLVN8752-45-27 09:30:00 Test Item Value Reference Range Interpretation Comments RDW (test code = RDW) 14.5 11.5-14.5 [facility] HospitalIbjvwfsGBGUCEONVM6027-94-91 09:30:00 Test Item Value Reference Range Interpretation Comments MPV (test code = MPV) 7.9 7.4-10.4 [facility] VBMFA0057-86-49 09:22:00 Test Item Value Reference Range Interpretation Comments Phosphorus (test code = Phosphorus) 4.5 2.5-4.5 [facility] RFVCN9373-16-61 09:22:00 Test Item Value Reference Range Interpretation Comments Magnesium Lvl (test code = Magnesium 2.1 1.8-2.4 Lvl) [facility] HospitalKqwikulXMXYRHIDLY5656-44-33 09:22:00 Test Item Value Reference Range Interpretation Comments Plt Morph (test code = Normal (10/26/16 4:22 Plt Morph) AM) [facility] HospitalSmelsdcWLHBBAZKRQ4628-83-89 09:22:00 Test Item Value Reference Range Interpretation Comments Macrocyte (test code = 1+ *ABN*(10/26/16 Macrocyte) 4:22 AM) [facility] HospitalAfxeipaPHKMCBRTDL6809-05-39 09:22:00 Test Item Value Reference Range Interpretation Comments Polychrom (test code = Moderate *ABN*(10/26/16 Polychrom) 4:22 AM) [facility] HospitalUcsjvomFEPESROTPN1874-76-77 09:22:00 Test Item Value Reference Range Interpretation Comments Microcyte (test code = 1+ *ABN*(10/26/16 Microcyte) 4:22 AM) [facility]2017-03-26 07:39:00 Test Item Value Reference Range Interpretation Comments Total Protein (test code = Total 7.5 6.4-8.4 Protein) [facility]2017-03-26 07:39:00 Test Item Value Reference Range Interpretation Comments B/C Ratio (test code = B/C Ratio) 23 6-25 [facility]2017-03-26 07:39:00 Test Item Value Reference Range Interpretation Comments Albumin Lvl (test code = Albumin Lvl) 2.5 3.5-5.0 [facility]2017-03-26 07:39:00 Test Item Value Reference Range Interpretation Comments Globulin (test code = Globulin) 5.0 2.7-4.2 [facility]2017-03-26 07:39:00 Test Item Value Reference Range Interpretation Comments A/G Ratio (test code = A/G Ratio) 0.5 0.7-1.6 [facility]2017-03-26 07:39:00 Test Item Value Reference Range Interpretation Comments Bili Total (test code = Bili Total) 0.3 0.2-1.3 [facility]2017-03-26 07:39:00 Test Item Value Reference Range Interpretation Comments Alk Phos (test code = Alk Phos) 48 39-136 [facility]2017-03-26 07:39:00 Test Item Value Reference Range Interpretation Comments ALT (test code = ALT) 24 See_Comment [Auto mated message] The system which ge nerated this result transmit shon reference range : <=65. The reference range was not used to interpr et this result as liz l/abnormal. [facility]2017-03-26 07:39:00 Test Item Value Reference Range Interpretation Comments AST (test code = AST) 25 See_Comment [Auto mated message] The system which ge nerated this result transmit shon reference range : <=37. The reference range was not used to interpr et this result as liz l/abnormal. [facility]2017-03-26 07:39:00 Test Item Value Reference Range Interpretation Comments Lipase Lvl (test code = Lipase Lvl) 2868 99-217 [facility]UdfuadzSQLIUDJYVM5594-43-67 07:39:00 Test Item Value Reference Range Interpretation Comments Bands (test code = 2.0 See_Comment [Automat ed message] The Bands) system which ge nerated this result transmit shon reference range : <=11.0. The reference r regan was not used to interpr et this result as liz l/abnormal. [facility] HospitalEvcjylvFJTOPBZBUR0819-14-05 07:39:00 Test Item Value Reference Range Interpretation Comments Metamyelocytes (test code 2.0 See_Comment [ Automated message] = Metamyelocytes) The system which generated this result transmitted ref erence range: <=1.0. T he reference range was not used to int erpret this result as normal/abnormal . [facility] HospitalYaknkudVKLTHHIJEO9013-72-87 07:39:00 Test Item Value Reference Range Interpretation Comments Myelocytes (test code = Myelocytes) 2.0 [facility] HospitalXudnoppVIVSWEUNGF8111-58-44 07:39:00 Test Item Value Reference Range Interpretation Comments Atypical Lymphs (test code = Atypical 0.0 Lymphs) [facility] HospitalPyvfdyuSXGUYIWKCV3065-98-19 07:39:00 Test Item Value Reference Range Interpretation Comments RBC Morph (test code = Normal (10/25/16 2:39 RBC Morph) AM) [facility] HospitalGpkbquiBVZMUJNSKY6653-89-78 07:39:00 Test Item Value Reference Range Interpretation Comments Plt Morph (test code = Normal (10/25/16 2:39 Plt Morph) AM) [facility] HospitalHexwtkfUOQPUCPKKL1275-12-18 10:42:00 Test Item Value Reference Range Interpretation Comments Atypical Lymphs (test code = Atypical 0.0 Lymphs) [facility] HospitalLuwpbgaITGGTDVINC5269-29-41 10:42:00 Test Item Value Reference Range Interpretation Comments Myelocytes (test code = Myelocytes) 1.0 [facility] HospitalEsxfzyrXIKPKMZCSX8141-73-88 10:42:00 Test Item Value Reference Range Interpretation Comments Bands (test code = 3.0 See_Comment [Automat ed message] The Bands) system which ge nerated this result transmit shon reference range : <=11.0. The reference r regan was not used to interpr et this result as liz l/abnormal. [facility] HospitalKnaapfqLHENLMDSEQ6786-64-58 10:42:00 Test Item Value Reference Range Interpretation Comments Rouleaux (test code = Present *ABN*(10/24/16 Rouleaux) 5:42 AM) [facility]2017-03-24 10:36:00 Test Item Value Reference Range Interpretation Comments Lipase Lvl (test code = Lipase Lvl) 1849 73-393 [facility]2017-03-24 10:36:00 Test Item Value Reference Range Interpretation Comments Globulin (test code = Globulin) 4.7 2.7-4.2 [facility]2017-03-24 10:36:00 Test Item Value Reference Range Interpretation Comments B/C Ratio (test code = B/C Ratio) 15 6-25 [facility]2017-03-24 10:36:00 Test Item Value Reference Range Interpretation Comments A/G Ratio (test code = A/G Ratio) 0.5 0.7-1.6 [facility]2017-03-24 10:36:00 Test Item Value Reference Range Interpretation Comments Bili Total (test code = Bili Total) 0.3 0.2-1.3 [facility]2017-03-24 10:36:00 Test Item Value Reference Range Interpretation Comments Alk Phos (test code = Alk Phos) 76 39-136 [facility]2017-03-24 10:36:00 Test Item Value Reference Range Interpretation Comments AST (test code = AST) 23 See_Comment [Auto mated message] The system which ge nerated this result transmit shon reference range : <=37. The reference range was not used to interpr et this result as liz l/abnormal. [facility]2017-03-24 10:36:00 Test Item Value Reference Range Interpretation Comments ALT (test code = ALT) 22 See_Comment [Auto mated message] The system which ge nerated this result transmit shon reference range : <=65. The reference range was not used to interpr et this result as liz l/abnormal. [facility]2017-03-24 10:36:00 Test Item Value Reference Range Interpretation Comments Total Protein (test code = Total 7.2 6.4-8.4 Protein) [facility]2017-03-24 10:36:00 Test Item Value Reference Range Interpretation Comments Albumin Lvl (test code = Albumin Lvl) 2.5 3.5-5.0 [facility] HospitalGnsxbmfWEEGPCZOQH8640-61-46 10:36:00 Test Item Value Reference Range Interpretation Comments PTT (test code = PTT) 38.7 s 22.9-35.8 [facility] HospitalLmnhfafPRDOGLPGGF6268-54-59 10:36:00 Test Item Value Reference Range Interpretation Comments INR (test code = INR) 1.09 0.85-1.17 [facility] HospitalJyavlkzYFXMSWWOEH3889-78-48 10:36:00 Test Item Value Reference Range Interpretation Comments PT (test code = PT) 14.3 s 12.0-14.7 [facility]2017-03-23 09:04:00 Test Item Value Reference Range Interpretation Comments Phosphorus (test code = Phosphorus) 3.6 2.5-4.5 [facility]2017-03-23 09:04:00 Test Item Value Reference Range Interpretation Comments Magnesium Lvl (test code = Magnesium 2.4 1.8-2.4 Lvl) [facility] HospitalWqpbrriYIIDNFPBLP9793-37-43 09:04:00 Test Item Value Reference Range Interpretation Comments RBC Morph (test code = Normal (10/22/16 4:04 RBC Morph) AM) [facility] HospitalTxcfytaXCIBWHULWV9068-11-87 08:29:00 Test Item Value Reference Range Interpretation Comments Bands (test code = 8.0 See_Comment [Automat ed message] The Bands) system which ge nerated this result transmit shon reference range : <=11.0. The reference r regan was not used to interpr et this result as liz l/abnormal. [facility] HospitalKdagcyfZJDMWZJKNX9675-30-65 08:29:00 Test Item Value Reference Range Interpretation Comments Atypical Lymphs (test code = Atypical 0.0 Lymphs) [facility] HospitalDkrxxglOXGVWERBTR7835-23-99 08:29:00 Test Item Value Reference Range Interpretation Comments Metamyelocytes (test code 2.0 See_Comment [ Automated message] = Metamyelocytes) The system which generated this result transmitted ref erence range: <=1.0. T he reference range was not used to int erpret this result as normal/abnormal . [facility]2017-03-21 08:13:00 Test Item Value Reference Range Interpretation Comments Bili Direct (test code 0.2 See_Comment [Aut omated message] The = Bili Direct) system which generated this result tra nsmitted reference range : <=0.3. The reference r regan was not used to int erpret this result as liz l/abnormal. [facility]2017-03-21 08:13:00 Test Item Value Reference Range Interpretation Comments Bili Indirect (test 0.3 See_Comment [Automa shon message] The code = Bili Indirect) system which generated this result tra nsmitted reference range : <=1.0. The reference r regan was not used to int erpret this result as normal/abnormal . [facility] HospitalWveiigpGBYUKPRJWA2571-07-13 08:13:00 Test Item Value Reference Range Interpretation Comments Metamyelocytes (test code 2.0 See_Comment [ Automated message] = Metamyelocytes) The system which generated this result transmitted ref erence range: <=1.0. T he reference range was not used to int erpret this result as normal/abnormal . [facility] HospitalGijjnhuMWQDCMVAEM7020-54-69 08:13:00 Test Item Value Reference Range Interpretation Comments Myelocytes (test code = Myelocytes) 2.0 [facility]acGHLTCR8439-[facility] 08:00:00 Test Item Value Reference Range Interpretation Comments Trig (test code = Trig) 187 [facility] HospitalGbnmxdcCSNRIKAGNB2830-62-56 09:16:00 Test Item Value Reference Range Interpretation Comments Tot Cell Ct (test code = Tot Cell Ct) 100 1 [facility] HospitalEqyknysYTRQDJZTRN7240-72-67 09:16:00 Test Item Value Reference Range Interpretation Comments NRBC (test code = NRBC) 1 [facility]2017-03-20 09:16:00 Test Item Value Reference Range Interpretation Comments Ca Norm WB (test code = Ca Norm WB) 1.04 1.05-1.25 [facility]2017-03-20 09:16:00 Test Item Value Reference Range Interpretation Comments Ca Ion WB (test code = Ca Ion WB) 1.06 1.05-1.25 [facility]AqxemicRSPMSZWWUD2731-19-54 08:33:00 Test Item Value Reference Range Interpretation Comments NRBC (test code = NRBC) 2 [facility] HospitalJikcalqPNUMJVVKEO7532-64-20 08:33:00 Test Item Value Reference Range Interpretation Comments INR (test code = INR) 1.14 0.85-1.17 [facility] HospitalSluzjdkBGXVLULKFC6979-61-87 08:33:00 Test Item Value Reference Range Interpretation Comments PT (test code = PT) 14.8 s 12.0-14.7 [facility] [id number] 08:33:00 Test Item Value Reference Range Interpretation Comments Ca Ion WB (test code = Ca Ion WB) 1.10 1.05-1.25 [facility] [id number] 08:33:00 Test Item Value Reference Range Interpretation Comments Ca Norm WB (test code = Ca Norm WB) 1.11 1.05-1.25 [facility] [id number] 10:36:00 Test Item Value Reference Range Interpretation Comments Total CK (test code = Total CK) 274 12-191 [facility] [id number] 10:36:00 Test Item Value Reference Range Interpretation Comments Lactic Acid Lvl (test code = Lactic 1.4 0.5-2.2 Acid Lvl) [facility] HospitalZifmlvwYOZNGQILVM5620-24-92 10:36:00 Test Item Value Reference Range Interpretation Comments NRBC (test code = NRBC) 2 [facility] [id number] 10:36:00 Test Item Value Reference Range Interpretation Comments Ca Ion WB (test code = Ca Ion WB) 1.09 1.05-1.25 [facility]PAR[facility]FI[facility]RO[facility] [id number] 10:36:00 Test Item Value Reference Range Interpretation Comments Ca Norm WB (test code = Ca Norm WB) 1.14 1.05-1.25 [facility] [id number] 18:44:00 Test Item Value Reference Range Interpretation Comments Lipase Lvl (test code = Lipase Lvl) 848 393 [facility] [id number] 18:44:00 Test Item Value Reference Range Interpretation Comments Bili Indirect (test 0.3 See_Comment [Automa shon message] The code = Bili Indirect) system which generated this result tra nsmitted reference range : <=1.0. The reference r regan was not used to int erpret this result as normal/abnormal . [facility]2017-03-17 18:44:00 Test Item Value Reference Range Interpretation Comments Bili Direct (test code 0.2 See_Comment [Aut omated message] The = Bili Direct) system which generated this result tra nsmitted reference range : <=0.3. The reference r regan was not used to int erpret this result as liz l/abnormal. [place] [id number] 18:44:00 Test Item Value Reference Range Interpretation Comments Trig (test code = Trig) 397 [facility]2017-03-17 05:14:00 Test Item Value Reference Range Interpretation Comments Lactic Acid Lvl (test code = Lactic 1.9 0.5-2.2 Acid Lvl) [facility] HospitalLmldiznFUKBWVFLRJ8232-72-70 05:14:00 Test Item Value Reference Range Interpretation Comments PT (test code = PT) 15.2 s 12.0-14.7 [facility] HospitalYctoojtCWKVXLDPJG4167-67-94 05:14:00 Test Item Value Reference Range Interpretation Comments INR (test code = INR) 1.18 0.85-1.17 [place] [address]-03-17 05:14:00 Test Item Value Reference Range Interpretation Comments PTT (test code = PTT) 35.3 s 22.9-35.8 [facility]2017-03-16 17:26:00 Test Item Value Reference Range Interpretation Comments Procalcitonin Lvl (test 5.06 See_Comment [Au tomated message] code = Procalcitonin Lvl) e system which generated this result transmitted ref erence range: <=0.10. The reference range was not used to interpr et this result as normal/abnormal . [facility]2017-03-16 13:59:00 Test Item Value Reference Range Interpretation Comments Lactic Acid Lvl (test code = Lactic 1.6 0.5-2.2 Acid Lvl) [place] [id number] 13:59:00 Test Item Value Reference Range Interpretation Comments Trig (test code = Trig) 394 [facility] AustinSoupQubes [id number] 13:57:00 Test Item Value Reference Range Interpretation Comments Procalcitonin Lvl (test 6.20 See_Comment [Au tomated message] code = Procalcitonin Lvl) Th e system which generated this result transmitted ref erence range: <=0.10. The reference range was not used to interpr et this result as normal/abnormal . [facility] AustinSoupQ[facility] [id number] 05:32:00 Test Item Value Reference Range Interpretation Comments Uric Acid (test code = Uric Acid) 7.5 3.8-8.0 [facility] AustinSoupQ[facility] [id number] 14:31:00 Test Item Value Reference Range Interpretation Comments Uric Acid (test code = Uric Acid) 9.2 3.8-8.0 [facility] [id number] 14:31:00 Test Item Value Reference Range Interpretation Comments LACTATE DEHYDROGENASE (test code = 467 98-192 LACTATE DEHYDROGENASE) [facility] AustinQlqrfbyKAFJMAOCGV6502-88-46 14:31:00 Test Item Value Reference Range Interpretation Comments Tot Cell Ct (test code = Tot Cell Ct) 100 1 [facility]DR[facility] [id number] 05:44:00 Test Item Value Reference Range Interpretation Comments U Opiate Scr (test Positive *ABN*(10/14/16 code = U Opiate Scr) 12:44 AM) [facility] [id number] 05:44:00 Test Item Value Reference Range Interpretation Comments U Cara Scr (test code Negative *NA*(10/14/16 = U Cara Scr) 12:44 AM) [facility]DR[facility] [id number] 05:44:00 Test Item Value Reference Range Interpretation Comments U Cannab Scr (test Positive *ABN*(10/14/16 code = U Cannab Scr) 12:44 AM) [facility] [id number] 05:44:00 Test Item Value Reference Range Interpretation Comments U Cocaine Scr (test Negative *NA*(10/14/16 code = U Cocaine Scr) 12:44 AM) [facility] [id number] 05:44:00 Test Item Value Reference Range Interpretation Comments U Benzodia Scr (test Positive *ABN*(10/14/16 code = U Benzodia Scr) 12:44 AM) [facility] [id number] 05:44:00 Test Item Value Reference Range Interpretation Comments U Propoxyph Scr (test Negative *NA*(10/14/16 code = U Propoxyph Scr) 12:44 AM) [facility] [id number] 05:44:00 Test Item Value Reference Range Interpretation Comments U Methadone Scr (test Negative *NA*(10/14/16 code = U Methadone Scr) 12:44 AM) [facility] [id number] 05:44:00 Test Item Value Reference Range Interpretation Comments UDS Note (test code = See Note (10/14/16 12:44 UDS Note) AM) [facility] [id number] 05:44:00 Test Item Value Reference Range Interpretation Comments U Phencyc Scr (test Negative *NA*(10/14/16 code = U Phencyc Scr) 12:44 AM) [facility] [id number] 05:44:00 Test Item Value Reference Range Interpretation Comments U Amph Scr (test code Negative *NA*(10/14/16 = U Amph Scr) 12:44 AM) [facility] [id number] 05:44:00 Test Item Value Reference Range Interpretation Comments UA Ketones (test code = UA Ketones) TR [facility] [id number] 05:44:00 Test Item Value Reference Range Interpretation Comments UA Mucus (test code = UA Mucus) Few /LPF [facility] [id number] 05:44:00 Test Item Value Reference Range Interpretation Comments UA Urobilinogen (test code = UA <=1.0 mg/dL 0.1-1.0 Urobilinogen) [facility] [id number] 05:44:00 Test Item Value Reference Range Interpretation Comments UA Leuk Est (test Negative (10/14/16 12:44 code = UA Leuk Est) AM) [facility] [id number] 05:44:00 Test Item Value Reference Range Interpretation Comments UA Sq Epi (test code = UA Sq Epi) None Seen [facility] [id number] 05:44:00 Test Item Value Reference Range Interpretation Comments UA Spec Grav (test >=1.050 *ABN*(10/14/16 code = UA Spec Grav) 12:44 AM) [facility] AND [id number] 05:44:00 Test Item Value Reference Range Interpretation Comments UA WBC (test code = 1 See_Comment [Automa shon message] The UA WBC) system which ge nerated this result transmit shon reference range : <=5. The reference range was not used to interpr et this result as liz l/abnormal. [facility] [id number] 05:44:00 Test Item Value Reference Range Interpretation Comments UA RBC (test code = 2 See_Comment [Automa shon message] The UA RBC) system which ge nerated this result transmit shon reference range : <=2. The reference range was not used to interpr et this result as liz l/abnormal. [facility] AND [id number] 05:44:00 Test Item Value Reference Range Interpretation Comments UA Glucose (test code = UA Negative mg/dL Glucose) [facility] AND [id number] 05:44:00 Test Item Value Reference Range Interpretation Comments UA Bili (test code = Negative *NA*(10/14/16 UA Bili) 12:44 AM) [facility] AND [id number] 05:44:00 Test Item Value Reference Range Interpretation Comments UA Blood (test code = Small *ABN*(10/14/16 UA Blood) 12:44 AM) [facility] AND [id number] 05:44:00 Test Item Value Reference Range Interpretation Comments UA Nitrite (test code Negative (10/14/16 12:44 = UA Nitrite) AM) [facility] AND [id number] 05:44:00 Test Item Value Reference Range Interpretation Comments UA Color (test code = Yellow *NA*(10/14/16 UA Color) 12:44 AM) [facility] AND [id number] 05:44:00 Test Item Value Reference Range Interpretation Comments UA Turbidity (test code = Clear (10/14/16 12:44 UA Turbidity) AM) [facility] AND [id number] 05:44:00 Test Item Value Reference Range Interpretation Comments UA pH (test code = UA pH) 6.5 5.0-8.0 [facility] AND [id number] 05:44:00 Test Item Value Reference Range Interpretation Comments UA Protein (test code = UA Protein) 70 mg/dL [facility] PpcdgicZNVHHNAYRH2724-23-81 04:54:00 Test Item Value Reference Range Interpretation Comments HIV 1/2 Ab (test code Negative *NA*(10/13/16 = HIV 1/2 Ab) 11:54 PM) [facility] SscttbuIOZHNVRCJQ5196-37-57 04:54:00 Test Item Value Reference Range Interpretation Comments Hep B Core IgM (test Negative *NA*(10/13/16 code = Hep B Core 11:54 PM) IgM) [facility] ArezpaxVFKSGNYGRM7779-95-56 04:54:00 Test Item Value Reference Range Interpretation Comments Hep A IgM (test code Negative *NA*(10/13/16 = Hep A IgM) 11:54 PM) [facility] MmaxegzREVJQRPIEY5325-36-85 04:54:00 Test Item Value Reference Range Interpretation Comments Hep C Ab (test code = Negative *NA*(10/13/16 Hep C Ab) 11:54 PM) [facility] UvubkvoPYACZYFYNV0652-58-36 04:54:00 Test Item Value Reference Range Interpretation Comments Hep Bs Ag (test code Negative *NA*(10/13/16 = Hep Bs Ag) 11:54 PM) [facility] - [id number] 04:54:00 Test Item Value Reference Range Interpretation Comments Influ B (test code = Negative (10/13/16 11:54 Influ B) PM) [facility] - [id number] 04:54:00 Test Item Value Reference Range Interpretation Comments Influ A (test code = Negative (10/13/16 11:54 Influ A) PM) [facility]annBACTERIAL - [id number] 04:38:00 Test Item Value Reference Range Interpretation Comments MRSA by PCR (test Negative (10/13/16 11:38 code = MRSA by PCR) PM) [facility]CARD[facility]AC [id number] 04:38:00 Test Item Value Reference Range Interpretation Comments BNP (test code = BNP) 15 [facility]CHE[facility] [id number] 04:38:00 Test Item Value Reference Range Interpretation Comments Ketone Quantitative (test code = Ketone 0.09 Quantitative) [facility]annCHE[facility] [id number] 04:38:00 Test Item Value Reference Range Interpretation Comments Amylase Lvl (test code = Amylase Lvl) 75 25-115 [facility] AustinXeuiprtHEPZXJKFST1742-51-65 04:38:00 Test Item Value Reference Range Interpretation Comments PTT (test code = PTT) 30.4 s 22.9-35.8 [facility]manFrbuvkuTKQEOS5148-72-68 04:38:00 Test Item Value Reference Range Interpretation Comments VLDL (test code = See Note 2*NA*(10/13/16 VLDL) 11:38 PM) [facility]manTzqkizfYIYOEA1869-90-15 04:38:00 Test Item Value Reference Range Interpretation Comments LDL (Calculated) (test code = See Note mg/dL LDL (Calculated)) [id number] 04:38:00 Test Item Value Reference Range Interpretation Comments Chol (test code = Chol) 235 [id number] 04:38:00 Test Item Value Reference Range Interpretation Comments CHD Risk (test code = CHD Risk) 7.12 4.00-7.30 [facility] HlidlabWRKTJT5607-43-72 04:38:00 Test Item Value Reference Range Interpretation Comments HDL (test code = HDL) 33 [facility]SPE[facility] GEPSKFVQD4035-05-41 04:38:00 Test Item Value Reference Range Interpretation Comments Hgb A1C (test code = Hgb A1C) 5.9 [facility]manAxwdwxyHZTWNJBAGW2179-76-09 04:38:00 Test Item Value Reference Range Interpretation Comments Ethanol Lvl (test code = Ethanol Lvl) no gt [facility]m[id number] 04:38:00 Test Item Value Reference Range Interpretation Comments Etoh (%) (test code = Etoh (%)) no gt [facility] [id number] 20:50:00 Test Item Value Reference Range Interpretation Comments Crystal BF (test code = See Note 1, 2(09/29/15 Crystal BF) 2:50 PM) [facility] [id number] 20:50:00 Test Item Value Reference Range Interpretation Comments Crystal BF Type (test Synovial (09/29/15 2:50 code = Crystal BF PM) Type) [facility] [id number] 20:50:00 Test Item Value Reference Range Interpretation Comments UricAcd BF Type (test Synovial *NA*(09/29/15 code = UricAcd BF 2:50 PM) Type) [facility]2016-02-28 20:50:00 Test Item Value Reference Range Interpretation Comments Uric Acid BF (test code = Uric Acid BF) 8.6 [facility]2016-02-28 20:50:00 Test Item Value Reference Range Interpretation Comments Color BF (test code = Yellow (09/29/15 2:50 Color BF) PM) [facility]2016-02-28 20:50:00 Test Item Value Reference Range Interpretation Comments RBC BF (test code = RBC BF) 900 [facility]2016-02-28 20:50:00 Test Item Value Reference Range Interpretation Comments WBC BF (test code = WBC BF) 03988 [facility]2016-02-28 20:50:00 Test Item Value Reference Range Interpretation Comments Supernat BF (test code = Yellow *ABN*(09/29/15 Supernat BF) 2:50 PM) [facility]2016-02-28 20:50:00 Test Item Value Reference Range Interpretation Comments Clarity BF (test code Moderate Cloudy = Clarity BF) *ABN*(09/29/15 2:50 PM) [facility]2016-02-28 20:50:00 Test Item Value Reference Range Interpretation Comments CellCnt BF Type (test Synovial (09/29/15 2:50 code = CellCnt BF PM) Type) [facility]2016-02-28 20:50:00 Test Item Value Reference Range Interpretation Comments Macrophage BF (test code = Macrophage 10 BF) [facility]2016-02-28 20:50:00 Test Item Value Reference Range Interpretation Comments Segs BF (test code = Segs BF) 90 [facility]2016-02-28 20:50:00 Test Item Value Reference Range Interpretation Comments Gluc BF Type (test Synovial *NA*(09/29/15 code = Gluc BF Type) 2:50 PM) [facility]2016-02-28 20:50:00 Test Item Value Reference Range Interpretation Comments Glucose BF (test code = Glucose BF) 4 [facility]2016-02-28 20:50:00 Test Item Value Reference Range Interpretation Comments Protein BF (test code = Protein BF) 6.1 [facility]2016-02-28 20:50:00 Test Item Value Reference Range Interpretation Comments Prot BF Type (test Synovial *NA*(09/29/15 code = Prot BF Type) 2:50 PM) [id number] 19:09:00 Test Item Value Reference Range Interpretation Comments Sed Rate (test code = 35 See_Comment [Auto mated message] The Sed Rate) system which ge nerated this result transmit shon reference range : <=15. The reference range was not used to interpr et this result as liz l/abnormal. [id number] 19:09:00 Test Item Value Reference Range Interpretation Comments Hgb (test code = Hgb) 16.8 14.0-18.0 [facility]DlfxtgcEBIMBWBXYN8930-06-71 19:09:00 Test Item Value Reference Range Interpretation Comments WBC (test code = WBC) 23.6 3.7-10.4 [facility] Hospit[id number] 19:09:00 Test Item Value Reference Range Interpretation Comments MCH (test code = MCH) 30.4 pg 27.0-31.0 [facility] H[id number] 19:09:00 Test Item Value Reference Range Interpretation Comments MCV (test code = MCV) 90.1 80.0-94.0 [facility] H[id number] 19:09:00 Test Item Value Reference Range Interpretation Comments Hct (test code = Hct) 49.8 42.0-54.0 [facility] Hos[id number] 19:09:00 Test Item Value Reference Range Interpretation Comments MPV (test code = MPV) 7.7 7.4-10.4 [facility] Hos[id number] 19:09:00 Test Item Value Reference Range Interpretation Comments Platelet (test code = Platelet) 379 133-450 [facility] HospitalE[id number] 19:09:00 Test Item Value Reference Range Interpretation Comments RBC (test code = RBC) 5.53 4.70-6.10 [facility] HospitalFtuakjwITYACJYCOJ0076-17-32 19:09:00 Test Item Value Reference Range Interpretation Comments RDW (test code = RDW) 13.5 11.5-14.5 [facility] H[id number] 19:09:00 Test Item Value Reference Range Interpretation Comments MCHC (test code = MCHC) 33.7 32.0-36.0 [facility] H[id number] 19:09:00 Test Item Value Reference Range Interpretation Comments Lymphocytes # (test code = Lymphocytes 1.9 1.0-5.5 #) [facility] Hospit[id number] 19:09:00 Test Item Value Reference Range Interpretation Comments Basophils # (test code 0.1 See_Comment [Aut omated message] The = Basophils #) system which generated this result tra nsmitted reference range : <=0.2. The reference r regan was not used to int erpret this result as normal/abnormal . [facility] Hospit[id number] 19:09:00 Test Item Value Reference Range Interpretation Comments Monocytes # (test code 2.5 See_Comment [Aut omated message] The = Monocytes #) system which generated this result tra nsmitted reference range : <=0.8. The reference r regan was not used to int erpret this result as normal/abnormal . [facility] H[id number] 19:09:00 Test Item Value Reference Range Interpretation Comments Segs-Bands # (test code = Segs-Bands #) 19.0 1.5-8.1 [facility] H[id number] 19:09:00 Test Item Value Reference Range Interpretation Comments Monocytes (test code = Monocytes) 10.6 2.0-12.0 [facility] H[id number] 19:09:00 Test Item Value Reference Range Interpretation Comments Lymphocytes (test code = Lymphocytes) 8.2 20.0-40.0 [facility] Ho[id number] 19:09:00 Test Item Value Reference Range Interpretation Comments Basophils (test code = 0.4 See_Comment [Aut omated message] The Basophils) system which ge nerated this result tra nsmitted reference range : <=1.0. The reference r regan was not used to int erpret this result as normal/abnormal . [facility] Hospit[id number] 19:09:00 Test Item Value Reference Range Interpretation Comments Segs (test code = Segs) 80.8 45.0-75.0 [id number] 19:09:00 Test Item Value Reference Range Interpretation Comments C-REACTIVE PROTEIN (test code = 253.0 C-REACTIVE PROTEIN) [facility] Notes Date/Time Note Provider Source 2016-11-12 EXAM: CT ABDOMEN AND PELVIS WITHOUT CONTRAST [facility] 10:15:49-00:00 DATE: 11/12/2016 10:[address] [...] tissues: Normal. IMPRESSION: 1. Compared to 2016, i nterval significant decrease in the pancreatic and peripancreatic necrotic collection involving and surrounding the distal body and tail with small to moderate residual christina d off necrotic collection on today's examination . 2. Fat stranding in the left upper quadrant with retroperitoneal fascial thickening surrounding the walled off necrotic collection in the distal body/tail region although has shown improvement, there staley s been increase in fat stran ding in few areas concerning for another episode of acute pancreatitis. 3. 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 4. Trace fluid in the pelvis. 5. Hepatomegaly seen again, there is significant improvement in the diffuse fatty liver seen on the comparison exam from 10/13/2016. 2016 EXAM: CT ABDOMEN WITH CONTRAST [facility] 08:15:00-00:00 DATE: 2016 at 0820 hours Ce nter [...] vein. Visualized abdominal aorta and IVC within normal limits in caliber. Bones: Normal. Soft tissues: Normal. IMPRESSION: 1. Acute pancreatitis with h ypoattenuation of a large portion of the pancreatic tail, increase in size when compared to the prior study, consistent with a necrotizing pancreatitis component. A large omi unt, increased from the prio r study, of peripherally enhancing peripancreatic fluid extends from the level of the stomach inferiorly into the pelvis. No foci of gas are seen to suggest superimposed infe ction, although this cannot be ruled out on the basis of imaging. These findings were communicated to Dr. Herman over the phone at 9:40 am 2016. 2. Nonopacification of the s plenic vein suggestive of thrombosis, most likely sequela of pancreatitis. 3. 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 This finding was communicated to Dr. Nolan over the phone at 1147 hours 2016. 2016-10-20 EXAM: XR RIGHT KNEE 3 VIEWS [facility] 10:07:00-00:00 DATE: 10/20/2016 9:18 AM CDT Cent er INDICATION: Pain and swelling COMPARISON: 09/21/2015 TECHNIQUE: [...] tendon likely sequela of remote trauma or [place]-Schlatter's disease during adolescence. 2016-10-19 EXAM: XR CHEST 1 VIEW [facility] 03:05:00-00:00 DATE: 10/19/2016 Center INDICATION: Chest pain . Comparison is made with yesterday FINDINGS: Cardiomediastinal silhouette and feeding tube are unchanged. Lung volumes are low. This produces spurious widening of the transverse diameter of the heart and mediastinum and crowding of the b jake lung markings. This pro duces platelike atelectasis at both lung bases. Underlying consolidation is not excluded. IMPRESSION: No significant interval change when compared to prior radiograph. 2016-10-18 EXAM: XR CHEST 1 VIEW [facility] 05:52:00-00:00 DATE: 10/18/2016 5:59 AM CDT Cent er INDICATION: Abnormal chest sounds COMPARISON: 10/16/2016 TECHNIQUE: AP chest FINDINGS: There is a stable feeding tube coursing to the stomach. The gastric bubble is distended. Interval progression of diffuse airspace opacities which could be from infection, aspiration, edema. Th radhika findings are superimpose d on low lung volumes and subsegmental atelectasis. Stable cardiomediastinal silhouette. IMPRESSION: Interval progres maya of diffuse airspace opacities which could be from infection, aspiration, edema. These findings are superimposed on low lung volumes and subsegmental atelectasis 2016-10-18 EXAM: XR ABDOMEN 1 VIEW [facility] 02:11:00-00:00 DATE: 10/17/2016 7:30 PM CDT [facility] er INDICATION: Tube placement/removal/reposition ADDITIONAL INFORMATION: None. [...] abdominal radiographs. IMPRESSION: 1. No abdominal abnormalities. 2016-10-16 EXAM: XR CHEST 1 VIEW [facility] 23:55:00-00:00 DATE: 10/16/2016 11:37 PM CDT [facility] ter INDICATION: Absent of breath sounds COMPARISON: 10/15/2016 TECHNIQUE: AP chest IMPRESSION: New feeding tube coursing into the stomach. The gastric bubble is distended. Significantly decreased lung volumes with abundant retrocardiac subsegmental atelectasis with or without superimp osed infection. Stable cardi omediastinal silhouette. No definite pleural effusion. 2016-10-16 EXAM: XR ABDOMEN 1 VIEW [facility] 23:55:00-00:00 DATE: 10/16/2016 10:[address] INDICATION: Feeding intolerance ADDITIONAL INFORMATION: None. COMPARISON: None. TECHNIQUE: AP view of the abdomen. Number of rocael ges: 2 FINDINGS: Lines and tubes: Dobbhoff tu be tip likely overlies the first portion of the duodenum. Lower thorax: Unremarkable. Bowel: Gaseous dilatation of multiple small bowel loops in the mid abdomen measures up to 4.9 cm in diameter. Gas is present within the large bowel. Bones: No acute abnormalities seen. Soft tissues. Unremarkable. IMPRESSION: 1. Dilated, gas-filled loops of small bowel in the mid and right abdomen, likely representing ileus. 2. Dobbhoff tube tip overlies the region of the first portion of the duodenum. 2016-10-16 EXAM: XR ABDOMEN 1 VIEW [facility] 10:12:00-00:00 DATE: 10/16/2016 1:58 PM CDT Cent er INDICATION: Tube placement/removal/reposition ADDITIONAL INFORMATION: None. COMPARISON: 10/15/2016 TECHNIQUE: AP view of the abdomen. FINDINGS: Dobbhoff tube in place with tip in the 1st portion the duodenum. Scattered gas present in small and large bowel loops, with no definite obstruction. IMPRESSION: . 1. Dobbhoff tube in place with tip in the 1st po rtion of the duodenum 2016-10-15 EXAM: XR ABDOMEN 1 VIEW [facility] 10:10:00-00:00 DATE: 10/15/2016 10:[address] INDICATION: Constipation. Has a diagnosis of beasley creatitis. TECHNIQUE: AP view of the abdomen. FINDINGS: The stomach bubble is normal in appearance. There are multiple dilated loops of small bowel in the right mid abdomen measuring up to 3.3 cm in diameter. There are no small bowel loops and the remainder of the abdomen whi ch are filled with air. Portions of the transverse colon and splenic flexure are gas distended and are normal in appearance. IMPRESSION: 1. There are some mildly dil ated loops of small bowel in the right mid abdomen. This is probably local ileus related to the patient's underlying pancreatitis. 2016-10-15 EXAM: XR CHEST 1 VIEW [facility] 07:51:00-00:00 DATE: 10/15/2016 Center INDICATION: Abnormal chest sounds . Comparison i s made with October 13 FINDINGS: Lung volumes [...] or consolidation of both lower lobes. The u pper lungs are clear IMPRESSION: Low lung volumes 2016-10-13 EXAM: XR CHEST 1 VIEW [facility] 22:45:00-00:00 DATE: 10/13/2016 10:[address] [...] abnormality is identified. IMPRESSION: No acute cardiopulmonary abnormality . 2015-12-24 View Patient Name: ISAAC NESS [facility] 15:22:00-00:00 : 1985; Age: 30 years y/o Male MR: [id number] * RIGHT FEMUR, 2 views History: Injury, [...] effusion. Please correlate with clinical examination. SL: [id number] 2015-12-24 Patient Name: ISAAC Mcmillan 15:00:00-:00 : 1985; Age: 30 years y/o Male MR: [id number] * RIGHT LOWER EXTREMITY VENOUS DOPPLER HISTORY: [...] deep venous thrombosis or venous obstruction. SL: [id number] 2015-09-29 Knee series 3 views DX [facility] 13:32:00-: CLINICAL HISTORY: Pain and swelling FINDINGS/IMPRESSION: 3 [...] present in the suprapat ellar bursa.. SL: [id number] 2015-09-29 RIGHT FOOT RADIOGRAPH 3 VIEWS [facility] 13:32:00-:00 INDICATION: Right foot erythema and pain, histor [...]
[2023-03-26] MEDS ORDERED: LIDOCAINE 1% MPF 5 ML VIAL ONE (10:27)
--- NOTE | 2023-03-26 10:45 | ER ---
Nurse's Notes [facility] Name: Micah Inman Age: 37 yrs Sex: Male : 1985 Arrival Date: 03/26/2023 Time: 09:57 Bed 18 Private MD: Rocco Marrufo Diagnosis: Paronychia left 3rd finger Presentation: 03/26 10:09 Chief complaint: Left 3rd finger pain and swelling x 3 days. Coronavirus screen: At this time, the client does not indicate any symptoms associated with coronavirus-19. Ebola Screen: No symptoms or risks identified at this time. Initial Sepsis Screen: Does the patient meet any 2 criteria? No. Patient's initial sepsis screen is negative. Does the patient have a suspected source of infection? No. Patient's initial sepsis screen is negative. Risk Assessment: Do you want to hurt yourself or someone else? Patient reports no desire to harm self or others. Onset of symptoms was March 23, 2023. 10:09 Method Of Arrival: Ambulatory hb 10:09 Acuity: FUENTES 4 hb Historical: - Allergies: 10:10 No Known Allergies; hb - Home Meds: 10:10 insulin [Active]; Metoprolol Tartrate Oral [Active]; Lisinopril Oral [Active]; hb - PMHx: 10:10 Anxiety; diabetes mellitus; Hypertension; Pancreatitis; hb - PSHx: 10:10 right knee; hb - Immunization history:: Adult Immunizations up to date. - Social history:: Smoking status: Patient denies any tobacco usage or history of. - Family history:: not pertinent. - Hospitalizations: : No recent hospitalization is reported. Assessment: 10:23 General: Appears in no apparent distress. uncomfortable, Behavior is cooperative, jl7 appropriate for age, anxious. Pain: Complains of pain in left middle finger Pain currently is 8 out of 10 on a pain scale. Derm: Skin is pink, warm \T\ dry. Musculoskeletal: Swelling present in left middle fingernail. Vital Signs: 10:09 BP 158 / 115; Pulse 84; Resp 16; Temp 97.8(O); Pulse Ox 97% on R/A; Weight 106.59 kg; hb Height 5 ft. 11 in. ; Pain 8/10; 11:20 BP 130 / 94; Pulse 80; Resp 15; Pulse Ox 97% ; jl7 10:09 Body Mass Index 32.78 (106.59 kg, 180.34 cm) hb 10:09 Pain Scale: Adult hb ED Course: 09:59 Patient arrived in ED. mr 10:00 Rocco Marrufo MD is Private Physician. mr 10:06 Ricardo Fields MD is Attending Physician. rn 10:10 Triage completed. hb 10:11 Arm band placed on. hb 10:15 Zeferino Manzo RN is Primary Nurse. jl7 10:23 Patient has correct armband on for positive identification. Provided Education on: use jl7 of call patel. 11:20 No provider procedures requiring assistance completed. Patient did not have IV access jl7 during this emergency room visit. Administered Medications: 10:45 Drug: Lidocaine Infiltration (1 %) 1 vials {Note: by ERD.} Volume: 5 ml; Route: jl7 Infiltration; 11:12 Follow up: Response: No adverse reaction jl7 Medication: 10:23 VIS not applicable for this client. jl7 Outcome: 10:45 Discharge ordered by . rn 11:20 Discharged to home ambulatory. jl7 11:20 Condition: stable 11:20 Discharge instructions given to patient, Instructed on discharge instructions, follow up and referral plans. medication usage, Demonstrated understanding of instructions, follow-up care, medications, Prescriptions given X 3. 11:21 Patient left the ED. jl7 Signatures: Carol Peraza mr Ricardo Fields MD MD rn Baxter, Heather, RN RN Zeferino Manzo RN RN jl7
--- NOTE | 2023-03-26 10:46 | EDPHYS ---
Physician Documentation [facility] Name: Micah Inman Age: 37 yrs Sex: Male : 1985 Arrival Date: 03/26/2023 Time: 09:57 Bed 18 Private MD: Rocco Marrufo ED Physician Ricardo Fields HPI: 03/26 10:21 This 37 yrs old Male presents to ER via Ambulatory with complaints of Infected rn Finger. 10:21 The patient or guardian reports pain, swelling. The complaints affect the left hand, rn 3rd digit. Onset: The symptoms/episode began/occurred yesterday. Modifying factors: The symptoms are alleviated by nothing, the symptoms are aggravated by nothing. Associated signs and symptoms: Pertinent negatives: cyanosis distally, decreased sensation distally, fever. Severity of symptoms: At their worst the symptoms were mild, in the emergency department the symptoms are unchanged. The patient has not experienced similar symptoms in the past. Pt reports infected left 3rd fingertip, began yesterday, tried to poke it with needle and nothing came out, feels more swollen today, only the tip, no extension proximally. No fever. . Historical: - Allergies: 10:10 No Known Allergies; hb - Home Meds: 10:10 insulin [Active]; Metoprolol Tartrate Oral [Active]; Lisinopril Oral [Active]; hb - PMHx: 10:10 Anxiety; diabetes mellitus; Hypertension; Pancreatitis; hb - PSHx: 10:10 right knee; hb - Immunization history:: Adult Immunizations up to date. - Social history:: Smoking status: Patient denies any tobacco usage or history of. - Family history:: not pertinent. - Hospitalizations: : No recent hospitalization is reported. ROS: 10:21 Constitutional: Negative for fever, chills, and weight loss, MS/Extremity: + pain and rn swelling distal left 3rd finger Exam: 10:21 Constitutional: This is a well developed, well nourished patient who is awake, alert, rn and in no acute distress. MS/ Extremity: Pulses equal, no cyanosis. Neurovascular intact. Full, normal range of motion. + paronychia to left 3rd finger along edge of nail, small amount of fluctuance, no proximal tenderness, FROM of finger, no fusiform swelling or tenderness along flexor surface. No signs of lymphangitis Vital Signs: 10:09 BP 158 / 115; Pulse 84; Resp 16; Temp 97.8(O); Pulse Ox 97% on R/A; Weight 106.59 kg; hb Height 5 ft. 11 in. ; Pain 8/10; 11:20 BP 130 / 94; Pulse 80; Resp 15; Pulse Ox 97% ; jl7 10:09 Body Mass Index 32.78 (106.59 kg, 180.34 cm) hb 10:09 Pain Scale: Adult hb Procedures: 10:43 I \T\ D: Incision and drainage was performed for an abscess of the left left middle rn finger Prepped with Betadine, Incised with 18 g needle. Drained moderate amount purulent fluid. the patient tolerated the procedure well. Nerve block: (digital) of palmar aspect of proximal phalanx of left middle finger Medication: Lidocaine 1% without epinephrine Amount: 3 mls were injected, Effect: the patient's symptoms are improved, Set up for procedure. Performed by Ricardo Fields MD Patient tolerated well. MDM: 10:06 Patient medically screened. rn 10:43 Differential diagnosis: paronychia. Data reviewed: vital signs, nurses notes, and as a rn result, I will discharge patient. Counseling: I had a detailed discussion with the patient and/or guardian regarding the historical points, exam findings, and any diagnostic results supporting the discharge/admit diagnosis, the need for outpatient follow up, to return to the emergency department if symptoms worsen or persist or if there are any questions or concerns that arise at home. Response to treatment: the patient's symptoms have markedly improved after treatment, and as a result, I will discharge patient. Special discussion: I discussed with the patient/guardian in detail that at this point there is no indication for admission to the hospital. It is understood, however, that if the symptoms persist or worsen the patient needs to return immediately for re-evaluation. 03/26 10:14 Order name: Incision \T\ Drainage Setup; Complete Time: 10:23 rn Administered Medications: 10:45 Drug: Lidocaine Infiltration (1 %) 1 vials {Note: by ERD.} Volume: 5 ml; Route: jl7 Infiltration; 11:12 Follow up: Response: No adverse reaction jl7 Disposition Summary: 03/26/23 10:45 Discharge Ordered Location: Home rn Problem: new rn Symptoms: have improved rn Condition: Stable rn Diagnosis - Paronychia left 3rd finger rn Followup: rn - With: Private Physician - When: 2 - 3 days - Reason: Recheck today's complaints, Re-evaluation by your physician Discharge Instructions: - Discharge Summary Sheet rn - Paronychia rn Forms: - Medication Reconciliation Form rn - Thank You Letter rn - Antibiotic return to service inspector - Prescription Opioid Use rn - Patient Portal Instructions rn - Leadership Thank You Letter rn Prescriptions: - Cephalexin 500 mg Oral Capsule - take 1 capsule by ORAL route every 12 hours for 10 days; 20 capsule; Refills: rn 0, Product Selection Permitted - Tramadol 50 mg Oral Tablet - take 1 tablet by ORAL route every 8 hours as needed; 12 tablet; Refills: 0, rn Product Selection Permitted - Bactrim DS 800-160 mg Oral Tablet - take 1 tablet by ORAL route every 12 hours for 10 days; 20 tablet; Refills: 0, rn Product Selection Permitted Signatures: Ricardo Fields MD MD rn Baxter, Heather, RN RN hb Leal, Jahala, RN RN jl7
[2023-03-26 11:41] VITALS: TEMP 97.8; O2SAT 97
[2023-03-26 11:42] VITALS: BP 130/94
== END 2023-03-26 11:21 | disposition home or self-care (01) ==
LOC: ER 09:57
PROC: 0H9GXZZ Drainage of Left Hand Skin, External Approach (ICD-10-PCS; principal; 2023-03-26)
DX: L03.012 Cellulitis of left finger (principal); E11.9 Type 2 diabetes mellitus without complications; Z79.4 Long term (current) use of insulin; I10 Essential (primary) hypertension
CPT/HCPCS: 64450; 99283; 10060; J2001

== ENCOUNTER 2023-05-07 09:46 | Inpatient (IN) | payer BC ==
--- OUTSIDE RECORDS SUMMARY | 2023-05-07 09:54 | XMS REPORT | Continuity of Care Document ---
:1985 Author Organization [facility] t Address [address] [place] [address] Care Team Providers Name Role Phone Lab, Adc Fam Pob I Attending Clinician Unavailable Danika Dalton Attending Clinician DANIKA CORONA Attending Clinician Unavailable Doctor Unassigned, King Attending Clinician Unavailable Joseph Foster Attending Clinician [...] Active 11-12 21:54:00 l 00:00: Castro Sesay [address] RIGHT LEG RIGHT LEG Diagnosis Active 2015-12-24 Memoria SWELLING SWELLING 12-23 15:09:00 l Active 00:00: Hipolito 12/24/[address] [place] [address] Hip[place]ito SWOLLEN SWOLLEN Diagnosis Active 2015-09-29 Memoria FOOT FOOT 09-29 13:25:00 l Active 00:00: [place] 09/29/2015 00 [facility] Gout Gout Problem Resolve 2016-11-18 Arun ronn (disorder) (disorder) d 00:11:47 l Resolved [place]ito Problem 11/18/2016 [facility], Mariely Shah [facility] ILLNESS, ILLNESS, Diagnosis Active 2016-10-27 Memoria UNSPECIFIE UNSPECIFIE 23:08:00 l D D Active [place]ito [facility] Hypertensi Hypertens Problem Resolve 2016-11-18 2016-11-18 Memoria ve hayden d 08-02 00:11:47 00:11:47 l disorder, disorder, 00:00: Herm crystal systemic systemic 00 arterial arterial (disorder) (disorder) Resolved 08/02/2012 Problem 11/18/2016 [facility] History of Past Illness Condition Condition Condition Status Onset Resolution Last Treating Co mments Source Name Details Category Date Date Treatment Clinician Date Discharge Discharge Problem 2015-12-27 2015-12-27 Memoria Diagnosis: Diagnosis: 12-23 04:58:21 04:58:21 l Effusion, Effusion, 05:00: Herm crystal right knee right knee 00 12/24/2015 6 Mariely Shah [facility] Allergies, Adverse Reactions, Alerts Allergy Allergy Status Severity Reaction(s) Onset Inactive Treating Comm ents Source Name Type Date Date Clinician NO KNOWN Drug Active Univers ALLERGIE Class ity [facility] Social History Social Habit Start Date Stop Date Quantity Comments Source Sex Assigned At [facility] Exposure to Yes [facility] SARS-CoV-2 (event) [facility] Social History 2016-11-12 2016-11-12 Pat brunson 08:55:10 08:55:10 Smoking Status Start Date Stop Date Source Unknown if ever smoked [facility] Social [facility] [place] Medications Ordered Filled Start Stop Current [...] tab, PO, l tablet 15:00: Daily, # [place] 21 30 tab, 0 Refill(s) pregabalin Yes [...] 10 MG Oral given to Tablet patient [Ruby 10/325] Colchicine Yes See Memoria 0.6 MG [...] 10 MG Oral hen. (Same Tablet as: Ruby [Ruby 325/10) 10/325] Dilaudid No Notes: Memoria 4-14 Same as: l 04:01: Dilaudid pregabalin No Notes: Memor ia 4-14 (Same as: l 02:00: Lyrica) Fenofibrate No Notes: Arun ronn 145 MG Oral -13 (Same as: l Tablet 22:00: Tricor) Sucralfate No Notes: May M emoria 100 MG/ML -13 interfere l Oral 22:00: w/enteral [place] Suspension feeds - [Carafate] Take 1 hr [...] 14:00: Zyloprim) [place] Amylases No Notes: Memoria 48507 UNT / 4-13 (lipase l Endopeptida 13:00: 6,000 [place] [address] 00 units, UNT / protease Lipase 6000 19,000 UNT Enteric units, Coated amylase Capsule 30,000 [Creon 6] units DR) Same as: Creon (Creon 6) Protonix No Notes: Memoria 4-13 Tablet l 12:30: should not [place] be chewed or crushed. (Same as: Protonix) Sucralfate No Notes: May M emoria 100 MG/ML -13 interfere l Oral 11:00: w/enteral [place] Suspension 00 feeds - [Carafate] Take 1 [...] ronn 4-13 (Same as: l 09:34: Mylicon) [place] Saline No Notes: Memoria Flush 0.9% - preservati l 09:31: ve free. [place] 00 Ondansetron No Notes: Arun ronn 4-13 (Same as: l 09:31: Zofran) [place] MEDICATION WASTE Product Size: 4 mg Product Wasted: ___ mg Acetaminoph No Notes: Do M emoria en 11-12 not exceed l 09:31: 4 gm/day. [place] 00 (Same as: Tylenol) Sodium No 1,000 mL, Memori a Chloride 11-12 Rate: 125 l 0.154 09:31: ml/hr, [place] MEQ/ML 00 Infuse Injectable over: 8 Solution [...] l oral tablet 20:04: Q6H, # 100 [place] 00 tab, 0 Refill(s) gabapentin Yes 300 [...] Amylases Yes 1 cap, PO, Mem oria 02703 UNT / 3-30 TID-Meals, l Endopeptida 20:04: [place] [address] 00 UNT / Lipase 6000 , # 120 UNT Enteric cap, 0 Coated Refill(s) Capsule [Creon 6] lisinopril Yes 20 mg = 1 Me moria 20 mg oral 3-30 tab, PO, l tablet 20:04: Daily, # [place] 00 90 tab, 0 Refill(s) Fenofibrate Yes [...] oria 3-29 to exceed l 17:00: 400mg/day. [place] 00 (Same As: Ultram) Tylenol No Notes: Max Arun ronn 3-29 acetaminop l 17:00: hen 4000 [place] 00 mg/day (4 gm/day). (Same as: Tylenol Extra Strength) Oxycodone No Notes: Memori a Hydrochlori 3-29 (Same as: l de 5 MG 17:00: Roxicodone Herm crystal Oral Tablet 00 ) meropenem No Notes: Memori a 3-29 Same as l 15:00: Merrem [place] 00 MEDICATION WASTE Product Size: 500 mg Product Wasted: ___ mg Dilaudid No Notes: Memoria 3-29 Same as: l 14:37: Dilaudid [place] 00 Oxycodone No Notes: Memori a Hydrochlori 3-29 (Same as: l de 5 MG 14:35: Roxicodone Herm crystal Oral Tablet ) ibuprofen No Notes: Memori a 100 mg/5 mL 10-26 (Same as: l oral 22:00: Motrin [place] suspension 00 Children's , Advil Children's ) Take with food. Zyloprim No Notes: Memoria 10-26 Allopurino l 21:30: l oral [place] susp. Refrigerat e/shake well. Compound ed Product - formulatio n not commercial ly available* * (Same as: Zyloprim) Prinivil No Notes: Memoria 10-26 Shake well l 21:30: before [place] 00 use. Refrigerat e For Oral Use Only. Compound ed Product - formulatio n not commercial ly available* * Dilaudid No Notes: Memoria 10-26 Same as: l 21:04: Dilaudid [place] 00 Lactulose No Notes: Memori a 667 MG/ML 10-26 (Same l Oral 21:00: as:Chronul [place] Solution 00 ac) Ondansetron No 4 mg, [...] oria ne 10-26 Route: l 13:14: IVP, [place] 00 Q5Min, Dosing Weight 105.085, kg, PRN [...] Memori a 10-26 Route: l 13:14: IVP, [place] 00 Q5Min, Dosing Weight 105.085, kg, PRN [...] l 02:00: Dilaudid Amylases No Notes: Memoria 36372 UNT / 3-24 (lipase l Endopeptida 22:00: 6,000 [place] [address] 00 units, UNT / protease Lipase 6000 19,000 UNT Enteric units, Coated amylase Capsule 30,000 [Creon 6] units DRC) Same as: Creon (Creon 6) Dilaudid No Notes: Memoria 3-24 (Same as: l 20:42: Dilaudid) Tramadol No Notes: Not Mem oria 3-24 to exceed l 20:31: 400mg/day. [place] 00 (Same As: Ultram) pregabalin No Notes: Memor ia 3-24 Same as l 19:00: Lyrica [place] Dilaudid No Notes: Memoria 3-24 Same as: l 18:47: Dilaudid [place] Melatonin 3 No Notes: Arun ronn MG Extended 24 (Same as: l Release 01:44: Melatonin) Herm crystal Tablet Dilaudid No Notes: Memoria -23 (Same as: l 23:39: Dilaudid) [place] meropenem No Notes: Memori a - Same as l 22:00: Merrem [place] 00 MEDICATION WASTE Product Size: 500 mg Product Wasted: ___ mg Tramadol No Notes: Not Mem oria - to exceed l 13:23: 400mg/day. [place] (Same As: Ultram) Iohexol No 60 mL, [...] / 10-21 (Same as: l Hydrocodone 19:09: Ruby Desiree nn Bitartrate 00 325/5) Do 5 MG Oral not exceed Tablet 4gm/day of [Ruby acetaminop 5/325] hen. sodium No 1,000 mL, [...] ronn 10-21 Allopurino l 14:00: l oral [place] 00 susp. Refrigerat e/shake well. Compound ed [...] Memoria 3-21 (Same as: l 21:00: Zosyn) [place] 00 Dosing based on Piperacill in component MEDICATION WASTE Product Size: 3375 mg Product Wasted: ___ mg Colchicine No 1.2 mg, 2 Me moria 3-21 tab, l 16:13: Route: PO, [place] 00 Drug form: TAB, ONCE, Dosing Weight 105.085, kg, Start date: 10/20/16 11:13:00 CDT, Stop date: 10/20/16 11:13:00 CDT Tramadol No Notes: Not Mem oria 3-21 to exceed l 14:16: 400mg/day. [place] 00 (Same As: Ultram) Acetaminoph No Notes: Arun ronn en 325 MG / 3-21 (Same as: l Hydrocodone 14:16: Ruby Desiree nn Bitartrate 00 325/5) Do 5 MG Oral not exceed Tablet 4gm/day of [Ruby acetaminop 5/325] hen. potassium No 10 mEq, [...] hours M emoria dine -18 l 05:50: [place] ketAMINE No 245 mL, Memori a 500 [...] (Same as l MG / 22:00: Senokot-S) [place] sennosides, 00 Equiv. to FCI 8.6 MG Tala-Colac Oral Tablet e. Thiamine [...] MG/ML -17 (Same l Oral 16:48: as:Chronul [place] Solution 00 ac) Ketamine No Notes: Memoria 3-17 Total l 16:18: Concentrat ion = 1mg/ml Total Volume = 100ml Infusion Rate= Begin Infusion at an initial rate of 0.1mg/kg/h r to a Maximum Rate of 0.25mg/kg/ hr Please place a Med Request 2 hours before the next dose is needed. Folic Acid No 1 mg, Memori a 3-17 Route: PO, l 14:00: Daily, [place] 00 Dosing Weight 105.085, kg, Start date: [...] / 14:45: Senokot-S) sennosides, 00 Equiv. to FCI 8.6 MG Tala-Colac Oral Tablet e. Miralax [...] Dilaudid) conc = 0.5 mg/ml Hydromorph one USABILITY STRATEGIST Dose: ;Delay: ;Basal: Naloxone No Notes: Memoria 3-16 Same as l 01:30: Narcan Calcium No Notes: Memoria Gluconate 3-16 WASTE: F/P l 00:38: - Sink; E [place] 00 - [facility] Trash Bin Simethicone No Notes: Arun ronn 3-16 (Same as: l 00:26: Mylicon, [place] 00 Phazyme, Genasyme) D10W 961.5 No 961.5 mL, Me moria mL + sodium 3-15 Rate: 250 l chloride 21:51: ml/hr, [place] 154 mEq 00 Infuse over: 4 hr, [...] Chloride 3-15 1,000 l 0.154 16:25: ml/hr, [place] MEQ/ML 00 Infuse Injectable Over: 1 Solution [...] Syringe 3-15 25 mL, l 14:10: Route: [place] 00 IVP, Drug Form: INJ, Dosing Weight [...] 0.9% 3-15 (Same as: l 14:00: BD [place] 00 Posiflush) Famotidine No Notes: Memor ia [...] Notes: Memoria 3-15 (Same l 04:19: as:MORPhin [place] 00 e Sulfate) Morphine No Notes: Memoria 3-15 Loading l 04:00: Dose: 2 mg Dose: 1 mg Delay: 10 min Basal rate: 0 4hr limit: 30 mg (Same as:Amairani connelly) Lorazepam No Notes: Memori a 3-15 (Same as: l 03:59: Ativan) [place] 00 Zofran No Notes: Memoria 3-15 (Same as: l 03:57: Zofran) [place] 00 MEDICATION WASTE Product Size: 4 mg Product Wasted: 0 mg Naloxone No Notes: Memoria 3-15 Same as l 03:47: Narcan [place] 00 Calcium No 1,000 mL, Memor ia [...] 3-15 (Same as: l sodium 03:37: K [place] chloride 00 Phosphate. 0.9% INJ ) 1 [...] Oxide 3-15 (Same as: l 03:37: Mag-Ox [place] 00 400) Magnesium oxide 085gt=333b g elemental magnesium Dose=____m g magnesium oxide (___mg elemental magnesium) Magnesium No Notes: Memori a Sulfate 3-15 WASTE: F/P l 03:37: - Sink; E [place] 00 - Municipal Trash Bin potassium No Notes: Memori a phosphate-s 3-15 (Same as: l odium 03:37: Phos-NaK) [place] phosphate 00 Each 1.5 250 mg-280 gm pkt has mg-160 mg 250mg oral powder phosphorou for s. Mix reconstitut w/2.5oz ion water and stir. potassium No Notes: Memori a chloride 3-15 (Same as: l 03:37: KCL) [place] 00 Infuse over 2 hours. Saline No Notes: Memoria Flush 0.9% 3-15 (Same as: l 03:37: BD [place] 00 Posiflush) Nystatin No Notes: Memoria 100 [...] / -24 (Same as: l Hydrocodone 19:39: Ruby Desiere nn Bitartrate 00 325/5) Do 5 MG Oral not exceed Tablet 4gm/day of [Ruby acetaminop 5/325] hen. Ketorolac No 4 days [...] PO, l oral 22:26: TID, X 10 [place] capsule 00 day, # 30 cap, 0 [...] Oral (F) 2016-11-15 17:02:00 97.6 F [facility] [place] Heart Rate 2016-11-15 17:02:00 Memorial [place] Respitory Rate 2016-11-15 17:02:00 Memori al [place] Systolic (mm Hg) 2016-11-15 13:00:00 Arun rial [place] Diastolic (mm Hg) 2016-11-15 13:00:00 Mem orial [place] Respitory Rate 2016-11-15 13:00:00 Memori al [place] Heart Rate 2016-11-15 13:00:00 Memorial [place] Temperature Oral (F) 2016-11-15 13:00:00 97.4 F Memorial [place] Heart Rate 2016-11-15 08:06:00 Memorial [place] Temperature Oral (F) 2016-11-15 08:06:00 98.1 F Memorial [place] Respitory Rate 2016-11-15 08:06:00 Memori al [place] Systolic (mm Hg) 2016-11-15 08:06:00 Arun rial [place] Diastolic (mm Hg) 2016-11-15 08:06:00 Mem orial [place] Height 2016-11-12 08:53:00 182.88 cm Memorial [place] Weight 2016-11-12 08:53:00 Memorial [place] BMI Calculated 2016-11-12 08:53:00 Memori al [place] Temperature Oral (F) 2016-10-29 21:34:00 98.3 F Memorial [place] Heart Rate 2016-10-29 21:34:00 Memorial [place] Respitory Rate 2016-10-29 21:34:00 Memori al [place] Systolic (mm Hg) 2016-10-29 21:34:00 Arun rial [place] Diastolic (mm Hg) 2016-10-29 21:34:00 Mem orial [place] Respitory Rate 2016-10-29 17:07:00 Memori al [place] Systolic (mm Hg) 2016-10-29 17:07:00 Arun rial [place] Diastolic (mm Hg) 2016-10-29 17:07:00 Mem orial [place] Heart Rate 2016-10-29 17:07:00 Memorial [place] Systolic (mm Hg) 2016-10-29 16:57:00 Arun rial [place] Diastolic (mm Hg) 2016-10-29 16:57:00 Mem orial [place] Respitory Rate 2016-10-29 16:57:00 Memori al [place] Heart Rate 2016-10-29 16:57:00 Memorial [place] Temperature Oral (F) 2016-10-29 16:57:00 98.2 F [facility] [place] Temperature Oral (F) 2016-10-29 13:09:00 98.3 F [facility] [place] Height 2016-10-14 03:43:00 182.88 cm Memorial [place] BMI Calculated 2016-10-14 03:43:00 Memori al [place] Weight 2016-10-14 03:43:00 Memorial [place] BMI Calculated 2016-10-14 03:42:00 Memori al [place] Weight 2016-10-14 03:42:00 Memorial [place] Height 2016-10-14 03:42:00 182.88 cm Memorial [place] Weight 2016-10-14 03:41:00 [facility] [place] Respitory Rate 2015-12-24 22:00:00 Memori al [place] Heart Rate 2015-12-24 22:00:00 Memorial [place] Systolic (mm Hg) 2015-12-24 22:00:00 Arun rial [place] Diastolic (mm Hg) 2015-12-24 22:00:00 Mem orial [place] Weight 2015-12-24 18:47:00 Memorial [place] Height 2015-12-24 18:47:00 182.88 cm Memorial [place] BMI Calculated 2015-12-24 18:47:00 Memori al [place] Temperature Oral (F) 2015-12-24 18:47:00 98.3 F Memorial [place] Systolic (mm Hg) 2015-12-24 18:47:00 Arun rial [place] Diastolic (mm Hg) 2015-12-24 18:47:00 Mem orial [place] Respitory Rate 2015-12-24 18:47:00 Memori al [place] Heart Rate 2015-12-24 18:47:00 Memorial [place] Respitory Rate 2015-09-29 22:42:00 Memori al [place] Systolic (mm Hg) 2015-09-29 22:42:00 Arun rial [place] Diastolic (mm Hg) 2015-09-29 22:42:00 Mem orial [place] Temperature Oral (F) 2015-09-29 22:42:00 97.9 F [facility] [place] Heart Rate 2015-09-29 22:42:00 Memorial [place] Respitory Rate 2015-09-29 21:57:00 Memori al [place] Systolic (mm Hg) 2015-09-29 21:57:00 Arun rial [place] Diastolic (mm Hg) 2015-09-29 21:57:00 Mem orial [place] Heart Rate 2015-09-29 21:57:00 Memorial [place] Temperature Oral (F) 2015-09-29 21:57:00 97.9 F [facility] [place] BMI Calculated 2015-09-29 18:34:00 Memori al [place] Weight 2015-09-29 18:34:00 Memorial [place] Height 2015-09-29 18:34:00 182.88 cm Memorial [place] Temperature Oral (F) 2015-09-29 18:32:00 98.1 F Memorial [place] Heart Rate 2015-09-29 18:32:00 Memorial [place] Systolic (mm Hg) 2015-09-29 18:32:00 Arun rial [place] Diastolic (mm Hg) 2015-09-29 18:32:00 Mem orial [place] Respitory Rate 2015-09-29 18:32:00 Memori al [place] Procedures This patient has no known procedures. Encounters Start End Encounter Admission Attending Care Care Encounter Source Date/Time Date/Time Type Type Clinicians Facility Department ID 2020-07-15 2020-07-15 Laboratory Lab, Adc [facility] [id number] 16:44:23 16:46:22 Only [facility] [id number] [place] [id number] Professio [id number] [place] [id number] Office Building [facility] 2020-07-15 2020-07-15 Laboratory Lab, Adc Fam Pob I [facility] [id number]. [id number] Univers 16:44:23 16:46:22 Only Danika Corona [facility] [id number] ity of [place] [id number] Werner as Professio [phone] Wi dical [address] Office Building [facility] 2020-07-15 2020-07-15 Outpatient R CJ [facility] [id number] Univers 16:40:00 16:40:00 DANIKA ity of [facility] 2020-07-15 2020-07-15 Letter Doctor WM [id number] 00:00:00 00:00:00 (Out) Unassigned, GRACE [id number] [facility] [id number] [facility] 2020-07-15 2020-07-15 Letter Doctor WM [id number] Univers 00:00:00 00:00:00 (Out) Unassigned, GRACE [id number] ity of [place] [facility] [id number] Werner as [id number] [address] 2016-11-12 2016-11-15 Inpatient [facility] [id number] Memoria 08:08:00 19:30:00 kaity Mcmillan 03 [facility] 2016-11-12 2016-11-15 Outpatient Cristian [facility] [id number] 03:08:00 14:30:00 Joseph Rhea Chon 2016-10-14 2016-10-30 Inpatient [facility] [id number] Memoria 03:23:00 04:30:00 r [place] 73 l [facility] 2016-10-13 2016-10-29 Outpatient Stefani Jensen [facility] [id number] 22:23:00 23:30:00 Mariely Marivel 2015-12-24 2015-12-24 [facility] [id number] Memoria 18:41:00 22:07:00 Emergency r [place] 01 l [facility] 2015-12-24 2015-12-[id number] 13:41:00 17:07:00 Wm Boateng 2015-09-29 2015-09-29 EC Vishal [facility] [id number] 18:31:00 22:43:00 Emergency r [place] 00 l [facility] 2015-09-29 2015-09-29 Outpatient ADRIANA Pleitez [facility] [id number] 12:31:00 16:43:00 Christopher 00 Mejia Results Test Description Test Time Test Comments Results Result Comments Source CHEM PANEL 2016-11-15 07:08:00 Test Item Value Reference Range Interpretation Comme nts Magnesium Lvl (test code = Magnesium Lvl) 2.1 1.8-2.4 [facility]2017-04-16 07:08:00 Test Item Value Reference Range Interpretation Comments Phosphorus (test code = Phosphorus) 4.0 2.5-4.5 [facility]W4517[facility]18-22 07:08:00 Test Item Value Reference Range Interpretation Comments AGAP (test code = AGAP) 14.0 10.0-20.0 [facility]ur[facility]JBCLFNRFOLAR4479-39-06 07:08:00 Test Item Value Reference Range Interpretation Comments eGFR (test code = eGFR) 126 [facility]nirlvxTBEPOQHMUCHR1993-09-22 07:08:00 Test Item Value Reference Range Interpretation Comments BUN (test code = BUN) 7 7-22 [facility]EhfallaWMMZVHGBHBHU1354-00-62 07:08:00 Test Item Value Reference Range Interpretation Comments Creatinine Lvl (test code = Creatinine 0.72 0.50-1.40 Lvl) [facility]fmvexqBNNTCTJLIKTB8093-51-18 07:08:00 Test Item Value Reference Range Interpretation Comments Glucose Lvl (test code = Glucose Lvl) 148 70-99 [facility]DlwcxxgOJTSMGXJKDFG8750-25-16 07:08:00 Test Item Value Reference Range Interpretation Comments Chloride Lvl (test code = Chloride Lvl) 100 95-109 [facility] CenterFmonfynJRRXCAGXXNVH2317-44-09 07:08:00 Test Item Value Reference Range Interpretation Comments CO2 (test code = CO2) 28 24-32 [facility] CenterDttgypcGQCSGXIMKSOS2222-72-24 07:08:00 Test Item Value Reference Range Interpretation Comments Sodium Lvl (test code = Sodium Lvl) 138 135-145 [facility] CenterSiztzvzLECRXVMDCOMS2570-52-90 07:08:00 Test Item Value Reference Range Interpretation Comments Potassium Lvl (test code = Potassium 4.0 3.5-5.1 Lvl) [facility] CenterJqfhaqpYIQAROCIWUZR4045-15-67 07:08:00 Test Item Value Reference Range Interpretation Comments Calcium Lvl (test code = Calcium Lvl) 9.4 8.5-10.5 [facility]50-12 07:08:00 Test Item Value Reference Range Interpretation Comments Lymphocytes (test code = Lymphocytes) 6.8 20.0-40.0 [facility] HospitalVtwrybgAIVFCUVDLT7733-86-43 07:08:00 Test Item Value Reference Range Interpretation Comments Monocytes (test code = Monocytes) 4.2 2.0-12.0 [facility] HospitalGzgkokrAYXLAKNIOQ4792-52-55 07:08:00 Test Item Value Reference Range Interpretation Comments Segs (test code = Segs) 88.9 45.0-75.0 [facility] HospitalSjdhxbqWZFEYFTKMI6762-85-17 07:08:00 Test Item Value Reference Range Interpretation Comments Monocytes # (test code = Monocytes #) 0.4 <=0.8 [facility] HospitalPloncmxYOFJVDQGRB1180-57-77 07:08:00 Test Item Value Reference Range Interpretation Comments Lymphocytes # (test code = Lymphocytes 0.7 1.0-5.5 #) [facility] HospitalCcdogokICWHELWIOW5832-98-68 07:08:00 Test Item Value Reference Range Interpretation Comments Basophils (test code = Basophils) 0.1 <=1.0 [facility] HospitalMtuyfadHPJZSSMONB6431-79-79 07:08:00 Test Item Value Reference Range Interpretation Comments Segs-Bands # (test code = Segs-Bands #) 9.5 1.5-8.1 [facility] HospitalLvmqvtkMNPRAEZAZN8367-64-36 07:08:00 Test Item Value Reference Range Interpretation Comments MCV (test code = MCV) 84.5 80.0-94.0 [facility] HospitalNfymjxxRBLSEBQZGJ8879-69-34 07:08:00 Test Item Value Reference Range Interpretation Comments Hct (test code = Hct) 25.9 42.0-54.0 [facility] HospitalDzkwmhhMQVCUUOUKO6641-47-13 07:08:00 Test Item Value Reference Range Interpretation Comments MPV (test code = MPV) 8.2 7.4-10.4 [facility] HospitalDtehwpkZFHBYMGZIW5851-70-56 07:08:00 Test Item Value Reference Range Interpretation Comments Platelet (test code = Platelet) 300 133-450 [facility] HospitalXacavovXUKAAMXYUE4847-22-38 07:08:00 Test Item Value Reference Range Interpretation Comments Hgb (test code = Hgb) 8.5 14.0-18.0 [facility] HospitalPrgsqueEZQPCPJGVO7382-96-52 07:08:00 Test Item Value Reference Range Interpretation Comments RBC (test code = RBC) 3.07 4.70-6.10 [facility] HospitalQgrenegPUAVTTNDOP8748-35-20 07:08:00 Test Item Value Reference Range Interpretation Comments RDW (test code = RDW) 15.8 11.5-14.5 [facility] HospitalBfeshmgYKUICPDWAJ7915-09-31 07:08:00 Test Item Value Reference Range Interpretation Comments MCHC (test code = MCHC) 32.7 32.0-36.0 [facility] HospitalVjaksjnCTYTKYZIKN6559-83-41 07:08:00 Test Item Value Reference Range Interpretation Comments MCH (test code = MCH) 27.6 pg 27.0-31.0 [facility] HospitalKdljrwsGJUSGLGMWE7645-25-05 07:08:00 Test Item Value Reference Range Interpretation Comments WBC (test code = WBC) 10.6 3.7-10.4 [facility]2017-04-15 18:29:00 Test Item Value Reference Range Interpretation Comments WBC BF (test code = WBC BF) 49516 [facility]2017-04-15 18:29:00 Test Item Value Reference Range Interpretation Comments RBC BF (test code = RBC BF) 133 [facility]2017-04-15 18:29:00 Test Item Value Reference Range Interpretation Comments CellCnt BF Type (test Synovial (11/14/16 1:29 code = CellCnt BF PM) Type) [facility]2017-04-15 18:29:00 Test Item Value Reference Range Interpretation Comments Clarity BF (test code Moderate Cloudy = Clarity BF) *ABN*(11/14/16 1:29 PM) [facility]2017-04-15 18:29:00 Test Item Value Reference Range Interpretation Comments Color BF (test code = Light Yellow (11/14/16 Color BF) 1:29 PM) [facility] [id number] 18:29:00 Test Item Value Reference Range Interpretation Comments Supernat BF (test code = Yellow *ABN*(11/14/16 Supernat BF) 1:29 PM) [facility] [id number] 18:29:00 Test Item Value Reference Range Interpretation Comments Crystal BF Type (test Synovial (11/14/16 1:29 code = Crystal BF PM) Type) [facility] [id number] 18:29:00 Test Item Value Reference Range Interpretation Comments Crystal BF (test code = [place] Na Urate Crystal BF) *ABN*(11/14/16 1:29 PM) [facility]94[facility]20 07:59:00 Test Item Value Reference Range Interpretation Comments VLDL (test code = VLDL) 29 [facility]AsrpfqoNVLWBV4147-37-31 07:59:00 Test Item Value Reference Range Interpretation Comments LDL (Calculated) (test code = LDL 75 (Calculated)) [facility] HulsyemRMRQHY0411-88-11 07:59:00 Test Item Value Reference Range Interpretation Comments Chol (test code = Chol) 140 [facility] AdthxicBWCRFM2750-69-62 07:59:00 Test Item Value Reference Range Interpretation Comments Trig (test code = Trig) 143 [facility] UoclkxuJMQMNQ7945-61-19 07:59:00 Test Item Value Reference Range Interpretation Comments HDL (test code = HDL) 36 [facility] [id number] 07:59:00 Test Item Value Reference Range Interpretation Comments CHD Risk (test code = CHD Risk) 3.89 4.00-7.30 [facility] [id number] 07:59:00 Test Item Value Reference Range Interpretation Comments Phosphorus (test code = Phosphorus) 4.9 2.5-4.5 [facility] [id number] 07:59:00 Test Item Value Reference Range Interpretation Comments Magnesium Lvl (test code = Magnesium 1.9 1.8-2.4 Lvl) [facility] [id number] 07:59:00 Test Item Value Reference Range Interpretation Comments Creatinine Lvl (test code = Creatinine 0.62 0.50-1.40 Lvl) [facility]2017-04-14 07:59:00 Test Item Value Reference Range Interpretation Comments eGFR (test code = eGFR) 134 [facility]2017-04-14 07:59:00 Test Item Value Reference Range Interpretation Comments BUN (test code = BUN) 3 7-22 [facility]2017-04-14 07:59:00 Test Item Value Reference Range Interpretation Comments Chloride Lvl (test code = Chloride Lvl) 98 95-109 [facility]2017-04-14 07:59:00 Test Item Value Reference Range Interpretation Comments Glucose Lvl (test code = Glucose Lvl) 107 70-99 [facility]2017-04-14 07:59:00 Test Item Value Reference Range Interpretation Comments Sodium Lvl (test code = Sodium Lvl) 135 135-145 [facility]2017-04-14 07:59:00 Test Item Value Reference Range Interpretation Comments CO2 (test code = CO2) 29 24-32 [facility]2017-04-14 07:59:00 Test Item Value Reference Range Interpretation Comments Potassium Lvl (test code = Potassium 3.6 3.5-5.1 Lvl) [facility]2017-04-14 07:59:00 Test Item Value Reference Range Interpretation Comments AGAP (test code = AGAP) 11.6 10.0-20.0 [facility]2017-04-14 07:59:00 Test Item Value Reference Range Interpretation Comments Calcium Lvl (test code = Calcium Lvl) 8.6 8.5-10.5 [facility]hssgyqSLBUVKHHUJ6722-44-64 07:59:00 Test Item Value Reference Range Interpretation Comments MCH (test code = MCH) 27.5 pg 27.0-31.0 [facility] HospitalSurbxonOPIBRRNUZF1230-79-15 07:59:00 Test Item Value Reference Range Interpretation Comments Hgb (test code = Hgb) 8.4 14.0-18.0 [facility] HospitalTelennqFVNLZQNSIW4245-21-38 07:59:00 Test Item Value Reference Range Interpretation Comments Hct (test code = Hct) 25.8 42.0-54.0 [facility] HospitalIpcfcvfXWTTOWANVY2755-86-25 07:59:00 Test Item Value Reference Range Interpretation Comments MCV (test code = MCV) 84.2 80.0-94.0 [facility] HospitalWsiaoyjQCSAHFXGOV6532-84-52 07:59:00 Test Item Value Reference Range Interpretation Comments RBC (test code = RBC) 3.06 4.70-6.10 [facility] HospitalHsxmgfkNGKWQCLDCV3516-14-92 07:59:00 Test Item Value Reference Range Interpretation Comments WBC (test code = WBC) 13.1 3.7-10.4 [facility] HospitalDjfwcstZWUPJLCCUN3623-52-77 07:59:00 Test Item Value Reference Range Interpretation Comments Platelet (test code = Platelet) 332 133-450 [facility] HospitalBlhxgsuLGIWNFNLCR2761-78-78 07:59:00 Test Item Value Reference Range Interpretation Comments RDW (test code = RDW) 15.9 11.5-14.5 [facility] HospitalOozkpkkTVHCVSEOIN7664-10-92 07:59:00 Test Item Value Reference Range Interpretation Comments MPV (test code = MPV) 8.3 7.4-10.4 [facility] HospitalUmxvbypFZESSTDXWY2306-59-81 07:59:00 Test Item Value Reference Range Interpretation Comments MCHC (test code = MCHC) 32.6 32.0-36.0 [facility] HospitalWpzoiofBAMVARTHYK4758-91-57 07:59:00 Test Item Value Reference Range Interpretation Comments Lymphocytes # (test code = Lymphocytes 2.0 1.0-5.5 #) [facility] HospitalKuiewecUVDLNMEYZN7503-05-87 07:59:00 Test Item Value Reference Range Interpretation Comments Monocytes # (test code = Monocytes #) 1.3 <=0.8 [facility] HospitalUklwbrdBSILCUXEAR8457-78-55 07:59:00 Test Item Value Reference Range Interpretation Comments Segs-Bands # (test code = Segs-Bands #) 9.7 1.5-8.1 [facility] HospitalGbpqzxfXNXHZPQTIT8121-56-63 07:59:00 Test Item Value Reference Range Interpretation Comments Eosinophils # (test code = Eosinophils 0.1 <=0.5 #) [facility] HospitalGcxlsizCOVHKYKKSO1448-76-45 07:59:00 Test Item Value Reference Range Interpretation Comments Basophils # (test code = Basophils #) 0.1 <=0.2 [facility] HospitalXyvhtzoDTUXQCCQQU1862-03-97 07:59:00 Test Item Value Reference Range Interpretation Comments Segs (test code = Segs) 73.8 45.0-75.0 [facility] HospitalUwjjwozRZLPOXUUEM8892-66-01 07:59:00 Test Item Value Reference Range Interpretation Comments Lymphocytes (test code = Lymphocytes) 14.9 20.0-40.0 [facility] HospitalWblbaebHTLXADCEMR2032-33-57 07:59:00 Test Item Value Reference Range Interpretation Comments Basophils (test code = Basophils) 0.4 <=1.0 [facility] HospitalOkqzyfwKXEYZWSWGB1925-57-61 07:59:00 Test Item Value Reference Range Interpretation Comments Monocytes (test code = Monocytes) 10.1 2.0-12.0 [facility] HospitalSqyjuxlEQYKIPIOKW5789-37-35 07:59:00 Test Item Value Reference Range Interpretation Comments Eosinophils (test code = Eosinophils) 0.8 <=4.0 [facility]2017-04-13 10:04:00 Test Item Value Reference Range Interpretation Comments Lipase Lvl (test code = Lipase Lvl) 325 73-393 [facility]2017-04-13 10:04:00 Test Item Value Reference Range Interpretation Comments eGFR (test code = eGFR) 133 [facility]2017-04-13 10:04:00 Test Item Value Reference Range Interpretation Comments Sodium Lvl (test code = Sodium Lvl) 141 135-145 [facility]2017-04-13 10:04:00 Test Item Value Reference Range Interpretation Comments Creatinine Lvl (test code = Creatinine 0.63 0.50-1.40 Lvl) [facility]2017-04-13 10:04:00 Test Item Value Reference Range Interpretation Comments BUN (test code = BUN) 6 7-22 [facility]2017-04-13 10:04:00 Test Item Value Reference Range Interpretation Comments Glucose Lvl (test code = Glucose Lvl) 105 70-99 [facility]2017-04-13 10:04:00 Test Item Value Reference Range Interpretation Comments Total Protein (test code = Total 6.8 6.4-8.4 Protein) [facility]2017-04-13 10:04:00 Test Item Value Reference Range Interpretation Comments Calcium Lvl (test code = Calcium Lvl) 8.5 8.5-10.5 [facility]2017-04-13 10:04:00 Test Item Value Reference Range Interpretation Comments CO2 (test code = CO2) 24 24-32 [facility]2017-04-13 10:04:00 Test Item Value Reference Range Interpretation Comments Chloride Lvl (test code = Chloride Lvl) 107 95-109 [facility]2017-04-13 10:04:00 Test Item Value Reference Range Interpretation Comments Potassium Lvl (test code = Potassium 3.6 3.5-5.1 Lvl) [facility]2017-04-13 10:04:00 Test Item Value Reference Range Interpretation Comments Bili Total (test code = Bili Total) 0.2 0.2-1.3 [facility]2017-04-13 10:04:00 Test Item Value Reference Range Interpretation Comments Alk Phos (test code = Alk Phos) 66 39-136 [facility]2017-04-13 10:04:00 Test Item Value Reference Range Interpretation Comments AST (test code = AST) 12 <=37 [facility]2017-04-13 10:04:00 Test Item Value Reference Range Interpretation Comments ALT (test code = ALT) 30 <=65 [facility]2017-04-13 10:04:00 Test Item Value Reference Range Interpretation Comments Albumin Lvl (test code = Albumin Lvl) 3.0 3.5-5.0 [facility]2017-04-13 10:04:00 Test Item Value Reference Range Interpretation Comments Globulin (test code = Globulin) 3.8 2.7-4.2 [facility]2017-04-13 10:04:00 Test Item Value Reference Range Interpretation Comments B/C Ratio (test code = B/C Ratio) 10 6-25 [facility]2017-04-13 10:04:00 Test Item Value Reference Range Interpretation Comments AGAP (test code = AGAP) 13.6 10.0-20.0 [facility]2017-04-13 10:04:00 Test Item Value Reference Range Interpretation Comments A/G Ratio (test code = A/G Ratio) 0.8 0.7-1.6 [facility]2017-04-13 10:04:00 Test Item Value Reference Range Interpretation Comments Phosphorus (test code = Phosphorus) 4.8 2.5-4.5 [facility]2017-04-13 10:04:00 Test Item Value Reference Range Interpretation Comments Magnesium Lvl (test code = Magnesium 1.3 1.8-2.4 Lvl) [facility]KnuhcfiQIKJBIFCSQ1349-26-14 10:04:00 Test Item Value Reference Range Interpretation Comments Segs (test code = Segs) 61.1 45.0-75.0 [facility] HospitalHeepzyaKFZSETXUFZ5233-19-37 10:04:00 Test Item Value Reference Range Interpretation Comments Lymphocytes (test code = Lymphocytes) 25.7 20.0-40.0 [facility] HospitalYouimikOQVGFVCAEK8985-70-55 10:04:00 Test Item Value Reference Range Interpretation Comments Monocytes (test code = Monocytes) 10.4 2.0-12.0 [facility] HospitalFxawhjmFWYHDUWDET5849-23-59 10:04:00 Test Item Value Reference Range Interpretation Comments Eosinophils (test code = Eosinophils) 2.2 <=4.0 [facility] HospitalGzmqxjgIJAOAQSHDM4519-63-78 10:04:00 Test Item Value Reference Range Interpretation Comments Monocytes # (test code = Monocytes #) 1.0 <=0.8 [facility] HospitalIvwibowEFHXCUYEXA4795-58-68 10:04:00 Test Item Value Reference Range Interpretation Comments Eosinophils # (test code = Eosinophils 0.2 <=0.5 #) [facility] HospitalQwmaxwjNJEDNRDYJW8484-05-50 10:04:00 Test Item Value Reference Range Interpretation Comments Basophils (test code = Basophils) 0.6 <=1.0 [facility] HospitalFktqklmKWMXWTUTXD0377-35-17 10:04:00 Test Item Value Reference Range Interpretation Comments Segs-Bands # (test code = Segs-Bands #) 6.1 1.5-8.1 [facility] HospitalCwonbxxZWGQZQHVNX2289-04-49 10:04:00 Test Item Value Reference Range Interpretation Comments Lymphocytes # (test code = Lymphocytes 2.6 1.0-5.5 #) [facility] HospitalYqbbvwgTMUYKDILWJ0428-52-98 10:04:00 Test Item Value Reference Range Interpretation Comments Basophils # (test code = Basophils #) 0.1 <=0.2 [facility] HospitalTwqccziNGNVIKHHRV3632-75-03 10:04:00 Test Item Value Reference Range Interpretation Comments WBC (test code = WBC) 10.0 3.7-10.4 [facility] HospitalEblgnwdCWEKGFQLGO8957-69-88 10:04:00 Test Item Value Reference Range Interpretation Comments Hgb (test code = Hgb) 8.2 14.0-18.0 [facility] HospitalItkeekaEZKZORJBQS2592-81-25 10:04:00 Test Item Value Reference Range Interpretation Comments RBC (test code = RBC) 2.89 4.70-6.10 [facility] HospitalEktoaetSEECCLJXBT1589-32-84 10:04:00 Test Item Value Reference Range Interpretation Comments Hct (test code = Hct) 24.7 42.0-54.0 [facility] HospitalRvzzumeQFJDGOVFJB9830-72-34 10:04:00 Test Item Value Reference Range Interpretation Comments MPV (test code = MPV) 7.8 7.4-10.4 [facility] HospitalIojfrycLGFBVURNSZ2721-80-36 10:04:00 Test Item Value Reference Range Interpretation Comments MCH (test code = MCH) 28.3 pg 27.0-31.0 [facility] HospitalTegfufzKOHZJPZHNO7928-00-70 10:04:00 Test Item Value Reference Range Interpretation Comments MCV (test code = MCV) 85.5 80.0-94.0 [facility] HospitalBcrevdjWPGSAJUAFN5952-84-51 10:04:00 Test Item Value Reference Range Interpretation Comments Platelet (test code = Platelet) 341 133-450 [facility] HospitalNyaqyqeGGWKDSLPTX2736-42-58 10:04:00 Test Item Value Reference Range Interpretation Comments RDW (test code = RDW) 15.8 11.5-14.5 [facility] HospitalEmffswwWXBLBKWMCE7184-18-59 10:04:00 Test Item Value Reference Range Interpretation Comments MCHC (test code = MCHC) 33.1 32.0-36.0 [facility]2017-03-30 10:11:00 Test Item Value Reference Range Interpretation Comments B/C Ratio (test code = B/C Ratio) 12 6-25 [facility] PXOZQ5689-63-99 10:11:00 Test Item Value Reference Range Interpretation Comments Globulin (test code = Globulin) 4.2 2.7-4.2 [facility]2017-03-30 10:11:00 Test Item Value Reference Range Interpretation Comments A/G Ratio (test code = A/G Ratio) 0.8 0.7-1.6 [facility]2017-03-30 10:11:00 Test Item Value Reference Range Interpretation Comments AGAP (test code = AGAP) 11.6 10.0-20.0 [facility]2017-03-30 10:11:00 Test Item Value Reference Range Interpretation Comments eGFR (test code = eGFR) 131 [facility]2017-03-30 10:11:00 Test Item Value Reference Range Interpretation Comments Bili Total (test code = Bili Total) 0.2 0.2-1.3 [facility]2017-03-30 10:11:00 Test Item Value Reference Range Interpretation Comments AST (test code = AST) 23 <=37 [facility]2017-03-30 10:11:00 Test Item Value Reference Range Interpretation Comments Alk Phos (test code = Alk Phos) 47 39-136 [facility]2017-03-30 10:11:00 Test Item Value Reference Range Interpretation Comments Calcium Lvl (test code = Calcium Lvl) 9.1 8.5-10.5 [facility]2017-03-30 10:11:00 Test Item Value Reference Range Interpretation Comments Total Protein (test code = Total 7.4 6.4-8.4 Protein) [facility]2017-03-30 10:11:00 Test Item Value Reference Range Interpretation Comments Chloride Lvl (test code = Chloride Lvl) 98 95-109 [facility]2017-03-30 10:11:00 Test Item Value Reference Range Interpretation Comments CO2 (test code = CO2) 30 24-32 [facility]2017-03-30 10:11:00 Test Item Value Reference Range Interpretation Comments Albumin Lvl (test code = Albumin Lvl) 3.2 3.5-5.0 [facility]2017-03-30 10:11:00 Test Item Value Reference Range Interpretation Comments ALT (test code = ALT) 27 <=65 [facility]2017-03-30 10:11:00 Test Item Value Reference Range Interpretation Comments Potassium Lvl (test code = Potassium 4.6 3.5-5.1 Lvl) [facility]2017-03-30 10:11:00 Test Item Value Reference Range Interpretation Comments Creatinine Lvl (test code = Creatinine 0.66 0.50-1.40 Lvl) [facility]2017-03-30 10:11:00 Test Item Value Reference Range Interpretation Comments Sodium Lvl (test code = Sodium Lvl) 135 135-145 [facility]2017-03-30 10:11:00 Test Item Value Reference Range Interpretation Comments Glucose Lvl (test code = Glucose Lvl) 97 70-99 [facility]2017-03-30 10:11:00 Test Item Value Reference Range Interpretation Comments BUN (test code = BUN) 8 7-22 [facility] HospitalWcpfsdcQLXDAFINND1317-79-70 10:11:00 Test Item Value Reference Range Interpretation Comments Basophils (test code = Basophils) 1.0 <=1.0 [facility] HospitalQcykpzkMNOYNRFGIY3762-12-79 10:11:00 Test Item Value Reference Range Interpretation Comments Segs-Bands # (test code = Segs-Bands #) 5.3 1.5-8.1 [facility] HospitalZjsxccfKDEZXKDFZI7803-42-67 10:11:00 Test Item Value Reference Range Interpretation Comments Lymphocytes # (test code = Lymphocytes 3.4 1.0-5.5 #) [facility] HospitalBszvkmuDHPILTLSSH3623-62-42 10:11:00 Test Item Value Reference Range Interpretation Comments Eosinophils (test code = Eosinophils) 2.6 <=4.0 [facility] HospitalJbkuqdcAIXQGNXUIM1243-57-45 10:11:00 Test Item Value Reference Range Interpretation Comments Monocytes (test code = Monocytes) 7.7 2.0-12.0 [facility] HospitalFksbhdlIPZUHUMMYD8262-33-67 10:11:00 Test Item Value Reference Range Interpretation Comments Eosinophils # (test code = Eosinophils 0.3 <=0.5 #) [facility] HospitalEaumytnIGFNKXQLDS8050-00-61 10:11:00 Test Item Value Reference Range Interpretation Comments Monocytes # (test code = Monocytes #) 0.8 <=0.8 [facility] HospitalToxhnwiLWYIONFOCE8878-06-07 10:11:00 Test Item Value Reference Range Interpretation Comments Basophils # (test code = Basophils #) 0.1 <=0.2 [facility] HospitalMwwhcsdKHASCYWERZ0878-06-42 10:11:00 Test Item Value Reference Range Interpretation Comments RBC Morph (test code = Normal (10/29/16 5:11 RBC Morph) AM) [facility] HospitalQisnsjmBEIJRNYSMJ4138-66-75 10:11:00 Test Item Value Reference Range Interpretation Comments Plt Morph (test code = Normal (10/29/16 5:11 Plt Morph) AM) [facility] HospitalHorjfoyIMJXQQPKOV7253-72-59 10:11:00 Test Item Value Reference Range Interpretation Comments Lymphocytes (test code = Lymphocytes) 34.5 20.0-40.0 [facility] HospitalCshqiigPJYSHPXUAI5461-88-83 10:11:00 Test Item Value Reference Range Interpretation Comments Segs (test code = Segs) 54.2 45.0-75.0 [facility] HospitalSwzwtneMZSLZAEKJI5360-61-93 10:11:00 Test Item Value Reference Range Interpretation Comments MPV (test code = MPV) 8.0 7.4-10.4 [facility] HospitalWuvfklwWDDIRIJTZA1476-96-19 10:11:00 Test Item Value Reference Range Interpretation Comments Hgb (test code = Hgb) 7.6 14.0-18.0 [facility] HospitalWuwkmcdBHXNSIAQKE4378-65-08 10:11:00 Test Item Value Reference Range Interpretation Comments Hct (test code = Hct) 22.9 42.0-54.0 [facility] HospitalDthcwvwMQVHVUMXOI8471-26-02 10:11:00 Test Item Value Reference Range Interpretation Comments MCH (test code = MCH) 30.2 pg 27.0-31.0 [facility] HospitalSipctbyUBVPKGARZL4537-61-35 10:11:00 Test Item Value Reference Range Interpretation Comments MCV (test code = MCV) 90.8 80.0-94.0 [facility] HospitalEcybljrYRMNHGYMEC9611-51-13 10:11:00 Test Item Value Reference Range Interpretation Comments RDW (test code = RDW) 14.8 11.5-14.5 [facility] HospitalKtebnztMZKXCOUUWD1254-82-38 10:11:00 Test Item Value Reference Range Interpretation Comments Platelet (test code = Platelet) 411 402-450 [facility] HospitalBqvpfrsDTLACBYSYR7815-60-96 10:11:00 Test Item Value Reference Range Interpretation Comments MCHC (test code = MCHC) 33.2 32.0-36.0 [facility] HospitalTjkikqnBODBWAHFXU4389-58-81 10:11:00 Test Item Value Reference Range Interpretation Comments WBC (test code = WBC) 9.8 3.7-10.4 [facility] HospitalOmpejkuQYCBDXXYBT8484-49-33 10:11:00 Test Item Value Reference Range Interpretation Comments RBC (test code = RBC) 2.52 4.70-6.10 [facility]CoiiizzOSITCJPGMWZQ5569-36-13 14:10:00 Test Item Value Reference Range Interpretation Comments AGAP (test code = AGAP) 10.9 10.0-20.0 [facility]KblxzlpEVQSUSXGCCBE5396-14-09 14:10:00 Test Item Value Reference Range Interpretation Comments eGFR (test code = eGFR) 132 [facility]ZabyvqzFTVBCBQVEMWY9730-41-48 14:10:00 Test Item Value Reference Range Interpretation Comments Calcium Lvl (test code = Calcium Lvl) 9.1 8.5-10.5 [facility] CenterLukmylhDFISOZKXCTEC9087-35-69 14:10:00 Test Item Value Reference Range Interpretation Comments Glucose Lvl (test code = Glucose Lvl) 117 70-99 [facility]UfbftwmUZNGPSHOQZSQ6419-49-73 14:10:00 Test Item Value Reference Range Interpretation Comments BUN (test code = BUN) 8 7-22 [facility] CenterPvndvrwZJOJHIFRNAEI2912-42-79 14:10:00 Test Item Value Reference Range Interpretation Comments Creatinine Lvl (test code = Creatinine 0.64 0.50-1.40 Lvl) [facility] CenterXihorssILLWPSVONJZS0685-66-47 14:10:00 Test Item Value Reference Range Interpretation Comments Sodium Lvl (test code = Sodium Lvl) 136 135-145 [facility] CenterBgicrzuTMHFVSBAPDAU5440-28-69 14:10:00 Test Item Value Reference Range Interpretation Comments Potassium Lvl (test code = Potassium 3.9 3.5-5.1 Lvl) [facility]BbbudowBAPDBJJSFFOT4216-50-61 14:10:00 Test Item Value Reference Range Interpretation Comments Chloride Lvl (test code = Chloride Lvl) 100 95-109 [facility] CenterVzfdczoQLSAZIHYEYPP3033-88-29 14:10:00 Test Item Value Reference Range Interpretation Comments CO2 (test code = CO2) 29 24-32 [facility] HospitalZlqdaloZLNKZIFZVZ2602-50-61 14:10:00 Test Item Value Reference Range Interpretation Comments Platelet (test code = Platelet) 837 133-450 [facility] HospitalSyfowkcKCTCGZYWJU0695-73-20 14:10:00 Test Item Value Reference Range Interpretation Comments Hct (test code = Hct) 22.2 42.0-54.0 [facility] HospitalGrbjvtxQGPMYORYVC6236-14-69 14:10:00 Test Item Value Reference Range Interpretation Comments MCV (test code = MCV) 91.2 80.0-94.0 [facility] HospitalWtzgepuRHYYHOVLOA5489-30-12 14:10:00 Test Item Value Reference Range Interpretation Comments MCH (test code = MCH) 30.6 pg 27.0-31.0 [facility] HospitalCeoxmepTCRZZEWWDG0422-71-44 14:10:00 Test Item Value Reference Range Interpretation Comments MPV (test code = MPV) 8.1 7.4-10.4 [facility] HospitalMygflkqFPVIXSWNQK4473-74-15 14:10:00 Test Item Value Reference Range Interpretation Comments WBC (test code = WBC) 10.7 3.7-10.4 [facility] HospitalDmcesnnYXDJWCVEZW4745-09-01 14:10:00 Test Item Value Reference Range Interpretation Comments RBC (test code = RBC) 2.43 4.70-6.10 [facility] HospitalYqgvoqbBRNASDBTCG2737-30-86 14:10:00 Test Item Value Reference Range Interpretation Comments RDW (test code = RDW) 14.9 11.5-14.5 [facility] HospitalIzirdleOWNRLYRETN4317-99-53 14:10:00 Test Item Value Reference Range Interpretation Comments MCHC (test code = MCHC) 33.5 32.0-36.0 [facility] HospitalQuxgpftUVFCASTQVG2663-86-65 14:10:00 Test Item Value Reference Range Interpretation Comments Hgb (test code = Hgb) 7.4 14.0-18.0 [facility] HospitalSgoxgtcOMIXUJRWYU5152-22-90 14:10:00 Test Item Value Reference Range Interpretation Comments Basophils (test code = Basophils) 1.9 <=1.0 [facility] HospitalWfatylmPPIFTXBUEF4893-01-73 14:10:00 Test Item Value Reference Range Interpretation Comments Eosinophils (test code = Eosinophils) 3.0 <=4.0 [facility] HospitalVteanplWVEXIVUEDH3199-02-55 14:10:00 Test Item Value Reference Range Interpretation Comments Eosinophils # (test code = Eosinophils 0.3 <=0.5 #) [facility] HospitalTtngohnZAVCFUFXBF4188-72-54 14:10:00 Test Item Value Reference Range Interpretation Comments Basophils # (test code = Basophils #) 0.2 <=0.2 [facility] HospitalClvfwsnVEYPDVZFBM3709-87-08 14:10:00 Test Item Value Reference Range Interpretation Comments Monocytes # (test code = Monocytes #) 0.8 <=0.8 [facility] HospitalUjockqrNHSSFHAWYC0143-01-58 14:10:00 Test Item Value Reference Range Interpretation Comments Lymphocytes # (test code = Lymphocytes 2.4 1.0-5.5 #) [facility] HospitalVkexxgtOLBEIDFHYD0848-60-14 14:10:00 Test Item Value Reference Range Interpretation Comments Segs-Bands # (test code = Segs-Bands #) 6.9 1.5-8.1 [facility] HospitalIrlhaizEUJIGTJBAY2134-30-67 14:10:00 Test Item Value Reference Range Interpretation Comments Lymphocytes (test code = Lymphocytes) 22.6 20.0-40.0 [facility] HospitalYdoncgvJUKDHAGLEA8164-00-08 14:10:00 Test Item Value Reference Range Interpretation Comments Monocytes (test code = Monocytes) 7.8 2.0-12.0 [facility] HospitalIjqiagdVDCOKLRXEI1234-70-41 14:10:00 Test Item Value Reference Range Interpretation Comments Segs (test code = Segs) 64.7 45.0-75.0 [facility] HospitalDpifqetOMEFKVJCLI2817-03-49 14:10:00 Test Item Value Reference Range Interpretation Comments Anisocyte (test code = 1+ *ABN*(10/28/16 Anisocyte) 9:10 AM) [facility] HospitalBpundwhUCWUYGVENS1441-55-62 14:13:00 Test Item Value Reference Range Interpretation Comments Hgb (test code = Hgb) 8.1 14.0-18.0 [facility]2017-03-28 09:30:00 Test Item Value Reference Range Interpretation Comments Phosphorus (test code = Phosphorus) 4.2 2.5-4.5 [facility]2017-03-28 09:30:00 Test Item Value Reference Range Interpretation Comments eGFR (test code = eGFR) 141 [facility]2017-03-28 09:30:00 Test Item Value Reference Range Interpretation Comments Calcium Lvl (test code = Calcium Lvl) 9.0 8.5-10.5 [facility]2017-03-28 09:30:00 Test Item Value Reference Range Interpretation Comments CO2 (test code = CO2) 28 24-32 [facility]2017-03-28 09:30:00 Test Item Value Reference Range Interpretation Comments Chloride Lvl (test code = Chloride Lvl) 103 95-109 [facility]2017-03-28 09:30:00 Test Item Value Reference Range Interpretation Comments Potassium Lvl (test code = Potassium 3.9 3.5-5.1 Lvl) [facility]2017-03-28 09:30:00 Test Item Value Reference Range Interpretation Comments Sodium Lvl (test code = Sodium Lvl) 138 135-145 [facility]2017-03-28 09:30:00 Test Item Value Reference Range Interpretation Comments Glucose Lvl (test code = Glucose Lvl) 119 70-99 [facility]2017-03-28 09:30:00 Test Item Value Reference Range Interpretation Comments BUN (test code = BUN) 6 7-22 [facility]2017-03-28 09:30:00 Test Item Value Reference Range Interpretation Comments Creatinine Lvl (test code = Creatinine 0.55 0.50-1.40 Lvl) [facility]2017-03-28 09:30:00 Test Item Value Reference Range Interpretation Comments AGAP (test code = AGAP) 10.9 10.0-20.0 [facility]2017-03-28 09:30:00 Test Item Value Reference Range Interpretation Comments Magnesium Lvl (test code = Magnesium 2.3 1.8-2.4 Lvl) [facility]UBX[facility]ELKA8408[facility] 09:30:00 Test Item Value Reference Range Interpretation Comments Eosinophils # (test code = Eosinophils 0.3 <=0.5 #) [facility]QawgqxnHSCFRYOEIQ0954-59-48 09:30:00 Test Item Value Reference Range Interpretation Comments Basophils (test code = Basophils) 1.3 <=1.0 [facility] HospitalVgnspxwYESAJJDCJR1493-64-20 09:30:00 Test Item Value Reference Range Interpretation Comments Segs-Bands # (test code = Segs-Bands #) 6.9 1.5-8.1 [facility]YcunogeYWYEKGXLUJ8701-83-16 09:30:00 Test Item Value Reference Range Interpretation Comments Lymphocytes # (test code = Lymphocytes 3.4 1.0-5.5 #) [facility]XqqqcquLYSDCZBMCF0689-33-86 09:30:00 Test Item Value Reference Range Interpretation Comments Monocytes # (test code = Monocytes #) 0.9 <=0.8 [facility] HospitalHlkpfrlREVQDQOBNI9953-45-86 09:30:00 Test Item Value Reference Range Interpretation Comments Eosinophils (test code = Eosinophils) 2.8 <=4.0 [address]03-28 09:30:00 Test Item Value Reference Range Interpretation Comments Basophils # (test code = Basophils #) 0.2 <=0.2 [facility] HospitalYudhduoRTFRMSLBYB5331-50-95 09:30:00 Test Item Value Reference Range Interpretation Comments Segs (test code = Segs) 59.0 45.0-75.0 [facility] HospitalVxluujaIBURXWWLCL9406-49-47 09:30:00 Test Item Value Reference Range Interpretation Comments Monocytes (test code = Monocytes) 7.9 2.0-12.0 [facility] HospitalUffngroMNHQAAMLGX6847-39-43 09:30:00 Test Item Value Reference Range Interpretation Comments Lymphocytes (test code = Lymphocytes) 29.0 20.0-40.0 [facility] HospitalBafikupMQUDJOKFGD6161-38-71 09:30:00 Test Item Value Reference Range Interpretation Comments MCH (test code = MCH) 29.8 pg 27.0-31.0 [facility] HospitalHzmipnrFETYZRCEJQ9085-36-98 09:30:00 Test Item Value Reference Range Interpretation Comments MCHC (test code = MCHC) 33.0 32.0-36.0 [facility] HospitalWjwceolLPWGAEYMYJ0494-19-74 09:30:00 Test Item Value Reference Range Interpretation Comments Hct (test code = Hct) 20.5 42.0-54.0 [facility] HospitalZzsxqcvJLMFGWXLSZ4379-58-28 09:30:00 Test Item Value Reference Range Interpretation Comments RBC (test code = RBC) 2.26 4.70-6.10 [facility] HospitalJrigzaqSKPWNXQDFY9224-70-46 09:30:00 Test Item Value Reference Range Interpretation Comments WBC (test code = WBC) 11.6 3.7-10.4 [facility] HospitalOznzwsbHSNMZQGAZJ0170-94-14 09:30:00 Test Item Value Reference Range Interpretation Comments MCV (test code = MCV) 90.4 80.0-94.0 [facility] HospitalGraavblGCVIVRLTOT9472-49-97 09:30:00 Test Item Value Reference Range Interpretation Comments Platelet (test code = Platelet) 745 592-716 [facility] HospitalTxdliqqZKCSOOMKCC2244-13-80 09:30:00 Test Item Value Reference Range Interpretation Comments RDW (test code = RDW) 14.5 11.5-14.5 [facility] HospitalSncymibBFOJJVRQPG8902-65-83 09:30:00 Test Item Value Reference Range Interpretation Comments MPV (test code = MPV) 7.9 7.4-10.4 [facility]2017-03-27 09:22:00 Test Item Value Reference Range Interpretation Comments Phosphorus (test code = Phosphorus) 4.5 2.5-4.5 [facility]2017-03-27 09:22:00 Test Item Value Reference Range Interpretation Comments Magnesium Lvl (test code = Magnesium 2.1 1.8-2.4 Lvl) [facility] HospitalQhpomiaSWDURJGMTH5336-63-82 09:22:00 Test Item Value Reference Range Interpretation Comments Plt Morph (test code = Normal (10/26/16 4:22 Plt Morph) AM) [facility] HospitalAiafhzlSXIMFWSELQ5150-37-91 09:22:00 Test Item Value Reference Range Interpretation Comments Macrocyte (test code = 1+ *ABN*(10/26/16 Macrocyte) 4:22 AM) [facility] HospitalVqcfbydDNOXDPRZVG1718-12-93 09:22:00 Test Item Value Reference Range Interpretation Comments Polychrom (test code = Moderate *ABN*(10/26/16 Polychrom) 4:22 AM) [facility] HospitalXegfktoXHKBFLDTJQ7751-18-40 09:22:00 Test Item Value Reference Range Interpretation Comments Microcyte (test code = 1+ *ABN*(10/26/16 Microcyte) 4:22 AM) [facility]2017-03-26 07:39:00 Test Item Value Reference Range Interpretation Comments Total Protein (test code = Total 7.5 6.4-8.4 Protein) [facility]2017-03-26 07:39:00 Test Item Value Reference Range Interpretation Comments B/C Ratio (test code = B/C Ratio) 23 6-25 [facility]2017-03-26 07:39:00 Test Item Value Reference Range Interpretation Comments Albumin Lvl (test code = Albumin Lvl) 2.5 3.5-5.0 [facility]2017-03-26 07:39:00 Test Item Value Reference Range Interpretation Comments Globulin (test code = Globulin) 5.0 2.7-4.2 [facility]2017-03-26 07:39:00 Test Item Value Reference Range Interpretation Comments A/G Ratio (test code = A/G Ratio) 0.5 0.7-1.6 [facility]2017-03-26 07:39:00 Test Item Value Reference Range Interpretation Comments Bili Total (test code = Bili Total) 0.3 0.2-1.3 [facility]2017-03-26 07:39:00 Test Item Value Reference Range Interpretation Comments Alk Phos (test code = Alk Phos) 48 39-136 [facility]2017-03-26 07:39:00 Test Item Value Reference Range Interpretation Comments ALT (test code = ALT) 24 <=65 [facility]2017-03-26 07:39:00 Test Item Value Reference Range Interpretation Comments AST (test code = AST) 25 <=37 [facility]2017-03-26 07:39:00 Test Item Value Reference Range Interpretation Comments Lipase Lvl (test code = Lipase Lvl) 4050 28-342 [facility] HospitalTvregioPPFBLTXSET5914-07-29 07:39:00 Test Item Value Reference Range Interpretation Comments Bands (test code = Bands) 2.0 <=11.0 [facility] HospitalXnahxklZLTZYVEHUA5283-64-12 07:39:00 Test Item Value Reference Range Interpretation Comments Metamyelocytes (test code = 2.0 <=1.0 Metamyelocytes) [facility] HospitalRvhbnrwKHDWUDRIRG1354-14-05 07:39:00 Test Item Value Reference Range Interpretation Comments Myelocytes (test code = Myelocytes) 2.0 [facility] HospitalQjdlyvoDQFZHGCMSH0187-95-33 07:39:00 Test Item Value Reference Range Interpretation Comments Atypical Lymphs (test code = Atypical 0.0 Lymphs) [facility] HospitalUygsuapNUPUZRORDL3379-36-25 07:39:00 Test Item Value Reference Range Interpretation Comments RBC Morph (test code = Normal (10/25/16 2:39 RBC Morph) AM) [facility] HospitalHkmvprkAWKTZWRKIT1308-71-56 07:39:00 Test Item Value Reference Range Interpretation Comments Plt Morph (test code = Normal (10/25/16 2:39 Plt Morph) AM) [facility] HospitalYykuhtqTRTPLCWXOB1486-57-65 10:42:00 Test Item Value Reference Range Interpretation Comments Atypical Lymphs (test code = Atypical 0.0 Lymphs) [facility] HospitalPjyndfvARHYPVKZJY7655-89-46 10:42:00 Test Item Value Reference Range Interpretation Comments Myelocytes (test code = Myelocytes) 1.0 [facility] HospitalZxseqxjSXKVXLKVRO2575-98-38 10:42:00 Test Item Value Reference Range Interpretation Comments Bands (test code = Bands) 3.0 <=11.0 [facility] HospitalDbjfnfmYVSSFVRYTS2788-43-76 10:42:00 Test Item Value Reference Range Interpretation Comments Rouleaux (test code = Present *ABN*(10/24/16 Rouleaux) 5:42 AM) [facility]2017-03-24 10:36:00 Test Item Value Reference Range Interpretation Comments Lipase Lvl (test code = Lipase Lvl) 6386 73393 [facility]2017-03-24 10:36:00 Test Item Value Reference Range Interpretation Comments Globulin (test code = Globulin) 4.7 2.7-4.2 [facility]2017-03-24 10:36:00 Test Item Value Reference Range Interpretation Comments B/C Ratio (test code = B/C Ratio) 15 6-25 [facility]2017-03-24 10:36:00 Test Item Value Reference Range Interpretation Comments A/G Ratio (test code = A/G Ratio) 0.5 0.7-1.6 [facility]2017-03-24 10:36:00 Test Item Value Reference Range Interpretation Comments Bili Total (test code = Bili Total) 0.3 0.2-1.3 [facility]2017-03-24 10:36:00 Test Item Value Reference Range Interpretation Comments Alk Phos (test code = Alk Phos) 76 39-136 [facility]2017-03-24 10:36:00 Test Item Value Reference Range Interpretation Comments AST (test code = AST) 23 <=37 [facility]2017-03-24 10:36:00 Test Item Value Reference Range Interpretation Comments ALT (test code = ALT) 22 <=65 [facility]2017-03-24 10:36:00 Test Item Value Reference Range Interpretation Comments Total Protein (test code = Total 7.2 6.4-8.4 Protein) [facility]2017-03-24 10:36:00 Test Item Value Reference Range Interpretation Comments Albumin Lvl (test code = Albumin Lvl) 2.5 3.5-5.0 [facility] HospitalBycwaibVOOKZHOILX4001-07-03 10:36:00 Test Item Value Reference Range Interpretation Comments PTT (test code = PTT) 38.7 s 22.9-35.8 [facility] HospitalOuovmgsWLVCCEQWVT5685-04-73 10:36:00 Test Item Value Reference Range Interpretation Comments INR (test code = INR) 1.09 0.85-1.17 [facility] HospitalNezcsalHGBLKCVDUI1306-32-13 10:36:00 Test Item Value Reference Range Interpretation Comments PT (test code = PT) 14.3 s 12.0-14.7 [facility]2017-03-23 09:04:00 Test Item Value Reference Range Interpretation Comments Phosphorus (test code = Phosphorus) 3.6 2.5-4.5 [facility]2017-03-23 09:04:00 Test Item Value Reference Range Interpretation Comments Magnesium Lvl (test code = Magnesium 2.4 1.8-2.4 Lvl) [facility] HospitalFcxdrytJTBGZDWJZP2365-32-72 09:04:00 Test Item Value Reference Range Interpretation Comments RBC Morph (test code = Normal (10/22/16 4:04 RBC Morph) AM) [facility] HospitalPgszgdsPGMTOOHQGV1741-61-58 08:29:00 Test Item Value Reference Range Interpretation Comments Bands (test code = Bands) 8.0 <=11.0 [facility] HospitalXgphjdfEDUSHILZUE0039-48-81 08:29:00 Test Item Value Reference Range Interpretation Comments Atypical Lymphs (test code = Atypical 0.0 Lymphs) [facility] HospitalZxegojzOJROUASSJU8462-68-69 08:29:00 Test Item Value Reference Range Interpretation Comments Metamyelocytes (test code = 2.0 <=1.0 Metamyelocytes) [facility]2017-03-21 08:13:00 Test Item Value Reference Range Interpretation Comments Bili Direct (test code = Bili Direct) 0.2 <=0.3 [facility]2017-03-21 08:13:00 Test Item Value Reference Range Interpretation Comments Bili Indirect (test code = Bili 0.3 <=1.0 Indirect) [place] [address]-03-21 08:13:00 Test Item Value Reference Range Interpretation Comments Metamyelocytes (test code = 2.0 <=1.0 Metamyelocytes) [facility] HospitalPytfbtnPEVNSYGKWV9110-59-12 08:13:00 Test Item Value Reference Range Interpretation Comments Myelocytes (test code = Myelocytes) 2.0 [facility]JevsaazWMBVUO6883-26-79 08:00:00 Test Item Value Reference Range Interpretation Comments Trig (test code = Trig) 187 [facility]UlabdyfKJDEBAAAGW0459-00-06 09:16:00 Test Item Value Reference Range Interpretation Comments Tot Cell Ct (test code = Tot Cell Ct) 100 1 [facility] HospitalLjxlztzFRUAKOLCZK3356-52-56 09:16:00 Test Item Value Reference Range Interpretation Comments NRBC (test code = NRBC) 1 [facility] HospitalannPARATHYROID [id number] 09:16:00 Test Item Value Reference Range Interpretation Comments Ca Norm WB (test code = Ca Norm WB) 1.04 1.05-1.25 [facility] HospitalannPARATHYROID [id number] 09:16:00 Test Item Value Reference Range Interpretation Comments Ca Ion WB (test code = Ca Ion WB) 1.06 1.05-1.25 [facility] HospitalRsypipeRBYNNRVZPL2641-97-26 08:33:00 Test Item Value Reference Range Interpretation Comments NRBC (test code = NRBC) 2 [facility] HospitalSsrowirOTYQWEGZMA1618-67-91 08:33:00 Test Item Value Reference Range Interpretation Comments INR (test code = INR) 1.14 0.85-1.17 [facility] HospitalCmfftwkZSNWPJIVLJ5544-33-87 08:33:00 Test Item Value Reference Range Interpretation Comments PT (test code = PT) 14.8 s 12.0-14.7 [facility] HospitalPARATHYROID HXAGCVD6875-87-35 08:33:00 Test Item Value Reference Range Interpretation Comments Ca Ion WB (test code = Ca Ion WB) 1.10 1.05-1.25 [facility] HospitalannPARATHYROID KJCUFCC7468-72-15 08:33:00 Test Item Value Reference Range Interpretation Comments Ca Norm WB (test code = Ca Norm WB) 1.11 1.05-1.25 [facility] HospitalCARDIAC KSQUZLC1415-76-55 10:36:00 Test Item Value Reference Range Interpretation Comments Total CK (test code = Total CK) 274 12-191 [facility] HospitalCHEM [id number] 10:36:00 Test Item Value Reference Range Interpretation Comments Lactic Acid Lvl (test code = Lactic 1.4 0.5-2.2 Acid Lvl) [facility] HospitalWldrkqlABGYQAATUB2462-90-47 10:36:00 Test Item Value Reference Range Interpretation Comments NRBC (test code = NRBC) 2 [facility]2017-03-18 10:36:00 Test Item Value Reference Range Interpretation Comments Ca Ion WB (test code = Ca Ion WB) 1.09 1.05-1.25 [facility]2017-03-18 10:36:00 Test Item Value Reference Range Interpretation Comments Ca Norm WB (test code = Ca Norm WB) 1.14 1.05-1.25 [facility]2017-03-17 18:44:00 Test Item Value Reference Range Interpretation Comments Lipase Lvl (test code = Lipase Lvl) 431 49-121 [facility]2017-03-17 18:44:00 Test Item Value Reference Range Interpretation Comments Bili Indirect (test code = Bili 0.3 <=1.0 Indirect) [facility]2017-03-17 18:44:00 Test Item Value Reference Range Interpretation Comments Bili Direct (test code = Bili Direct) 0.2 <=0.3 [facility] HospitalEdslsizQETHHO8878-55-32 18:44:00 Test Item Value Reference Range Interpretation Comments Trig (test code = Trig) 397 [facility]2017-03-17 05:14:00 Test Item Value Reference Range Interpretation Comments Lactic Acid Lvl (test code = Lactic 1.9 0.5-2.2 Acid Lvl) [facility] H[id number] 05:14:00 Test Item Value Reference Range Interpretation Comments PT (test code = PT) 15.2 s 12.0-14.7 [facility] HospitalJpyghsnRUQBUVESYL2894-70-93 05:14:00 Test Item Value Reference Range Interpretation Comments INR (test code = INR) 1.18 0.85-1.17 [facility] HospitalBdmaiurSFTUTBBFJQ7721-63-65 05:14:00 Test Item Value Reference Range Interpretation Comments PTT (test code = PTT) 35.3 s 22.9-35.8 [facility]2017-03-16 17:26:00 Test Item Value Reference Range Interpretation Comments Procalcitonin Lvl (test code = 5.06 <=0.10 Procalcitonin Lvl) [place] [id number] 13:59:00 Test Item Value Reference Range Interpretation Comments Lactic Acid Lvl (test code = Lactic 1.6 0.5-2.2 Acid Lvl) [facility] HospitalNwiesxtAGRFPR0748-22-96 13:59:00 Test Item Value Reference Range Interpretation Comments Trig (test code = Trig) 394 [facility] [id number] 13:57:00 Test Item Value Reference Range Interpretation Comments Procalcitonin Lvl (test code = 6.20 <=0.10 Procalcitonin Lvl) [facility] [id number] 05:32:00 Test Item Value Reference Range Interpretation Comments Uric Acid (test code = Uric Acid) 7.5 3.8-8.0 [facility] [id number] 14:31:00 Test Item Value Reference Range Interpretation Comments Uric Acid (test code = Uric Acid) 9.2 3.8-8.0 [facility] [id number] 14:31:00 Test Item Value Reference Range Interpretation Comments LACTATE DEHYDROGENASE (test code = 467 98-192 LACTATE DEHYDROGENASE) [facility] HospitalObkiojjURJOBOUBCJ8960-20-11 14:31:00 Test Item Value Reference Range Interpretation Comments Tot Cell Ct (test code = Tot Cell Ct) 100 1 [facility]DR[facility] [id number] 05:44:00 Test Item Value Reference Range Interpretation Comments U Opiate Scr (test Positive *ABN*(10/14/16 code = U Opiate Scr) 12:44 AM) [facility] [id number] 05:44:00 Test Item Value Reference Range Interpretation Comments U Cara Scr (test code Negative *NA*(10/14/16 = U Cara Scr) 12:44 AM) [facility] [id number] 05:44:00 Test Item Value Reference Range Interpretation Comments U Cannab Scr (test Positive *ABN*(10/14/16 code = U Cannab Scr) 12:44 AM) [facility] [id number] 05:44:00 Test Item Value Reference Range Interpretation Comments U Cocaine Scr (test Negative *NA*(10/14/16 code = U Cocaine Scr) 12:44 AM) [facility] [id number] 05:44:00 Test Item Value Reference Range Interpretation Comments U Benzodia Scr (test Positive *ABN*(10/14/16 code = U Benzodia Scr) 12:44 AM) [facility] [id number] 05:44:00 Test Item Value Reference Range Interpretation Comments U Propoxyph Scr (test Negative *NA*(10/14/16 code = U Propoxyph Scr) 12:44 AM) [facility] [id number] 05:44:00 Test Item Value Reference Range Interpretation Comments U Methadone Scr (test Negative *NA*(10/14/16 code = U Methadone Scr) 12:44 AM) [facility] [id number] 05:44:00 Test Item Value Reference Range Interpretation Comments UDS Note (test code = See Note (10/14/16 12:44 UDS Note) AM) [facility] [id number] 05:44:00 Test Item Value Reference Range Interpretation Comments U Phencyc Scr (test Negative *NA*(10/14/16 code = U Phencyc Scr) 12:44 AM) [facility] [id number] 05:44:00 Test Item Value Reference Range Interpretation Comments U Amph Scr (test code Negative *NA*(10/14/16 = U Amph Scr) 12:44 AM) [facility] [id number] 05:44:00 Test Item Value Reference Range Interpretation Comments UA Ketones (test code = UA Ketones) TR [facility] [id number] 05:44:00 Test Item Value Reference Range Interpretation Comments UA Mucus (test code = UA Mucus) Few /LPF [facility] [id number] 05:44:00 Test Item Value Reference Range Interpretation Comments UA Urobilinogen (test code = UA <=1.0 mg/dL 0.1-1.0 Urobilinogen) [facility] [id number] 05:44:00 Test Item Value Reference Range Interpretation Comments UA Leuk Est (test Negative (10/14/16 12:44 code = UA Leuk Est) AM) [facility] [id number] 05:44:00 Test Item Value Reference Range Interpretation Comments UA Sq Epi (test code = UA Sq Epi) None Seen [facility] [id number] 05:44:00 Test Item Value Reference Range Interpretation Comments UA Spec Grav (test >=1.050 *ABN*(10/14/16 code = UA Spec Grav) 12:44 AM) [facility] AND [id number] 05:44:00 Test Item Value Reference Range Interpretation Comments UA WBC (test code = UA WBC) 1 <=5 [facility] AND [id number] 05:44:00 Test Item Value Reference Range Interpretation Comments UA RBC (test code = UA RBC) 2 <=2 [facility] AND [id number] 05:44:00 Test Item Value Reference Range Interpretation Comments UA Glucose (test code = UA Negative mg/dL Glucose) [facility] AND [id number] 05:44:00 Test Item Value Reference Range Interpretation Comments UA Bili (test code = Negative *NA*(10/14/16 UA Bili) 12:44 AM) [facility] AND [id number] 05:44:00 Test Item Value Reference Range Interpretation Comments UA Blood (test code = Small *ABN*(10/14/16 UA Blood) 12:44 AM) [facility] AND [id number] 05:44:00 Test Item Value Reference Range Interpretation Comments UA Nitrite (test code Negative (10/14/16 12:44 = UA Nitrite) AM) [facility] AND [id number] 05:44:00 Test Item Value Reference Range Interpretation Comments UA Color (test code = Yellow *NA*(10/14/16 UA Color) 12:44 AM) [facility] AND [id number] 05:44:00 Test Item Value Reference Range Interpretation Comments UA Turbidity (test code = Clear (10/14/16 12:44 UA Turbidity) AM) [facility] AND [id number] 05:44:00 Test Item Value Reference Range Interpretation Comments UA pH (test code = UA pH) 6.5 5.0-8.0 [facility] AND [id number] 05:44:00 Test Item Value Reference Range Interpretation Comments UA Protein (test code = UA Protein) 70 mg/dL [facility]FqxpckaEDPTXXHGZA3611-84-55 04:54:00 Test Item Value Reference Range Interpretation Comments HIV 1/2 Ab (test code Negative *NA*(10/13/16 = HIV 1/2 Ab) 11:54 PM) [facility] SinnkcgAPHUHSCVGI2929-82-71 04:54:00 Test Item Value Reference Range Interpretation Comments Hep B Core IgM (test Negative *NA*(10/13/16 code = Hep B Core 11:54 PM) IgM) [facility] UbptdjkMKTWJFLCLE8886-00-98 04:54:00 Test Item Value Reference Range Interpretation Comments Hep A IgM (test code Negative *NA*(10/13/16 = Hep A IgM) 11:54 PM) [facility] GxzhjplTWLNVCAZMM7227-83-89 04:54:00 Test Item Value Reference Range Interpretation Comments Hep C Ab (test code = Negative *NA*(10/13/16 Hep C Ab) 11:54 PM) [facility] TumjnkzOWHKOEMSBB9618-88-10 04:54:00 Test Item Value Reference Range Interpretation Comments Hep Bs Ag (test code Negative *NA*(10/13/16 = Hep Bs Ag) 11:54 PM) [facility] [id number] 04:54:00 Test Item Value Reference Range Interpretation Comments Influ B (test code = Negative (10/13/16 11:54 Influ B) PM) [facility] [id number] 04:54:00 Test Item Value Reference Range Interpretation Comments Influ A (test code = Negative (10/13/16 11:54 Influ A) PM) [facility] - [id number] 04:38:00 Test Item Value Reference Range Interpretation Comments MRSA by PCR (test Negative (10/13/16 11:38 code = MRSA by PCR) PM) [facility]annCARDIAC [id number] 04:38:00 Test Item Value Reference Range Interpretation Comments BNP (test code = BNP) 15 [facility] HermannCHEM [id number] 04:38:00 Test Item Value Reference Range Interpretation Comments Ketone Quantitative (test code = Ketone 0.09 Quantitative) [facility]annCHE[facility] [id number] 04:38:00 Test Item Value Reference Range Interpretation Comments Amylase Lvl (test code = Amylase Lvl) 75 25-115 [facility] HospitalWduoinhWSPLHGNSQB1307-02-29 04:38:00 Test Item Value Reference Range Interpretation Comments PTT (test code = PTT) 30.4 s 22.9-35.8 [facility] HospitalIsgrxnzIHONOL2585-56-43 04:38:00 Test Item Value Reference Range Interpretation Comments VLDL (test code = See Note 2*NA*(10/13/16 VLDL) 11:38 PM) [facility] HospitalSziqoorKQOUOE4621-82-28 04:38:00 Test Item Value Reference Range Interpretation Comments LDL (Calculated) (test code = See Note mg/dL LDL (Calculated)) [facility] Ho[id number] 04:38:00 Test Item Value Reference Range Interpretation Comments Chol (test code = Chol) 235 [facility] [id number] 04:38:00 Test Item Value Reference Range Interpretation Comments CHD Risk (test code = CHD Risk) 7.12 4.00-7.30 [id number] 04:38:00 Test Item Value Reference Range Interpretation Comments HDL (test code = HDL) 33 [id number] 04:38:00 Test Item Value Reference Range Interpretation Comments Hgb A1C (test code = Hgb A1C) 5.9 [id number] 04:38:00 Test Item Value Reference Range Interpretation Comments Ethanol Lvl (test code = Ethanol Lvl) no gt [id number] 04:38:00 Test Item Value Reference Range Interpretation Comments Etoh (%) (test code = Etoh (%)) no gt [facility] [id number] 20:50:00 Test Item Value Reference Range Interpretation Comments Crystal BF (test code = See Note 1, 2(09/29/15 Crystal BF) 2:50 PM) [facility] [id number] 20:50:00 Test Item Value Reference Range Interpretation Comments Crystal BF Type (test Synovial (09/29/15 2:50 code = Crystal BF PM) Type) [facility] [id number] 20:50:00 Test Item Value Reference Range Interpretation Comments UricAcd BF Type (test Synovial *NA*(09/29/15 code = UricAcd BF 2:50 PM) Type) [facility] [id number] 20:50:00 Test Item Value Reference Range Interpretation Comments Uric Acid BF (test code = Uric Acid BF) 8.6 [facility]2016-02-28 20:50:00 Test Item Value Reference Range Interpretation Comments Color BF (test code = Yellow (09/29/15 2:50 Color BF) PM) [facility]2016-02-28 20:50:00 Test Item Value Reference Range Interpretation Comments RBC BF (test code = RBC BF) 900 [facility]2016-02-28 20:50:00 Test Item Value Reference Range Interpretation Comments WBC BF (test code = WBC BF) 73758 [facility]2016-02-28 20:50:00 Test Item Value Reference Range Interpretation Comments Supernat BF (test code = Yellow *ABN*(09/29/15 Supernat BF) 2:50 PM) [facility]2016-02-28 20:50:00 Test Item Value Reference Range Interpretation Comments Clarity BF (test code Moderate Cloudy = Clarity BF) *ABN*(09/29/15 2:50 PM) [facility]2016-02-28 20:50:00 Test Item Value Reference Range Interpretation Comments CellCnt BF Type (test Synovial (09/29/15 2:50 code = CellCnt BF PM) Type) [facility]2016-02-28 20:50:00 Test Item Value Reference Range Interpretation Comments Macrophage BF (test code = Macrophage 10 BF) [facility]2016-02-28 20:50:00 Test Item Value Reference Range Interpretation Comments Segs BF (test code = Segs BF) 90 [facility]2016-02-28 20:50:00 Test Item Value Reference Range Interpretation Comments Gluc BF Type (test Synovial *NA*(09/29/15 code = Gluc BF Type) 2:50 PM) [facility]2016-02-28 20:50:00 Test Item Value Reference Range Interpretation Comments Glucose BF (test code = Glucose BF) 4 [facility]2016-02-28 20:50:00 Test Item Value Reference Range Interpretation Comments Protein BF (test code = Protein BF) 6.1 [facility]2016-02-28 20:50:00 Test Item Value Reference Range Interpretation Comments Prot BF Type (test Synovial *NA*(09/29/15 code = Prot BF Type) 2:50 PM) [id number] 19:09:00 Test Item Value Reference Range Interpretation Comments Sed Rate (test code = Sed Rate) 35 <=15 [id number] 19:09:00 Test Item Value Reference Range Interpretation Comments Hgb (test code = Hgb) 16.8 14.0-18.0 [facility]ItgzdpaOQGQJNXNEH6190-65-25 19:09:00 Test Item Value Reference Range Interpretation Comments WBC (test code = WBC) 23.6 3.7-10.4 [facility] Hos[id number] 19:09:00 Test Item Value Reference Range Interpretation Comments MCH (test code = MCH) 30.4 pg 27.0-31.0 [facility] Hos[id number] 19:09:00 Test Item Value Reference Range Interpretation Comments MCV (test code = MCV) 90.1 80.0-94.0 [facility] HospitalUtiyjsjBIYQFJHTXI3830-01-51 19:09:00 Test Item Value Reference Range Interpretation Comments Hct (test code = Hct) 49.8 42.0-54.0 [facility] H[id number] 19:09:00 Test Item Value Reference Range Interpretation Comments MPV (test code = MPV) 7.7 7.4-10.4 [facility] HospitalYramrslULXQCNDZQN9727-05-10 19:09:00 Test Item Value Reference Range Interpretation Comments Platelet (test code = Platelet) 379 133-450 [facility] Hos[id number] 19:09:00 Test Item Value Reference Range Interpretation Comments RBC (test code = RBC) 5.53 4.70-6.10 [facility] Hosp[id number] 19:09:00 Test Item Value Reference Range Interpretation Comments RDW (test code = RDW) 13.5 11.5-14.5 [facility] H[id number] 19:09:00 Test Item Value Reference Range Interpretation Comments MCHC (test code = MCHC) 33.7 32.0-36.0 [facility] HospitalBdvjqgySZMHRSXIIJ0606-88-01 19:09:00 Test Item Value Reference Range Interpretation Comments Lymphocytes # (test code = Lymphocytes 1.9 1.0-5.5 #) [facility] HospitalQadcoroFHKKGRWZND6031-16-90 19:09:00 Test Item Value Reference Range Interpretation Comments Basophils # (test code = Basophils #) 0.1 <=0.2 [id number] 19:09:00 Test Item Value Reference Range Interpretation Comments Monocytes # (test code = Monocytes #) 2.5 <=0.8 [facility] HospitalWrskbfaQVBMTEDADK9594-14-07 19:09:00 Test Item Value Reference Range Interpretation Comments Segs-Bands # (test code = Segs-Bands #) 19.0 1.5-8.1 [facility] HospitalMcgjtoiDHIJXTGRWC8846-07-76 19:09:00 Test Item Value Reference Range Interpretation Comments Monocytes (test code = Monocytes) 10.6 2.0-12.0 [facility] HospitalZnewygsZJFPCTVWPR8651-05-20 19:09:00 Test Item Value Reference Range Interpretation Comments Lymphocytes (test code = Lymphocytes) 8.2 20.0-40.0 [facility] HospitalIenygjgGFPPMLNYGQ1746-13-50 19:09:00 Test Item Value Reference Range Interpretation Comments Basophils (test code = Basophils) 0.4 <=1.0 [facility] H[id number] 19:09:00 Test Item Value Reference Range Interpretation Comments Segs (test code = Segs) 80.8 45.0-75.0 [facility] Hospit[id number] 19:09:00 Test Item Value Reference Range Interpretation Comments C-REACTIVE PROTEIN (test code = 253.0 C-REACTIVE PROTEIN) [facility]
[2023-05-07 10:35] LABS: Absolute Lymphocytes (CBC) 1.5 K/uL (0.7-4.9); Hematocrit 46.2 % (39.6-49.0); Lymphocytes % 15.3 % (15.3-44.8); MCV 90.7 fL (80-100); MPV 8.7 fL (7.6-11.3); Platelets 186 thou/uL (152-406); RBC Red Blood Cell Count 5.09 M/uL (4.33-5.43)
[2023-05-07 10:54] LABS: Albumin 4.4 g/dL (3.4-5.0); Bilirubin Total 0.8 mg/dL (0.2-1.0); Potassium 4.2 mEq/L (3.5-5.1); Troponin High Sensitivity 3.4 pg/mL (<58.9)
--- NOTE | 2023-05-07 11:44 | RAD REPORT ---
EXAM DESCRIPTION: CT - Angio Aorta For Dissection - 05/07/2023 11:09 am CLINICAL HISTORY: ABD PAIN COMPARISON: No comparisons TECHNIQUE: Dynamically enhanced 3 mm thick images of the chest, abdomen, and upper pelvis were obtai taras during administration of approximately 100mL Isovue 370 IV contrast. Sagittal and coronal reconst ructions as well as maximal intensity projection reconstruction were generated and reviewed [facility] All CT scans are performed using dose optimization technique as appropriate and may include automated exposure control or mA/KV adjustment according to patient size. FINDINGS: Aorta is normal in diameter with no dissection or other acute aortic findings. Reconstruct ion images show no significant findings. Pulmonary arteries are normal as well. No mass or infiltrate in the lung parenchyma. No pleural thickening, pleural effusion or pneumothorax . No abnormal mediastinal or hilar mass or lymphadenopathy seen. No chest wall mass or abnormal axillar y lymphadenopathy. Celiac, SMA and renal arteries show no suspicious findings. Inflammatory changes with fat stranding noted throughout the pancreas/ peripancreatic tissues. Small collection noted along the anterior margin of the pancreatic neck/ proximal body, measuring 1.3 cm, s ee axial image 114 among others. Mild prominence of the distal main pancreatic duct caliber. Incidentally noted tortuous vascular structures which appears to be along the submucosal layer of the gastric fundus and posterior wall. This is suggestive of a Dieulafoy lesion. A similar focus of enha ncement along the posterior wall of the antrum, see axial image 103 and coronal image 36, also sugges tive of a submucosal vascular structure. Mild colonic diverticulosis. Other solid abdominal viscera and bowel show no significant findings. No mass or abnormal lymphadenopathy. IMPRESSION: No acute abnormalities on CT angiogram of the aorta. Inflammatory changes involving the entirety of the pancreas, suggestive of acute pancreatitis. 1.3 cm . Suspected peripancreatic cyst at the level of the neck/proximal body junction anteriorly. Mild prom inence of the distal main pancreatic duct caliber, correlate with history of prior pancreatitis attac ks. Incidentally noted tortuous vascular structures along the submucosal layer of the proximal stomach, s uggestive of a Dieulafoy lesion. An additional small focus of enhancement along the posterior wall of the gastric antrum, suggestive of a submucosal vascular structure as well. Gastroenterology referral is recommended as these may predispose to upper gastrointestinal bleeding. Mild colonic diverticulosis. The findings were communicated to Efren Magdaleno on 05/07/2023 at 11:35 hours.
--- NOTE | 2023-05-07 12:11 | ER ---
Nurse's Notes [facility] Name: Micah Inman Age: 37 yrs Sex: Male : 1985 Arrival Date: 05/07/2023 Time: 09:46 Bed 20 Private MD: Diagnosis: Other specified diabetes mellitus with ketoacidosis without coma;Acute pancreatitis without necrosis or infection, unspecified;Acidosis Presentation: 05/07 10:02 Chief complaint: Abdominal pain that radiates to flank, N/V, and palpitations upon hb waking today. Hx of pancreatitis, feels similar. Coronavirus screen: At this time, the client does not indicate any symptoms associated with coronavirus-19. Ebola Screen: No symptoms or risks identified at this time. Initial Sepsis Screen: Does the patient meet any 2 criteria? No. Patient's initial sepsis screen is negative. Does the patient have a suspected source of infection? No. Patient's initial sepsis screen is negative. Risk Assessment: Do you want to hurt yourself or someone else? Patient reports no desire to harm self or others. Onset of symptoms was May 07, 2023. 10:02 Method Of Arrival: Ambulatory hb 10:02 Acuity: FUENTES 3 hb Triage Assessment: 10:11 General: Appears in no apparent distress. Behavior is calm, cooperative. Pain: Denies kd3 pain. GI: Reports pale stool. Historical: - Allergies: 10:03 No Known Allergies; hb - Home Meds: 10:03 insulin [Active]; lisinopril Oral [Active]; Metoprolol Tartrate Oral [Active]; hb pantoprazole oral [Active]; Creon oral [Active]; - PMHx: 10:03 Anxiety; diabetes mellitus; Hypertension; Pancreatitis; GERD; hb - PSHx: 10:03 right knee; hb - Immunization history:: Adult Immunizations up to date. - Social history:: Smoking status: Reported history of juuling and/or vaping. Patient uses alcohol, occasionally. - Family history:: not pertinent. - Hospitalizations: : No recent hospitalization is reported. Screenin:10 [facility] ED Fall Risk Assessment (Adult) History of falling in the last 3 months, kd3 including since admission No falls in past 3 months (0 pts) Confusion or Disorientation No (0 pts) Intoxicated or Sedated No (0 pts) Impaired Gait No (0 pts) Mobility Assist Device Used No (0 pt) Altered Elimination No (0 pt) Score/Fall Risk Level 0 - 2 = Low Risk Maintained a safe environment. Abuse screen: Denies threats or abuse. Denies injuries from another. Nutritional screening: No deficits noted. Tuberculosis screening: No symptoms or risk factors identified. Assessment: 10:12 GI: Abdomen is non-distended, obese. kd3 13:59 General: PT blood glucose decreased by 35 points. will leave patient at current rate of kd3 10 units/ hr. . Vital Signs: 10:02 BP 174 / 110; Pulse 119; Resp 15; Temp 98.4; Pulse Ox 100% on R/A; Weight 104.33 kg; hb Height 5 ft. 11 in. ; Pain 8/10; 11:40 BP 142 / 87; Pulse 84; Resp 19; Pulse Ox 99% on R/A; kd3 10:02 Body Mass Index 32.08 (104.33 kg, 180.34 cm) hb 10:02 Pain Scale: Adult hb ED Course: 09:50 Patient arrived in ED. mr 09:58 Melita Frederick, RN is Primary Nurse. kd3 09:59 Ricardo Fields MD is Attending Physician. rn 10:03 Triage completed. hb 10:05 Arm band placed on. hb 10:11 Provided Education on: . kd3 10:12 Patient has correct armband on for positive identification. Bed in low position. Call kd3 light in reach. Side rails up X 1. 10:27 Troponin High Sensitivity Sent. kd3 10:27 CBC with Diff Sent. kd3 10:27 CMP Sent. kd3 10:27 Lipase Sent. kd3 10:28 Inserted saline lock: 22 gauge in right antecubital area, using aseptic technique. tt4 Blood collected. Accessed. 11:11 CT Aorta for Dissection In Process Unspecified. EDMS 11:45 US Abdomen Limited In Process Unspecified. EDMS 12:09 Neymar Rayo MD is Hospitalizing Provider. rn 12:26 Hola Moser is Hospitalizing Provider. rn Administered Medications: 10:27 Drug: NS 0.9% IV 1000 ml IV at 1 bolus Per protocol; 1000 mL bolus Route: IV; Rate: 1 kd3 bolus; Site: right antecubital; 10:27 Drug: Famotidine IVP 20 mg IVP once; dilute with 10 mL 0.9% NaCl; give over 2 minutes kd3 Route: IVP; Site: right antecubital; 10:27 Drug: Ondansetron IVP 4 mg IVP once; over 2 minutes Route: IVP; Site: right antecubital;kd3 10:27 Drug: morphine IVP or IV 4 mg IVP once over 4 mins Route: IVP; Infused Over: 4 mins; kd3 Site: right antecubital; 12:04 Drug: Insulin Regular Human Sub-Q 10 units Sub-Q once {Co-Signature: peterson (moe Cuevas RN).} Route: Sub-Q; Site: abdomen; 12:05 Drug: NS 0.9% IV 1000 ml IV at 1000 ml once Route: IV; Rate: 1000 ml; Site: right kd3 antecubital; 13:00 Drug: Insulin Drip - (Insulin Regular Human IVP 100 units, NS 0.9% IV 100 ml) IV at kd3 calculated rate continuous; Standard concentration 1unit/ml; Dose for DKA is 0.1 units/kg/hr {Co-Signature: peterson (Carol Cuevas RN).} Route: IV; Rate: calculated rate; Site: right antecubital; 14:01 Follow up: Rate change 10 units/hr kd3 Medication: 10:12 VIS not applicable for this client. kd3 Outcome: 12:11 Decision to Hospitalize by Provider. rn 14:59 Patient left the ED. jl7 Signatures: Dispatcher [employer] EDID Carol Peraza, Reg Reg mr Ricardo Fields MD MD rn Baxter, Heather RN Zeferino Louis RN RN jl7 Melita Frederick RN RN kd3 Shanice Maravilla tt4 Carol Cuevas RN9 Corrections: (The following items were deleted from the chart) 11:51 10:28 Inserted saline lock: 16 gauge in right antecubital area, using aseptic tt4 technique. Blood collected. kd3 14:59 11:51 BETA HYDROXYBUTYRATE+C.LAB.BRZ drawn and sent. tt4 jl7
--- NOTE | 2023-05-07 12:11 | EDPHYS ---
Physician Documentation [facility] Name: Micah Inman Age: 37 yrs Sex: Male : 1985 Arrival Date: 05/07/2023 Time: 09:46 Bed 20 Private MD: ED Physician Ricardo Fields HPI: 05/07 10:54 This 37 yrs old Male presents to ER via Ambulatory with complaints of rn Palpitations, Vomiting, Abdominal Pain. 10:54 The patient presents with abdominal pain in the epigastric area. Onset: The rn symptoms/episode began/occurred this morning. The symptoms radiate to chest. Associated signs and symptoms: Pertinent positives: nausea and vomiting, Pertinent negatives: blood in stools, fever, shortness of breath, testicular pain, vomiting blood. The symptoms are described as achy, crampy. Modifying factors: The symptoms are alleviated by nothing, the symptoms are aggravated by nothing. Severity of pain: At its worst the pain was moderate in the emergency department the pain has improved. The patient has not experienced similar symptoms in the past. Patient reports began this morning with epigastric and upper abdominal pain associated with nausea and vomiting. Radiates into the chest. Also reports fast heart rate. Patient reports worst symptom is abdominal pain. No blood in stool or dark stool. No hematemesis. Has had pancreatitis in the past due to drinking but has cut down. No trauma.. Historical: - Allergies: 10:03 No Known Allergies; hb - Home Meds: 10:03 insulin [Active]; lisinopril Oral [Active]; Metoprolol Tartrate Oral [Active]; hb pantoprazole oral [Active]; Creon oral [Active]; - PMHx: 10:03 Anxiety; diabetes mellitus; Hypertension; Pancreatitis; GERD; hb - PSHx: 10:03 right knee; hb - Immunization history:: Adult Immunizations up to date. - Social history:: Smoking status: Reported history of juuling and/or vaping. Patient uses alcohol, occasionally. - Family history:: not pertinent. - Hospitalizations: : No recent hospitalization is reported. ROS: 10:54 Constitutional: Negative for fever, chills, and weight loss, Neck: Negative for injury, rn pain, and swelling, Cardiovascular: Positive for palpitations, negative for chest pain Respiratory: Negative for shortness of breath, cough, wheezing, and pleuritic chest pain, Abdomen/GI: Positive for abdominal pain and nausea/vomiting Back: Negative for injury and pain, MS/Extremity: Negative for injury and deformity, Skin: Negative for injury, rash, and discoloration, Neuro: Positive for generalized weakness Exam: 10:54 Constitutional: This is a well developed, well nourished patient who is awake, alert, rn appears anxious Head/Face: Normocephalic, atraumatic. ENT: Dry mucous membranes Cardiovascular: Tachycardic, regular. No pulse deficits. No murmur Respiratory: No increased work of breathing, no retractions or nasal flaring. Abdomen/GI: Soft, tender epigastrium right upper quadrant and left upper quadrant. No peritoneal signs. Negative Garcia. Skin: Warm, dry MS/ Extremity: Pulses equal, no cyanosis. Neuro: Awake and alert, GCS 15 Vital Signs: 10:02 BP 174 / 110; Pulse 119; Resp 15; Temp 98.4; Pulse Ox 100% on R/A; Weight 104.33 kg; hb Height 5 ft. 11 in. ; Pain 8/10; 11:40 BP 142 / 87; Pulse 84; Resp 19; Pulse Ox 99% on R/A; kd3 10:02 Body Mass Index 32.08 (104.33 kg, 180.34 cm) hb 10:02 Pain Scale: Adult hb MDM: 10:00 Patient medically screened. rn 12:07 Differential diagnosis: gastritis, gastroesophageal reflux disease, non-specific abd rn pain, pancreatitis, Peptic Ulcer Disease, Perf. Duodenal Ulcer, Perf. Gastric Ulcer. Data reviewed: vital signs, nurses notes, lab test result(s), radiologic studies, CT scan, ultrasound, and as a result, I will admit patient. Consideration of Admission/Observation Patient was admitted/placed on observation. Escalation of care including admission/observation considered. Management of patient was discussed with the following: Hospitalist: . Counseling: I had a detailed discussion with the patient and/or guardian regarding the historical points, exam findings, and any diagnostic results supporting the discharge/admit diagnosis, lab results, radiology results, the need for further work-up and treatment in the hospital. Response to treatment: the patient's symptoms have mildly improved after treatment, and as a result, I will admit patient. ED course: Will admit patient for mild to moderate pancreatitis, acidosis likely combination of vomiting and mild DKA. Patient with anion gap and elevated beta hydroxybutyrate. Glucose 400. Given some acute insulin and will start insulin drip. Patient claims Dr. Marrufo is his physician but spoke to Dr. Marrufo and does not know patient. Patient last admitted to hospitalist service in 2018, will admit to hospitalist service for further care.. ED course: I personally spent 35 minutes engaged in work directly related to the individual patient's care. This does not include any time spent performing procedures. The patient has been deemed critically ill because of acidosis, DKA, requiring insulin drip. 05/07 10:11 Order name: CBC with Diff; Complete Time: 10:54 rn 05/07 10:11 Order name: CMP; Complete Time: 11:16 rn 05/07 10:11 Order name: Lipase; Complete Time: 11:16 rn 05/07 10:11 Order name: Troponin High Sensitivity; Complete Time: 11:16 rn 05/07 11:23 Order name: BETA HYDROXYBUTYRATE; Complete Time: 12:04 EDMS 05/07 13:11 Order name: Glucose, Ancillary Testing EDMS 05/07 13:34 Order name: Basic Metabolic Panel EDMS 05/07 13:34 Order name: Basic Metabolic Panel EDMS 05/07 13:34 Order name: Basic Metabolic Panel EDMS 05/07 13:34 Order name: Basic Metabolic Panel EDMS 05/07 13:34 Order name: Calcium Level EDMS 05/07 13:34 Order name: Calcium Level EDMS 05/07 13:34 Order name: Calcium Level EDMS 05/07 13:34 Order name: Calcium Level EDMS 05/07 13:34 Order name: CBC with Automated Diff EDMS 05/07 13:34 Order name: CBC with Automated Diff EDMS 05/07 13:34 Order name: CBC with Automated Diff EDMS 05/07 13:34 Order name: CBC with Automated Diff EDMS 05/07 13:34 Order name: Lipid Profile EDMS 05/07 13:34 Order name: Lipid Profile EDMS 05/07 13:34 Order name: Magnesium EDMS 05/07 13:34 Order name: Magnesium EDMS 05/07 13:34 Order name: Magnesium EDMS 05/07 13:34 Order name: Magnesium EDMS 05/07 13:34 Order name: Phosphorus EDMS 05/07 13:34 Order name: Phosphorus EDMS 05/07 13:34 Order name: Phosphorus EDMS 05/07 13:34 Order name: Phosphorus EDMS 05/07 13:35 Order name: ABG Arterial Blood Gas EDMS 05/07 13:35 Order name: Urinalysis w/ reflexes EDMS 05/07 13:35 Order name: Osmolality, Serum EDMS 05/07 13:35 Order name: Osmolality, Serum EDMS 05/07 13:35 Order name: Osmolality, Serum EDMS 05/07 13:35 Order name: Osmolality, Serum EDMS 05/07 14:08 Order name: Glucose, Ancillary Testing EDMS 05/07 10:11 Order name: US Abdomen Limited; Complete Time: 12:26 rn 05/07 10:11 Order name: CT Aorta for Dissection; Complete Time: 11:48 rn 05/07 10:11 Order name: EKG; Complete Time: 10:12 rn 05/07 13:34 Order name: CONS Physician Consult EDMS 05/07 13:34 Order name: Delirium Tremens Prophylaxis-IV Meds EDMS 05/07 10:11 Order name: IV Saline Lock; Complete Time: 10:27 rn 05/07 10:11 Order name: Labs collected and sent; Complete Time: 10:27 rn 05/07 10:11 Order name: EKG - Nurse/Tech; Complete Time: 10:26 rn Administered Medications: 10:27 Drug: NS 0.9% IV 1000 ml IV at 1 bolus Per protocol; 1000 mL bolus Route: IV; Rate: 1 kd3 bolus; Site: right antecubital; 10:27 Drug: Famotidine IVP 20 mg IVP once; dilute with 10 mL 0.9% NaCl; give over 2 minutes kd3 Route: IVP; Site: right antecubital; 10:27 Drug: Ondansetron IVP 4 mg IVP once; over 2 minutes Route: IVP; Site: right antecubital;kd3 10:27 Drug: morphine IVP or IV 4 mg IVP once over 4 mins Route: IVP; Infused Over: 4 mins; kd3 Site: right antecubital; 12:04 Drug: Insulin Regular Human Sub-Q 10 units Sub-Q once {Co-Signature: peterson (Faith 3 Carol Liu RN).} Route: Sub-Q; Site: abdomen; 12:05 Drug: NS 0.9% IV 1000 ml IV at 1000 ml once Route: IV; Rate: 1000 ml; Site: right kd3 antecubital; 13:00 Drug: Insulin Drip - (Insulin Regular Human IVP 100 units, NS 0.9% IV 100 ml) IV at kd3 calculated rate continuous; Standard concentration 1unit/ml; Dose for DKA is 0.1 units/kg/hr {Co-Signature: peterson (Carol Cuevas RN).} Route: IV; Rate: calculated rate; Site: right antecubital; 14:01 Follow up: Rate change 10 units/hr kd3 Disposition Summary: 05/07/23 12:11 Hospitalization Ordered Notes: Hospitalization Status: Inpatient Admission rn Location: Intensive Care Unit rn Condition: Fair rn Problem: new rn Symptoms: have improved rn Bed/Room Type: Standard rn Provider: Hola Moser(05/07/23 12:26) rn Room Assignment: 6-(05/07/23 14:04) eb Diagnosis - Other specified diabetes mellitus with ketoacidosis without coma rn - Acute pancreatitis without necrosis or infection, unspecified rn - Acidosis rn Forms: - Medication Reconciliation Form rn - SBAR form rn - Leadership Thank You Letter weed burner time excluding procedures: 12:07 Critical care time: Bedside Care: 35 minutes. Total time: 35 minutes rn Signatures: Dispatcher [employer] Ricardo Moore MD MD rn Baxter, Heather RN RN Lanette Butler Kyli RN RN kd3 Carol Cuevas RN [id number] Corrections: (The following items were deleted from the chart) 12:26 12:11 Neymar Rayo rn rn 14:04 12:11 rancho melara 14:59 11:17 BETA HYDROXYBUTYRATE+C.LAB.BRZ ordered. rn [id number]
[2023-05-07] MEDS ORDERED: NA CHLORIDE 0.9% 1,000 ML ONE (12:13)
[2023-05-07] MEDS ORDERED: INSULIN REGULAR (HUMAN) 100 UNIT/ML ONE (12:13)
--- NOTE | 2023-05-07 12:22 | RAD REPORT ---
EXAM DESCRIPTION: US - Abdomen Exam Limited - 05/07/2023 11:43 am CLINICAL HISTORY: ABD PAIN COMPARISON: Abdomen Pelvis W Contrast dated 03/24/2022 TECHNIQUE: Sonographic grayscale and color flow images of the right upper abdominal quadrant were obtained. FINDINGS: The gallbladder demonstrates no gallstones. No pericholecystic fluid or gallbladder wall t hickening. The common bile duct is normal measuring 4 mm. The liver demonstrates no findings of intrahepatic biliary dilatation. IMPRESSION: Unremarkable examination.
[2023-05-07] MEDS ORDERED: INSULIN -REGULAR HUMAN 100 UNIT in NA CHLORIDE 0.9% 99 ML IV SCH (13:00)
[2023-05-07] MEDS ORDERED: ONDANSETRON 4 MG/2 ML VIAL IV PRN (13:15)
[2023-05-07] MEDS ORDERED: LORazepam 2 MG/ML VIAL IV PRN (13:15)
[2023-05-07] MEDS ORDERED: NA CHLORIDE 0.9% 1,000 ML IV ONE (13:15)
[2023-05-07] MEDS ORDERED: FLUMAZENIL 0.1 MG/ML (5 mL VIAL) IV PRN (13:15)
[2023-05-07] MEDS: NS KCL 20MEQ 1,000 ML IV SCH ×2 (14:00→16:00)
[2023-05-07] MEDS ORDERED: D5 0.45 NS 1,000 ML IV SCH (14:00)
[2023-05-07] MEDS: LORazepam 2 MG/ML VIAL IV SCH ×3 (14:00→21:59)
[2023-05-07] MEDS ORDERED: MORPHINE 4 MG/ML SYR IV PRN (14:19)
[2023-05-07] MEDS ORDERED: SODIUM CHLORIDE 0.9% 10ML INJ IV PRN (14:51)
[2023-05-07] MEDS: NA CHLORIDE 0.9% 1,000 ML IV SCH ×2 (15:00→21:40)
[2023-05-07] MEDS: INSULIN -REGULAR HUMAN 100 UNIT in NA CHLORIDE 0.9% 100 ML IV SCH (15:00)
[2023-05-07 15:21] LABS: Arterial Blood Carboxyhemoglob 1.3 % (0-1.5); Blood Gas Oxyhemoglobin 88.3 % (94-97)
[2023-05-07 15:30] VITALS: BMI 30.1
[2023-05-07] MEDS: PANTOPRAZOLE 40 MG INJ IVP SCH ×2 (15:30→19:57)
[2023-05-07 15:47] LABS: Potassium 3.8 mEq/L (3.5-5.1)
[2023-05-07] MEDS: D5NS KCL 20MEQ 20 MEQ/1,000 ML BAG IV SCH (18:17)
--- NOTE | 2023-05-07 18:57 | P.HP ---
Certification for Inpatient With expected LOS: >2 Midnights Patient will require the following post-hospital care: None Practitioner: I am a practitioner with admitting privileges, knowledge of patient current condition, hospital course, and medical plan of care. Services: Services provided to patient in accordance with Admission requirements found in Title 42 Section 412.3 of the Code of Federal Regulations Patient History Date of Service: 05/07/23 Reason for admission: abdominal pain, pancreatitis History of Present Illness: Micah Inman is a 34-year-old male with past medical history of hypertension seizures, diabetes type 1, vaping, alcohol abuse with last drink last night usually drinking 3 days a week, presents to the ER with complaints of abdominal pain. He explained he was not able to sleep last night due to the pain, he could not get comfortable, associated symptoms radiating to the chest. Symptoms described as achy and cramping, which has gotten worse this morning and brought him to the ED. Initial vitals blood pressure 174/110, heart rate 119, respirations 15, temp 98.4, pulse ox 100% on room air, WBCs 10, sodium 125, glucose >300, lipase 242, beta hydroxy greater than 4.5, gap 26.2, ABGs: pH 7.32 PCO2 32.9 PO2 69.1, HCO3 36.3, triglycerides 2105, troponin 3.4. CT Angio reveals inflammatory changes involving the entirety of the pancreas, suggestive of acute pancreatitis. 1.3 cm suspected peripancreatic cyst at the level of the neck/proximal body junction anteriorly. Of note, Micah has a history of pancreatitis, records reviewed. Mr. Inman will be admitted to hospitalist service for management and treatment of acute pancreatitis. Allergies No Known Allergies Allergy (Unverified 01/02/16 14:58) Home Medications: ALPRAZolam [Alprazolam] 2 mg PO BID 12/15/17 Metoprolol Tartrate 25 mg PO BID 12/15/17 Omeprazole [Prilosec] 40 mg PO DAILY 12/15/17 lisinopriL [Prinivil*] 20 mg PO DAILY 12/15/17 Diclofenac Sodium [Voltaren] 75 mg PO BID 05/07/23 Lipase/Protease/Amylase [Creon Dr 6,000 Unit Capsule] 6,000 units PO TID 05/07/23 - Past Medical/Surgical History Diabetic: Yes -: Gout -: Anxiety -: Hypertension -: Pancreatitis -: GERD -: Diabetes -: Right knee surgery - Family History Father History Unknown: Yes -: Cancer Sister History Unknown: Yes Notes: Diverticulitis - Social History Smoking Status: Current every day smoker Alcohol use: Yes CD- Drugs: Yes Caffeine use: Yes Place of Residence: Home Review of Systems General: Chills, Weakness Eyes: Unremarkable ENT: Unremarkable Respiratory: Other (SOB) Cardiovascular: Chest Pain Gastrointestinal: Nausea, Vomiting, Abdominal Pain Musculoskeletal: Unremarkable Integumentary: Unremarkable Physical Examination - Vital Signs Temperature: 97.2 F Blood Pressure: 163/78 Pulse: 91 Respirations: 19 Pulse Ox (%): 99 - Physical Exam General: Alert, Oriented x3, Acute distress HEENT: Atraumatic, Normocephalic, PERRLA Neck: Supple, 2+ carotid pulse no bruit, JVD not distended Respiratory: Clear to auscultation bilaterally, Normal air movement Cardiovascular: No edema, Normal pulses, Regular rate/rhythm, Normal S1 S2 Capillary refill: <2 Seconds Gastrointestinal: Normal bowel sounds, Soft and benign Musculoskeletal: No clubbing, No swelling, No contractures Neurological: Normal speech, Normal strength at 5/5 x4 extr, Normal tone - Studies Laboratory Data (last 24 hrs) 05/07/23 05/07/23 10:24 10:24 WBC 10.00 Hgb 15.8 Hct 46.2 Plt Count 186 Sodium 125 L Potassium 4.2 BUN 16 Creatinine 1.11 Glucose 374 H Total Bilirubin 0.8 AST 14 L ALT 36 Alkaline Phosphatase 82 Lipase 242 H Assessment and Plan - Plan Assessment and Plan Acute pancreatitis 2/2 alcohol abuse -CT angio "Inflammatory changes involving the entirety of the pancreas, suggestive of acute pancreatitis. 1.3 cm. Suspected peripancreatic cyst at the level of the neck/proximal body junction anteriorly" -IVF bolus and maintanance -Pain control -blood cultures -Triglycerides 2105 -lipase 242 -Check labs in AM -NPO DKA in a patient with DM type1 Metabolic acidosis psuedoHyponatremia s/s Hyperglycemia -initial labs- anion gap 26.2, beta-hydroxy >4.50, Serum glucose 314 -Insulin gtt -IVF -Qhour accucheck -BMP q4h -A1C pending Alcohol abuse -drinks alcohol 3 times a week and last drink was last night -Withdraw -Ativan PRN Dieulafoy lesion -Incidental finding according to the CT angio read -consult GI h/o seizures -not on daily medications -supportive care Full code DVT ppx: heparin LOS >2 days Discharge Plan: Home Plan to discharge in: Greater than 2 days - Advance Directives Does patient have a Living Will: No Does patient have a Durable POA for Healthcare: No Time Spent Managing Pts Care (In Minutes): 55
[2023-05-07] MEDS: HYDROMORPHONE HCL 1 MG/ML INJ IV PRN (19:59)
[2023-05-07 21:19] LABS: Potassium 3.6 mEq/L (3.5-5.1)
[2023-05-07 22:00] LABS: Specific Gravity 1.024 (1.005-1.030); Urine Bacteria None Seen /HPF (<20); Urine Bilirubin NEGATIVE (Negative); Urine Blood Negative (Negative); Urine Clarity Clear (Clear); Urine Color Light-Yellow (Yellow); Urine Glucose 4+ (Negative); Urine Mucus Slight /HPF (None Seen); Urine Protein 1+ (Negative); Urine RBC <5 /HPF (None Seen); Urine Urobilinogen Normal (Normal); Urine pH 5.5 (5.0-7.0)
[2023-05-07 23:37] LABS: Potassium 4.2 mEq/L (3.5-5.1)
[2023-05-08] MEDS: HYDROMORPHONE HCL 1 MG/ML INJ IV PRN ×6 (00:06→20:03)
[2023-05-08] MEDS: LORazepam 2 MG/ML VIAL IV SCH ×3 (02:12→09:54)
[2023-05-08] MEDS: D5NS KCL 20MEQ 20 MEQ/1,000 ML BAG IV SCH ×3 (02:14→18:18)
[2023-05-08] MEDS: NA CHLORIDE 0.9% 1,000 ML IV SCH ×3 (04:20→17:35)
[2023-05-08 04:58] LABS: Absolute Lymphocytes (CBC) 2.1 K/uL (0.7-4.9); Hematocrit 38.6 % (39.6-49.0); Lymphocytes % 47.7 % (15.3-44.8); MPV 8.4 fL (7.6-11.3); Platelets 117 thou/uL (152-406); RBC Red Blood Cell Count 4.34 M/uL (4.33-5.43)
[2023-05-08 05:28] LABS: BUN Blood Urea Nitrogen 8 mg/dL (7-18); Bicarbonate 22 mEq/L (21-32); Glomerular Filtration Rate 116 ml/min (=/>90); Glucose Level 174 mg/dL (74-106); HDL Cholesterol 55 mg/dL (40-60); Magnesium 1.8 mg/dL (1.6-2.4); Phosphorus 2.4 mg/dL (2.5-4.9); Potassium 3.3 mEq/L (3.5-5.1); Sodium Level 134 mEq/L (136-145)
[2023-05-08 05:39] LABS: LDL, Direct 102 mg/dL (100-129)
[2023-05-08] MEDS: INSULIN -REGULAR HUMAN 100 UNIT in NA CHLORIDE 0.9% 100 ML IV SCH (07:30)
[2023-05-08] MEDS: ENOXAPARIN 40 MG/0.4 ML SQ SCH (08:06)
[2023-05-08] MEDS: FOLIC ACID 1 MG TABLET PO SCH (08:06)
[2023-05-08] MEDS: MULTIVITAMIN TAB PO SCH (08:07)
[2023-05-08] MEDS: PANTOPRAZOLE 40 MG INJ IVP SCH ×2 (08:08→20:02)
[2023-05-08] MEDS: THIAMINE HCL 100 MG TABLET PO SCH (08:09)
--- NOTE | 2023-05-08 12:29 | P.PN ---
Subjective Date of Service: 05/08/23 Chief Complaint: abdominal pain, pancreatitis Patient states he is doing much better today. He states his abdominal pain is better. Anion gap closed, DKA resolved. Physical Examination - Vital Signs Temperature: 97.5 F Blood Pressure: 148/92 Pulse: 67 Respirations: 22 Pulse Ox (%): 100 Assessment And Plan - Plan Physical Exam General: Alert, Oriented x3, Acute distress HEENT: Atraumatic, Normocephalic, PERRLA Neck: Supple, 2+ carotid pulse no bruit, JVD not distended Respiratory: Clear to auscultation bilaterally, Normal air movement Cardiovascular: No edema, Normal pulses, Regular rate/rhythm, Normal S1 S2 Capillary refill: <2 Seconds Gastrointestinal: Normal bowel sounds, Soft and benign Musculoskeletal: No clubbing, No swelling, No contractures Neurological: Normal speech, Normal strength at 5/5 x4 extr, Normal tone Diagnosis Acute pancreatitis DKA Hypertriglyceridemia Alcohol abuse Acute pancreatitis 2/2 alcohol abuse/hypertriglyceridemia -CT angio "Inflammatory changes involving the entirety of the pancreas, suggestive of acute pancreatitis. 1.3 cm. Suspected peripancreatic cyst at the level of the neck/proximal body junction anteriorly" -Continue supportive measures with IV fluid -Pain control -Ice chips and sips. -Triglycerides level trending down -Continue insulin drip for hypertriglyceridemia -Monitor triglyceride levels daily -Daily lipase level check DKA in a patient with DM type1 Metabolic acidosis psuedoHyponatremia s/s Hyperglycemia -initial labs- anion gap 26.2, beta-hydroxy >4.50, Serum glucose 314 -On any gap closed -Patient is on insulin drip for hypertriglyceridemia -Continue IVF -Qhour accucheck -BMP q4h -A1C pending Alcohol abuse -drinks alcohol 3 times a week and last drink was last night -Monitor for withdrawal -Ativan PRN Dieulafoy lesion -Incidental finding according to the CT angio read -Follow-up with GI as outpatient. h/o seizures -not on daily medications -supportive care Full code DVT ppx: heparin Discharge Plan: Home
[2023-05-08] MEDS: LORazepam 2 MG/ML VIAL IV PRN ×3 (14:08→22:03)
[2023-05-08 14:21] LABS: Albumin 3.3 g/dL (3.4-5.0); Bilirubin Total 0.4 mg/dL (0.2-1.0); Potassium 3.3 mEq/L (3.5-5.1); Protein, Total 6.8 g/dL (6.4-8.2)
--- NOTE | 2023-05-08 18:20 | P.PN ---
Subjective Date of Service: 05/08/23 Chief Complaint: abdominal pain, pancreatitis Subjective: Improving (Abdominal pain improved by 50%. DKA resolved. TGs down from 2105 to 1095. Still NPO.) Review of Systems 10-point ROS is otherwise unremarkable General: Weakness (Improved.) Gastrointestinal: Abdominal Pain (Improved.) Physical Examination - Vital Signs Temperature: 97.5 F Blood Pressure: 148/96 Pulse: 70 Respirations: 12 Pulse Ox (%): 97 - Physical Exam General: Alert, In no apparent distress, Oriented x3, Cooperative HEENT: Atraumatic, Normocephalic, PERRLA, EOMI Neck: Supple Respiratory: Normal air movement Cardiovascular: Normal pulses Gastrointestinal: No rebound, Tenderness (Mild) Neurological: Normal gait, Normal speech Assessment And Plan - Current Problems (Diagnosis) (1) DKA (diabetic ketoacidosis) Current Visit: Yes Status: Acute Comment: Improved. (2) Acute alcoholic pancreatitis Onset Date: 12/16/17 Current Visit: No Status: Acute Qualifiers: Acute pancreatitis complication: no infection or necrosis Qualified Code(s): K85.20 - Alcohol induced acute pancreatitis without necrosis or infection (3) Alcohol abuse Current Visit: No Status: Acute (4) Diabetes mellitus Current Visit: No Status: Suspected Qualifiers: Diabetes mellitus type: type 2 Diabetes mellitus senior living insulin use: without terminal system operator use Diabetes mellitus complication status: with other specified complication Qualified Code(s): E11.69 - Type 2 diabetes mellitus with other specified complication - Plan REC: 1) continue IVFs 2) monitor labs, await lipase 3) AA or rehab on discharge
[2023-05-08] MEDS: METOPROLOL TARTRATE 5 MG/5 ML INJ IV PRN (20:30)
[2023-05-09] MEDS: D5NS KCL 20MEQ 20 MEQ/1,000 ML BAG IV SCH (01:01)
[2023-05-09] MEDS: INSULIN -REGULAR HUMAN 100 UNIT in NA CHLORIDE 0.9% 100 ML IV SCH (01:14)
[2023-05-09] MEDS: LORazepam 2 MG/ML VIAL IV PRN ×2 (01:57→06:17)
[2023-05-09 04:56] LABS: Absolute Lymphocytes (CBC) 1.6 K/uL (0.7-4.9); Hematocrit 37.6 % (39.6-49.0); Lymphocytes % 46.4 % (15.3-44.8); MCV 89.3 fL (80-100); MPV 8.1 fL (7.6-11.3); Platelets 102 thou/uL (152-406); RBC Red Blood Cell Count 4.21 M/uL (4.33-5.43)
[2023-05-09 05:02] LABS: Magnesium 1.5 mg/dL (1.6-2.4)
[2023-05-09] MEDS: HYDROMORPHONE HCL 1 MG/ML INJ IV PRN ×2 (05:16)
[2023-05-09 05:37] LABS: Potassium 3.3 mEq/L (3.5-5.1)
[2023-05-09] MEDS ORDERED: Magnesium Sulfate 2gm IVPB 2 G/50 ML BAG IV ONE (05:45)
[2023-05-09 05:47] VITALS: O2SAT 95
[2023-05-09] MEDS: METOPROLOL TARTRATE 5 MG/5 ML INJ IV PRN (06:38)
[2023-05-09] MEDS: MULTIVITAMIN TAB PO SCH (08:00)
[2023-05-09] MEDS: THIAMINE HCL 100 MG TABLET PO SCH (08:00)
[2023-05-09] MEDS: FOLIC ACID 1 MG TABLET PO SCH (08:00)
[2023-05-09] MEDS: ENOXAPARIN 40 MG/0.4 ML SQ SCH (08:01)
[2023-05-09] MEDS: PANTOPRAZOLE 40 MG INJ IVP SCH (08:01)
[2023-05-09] MEDS ORDERED: lisinopriL 20 MG TAB PO SCH (09:00)
[2023-05-09] MEDS ORDERED: METOPROLOL TAR 25 MG TAB PO SCH (09:00)
[2023-05-09] MEDS ORDERED: GLUCAGON 1 MG/VIAL IM PRN (10:01)
[2023-05-09] MEDS ORDERED: D10W 250 ML BAG IV PRN (10:10)
[2023-05-09] MEDS ORDERED: INSULIN REGULAR (HUMAN) 100 UNIT/ML SQ SCH (11:30)
[2023-05-09 12:00] VITALS: BP 158/73; TEMP 97
--- NOTE | 2023-05-09 12:05 | P.DS ---
Admission Date: 05/07/23 Discharge Date: 05/09/23 Disposition: ROUTINE DISCHARGE Discharge Condition: FAIR Reason for Admission: abdominal pain, pancreatitis Brief History of Present Illness: Miach Inman is a 34-year-old male with past medical history of hypertension, seizures, diabetes type 1, vaping, alcohol abuse with last drink the night before admission. He usually drinks 3 days a week. He presents to the ER with complaints of abdominal pain. Symptoms described as achy and cramping, which has gotten worse this morning and brought him to the ED. Initial vitals blood pressure 174/110, heart rate 119, respirations 15, temp 98.4, pulse ox 100% on room air, WBCs 10, sodium 125, glucose >300, lipase 242, beta hydroxy greater than 4.5, gap 26.2, ABGs: pH 7.32 PCO2 32.9 PO2 69.1, HCO3 36.3, triglycerides 2105, troponin 3.4. CT Angio reveals inflammatory changes involving the entirety of the pancreas, suggestive of acute pancreatitis. 1.3 cm suspected peripancreatic cyst at the level of the neck/proximal body junction anteriorly. Of note, Micah has a history of pancreatitis, records reviewed. Mr. Inman will be admitted to hospitalist service for management and treatment of acute pancreatitis. Hospital Course: Diagnosis Acute pancreatitis DKA Hypertriglyceridemia Alcohol abuse Acute pancreatitis 2/2 alcohol abuse/hypertriglyceridemia/pancreatic cyst -CT angio "Inflammatory changes involving the entirety of the pancreas, suggestive of acute pancreatitis. 1.3 cm. Suspected peripancreatic cyst at the level of the neck/proximal body junction anteriorly" -Patient treated with IV fluid -Pain control with IV hydromorphone -Ice chips and sips. -Triglyceride level markedly elevated to 2105 contributing to acute pancreatiti s. -Patient treated for DKA and hypertriglyceridemia with insulin drip. -Triglycerides level trended down to 595. -Lipase level improved to normal. -Patient's symptoms resolved and he tolerated solid diet. -Patient started on fenofibrate on discharge. -Alcohol cessation advised. -He has been informed to follow-up with his PCP regarding the pancreatic cyst. DKA in a patient with DM type1 Metabolic acidosis psuedoHyponatremia s/s Hyperglycemia -initial labs- anion gap 26.2, beta-hydroxy >4.50, Serum glucose 314 -Treated with insulin -Anion gap closed -Continue insulin drip for hypertriglyceridemia until triglyceride level was less than 1000. -Patient treated with aggressive IV hydration per DKA protocol -Patient is to transition to subcutaneous insulin -He tolerated diet. -Patient states that he takes long-acting insulin 37 units once a day, short acting insulin 20 units twice a day(before breakfast and lunch) -Patient discharged with his home dose long-acting insulin, and short-acting insulin 15 units before meals. Alcohol abuse -drinks alcohol 3 times a week and last drink was last night -No sign of alcohol withdrawal -Ativan PRN given. Dieulafoy lesion -Incidental finding according to the CT angio read -Follow-up with GI as outpatient. h/o seizures -not on daily medications -No seizures during the hospital stay. Vital Signs/Physical Exam: Temp Pulse Resp BP Pulse Ox 97.8 F 80 14 176/112 H 97 05/09/23 04:00 05/09/23 06:38 05/09/23 06:00 05/09/23 08:36 05/09/23 01:00 General: Alert, In no apparent distress, Oriented x3 HEENT: Mucous membr. moist/pink Neck: Supple, JVD not distended Respiratory: Clear to auscultation bilaterally, Normal air movement Cardiovascular: No edema, Regular rate/rhythm, Normal S1 S2 Gastrointestinal: Normal bowel sounds, Soft and benign, Non-distended, No tenderness Musculoskeletal: No swelling Integumentary: No rashes, No cyanosis Neurological: Normal speech, Normal strength at 5/5 x4 extr Laboratory Data at Discharge: WBC 3.40 thou/uL (4.3-10.9) L 05/09/23 04:39 Hgb 13.0 g/dL (13.6-17.9) L 05/09/23 04:39 Hct 37.6 % (39.6-49.0) L 05/09/23 04:39 Plt Count 102 thou/uL (152-406) L 05/09/23 04:39 Sodium 139 mEq/L (136-145) 05/09/23 04:39 Potassium 3.3 mEq/L (3.5-5.1) L 05/09/23 04:39 BUN 4 mg/dL (7-18) L 05/09/23 04:39 Creatinine 0.68 mg/dL (0.70-1.30) L 05/09/23 04:39 Glucose 134 mg/dL (74-106) H 05/09/23 04:39 Phosphorus 3.0 mg/dL (2.5-4.9) 05/09/23 04:39 Magnesium 1.5 mg/dL (1.6-2.4) L 05/09/23 04:39 Total Bilirubin 0.4 mg/dL (0.2-1.0) 05/08/23 13:22 AST 17 U/L (15-37) 05/08/23 13:22 ALT 22 U/L (16-61) 05/08/23 13:22 Alkaline Phosphatase 52 U/L (45-117) D 05/08/23 13:22 Triglycerides 595 mg/dL (<150) H 05/09/23 04:39 Cholesterol 330 mg/dL (<200) H 05/08/23 04:37 LDL Cholesterol Direct 102 mg/dL (100-129) 05/08/23 04:37 HDL Cholesterol 55 mg/dL (40-60) 05/08/23 04:37 Cholesterol/HDL Ratio 6.00 05/08/23 04:37 Lipase 28 U/L (13-75) 05/09/23 04:39 Home Medications: ALPRAZolam [Alprazolam] 2 mg PO BID 12/15/17 Omeprazole [Prilosec] 40 mg PO DAILY 12/15/17 Lipase/Protease/Amylase [Creon Dr 6,000 Unit Capsule] 6,000 units PO TID 05/07/23 Fenofibrate [Tricor] 160 mg PO DAILY #30 tab 05/09/23 Insulin Aspart [Insulin Aspart Flexpen] 15 unit SQ TIDWM #15 ml 05/09/23 Insulin Degludec [Tresiba Flextouch U-100] 37 unit SQ DAILY #15 ml 05/09/23 Metoprolol Tartrate [Lopressor*] 25 mg PO BID #60 tab 05/09/23 Thiamine HCl [Vitamin B-1*] 100 mg PO DAILY #30 tab 05/09/23 lisinopriL [Prinivil*] 20 mg PO DAILY #30 tab 05/09/23 New Medications: Insulin Aspart [Insulin Aspart Flexpen] 15 unit SQ TIDWM #15 ml Metoprolol Tartrate [Lopressor*] 25 mg PO BID #60 tab lisinopriL [Prinivil*] 20 mg PO DAILY #30 tab Insulin Degludec [Tresiba Flextouch U-100] 37 unit SQ DAILY #15 ml Fenofibrate [Tricor] 160 mg PO DAILY #30 tab Thiamine HCl [Vitamin B-1*] 100 mg PO DAILY #30 tab Physician Discharge Instructions: PROBLEM: Diabetic Ketoacidosis, Pancreatitis GOAL: Clear understanding of disease process INSTRUCTIONS:Reduce alcohol consumption, monitor diet, take medications as prescribed Diet: Diabetic Diet Activity: As tolerated DME DME: Date Ordered: Name of Company: [employer] Services Needed: Name of Company: Date or Referral: IMMUNIZATION Influenza Vaccine Indicated: No Influenza Vaccine Given: Date Given: Pneumonia Vaccine Indicated: No Pneumonia Vaccine Given: Date Given: Followup: Rocco Marrufo MD [Primary Care Provider] - 1-2 Weeks Time spent managing pt's care (in minutes): 36
[2023-05-09] MEDS ORDERED: LORazepam 2 MG/ML VIAL IV SCH (14:00)
--- NOTE | 2023-05-10 12:25 | EKG ---
Test Date: 2023-05-07 Test Time: 10:19:50 Production Engineer: JOI MEASUREMENT RESULTS: Intervals: Rate: 94 MO: 144 QRSD: 86 QT: 340 QTc: 425 [place]: P: 69 MO: 144 QRS: 67 T: 25 INTERPRETIVE STATEMENTS: Normal sinus rhythm Normal ECG Compared to ECG 10/24/2020 23:28:12 No significant changes Electronically Signed On 05-10-23 12:18:58 CDT by Naresh Pandya
== END 2023-05-09 12:15 | disposition home or self-care (01) | DRG 438 ==
LOC: ER 09:46 → ERHOLD 13:16 → 3RD-ICU 14:20
PROVIDERS: ADMIT Internal Medicine; ATTEND Internal Medicine
DX: K85.20 Alcohol induced acute pancreatitis without necrosis or infection (principal); E10.10 Type 1 diabetes mellitus with ketoacidosis without coma; K86.2 Cyst of pancreas; F10.10 Alcohol abuse, uncomplicated; I10 Essential (primary) hypertension; E78.1 Pure hyperglyceridemia; M10.9 Gout, unspecified; K21.9 Gastro-esophageal reflux disease without esophagitis; F17.200 Nicotine dependence, unspecified, uncomplicated; Z79.4 Long term (current) use of insulin; Z79.899 Other long term (current) drug therapy
CPT/HCPCS: 36415; 36600; 71275; 74175; 76705; 80048; 80053; 80061; 81001; 82010; 82310; 82805; 82947; 83036; 83690; 83735; 83930; 84100; 84478; 84484; 85025; 87040; 93005; 96372; 96374; 96375; 99285; C9113; J1170; J1650; J1815; J2405; J3475; J3480; J7030; J7799; Q9967

== ENCOUNTER 2024-07-04 17:06 | Emergency (ER) | payer BC ==
--- NOTE | 2024-07-04 17:45 | ER ---
Nurse's Notes [facility] Name: Micah Inman Age: 38 yrs Sex: Male : 1985 Arrival Date: 07/04/2024 Time: 17:06 Bed 23 Private MD: Diagnosis: Dysuria Presentation: 07/04 17:13 Chief complaint: Patient states: inability to finish peeing and rectal pain x3 days. kc6 17:15 Coronavirus screen: At this time, the client does not indicate any symptoms associated kc6 with coronavirus-19. Ebola Screen: No symptoms or risks identified at this time. Initial Sepsis Screen: Does the patient meet any 2 criteria? No. Patient's initial sepsis screen is negative. Does the patient have a suspected source of infection? No. Patient's initial sepsis screen is negative. Risk Assessment: Do you want to hurt yourself or someone else? Patient reports no desire to harm self or others. Onset of symptoms was July 04, 2024. 17:15 Method Of Arrival: Ambulatory kc6 17:15 Acuity: FUENTES 3 kc6 Historical: - Allergies: 17:15 No Known Allergies; kc6 - PMHx: 17:15 diabetes mellitus; Hypertension; Anxiety; Pancreatitis; GERD; kc6 - PSHx: 17:15 right knee; kc6 - Immunization history:: Adult Immunizations up to date. - Infectious Disease History:: Denies. - Social history:: Smoking status: Reported history of juuling and/or vaping. Screenin:47 [facility] ED Fall Risk Assessment (Adult) History of falling in the last 3 months, me1 including since admission No falls in past 3 months (0 pts) Confusion or Disorientation No (0 pts) Intoxicated or Sedated No (0 pts) Impaired Gait No (0 pts) Mobility Assist Device Used No (0 pt) Altered Elimination No (0 pt) Score/Fall Risk Level 0 - 2 = Low Risk Maintained a safe environment, Provided non-skid footwear, Hourly rounding (assess needs \T\ fall precautionary measures) done. Abuse screen: Denies threats or abuse. Nutritional screening: No deficits noted. Tuberculosis screening: No symptoms or risk factors identified. Assessment: 17:47 General: Appears uncomfortable, well groomed, well developed, well nourished, Behavior me1 is calm, cooperative, appropriate for age. Pain: Complains of pain in rectal Pain does not radiate. Pain currently is 6 out of 10 on a pain scale. Quality of pain is described as sharp, Pain began gradually, Is continuous. Neuro: Level of Consciousness is awake, alert, obeys commands, Oriented to person, place, time, situation, Appropriate for age. Cardiovascular: Patient's skin is warm and dry. Respiratory: Airway is patent Respiratory effort is even, unlabored, Respiratory pattern is regular, symmetrical. GI: Bowel sounds present X 4 quads. Abd is soft and non tender X 4 quads. : Reports inability to empty bladder all the way. EENT: No signs and/or symptoms were reported regarding the EENT system. Derm: Skin is intact, is healthy with good turgor, Skin is pink, warm \T\ dry. Musculoskeletal: No signs and/or symptoms reported regarding the musculoskeletal system. 17:49 General: Upon entering patient's room patient he was walking out and stated that he me1 didn't want to be seen anymore. Dr Gutierrez aware. Patient did sign AMA form . Vital Signs: 17:15 BP 142 / 104; Pulse 84; Resp 18 S; Temp 98.3(O); Pulse Ox 100% on R/A; Weight 98.88 kg kc6 (R); Height 6 ft. 0 in. ; Pain 8/10; 17:15 Body Mass Index 29.57 (98.88 kg, 182.88 cm) kc6 17:15 Pain Scale: Adult [facility] ED Course: 17:11 Patient arrived in ED. al6 17:11 Colby Gutierrez MD is Attending Physician. ec2 17:15 Arm band placed on. kc6 17:20 Triage completed. kc6 17:41 Torrie Douglas, COSMO is Primary Nurse. me1 17:47 Patient has correct armband on for positive identification. Bed in low position. Call me1 light in reach. Side rails up X2. Provided Education on: POC. Verbalized understanding.. 17:47 No provider procedures requiring assistance completed. Patient did not have IV access me1 during this emergency room visit. Administered Medications: No medications were administered Medication: 17:47 VIS not applicable for this client. me1 Outcome: 17:45 Discharge ordered by . ec2 17:47 Discharged to home ambulatory, me1 17:47 Condition: stable 17:47 Instructed on reasons to return to ER 17:50 Patient left the ED. me1 Signatures: Nataliia Guthrie RN RN kc6 Torrie Douglas RN RN me1 Colby Gutierrez MD MD ec2 Latoya Oliver6 Corrections: (The following items were deleted from the chart) 17:50 17:45 General: Upon entering patient's room patient he was walking out and stated that me1 he didn't want to be seen anymore. Dr Gutierrez aware. Patient did sign AMA form . me1
--- NOTE | 2024-07-04 17:45 | EDPHYS ---
Physician Documentation [facility] Name: Micah Inman Age: 38 yrs Sex: Male : 1985 Arrival Date: 07/04/2024 Time: 17:06 Bed 23 Private MD: ED Physician Colby Gutierrez HPI: 07/04 17:26 This 38 yrs old Male presents to ER via Ambulatory with complaints of Urinary ec2 Problem. 17:26 Patient arrives today for evaluation of issues with urinary frequency. Reports that he ec2 has been initiating urine and subsequently has some discomfort and has trouble finishing urination. Reports no fevers or chills, no nausea or vomiting. Denies hematuria, denies fevers or chills.. Historical: - Allergies: 17:15 No Known Allergies; kc6 - PMHx: 17:15 diabetes mellitus; Hypertension; Anxiety; Pancreatitis; GERD; kc6 - PSHx: 17:15 right knee; kc6 - Immunization history:: Adult Immunizations up to date. - Infectious Disease History:: Denies. - Social history:: Smoking status: Reported history of juuling and/or vaping. ROS: 17:27 Constitutional: as per hpi ec2 Exam: 17:27 Constitutional: GEN: NAD Head: atraumatic Eyes: EOMI Ears: External ears are ec2 normal. CV: regular rate LUNGS: no respiratory distress ABD: non-distended, soft, not guarding, not rigid SKIN: no evidence of rashes MSK: no evidence of trauma Vital Signs: 17:15 BP 142 / 104; Pulse 84; Resp 18 S; Temp 98.3(O); Pulse Ox 100% on R/A; Weight 98.88 kg kc6 (R); Height 6 ft. 0 in. ; Pain 8/10; 17:15 Body Mass Index 29.57 (98.88 kg, 182.88 cm) kc6 17:15 Pain Scale: Adult kc6 MDM: 17:12 Medical Screening Exam initiated ec2 17:27 Data reviewed: vital signs, nurses notes. ED course: Patient arrives today for dysuria. ec2 Examination remarkable for abdominal findings which are reassuring. Will obtain lab work and urine studies. Differential includes prostate issues, urinary tract infection, doubt kidney stone. 17:45 ED course: Patient reports that he no longer wanted to be seen due to monetary issues, ec2 patient's p.o. understanding regarding risk and benefits of leaving prior to completion of workup, patient discharged home. Return precautions given.. 07/04 17:20 Order name: IV Saline Lock ec2 07/04 17:20 Order name: Labs collected and sent ec2 07/04 17:20 Order name: Bladder Scanner ec2 Administered Medications: No medications were administered Disposition Summary: 07/04/24 17:45 Discharge Ordered Notes: Location: Home ec2 Condition: Stable ec2 Diagnosis - Dysuria ec2 Followup: ec2 - With: Private Physician - When: - Reason: Re-evaluation by your physician Forms: - Medication Reconciliation Form ec2 - Antibiotic Education ec2 - Prescription Opioid Use ec2 - Patient Portal Instructions ec2 - Leadership Thank You Letter ec2 Signatures: Dispatcher [employer] Nataliia Lund RN RN kc6 Colby Gutierrez MD MD ec2 Corrections: (The following items were deleted from the chart) 17:20 17:20 CBC+H.LAB.BRZ ordered. EDMS EDMS 17:20 17:20 COMPREHENSIVE METABOLIC PANEL+C.LAB.BRZ ordered. EDMS EDMS 17:20 17:20 LIPASE+C.LAB.BRZ ordered. EDMS EDMS 17:20 17:20 Urinalysis+U.LAB.BRZ ordered. EDMS EDMS
[2024-07-04 22:28] VITALS: BP 142/104; TEMP 98.3; O2SAT 100
== END 2024-07-04 17:50 | disposition home or self-care (01) ==
LOC: ER 17:06
DX: R30.0 Dysuria (principal); E11.9 Type 2 diabetes mellitus without complications; I10 Essential (primary) hypertension
CPT/HCPCS: 99282